=== PATIENT | male | born 1950 | race Caucasian/White ===

== ENCOUNTER 2024-05-19 10:58 | Outpatient (AMB) | payer OTHER, SELFPAY ==
--- NOTE | 2024-05-19 11:02 | MHC.PC.OV ---
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 Telecommunicator Supervisor Required: No Allergies No Known Allergies Allergy (Verified 05/26/24 10:45) Tobacco use date assessed: 05/19/24 Fall risk assessment: No Falls in past year Last assessed Fall Risk: 05/19/24 Dental Screening Dental Screen Date: 05/19/24 Did you have a dental visit in the last 12 months?: Yes Did you have a dental problem in the last 6 months where you did not have access to dental care?: No Was dental information given to patient?: Patient has dentist HPI HPI Comments History of Present Illness Details New patient Relocated from [place], [place] to [facility] in 01/2024 Prior PCP:?[facility]. Dr. Kris López Last office visit/CPE: About 16 months Acute issue(s): Palpitations -He is on flecainide 50 mg twice daily, and metoprolol succinate 50 mg daily A-fib - He is on Eliquis 5 mg twice daily He notes that he has been making healthy dietary choices and exercising routinely. He generally sleeps well He offers no complaints and denies acute symtpoms at this time PMHx: Palpitations, GERD, BCC of skin of face, psoriasis, cataract of both eyes SurgHx: Cervical spine fusion, lumbar spine fusion FHx: None SocHx: Nonsmoker. Drinks 1 glass of gin weekly. No recreation drugs Last eye Exam was in 10/2023: cataract of both eyes Last colonoscopy was over 10 years ago. He has been doing Cologuard tests which have been normal. He is due for a Cologuard test in 08/2024 He is up-to-date on the pneumonia vaccines He was evaluated in the ED after receiving his first shingrix vaccine in 06/2023. He was diagnosed with A-fib. He no longer wants the shingrix vaccine He is up-to-date on the flu vaccine His last tetanus vaccine is unknown. He will review his record to determine when he is due He was followed by cardiology, dermatology, pain management, and ophthalmology in [place] and requests new referrals to establish care [facility] Medical History Basal cell carcinoma of skin of face Psoriasis Acid reflux Heart palpitations Surgical History S/P cervical spinal fusion History of lumbar fusion Social History Housing: House Alcohol intake: current Alcohol intake frequency: a few times a month Alcohol type: hard liquor Patient Tobacco Use Status: Never used Tobacco e-Cigarette/Vaping Use: Never Used Second Hand Smoke Exposure: No service: No Current occupational status: retired Current occupational exposures/hazards: No Cognitive needs: No Hearing needs: No Vision needs: Yes Questionnaire PHQ-9 Over the last 2 weeks, how often have you been bothered by any of the following problems? 1. Little interest or pleasure in doing things: not at all 2. Feeling down, depressed, or hopeless: not at all 3. Trouble falling or staying asleep, or sleeping too much: not at all 4. Feeling tired or having little energy: not at all 5. Poor appetite or overeating: not at all 6. Feeling bad about yourself - or that you are a failure or have let yourself or your family down: not at all 7. Trouble concentrating on things, such as reading the newspaper or watching television: not at all 8. Moving or speaking so slowly that other people could have noticed. Or the opposite - being so fidgety or restless that you have been moving around a lot more than usual: not at all 9. Thoughts that you would be better off or of hurting yourself in some way: not at all Total score: 0 Depression Screening Interpretation: Negative Depression Screening Done: Yes 74412 - PHQ-9 Billing: Yes Source: Developed by Drs. Kris Rodrigues, Simona Stone, Jonn Restrepo and colleagues, with an educational martha from [employer]. Thrive Questionnaire Date Thrive assessed: 05/19/24 I am a: Patient What is your living situation today?: I have a steady place to live Within the past 12 months, did the food you bought not last and you didn't have the money to get more?: Never true Within the past 12 months, did you worry whether your food would run out before you got money to buy more?: Never true Do you have trouble paying for medicines?: No Do you have trouble getting transportation to medical appointments?: No Do you have trouble paying your heating and electricity bill?: No Do you have trouble taking care of your child, family member or friend?: No Do you have trouble with day-to-day activities such as bathing, preparing meals, shopping, managing finances, etc.?: No Are you currently unemployed and looking for a job?: No Are you interested in more education?: No Please select the resources that you would like help with: None Currently or been in a relationship where the following occur: No concerns reported THRIVE Score: 0 AUDIT C Alcohol Use Questionnaire (AUDIT-C) 1. How often do you have a drink containing alcohol?: 2-4 times a month 2. How many drinks containing alcohol do you have on a typical day when you are drinking?: 1 or 2 3. How often do you have six or more drinks on one occasion?: Never Total Score: 2 ABEL-7 AMB Questionnaire ABEL-7 Date ABEL - 7 assessed: 05/19/24 Feeling nervous, anxious, or on edge: 0 = Not at all Not being able to stop or control worryin = Not at all Worrying too much about different things: 0 = Not at all Trouble relaxin = Not at all Being so restless that it is hard to sit still: 0 = Not at all Becoming easily annoyed or irritable: 0 = Not at all Feeling afraid as if something awful might happen: 0 = Not at all Total ABEL-7 score (0-4 normal; 5-9 mild; 10-14 moderate; 15-21 severe): 0 Source: Developed by Drs. Kris Rodrigues, Simona Stone, Jonn Restrepo and colleagues, with an educational martha from [employer]. ABEL-7 Assessment Billing ABEL-7 Assessment Tool: ABEL-7 Assessment 98538 Review of Systems Const Details: Denies chills, Denies fatigue, Denies fever(s), Denies headache(s) and Denies weakness HEENT Denies change in vision, Denies dizziness, Denies headache(s), Denies hearing loss, Denies nasal congestion, Denies sinus pain, Denies sinus pressure and Denies sore throat Card Denies chest pain, Denies lightheadedness, Denies dyspnea and Denies other (palpitations) Resp Denies cough, Denies dyspnea and Denies wheezing GI Denies abdominal pain, Denies melena, Denies hematochezia, Denies change in bowel habits, Denies dyspepsia and Denies nausea Denies hematuria and Denies dysuria Musc Denies abnormal gait, Denies myalgias, Denies arthralgias, Denies numbness and Denies tingling Skin/Breast Denies rash, Denies unusual bruising and Denies wounds Neuro Denies abnormal gait, Denies dizziness, Denies headache(s), Denies memory loss, Denies numbness, Denies Sensory deficit (Neuro), Denies tingling and Denies weakness Psych Denies anxiety, Denies depression and Denies memory loss Endo Denies cold intolerance, Denies fatigue, Denies heat intolerance, Denies polydipsia and Denies polyuria Chi/Lymph Denies easy bleeding and Denies easy bruising Aller/Immun Denies wheezing Physical exam (Primary Care) Vital Signs: Last Vital Signs Temp 98.2 F 05/19/24 11:12 Pulse 67 05/19/24 11:12 Resp 16 05/19/24 11:12 BP 118/68 05/19/24 11:12 Pulse Ox 99 05/19/24 11:12 Oxygen Delivery Method Room Air 05/19/24 11:12 BMI result Body Mass Index 28.0 Tobacco/Smoking Status: Tobacco use Status Tobacco use date assessed 05/19/24 05/19/24 11:27 Patient Tobacco Use Status Never used Tobacco 05/19/24 11:27 e-Cigarette/Vaping Use Never Used 05/19/24 11:27 PHQ-9: PHQ-9 Score PHQ-9: Total score 0 05/19/24 11:55 Depression Screening Interpretation: Negative Thrive Assessment: Date of Thrive Assessment Date Thrive assessed 05/19/24 05/19/24 11:04 Currently or been in a relationship where the following occur: No concerns reported Const Other: General: no acute distress, well developed, alert and awake Nutritional Appearance: well nourished Orientation/consciousness: patient oriented x3 [facility] Head: Yes normocephalic and Yes atraumatic Ears: hearing grossly normal bilaterally and TM's normal bilaterally General nose exam: Normal external nose present and Normal nares present Mouth: Normal oral and palatal mucosa present and moist mucous membranes Teeth and gingiva: dentition normal Throat: Yes oropharynx normal Eyes Pupils: Equal, round and reactive pupils present and Pupil accommodation reflex normal EOM: EOMs intact bilaterally Neck Neck: Yes normal visual inspection, Yes no lymphadenopathy and Yes trachea midline Thyroid: Thyroid normal Carotids: no bruits Lymphatic: no lymphadenopathy noted Chest Chest palpation & inspection: normal inspection of the chest Resp Effort & Inspection: normal respiratory effort Auscultation: clear to auscultation bilaterally Cardio Rate: regular rate Rhythm: regular rhythm Heart sounds: S1 normal heart sound present, S2 normal heart sound present, no gallops, no murmurs and no rubs Bruits: no abdominal aortic bruits and no carotid bruits GI Palpation (GI): No Abdominal aortic bruit present, Soft to palpation, nontender, No hepatosplenomegaly present and No Rebound tenderness present Auscultation: normal bowel sounds General: Yes no CVA tenderness Back/Spine/Pelvis Back: no CVA tenderness Cervical Spine: cervical ROM normal and No Cervical spine tenderness Thoracic/Lumbar Spine: thoraco-lumbar ROM normal, No pain with thoraco-lumbar ROM, No thoracic spinal tenderness and No lumbar spinal tenderness Skin General: warm and dry. Normal skin color. Normal skin turgor Lesions: no lesions Rashes: no rashes Trauma: no lacerations or abrasions Wounds: no wounds Nails: normal Neuro General: patient oriented x3, gait normal and CN's II-XI intact bilaterally Cranial nerves: Yes Equal, round and reactive pupils present Cognition (Neuro): normal cognition Gait exam (Neuro): Normal gait present Motor exam (neuro): 5/5 motor strength present throughout Sensory Exam: No Sensory deficit (Neuro) Deep tendon reflexes (DTR's): Right patellar reflex intensity grade: 2+ and Left patellar reflex intensity grade: 2+ Extrem General: Yes normal to inspection, No edema and No calf tenderness Psych Appearance: grossly normal Affect: normal affect Attitude: cooperative Thought process: Normal thought process present Coding Level of Care Code New Pt Prev Care >65yr (95650) Diagnoses Annual wellness visit Z00.00 Heart palpitations R00.2 A-fib I48.91 Basal cell carcinoma of skin of face C44.310 Psoriasis L40.9 Cataracts, both eyes H26.9 History of lumbar fusion Z98.1 S/P cervical spinal fusion Z98.1 Laboratory tests ordered as part of a complete physical exam (CPE) Z00.00 Additional Codes ABEL-7 Assessment Billing - ABEL-7 Assessment Tool: ABEL-7 Assessment 78005 ([id number]) PHQ-9 - 51607 - PHQ-9 Billing: Yes ([id number]) Assessment & Plan Assessment & Plan (1) Annual wellness visit: Code(s): Z00.00 - Encounter for general adult medical examination without abnormal findings Category: Medical Plan: No significant functional limitation noted (2) Heart palpitations: Code(s): R00.2 - Palpitations Category: Medical Plan: On metoprolol 50 mg daily and flecainide 50 mg twice daily He was followed by cardiology before relocating to [facility] Referred [place] [facility] [place] (3) A-fib: Code(s): I48.91 - Unspecified atrial fibrillation Category: Medical Plan: On Eliquis 5 mg twice daily He was followed by Cardiology before relocating to [facility] Referred [place] [facility] [place] (4) Basal cell carcinoma of skin of face: Code(s): C44.310 - Basal cell carcinoma of skin of unspecified parts of face Category: Medical Plan: History of basal cell carcinoma of the face and psoriasis He was followed by Dermatology before relocating to [facility] Referred to Dermatology (5) Psoriasis: Code(s): L40.9 - Psoriasis, unspecified Category: Medical Plan: Plan as above (6) Cataracts, both eyes: Code(s): H26.9 - Unspecified cataract Category: Medical Plan: He was followed by ophthalmology before relocating to [facility] Referred to Ophthalmology (7) History of lumbar fusion: Code(s): Z98.1 - Arthrodesis status Category: Surgical Plan: He has history of cervical and lumbar spine fusion. He was followed by pain management before relocating to [facility] Referred to [facility] [place] management (8) S/P cervical spinal fusion: Comment: ,1993 Code(s): Z98.1 - Arthrodesis status Category: Surgical Plan: Plan as above (9) Laboratory tests ordered as part of a complete physical exam (CPE): Code(s): Z. - Encounter for general adult medical examination without abnormal findings Category: Medical Plan: Fasting labs ordered as part of a complete physical exam. Advised to fast for at least 10 hours before getting labs drawn. May drink water Verbalized understanding and agreed with treatment plan. Orders: Orders Lipid Panel 05/26/24 Z.00 - Encounter for general adult medical examination without abnormal findings Microalbumin, Random (w Creat) 05/26/24 Z00.00 - Encounter for general adult medical examination without abnormal findings PSA, Ultra Sensitive 05/26/2400.00 - Encounter for general adult medical examination without abnormal findings Complete Blood Count Auto Diff 05/26/2400.00 - Encounter for general adult medical examination without abnormal findings Comprehensive [place]. Panel Fast 05/26/24 Z00.00 - Encounter for general adult medical examination without abnormal findings TSH reflex Free T4 05/26/24 Z00.00 - Encounter for general adult medical examination without abnormal findings UA CC w/rflx Micro + Cult 05/26/24 Z00.00 - Encounter for general adult medical examination without abnormal findings Referrals Cardiology Referral R00.2 - Palpitations, I48.91 - Unspecified atrial fibrillation Pain Management Referral Z98.1 - Arthrodesis status Dermatology Referral C44.310 - Basal cell carcinoma of skin of unspecified parts of face, L40.9 - Psoriasis, unspecified Ophthalmology Referral H26.9 - Unspecified cataract
[2024-05-19 11:12] VITALS: BP 118/68; PULSE 67; RESP 16; TEMP 36.8; O2SAT 99; BMI 28.0
== END 2024-05-19 12:02 | disposition home or self-care (01) ==
PROVIDERS: PCP Nurse Practitioner Family; Visit Provider Nurse Practitioner Family
DX: Z00.00 Encounter for general adult medical examination without abnormal findings (principal); R00.2 Palpitations; I48.91 Unspecified atrial fibrillation; C44.310 Basal cell carcinoma of skin of unspecified parts of face; L40.9 Psoriasis, unspecified; H26.9 Unspecified cataract; Z98.1 Arthrodesis status

== ENCOUNTER → 2024-05-19 10:58 | Outpatient (BNVA) | payer OTHER, SELFPAY | PROVIDERS: Visit Provider Nurse Practitioner Family | DX: Z00.00 Encounter for general adult medical examination without abnormal findings (principal); R00.2 Palpitations; I48.91 Unspecified atrial fibrillation; C44.310 Basal cell carcinoma of skin of unspecified parts of face; L40.9 Psoriasis, unspecified; H26.9 Unspecified cataract; Z85.828 Personal history of other malignant neoplasm of skin; Z79.01 Long term (current) use of anticoagulants; Z79.899 Other long term (current) drug therapy; Z98.1 Arthrodesis status | CPT/HCPCS: 96127 ==

== ENCOUNTER 2024-05-26 08:00 | Outpatient (REF) | payer OTHER, SELFPAY ==
[2024-05-26 11:09] LABS: MANUAL DIFF FLAG NO
[2024-05-26 11:16] LABS: Basophils Percent Auto 0.6 % (0-2); Eosinophils Absolute Auto 0.4 X10*3/uL (0.0-0.4); Eosinophils Percent Auto 5.5 % (0-4); Hematocrit 43.2 % (42.0-52.0); Hemoglobin 14.8 g/dl (14.0-18.0); Imm Gran Abs Auto 0.02 X10*3/uL (0.00-0.03); Imm Gran Pct Auto 0.3 % (0.0-0.4); Lymphocytes Absolute Auto 1.9 X10*3/uL (1.2-4.9); Lymphocytes Percent Auto 26.7 % (20-40); Mean Corpuscular HGB Conc 34.3 g/dl (31.0-36.0); Mean Corpuscular Volume 87.6 fL (80.0-98.0); Mean Platelet Volume 10.7 fL (9.4-12.4); Monocytes Absolute Auto 0.6 X10*3/uL (0.1-1.2); Monocytes Percent Auto 8.8 % (2-11); Neutrophils Percent Auto 58.1 % (45-73); Platelet Count 297 X10*3/uL (160-400); Red Blood Count 4.93 X10*6/uL (4.60-5.80); Red Cell Distribution Width 13.3 % (11.0-16.0); White Blood Count 6.9 X10*3/uL (4.8-10.8)
[2024-05-26 11:24] LABS: Appearance Urine Clear; Color Urine Yellow; Glucose Urine UA Negative (Negative); Leukocyte Esterase Urine Negative (Negative); Nitrite Urine Negative (Negative); Urine Blood Negative (Negative); Urine Ketones Negative (Negative); Urine Protein Negative (Neg-Trace)
[2024-05-26 11:53] LABS: Creatinine Urine 240.57 mg/dL; Microalbum/Creatinine Ratio Ur 3.3 ug/mg cr (<30)
[2024-05-26 12:11] LABS: Alanine Aminotransferase 29 U/L (0-40); Albumin Level 4.3 g/dL (3.5-5.0); Alkaline Phosphatase 70 U/L (39-117); Anion Gap 9 (12-20); Aspartate Amino Transferase 27 U/L (5-37); Bilirubin Total 0.9 mg/dL (0.0-1.0); Blood Urea Nitrogen 12 mg/dL (9-16); Calcium 9.8 mg/dL (8.4-10.2); Carbon Dioxide 26 mmol/L (22-29); Chloride 108 mmol/L (96-108); Cholesterol 177 mg/dL (<200); Estimated Glomerular Filt Rate > 60; Glucose Fasting 100 mg/dL (60-99); HDL Cholesterol 48 mg/dL (>40); LDL Cholesterol Calculated 112 mg/dL (<100); Potassium 3.9 mmol/L (3.3-5.1); Sodium 139 mmol/L (135-145); TSH reflex Free T4 2.35 uIU/mL (0.32-4.0); Triglycerides 89 mg/dL (<150)
[2024-06-02 21:59] LABS: PSA, Ultra Sensitive 1.34 ng/mL
== END 2024-05-26 08:01 | disposition home or self-care (01) ==
LOC: HO.WFDLDS 08:00
PROVIDERS: Visit Provider Nurse Practitioner Family
DX: Z00.00 Encounter for general adult medical examination without abnormal findings (principal); Z12.5 Encounter for screening for malignant neoplasm of prostate
CPT/HCPCS: 36415; 80053; 80061; 81003; 82043; 82570; 84153; 84443; 85025

== ENCOUNTER 2024-05-26 09:25 | Outpatient (AMB) | payer OTHER, SELFPAY ==
--- NOTE | 2024-05-26 09:27 | A.OFFVIS_ITS ---
Vital Signs 3 05/26/24 09:32 Height 6 ft 1 in Weight 208 lb 6 oz BMI 27.5 BP 156/72 H Blood Pressure Location Lt brachial Position Sitting Pulse 54 Pulse Source Pulse Oximeter Oxygen Delivery Method Room Air Intake Visit Reasons: Arthrodesis Status Intake Note: Pain today 410 Allergies No Known Allergies Allergy (Verified 05/26/24 10:45) HPI HPI Arthrodesis Status: Details: Patient is a pleasant 74 year old male with a history of 3 cervical fusions, lumbar fusion, chronic neck and low back pain, arthritis, gastritis, palpitation, AFib, presents today to establish care and discuss treatments for right-sided neck pain. Patient recently moved from [place] where he was followed by Pain Clinic, Dr. Conrad Real. He denies any recent trauma, injury, or falls. Patient reports history of left cervical medial branch blocks and left C5-C6 cervical RFA in 2021 with good results. Patient also underwent extensive conservative treatments including multiple courses of physical and chiropractic therapy, massages, TENS unit and medical management with opioids, muscle relaxants with his previous provider in [place]. Complete medical record from previous pain clinic has been scanned into patient?s chart today. Patient reports right-sided neck pain with movements, especially with bending and lateral rotations. Neck pain radiates into his right upper extremity to the elbow, wrist and 3rd through 5th fingers with associated numbness and tingling. His pain is most severe in the late morning and early evening which he rates 8/10 and least severe 1st thing in the morning, rated 3/10. Pain affects his daily activities and functioning, mobility, sleep, and social interactions. He is interested to undergo right-sided cervical medial branch blocks for potential therapeutic injections or RFA procedure. Denies any fever or chills, dizziness, shortness of breath, chest pain, gait imbalances, bladder or bowel dysfunction or saddle anesthesia. Patient is currently on Eliquis 5 mg BID, pending Cardiology referral to establish care, was managed by Dr. Terry in [facility], . Location: Neck pain h/o cervical fusion at multiple levels 1993, 2007, 2018 Duration: Chronic pain for many years Characteristics of symptom or complaint: Aching, sore, hurting, dull, heavy, spasming, tiring, tight Aggravating or associated factors: Movements, flexion, looking down, weather changes, stress Relieving factors: Percocet, hydrocodone, cyclobenzaprine, heat, exercises, massages Treatment: Injections, PT, cervical medial branch RFA, TENS unit, chiropractic therapy [facility] Medical History Basal cell carcinoma of skin of face Psoriasis Acid reflux Heart palpitations Surgical History S/P cervical spinal fusion History of lumbar fusion Social History Housing: House Alcohol intake: current Alcohol intake frequency: a few times a month Alcohol type: hard liquor Patient Tobacco Use Status: Never used Tobacco e-Cigarette/Vaping Use: Never Used Second Hand Smoke Exposure: No service: No Current occupational status: retired Current occupational exposures/hazards: No Cognitive needs: No Hearing needs: No Vision needs: Yes Review of Systems Const All systems reviewed & are unremarkable except as noted in HPI and below Physical Exam Vital Signs: Last Vital Signs Pulse 54 05/26/24 09:32 BP 156/72 H 05/26/24 09:32 Oxygen Delivery Method Room Air 05/26/24 09:32 BMI result Body Mass Index 27.5 General: Appears afebrile. No acute distress. Alert and oriented. Mood and affect appropriate. Pleasant. Follows and participates in conversation appropriately. Respiratory effort is unlabored. Non-productive cough at times. Able to transition from sit to stand unassisted. Ambulates with bilaterally normal heel strike and toe off. Neck Neck: Yes no lymphadenopathy, Yes supple, No anterior neck swelling, Yes no JVD, No prominent supraclavicular fat pad and No prominent dorsocervical fat pad General: Yes no CVA tenderness Back/Spine/Pelvis Other: Patient with decreased cervical ROM in all planes/especially with right lateral rotation. Limited extension. Reports increased pain with cervical flexion. Spurling compression test is negative. Pain is unchanged by Spurling maneuver with retraction. Elvey's tension test negative bilaterally. Lhermitte's test was negative. DTR intact, +1 and symmetrical. No clonus. Patient demonstrated 5/5 motor strength of bilateral upper extremities. 2 + radial pulses. Significant tightness throughout right upper trapezius as well as TTP throughout bilateral upper trapezius muscles. No paravertebral tenderness over facet joints bilaterally. Back: no CVA tenderness Cervical Spine: No Lhermitte's sign positive, loss of normal cervical lordosis, cervical muscular tenderness, pain with cervical ROM, Cervical spine scars present, cervical spasm (right), No Cervical spine tenderness and No step off deformity Thoracic/Lumbar Spine: thoracic and lumbar spine normal to inspection, Thoracic/lumbar spine scar(s), Lasegue's sign negative, straight leg raise negative bilaterally, No thoracic spinal tenderness and No lumbar spinal tenderness Results Reviewed Results Reviewed: Assessment & Plan Assessment & Plan (1) S/P cervical spinal fusion: Comment: 2018,2007,1993 Code(s): Z98.1 - Arthrodesis status Category: Surgical (2) Post laminectomy syndrome: Code(s): M96.1 - Postlaminectomy syndrome, not elsewhere classified Category: Medical (3) History of lumbar fusion: Code(s): Z98.1 - Arthrodesis status Category: Surgical (4) Cervical spondylosis: Code(s): M47.812 - Spondylosis without myelopathy or radiculopathy, cervical region Category: Medical (5) Muscle spasms of neck: Code(s): M62.838 - Other muscle spasm Category: Medical Plan Discussed interventional treatments for chronic neck pain with history of 3 cervical spine fusion, including diagnostic medial branch blocks for potential therapeutic injection, neuromodulation or RFA procedures. Patient reports excellent results with previous left medial branch RFA in 2021 with ongoing pain relief and prefers repeat same procedure on the right side. Schedule right diagnostic C4-C5-C6 medial branch blocks with local and fluoroscopy. Expectations, risks and benefits were reviewed. Patient is aware he will be contacted to schedule this procedure. Patient is currently on Eliquis 5 mg BID, pending Cardiology referral to establish care, was managed by Dr. Terry in [facility], . We will obtain permission from prescribing physician to hold Eliquis for 3 days prior to injections. Script sent for cyclobenzaprine 5 mg at bedtime p.r.n. muscle spasm and stiffness. Patient reports good tolerance with previous use and we will continue to monitor for any side or adverse effects. All questions were answered and the patient is in agreement of plan. Follow-up after injections and sooner as needed. Medications: New 2 cyclobenzaprine 5 mg PO BEDTIME 30 days PRN 60 tabs 0RF muscle spasm M96.1 - Postlaminectomy syndrome, not elsewhere classified, Z98.1 - Arthrodesis status Coding Level of Care Code New Pt Level 4 (49454) Complex EM visit Add On G2211 Diagnoses S/P cervical spinal fusion Z98.1 Post laminectomy syndrome M96.1 History of lumbar fusion Z98.1 Cervical spondylosis M47.812 Muscle spasms of neck M62.838
[2024-05-26 09:32] VITALS: BP 156/72; PULSE 54; BMI 27.5
== END 2024-05-26 10:13 | disposition home or self-care (01) ==
PROVIDERS: PCP Nurse Practitioner Family; Referring Provider Nurse Practitioner Family; Visit Provider Nurse Practitioner Family
DX: Z98.1 Arthrodesis status (principal); M96.1 Postlaminectomy syndrome, not elsewhere classified; M47.812 Spondylosis without myelopathy or radiculopathy, cervical region; M62.838 Other muscle spasm
CPT/HCPCS: 99204; G2211

== ENCOUNTER 2024-05-26 10:20 | Emergency (ER) | payer MEDICARE, SELFPAY ==
--- NOTE | ~2024-05-26 | XR_ITS ---
EXAMINATION: XR CHEST CLINICAL INFORMATION: sob, cough COMPARISON: None available. TECHNIQUE: 2 views of the chest were obtained. FINDINGS: No consolidation, pleural effusion or pneumothorax. Cardiomediastinal silhouette is normal in size. Multilevel thoracic spondylosis with calcification throughout the anterior longitudinal ligament. Metallic plate in the upper and lower cervical spine. XR/XR chest 2V IMPRESSION: No acute airspace disease. Concerning ankylosing spondylitis in the correct clinical settings. Electronically signed by: Kai Chávez MD 05/26/2024 01:22 PM [facility]
[2024-05-26 10:43] VITALS: BP 137/62; PULSE 57; RESP 18; TEMP 36.6; O2SAT 97; BMI 27.4
[2024-05-26 11:34] LABS: Influenza A PCR NEGATIVE (Negative); Influenza B PCR NEGATIVE (Negative); Resp Syncy Virus RNA Qual PCR NEGATIVE (Negative); SARS COV2 PCR INHOUSE NEGATIVE (Negative)
[2024-05-26 12:00] VITALS: BP 133/67; PULSE 59; RESP 16; TEMP 36.7; O2SAT 98
--- NOTE | 2024-05-26 13:55 | ED.URI ---
HPI - URI/Sore Throat General Chief Complaint: Upper Respiratory Symptoms Stated Complaint: Upper resp Time Seen by Provider: 05/26/24 12:02 Source: patient, RN notes reviewed and old records reviewed Mode of arrival: ambulatory History of Present Illness ED Provider: Araceli Sanchez PA-C HPI Narrative: 74-year-old male with past medical history palpitations, AFib on Eliquis, presenting to the ED complaining of congestion, productive cough of white/lemus phlegm, and nasal drip x5 weeks. Reports mild SOB and chest discomfort with cough. Denies fever, chills, travel, sore throat, pedal edema, sick contacts Related Data Home Medications ?Medication ?Instructions ?Recorded ?Confirmed apixaban 5 mg tablet (Eliquis) 5 mg PO BID 05/19/24 flecainide 100 mg tablet 50 mg PO Q12H 05/19/24 metoprolol succinate 50 mg 50 mg PO DAILY 05/19/24 tablet,extended release 24 hr diclofenac sodium 1 % topical gel 4 g topical QID 05/26/24 (Voltaren Arthritis Pain) Previous Rx's ?Medication ?Instructions ?Recorded benzonatate 100 mg capsule 100 mg PO TID PRN cough #14 caps 05/26/24 cyclobenzaprine 5 mg tablet 5 mg PO BEDTIME PRN muscle spasm 05/26/24 30 days #60 tabs prednisone 20 mg tablet 40 mg (2 x 20 mg) PO DAILY 5 days 05/26/24 #10 tabs Allergies Allergy/AdvReac Type Severity Reaction Status Date / Time No Known Allergies Allergy Verified 05/26/24 10:45 Review of Systems Review of Systems: Yes all other systems are reviewed and are negative Constitutional: Constitutional: Reports as per HPI ON LICENSE OF [facility] Past Medical History Attestation statement: The following information was validated with the patient. Source: old records reviewed Medical History Basal cell carcinoma of skin of face Psoriasis Acid reflux Heart palpitations Surgical History S/P cervical spinal fusion History of lumbar fusion Social History Social History Housing: House Alcohol intake: current Alcohol intake frequency: a few times a month Alcohol type: hard liquor Patient Tobacco Use Status: Never used Tobacco e-Cigarette/Vaping Use: Never Used Second Hand Smoke Exposure: No service: No Current occupational status: retired Current occupational exposures/hazards: No Cognitive needs: No Hearing needs: No Vision needs: Yes Physical Exam Vital Signs: Vital Signs: Last Vital Signs Temp 98.1 F 05/26/24 14:47 Pulse 59 05/26/24 14:47 Resp 16 05/26/24 14:47 BP 133/67 05/26/24 14:47 Pulse Ox 98 05/26/24 14:47 O2 Del Method Room Air 05/26/24 14:47 BMI result Body Mass Index 27.4 Const: General: cooperative, healthy appearing and no acute distress Orientation/consciousness: patient oriented x3 Limitations: no limitations HEENT: Head: Yes normal to inspection and Yes atraumatic Ears: hearing grossly normal bilaterally General nose exam: Normal external nose present Face and sinus: Yes normal facial exam Throat: Yes posterior oropharynx normal, Yes tonsils normal, Yes uvula midline, No uvula laterally displaced and No uvular edema Eyes: General: appearance normal, both eyes and all related structures EOM: EOMs intact bilaterally Neck: Neck: Yes normal visual inspection and Yes no meningeal signs Resp: Effort & Inspection: normal respiratory effort and no respiratory distress Auscultation: clear to auscultation bilaterally, no crackles and no wheezes Cardio: Rate: regular rate Heart sounds: S1 normal heart sound present and S2 normal heart sound present Skin: Rashes: no rashes Wounds: no wounds Neuro: General: patient oriented x3, tone normal and no meningeal signs Cranial nerves: Yes CN's II-XII intact bilaterally Gait exam (Neuro): Normal gait present Extrem: General: Yes normal to inspection Course Course Course Narrative: -labs reassuring. Viral studies negative. XR chest 2V IMPRESSION: No acute airspace disease. Concerning ankylosing spondylitis in the correct clinical settings. Results discussed with patient including worrisome signs and symptoms and strict return precautions, and when to return to the emergency department. They verbalized understanding and feel safe for discharge at this time. Medical Decision Making Medical Decision Making MDM Narrative: 74-year-old male with past medical history palpitations, AFib on Eliquis, presenting to the ED complaining of congestion, productive cough of white/lemus phlegm, and nasal drip x5 weeks. R on exam vital signs stable, NAD, nontoxic appearing, no focal neuro deficits, lungs CTA. Concern for viral illness vs bronchitis vs pneumonia. Low suspicion for ACS/PE or DVT Plan: Viral testing, CXR Please refer to course for remaining clinical decision making, interpretation of labs/imaging results, and discussions with consultants and/or family members. Differential Diagnosis Differential Diagnoses: The differential diagnosis associated with the presentation includes As above Lab Data MDM Lab Attestation statement: I reviewed the patient's lab results. Labs: Lab Results 05/26/24 05/26/24 Range/Units 10:53 13:18 Influenza Type A (PCR) NEGATIVE (Negative) Influenza Type B (PCR) NEGATIVE (Negative) RSV RNA Qual (PCR) NEGATIVE (Negative) SARS-CoV-2 RNA (RT-PCR) NEGATIVE (Negative) S. pyogenes GrpA LOREN Negative (Negative) Independent Interpretation I performed an independent interpretation of an: Plain X-Ray Radiology Impression Discussion of test interpretation with radiology: I have reviewed the radiologist's reading. External Record Review External record reviewed: Inpatient record, Office record, Outpatient record, Prior outpatient labs, Prior outpatient radiology, Primary care record and Outside ED record Tests considered The following testing was considered but not selected: As above Prescription Management I considered prescription management with: Pain Medication and Antibiotic Chronic Conditions Patient?s care impacted by: Other Discharge Plan Discharge Clinical Impression: Bronchitis Patient Disposition: Home, Self-Care Instructions: Acute Bronchitis (ED) Additional Instructions: Labs reassuring. You tested negative for COVID, flu, RSV Your x-ray does not show pneumonia You have bronchitis Prednisone as a steroid please take as prescribed Judith Guzman for cough, take as needed If her symptoms persist or worsen return to the ED Follow-up with your doctor Prescriptions: New prednisone 20 mg tablet 40 mg PO DAILY 5 Days Qty: 10 0RF benzonatate 100 mg capsule 100 mg PO TID PRN (Reason: cough) Qty: 14 0RF No Action Eliquis 5 mg tablet 5 mg PO BID metoprolol succinate 50 mg tablet extended release 24 hr 50 mg PO DAILY flecainide 100 mg tablet 50 mg PO Q12H diclofenac sodium [Voltaren Arthritis Pain] 1 % gel 4 g topical QID Rx Instructions: apply to single knee, ankle, foot; for foot includes sole/toes/top of foot cyclobenzaprine 5 mg tablet 5 mg PO BEDTIME PRN (Reason: muscle spasm) 30 Days Qty: 60 0RF Referrals: Cassidy Tenorio CNP [Primary Care Provider] - 5 days Interventions: ED Discharge Assessment Last Done: 05/26/24 14:47 Discharge Date/Time: 05/26/24 14:47 Print Language: [place] African
[2024-05-26 14:04] LABS: IDNOW Serial# 08D9AD1C; Strep A Nucleic Acid Negative (Negative)
[2024-05-26 14:47] VITALS: BP 133/67; PULSE 59; RESP 16; TEMP 36.7; O2SAT 98
--- NOTE | 2024-05-26 14:48 | PC.NURSE ---
pt left sunglasses behind called cell phone provided in chart to leave him a message @ 1448 NA phone call did not transfer to voicemail.
== END 2024-05-26 14:47 | disposition home or self-care (01) ==
PROVIDERS: Physician Assistant; Emergency Provider Emergency Medicine; PCP Nurse Practitioner Family
DX: J40 Bronchitis, not specified as acute or chronic (principal); Z03.818 Encounter for observation for suspected exposure to other biological agents ruled out; R06.02 Shortness of breath; R05.9 Cough, unspecified; Z79.01 Long term (current) use of anticoagulants; Z79.899 Other long term (current) drug therapy
CPT/HCPCS: 0241U; 71046; 87651; 99283

== ENCOUNTER → 2024-05-26 11:37 | Outpatient (BNV) | payer MEDICARE, SELFPAY | PROVIDERS: Emergency Provider Emergency Medicine; PCP Nurse Practitioner Family; Visit Provider Radiology Diagnostic Radiology | DX: R06.02 Shortness of breath (principal) | CPT/HCPCS: 71046 ==

== ENCOUNTER 2024-06-15 14:54 | Outpatient (AMB) | payer MEDICARE, SELFPAY ==
--- NOTE | 2024-06-15 14:48 | A.OFFPC_ITS ---
Intake Visit Reasons: Telehealth 2-3 wks labs Intake Note: patient here for telehealth for lab review Disability Hearing Officer Required: No Allergies No Known Allergies Allergy (Verified 06/15/24 14:49) Tobacco use date assessed: 06/15/24 Fall risk assessment: No Falls in past year Last assessed Fall Risk: 06/15/24 Dental Screening Dental Screen Date: 05/19/24 HPI HPI Comments History of Present Illness Details 74-year-old male presents for telehealth visit for review of recent lab results. He offers no complaints and denies acute symptoms at this time. He requested a Cologuard test for 08/2024. [facility] Medical History Basal cell carcinoma of skin of face Psoriasis Acid reflux Heart palpitations Surgical History S/P cervical spinal fusion History of lumbar fusion Social History Housing: House Alcohol intake: current Alcohol intake frequency: a few times a month Alcohol type: hard liquor Patient Tobacco Use Status: Never used Tobacco e-Cigarette/Vaping Use: Never Used Second Hand Smoke Exposure: No service: No Current occupational status: retired Current occupational exposures/hazards: No Cognitive needs: No Hearing needs: No Vision needs: Yes Questionnaire Thrive Questionnaire Date Thrive assessed: 05/12/24 I am a: Patient What is your living situation today?: I have a steady place to live Within the past 12 months, did the food you bought not last and you didn't have the money to get more?: Never true Within the past 12 months, did you worry whether your food would run out before you got money to buy more?: Never true Do you have trouble paying for medicines?: No Do you have trouble getting transportation to medical appointments?: No Do you have trouble paying your heating and electricity bill?: No Do you have trouble taking care of your child, family member or friend?: No Do you have trouble with day-to-day activities such as bathing, preparing meals, shopping, managing finances, etc.?: No Are you currently unemployed and looking for a job?: No Are you interested in more education?: No Please select the resources that you would like help with: None Currently or been in a relationship where the following occur: No concerns reported THRIVE Score: 0 ABEL-7 AMB Questionnaire ABEL-7 Date ABEL - 7 assessed: 05/19/24 Source: Developed by Drs. Kris Rodrigues, Simona Stone, Jonn Restrepo and colleagues, with an educational martha from [employer]. Review of Systems Const Details: Const Denies chills, Denies fatigue, Denies fever(s), Denies headache(s) and Denies weakness ENT Denies dizziness and Denies headache(s) Card Denies chest pain, Denies lightheadedness, Denies dyspnea and Denies other (Palpitations) Resp Denies cough, Denies dyspnea, Denies wheezing and Denies other ( shortness of breath) GI Denies abdominal pain, Denies melena, Denies hematochezia, Denies change in bowel habits, Denies dyspepsia and Denies nausea Denies hematuria and Denies dysuria Musc Denies abnormal gait, Denies myalgias, Denies arthralgias, Denies numbness and Denies tingling Skin/Breast Denies rash, Denies unusual bruising and Denies wounds Neuro Denies abnormal gait, Denies dizziness, Denies headache(s), Denies memory loss, Denies numbness, Denies Sensory deficit (Neuro), Denies tingling and Denies weakness Psych Denies anxiety, Denies depression, Denies memory loss Endo Denies cold intolerance, Denies fatigue, Denies heat intolerance, Denies polydipsia and Denies polyuria Aller/Immun Denies wheezing Physical exam (Primary Care) Tobacco/Smoking Status: Tobacco use Status Tobacco use date assessed 06/15/24 06/15/24 14:51 Patient Tobacco Use Status Never used Tobacco 06/15/24 14:51 e-Cigarette/Vaping Use Never Used 06/15/24 14:51 Thrive Assessment: Date of Thrive Assessment Date Thrive assessed 05/12/24 06/15/24 14:51 Currently or been in a relationship where the following occur: No concerns reported Const Other: Telehealth visit. No physical exam. Telehealth Telehealth Telehealth Platform: Telephone Location of provider rendering services: practice address Location of patient: address on file Patient Identification confirmed using: Name, : Yes Telehealth method: voice only Patient verbally consented to treatment: Yes Patient verbally consented to billing insurance company: Yes Patient informed of any privacy concerns related to visit: Yes Coding Level of Care Code Tele Est Pt Level 3 (02843) Diagnoses Elevated fasting glucose R73.01 Elevated LDL cholesterol level E78.00 Colon cancer screening Z12.11 Time Spent (min) 10 Assessment & Plan Assessment & Plan (1) Elevated fasting glucose: Code(s): R73.01 - Impaired fasting glucose Category: Medical Plan: Recent fasting glucose is slightly elevated, 100. Will recheck fasting glucose and make changes as needed. Advised to fast for 10-12 hours, may drink water only, and get blood work done. Verbalized understanding and agreed with the plan. (2) Elevated LDL cholesterol level: Code(s): E78.00 - Pure hypercholesterolemia, unspecified Category: Medical Plan: Recent LDL level is slightly elevated, 112, goal is less than 100. Advised to limit foods high in saturated fat and avoid foods high in trans fat. Routine exercise encouraged. He notes that his cholesterol level is being monitored by his assistant food service manager. Encouraged to follow-up with assistant food service manager as planned. Advised to schedule an extended physical exam for next year or return sooner with symptoms or concerns. Verbalized understanding and agreed with treatment plan. (3) Colon cancer screening: Code(s): Z12.11 - Encounter for screening for malignant neoplasm of colon Category: Medical Plan: Cologuard test ordered for 08/2024. Orders: Orders Glucose Fasting Today E78.00 - Pure hypercholesterolemia, unspecified Referrals Cologuard Test Z12.11 - Encounter for screening for malignant neoplasm of colon, Z12.12 - Encounter for screening for malignant neoplasm of rectum
== END 2024-06-15 15:09 | disposition home or self-care (01) ==
LOC: HO.HMCFM 14:54
PROVIDERS: PCP Nurse Practitioner Family; Visit Provider Nurse Practitioner Family
DX: R73.01 Impaired fasting glucose (principal); E78.00 Pure hypercholesterolemia, unspecified; Z12.11 Encounter for screening for malignant neoplasm of colon

== ENCOUNTER 2024-07-09 09:35 | Outpatient (AMB) | payer MEDICARE, SELFPAY ==
--- NOTE | 2024-07-09 09:42 | A.OFFVIS_ITS ---
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 Patient is also concerned for worsening radicular symptoms with neck pain radiating into both shoulders and now into left lower arm and 4-5th digits with numbness and tingling. Denies any recent trauma, injury or falls. He denies any carpal tunnel symptoms at the elbow or wrist areas. Neck pain with also easily reproduced with any movement, axial rotations and extension. Pain is rated at 8/10. His last cervical spine MRI was completed at 2019. Denies any recent cough, cold, infection, fever, bladder or bowel dysfunction, saddle anesthesia, gait instability, or any significant changes in medical history since last office visit. PRIOR: Patient is a pleasant 74 year old male with a history of 3 cervical fusions, lumbar fusion, chronic neck and low back pain, arthritis, gastritis, palpitation, AFib, presents today to establish care and discuss treatments for right-sided neck pain. Patient recently moved from [place] where he was followed by Pain Clinic, Dr. Conrad Real. He denies any recent trauma, injury, or falls. Patient reports history of left cervical medial branch blocks and left C5-C6 cervical RFA in 2021 with good results. Patient also underwent extensive conservative treatments including multiple courses of physical and chiropractic therapy, massages, TENS unit and medical management with opioids, muscle relaxants with his previous provider in [place]. Complete medical record from previous pain clinic has been scanned into patient?s chart today. Patient reports right-sided neck pain with movements, especially with bending and lateral rotations. Neck pain radiates into his right upper extremity to the elbow, wrist and 3rd through 5th fingers with associated numbness and tingling. His pain is most severe in the late morning and early evening which he rates 8/10 and least severe 1st thing in the morning, rated 3/10. Pain affects his daily activities and functioning, mobility, sleep, and social interactions. He is interested to undergo right-sided cervical medial branch blocks for potential therapeutic injections or RFA procedure. Denies any fever or chills, dizziness, shortness of breath, chest pain, gait imbalances, bladder or bowel dysfunction or saddle anesthesia. Patient is currently on Eliquis 5 mg BID, pending Cardiology referral to establish care, was managed by Dr. Terry in [facility] [place] [place], . Location: Neck pain h/o cervical fusion at multiple levels 1993, 2007, 2018 Duration: Chronic pain for many years Characteristics of symptom or complaint: Aching, sore, hurting, dull, heavy, spasming, tiring, tight Aggravating or associated factors: Movements, flexion, looking down, weather changes, stress Relieving factors: Percocet, hydrocodone, cyclobenzaprine, heat, exercises, massages Treatment: Injections, PT, cervical medial branch RFA, TENS unit, chiropractic therapy ADDENDUM Patient's neck pain is predominately axial in nature with intermittent radicular symptoms into his right arm and hand. He responded very well to previous left sided cervical medial branch RFA in 2021 and is interested to undergo right sided diagnostic cervical medial branch blocks for potential RFA procedure. [facility] Medical History Basal cell carcinoma of skin of face Psoriasis Acid reflux Heart palpitations Surgical History S/P cervical spinal fusion History of lumbar fusion Social History Housing: House Alcohol intake: current Alcohol intake frequency: a few times a month Alcohol type: hard liquor Patient Tobacco Use Status: Never used Tobacco e-Cigarette/Vaping Use: Never Used Second Hand Smoke Exposure: No service: No Current occupational status: retired Current occupational exposures/hazards: No Cognitive needs: No Hearing needs: No Vision needs: Yes Review of Systems Const All systems reviewed & are unremarkable except as noted in HPI and below Physical Exam Vital Signs: Last Vital Signs Pulse 65 07/09/24 09:45 BP 154/66 H 07/09/24 09:45 Pulse Ox 97 07/09/24 09:45 Oxygen Delivery Method Room Air 07/09/24 09:45 BMI result Body Mass Index 27.0 General: Appears afebrile. Alert and oriented. Mood and affect appropriate. Follows and participates in conversation appropriately. Respiratory effort is unlabored. No cough. Able to transition from sit to stand unassisted. Ambulates with bilaterally normal heel strike and toe off. Neck Neck: Yes normal visual inspection, Yes no lymphadenopathy, Yes supple, No anterior neck swelling, Yes no JVD, No prominent supraclavicular fat pad and No prominent dorsocervical fat pad General: Yes no CVA tenderness Back/Spine/Pelvis Other: Patient with decreased cervical ROM in all planes/especially with right lateral rotation. Limited extension and axial rotations. Reports increased pain with cervical flexion. Spurling compression test is equivocal. Pain is unchanged by Spurling maneuver with retraction. Elvey's tension test positive bilaterally, left worse than right. Lhermitte's test was negative. DTR intact, +1 and symmetrical. No clonus. Patient demonstrated 5/5 right and 4/5 left motor strength of bilateral upper extremities. 2 + radial pulses. No paravertebral tenderness over facet joints bilaterally. Back: no CVA tenderness Cervical Spine: No Lhermitte's sign positive, loss of normal cervical lordosis, cervical muscular tenderness, pain with cervical ROM, Cervical spine scars present, cervical spasm (right>left), No Cervical spine tenderness and No step off deformity Thoracic/Lumbar Spine: thoracic and lumbar spine normal to inspection, Thoracic/lumbar spine scar(s), Lasegue's sign negative, straight leg raise negative bilaterally, No thoracic spinal tenderness and No lumbar spinal tenderness Extrem General: Yes capillary refill normal, Yes no clubbing, cyanosis or edema and Yes no calf tenderness Results Reviewed Results Reviewed: Assessment & Plan Assessment & Plan (1) S/P cervical spinal fusion: Comment: Code(s): Z98.1 - Arthrodesis status Category: Surgical (2) Post laminectomy syndrome: Code(s): M96.1 - Postlaminectomy syndrome, not elsewhere classified Category: Medical (3) History of lumbar fusion: Code(s): Z98.1 - Arthrodesis status Category: Surgical (4) Cervical spondylosis: Code(s): M47.812 - Spondylosis without myelopathy or radiculopathy, cervical region Category: Medical (5) Muscle spasms of neck: Code(s): M62.838 - Other muscle spasm Category: Medical (6) Degenerative cervical spinal stenosis: Code(s): M48.02 - Spinal stenosis, cervical region Category: Medical Plan Discussed interventional treatments for chronic neck pain with history of 3 cervical spine fusion, including diagnostic medial branch blocks for potential therapeutic injection, neuromodulation or RFA procedures. Patient reports excellent results with previous left medial branch RFA in 2021 with ongoing pain relief and prefers repeat same procedure on the right side. Unfortunately his recent request for right diagnostic C4-C5-C6 MBBs were denied. Given worsening of radicular cervical spine pain with spinal stenosis symptoms, we will proceed with cervical spine MRI to assess for neural integrity and compression and follow up on previous MRI findings. Patient requests open MRI due to claustrophobia. All questions were answered and the patient is in agreement of plan. Follow-up for MRI results and sooner as needed. Orders: Orders 2 MR cervical spine wo/w con Today M47.812 - Spondylosis without myelopathy or radiculopathy, cervical region, M48.02 - Spinal stenosis, cervical region, M96.1 - Postlaminectomy syndrome, not elsewhere classified, Z98.1 - Arthrodesis status Coding Level of Care Code Est Pt Level 4 (46867) Complex EM visit Add On G2211 Diagnoses S/P cervical spinal fusion Z98.1 Post laminectomy syndrome M96.1 History of lumbar fusion Z98.1 Cervical spondylosis M47.812 Muscle spasms of neck M62.838 Degenerative cervical spinal stenosis M48.02
[2024-07-09 09:45] VITALS: BP 154/66; PULSE 65; O2SAT 97; BMI 27.0
== END 2024-07-09 10:12 | disposition home or self-care (01) ==
PROVIDERS: PCP Nurse Practitioner Family; Visit Provider Nurse Practitioner Family
DX: Z98.1 Arthrodesis status (principal); M96.1 Postlaminectomy syndrome, not elsewhere classified; M47.812 Spondylosis without myelopathy or radiculopathy, cervical region; M62.838 Other muscle spasm; M48.02 Spinal stenosis, cervical region
CPT/HCPCS: 99214; G2211

== ENCOUNTER → 2024-07-09 09:35 | Outpatient (BNVA) | payer MEDICARE, SELFPAY | PROVIDERS: PCP Nurse Practitioner Family; Visit Provider Nurse Practitioner Family | DX: M96.1 Postlaminectomy syndrome, not elsewhere classified (principal); M47.812 Spondylosis without myelopathy or radiculopathy, cervical region; M62.838 Other muscle spasm; M48.02 Spinal stenosis, cervical region; Z98.1 Arthrodesis status | CPT/HCPCS: 99212 ==

== ENCOUNTER 2024-07-23 08:23 | Outpatient (REF) | payer MEDICARE, SELFPAY ==
[2024-07-23 12:11] LABS: Glucose Fasting 92 mg/dL (60-99)
== END 2024-07-23 08:24 | disposition home or self-care (01) ==
LOC: HO.WFDLDS 08:23
PROVIDERS: Visit Provider Nurse Practitioner Family
DX: E78.00 Pure hypercholesterolemia, unspecified (principal)
CPT/HCPCS: 36415; 82947

== ENCOUNTER → 2024-07-31 10:22 | Outpatient (BNVA) | payer MEDICARE, SELFPAY | PROVIDERS: PCP Nurse Practitioner Family; Visit Provider Nurse Practitioner Family | DX: M47.812 Spondylosis without myelopathy or radiculopathy, cervical region (principal); M25.512 Pain in left shoulder; M62.838 Other muscle spasm; R20.0 Anesthesia of skin; R20.2 Paresthesia of skin; Z98.1 Arthrodesis status | CPT/HCPCS: 99212 ==

== ENCOUNTER 2024-08-13 06:18 | Outpatient (REF) | payer MEDICARE, SELFPAY ==
--- NOTE | ~2024-08-13 | FL_ITS ---
EXAMINATION: FL GUIDANCE ONLY HISTORY: M48.02 - Spinal stenosis, cervical region COMPARISON: None available. TECHNIQUE: Fluoroscopy time: 0.1 minutes. Cumulative Dose: 0.427 mGy. DAP: 0.10386 mGym2 Images: 2. FINDINGS: AP and lateral fluoroscopic spot films of the cervical spine demonstrate anterior fusion of C3 and C4 with plate and screws and an intervertebral spacer. FL/FL guidance in treatment room IMPRESSION: Fluoroscopy during procedure. Please see procedure report for additional information. Electronically signed by: Kris Quiroz MD 08/13/2024 11:15 AM LIL[facility]
== END 2024-08-13 06:19 | disposition home or self-care (01) ==
LOC: CF 06:18
PROVIDERS: Visit Provider Internal Medicine
DX: M48.02 Spinal stenosis, cervical region (principal); M47.812 Spondylosis without myelopathy or radiculopathy, cervical region; Z98.1 Arthrodesis status
CPT/HCPCS: 64490; 64491; J2795; Q9967

== ENCOUNTER → 2024-08-13 08:39 | Outpatient (AMB) | payer MEDICARE, SELFPAY ==
--- OUTSIDE RECORDS SUMMARY | 2024-08-13 08:55 | XMS_ITS | Continuity of Care Document ---
Author Organization [facility] Address [address] [place] [address] Phone Care Team Providers Care Ornamenter Hand Name Role Phone Bobo COLÓN, Angel Unavailable Unavailable Allergies, Adverse Reactions, Alerts Substance Reaction Status Criticality No Known Allergies Active No Inform ation Medications Medication Instructions Dosage Effective Dates (start - stop) Status Comments tramadol 50 mg tablet take 1-2 tablet by oral route every 6 hours - Active Zyrtec 10 mg tablet take 1 tablet by ora l route every day 10 MG - Active flecainide 100 mg tablet take 1 tablet by oral route every 12 hours 100 MG - Active Voltaren Arthritis Pain 1 % topical gel apply 2 gram by topical route 4 times every day to the affected area(s) 2.00 gram - Active metoprolol tartrate 50 mg tablet take 1 tablet by oral route 2 times every day with meals 50 MG - Active omeprazole 20 mg tablet,delayed release - Active Problems Condition Type Effective Dates (start - stop) Clini donita Status Comments No Known Problems Procedures Procedure Date OFFICE/OUTPATIENT VISIT, EST Physical Therapy Exercises, Each 15 Marva brooke Manual therapy, 1+ regions, each 15 marva brooke Physical Therapy Exercises, Each 15 Marva brooke Manual therapy, 1+ regions, each 15 marva brooke Physical Therapy Exercises, Each 15 Marva brooke Manual therapy, 1+ regions, each 15 marva brooke Physical Therapy Exercises, Each 15 Marva brooke Manual therapy, 1+ regions, each 15 marva brooke Physical Therapy Exercises, Each 15 Marva brooke Manual therapy, 1+ regions, each 15 marva brooke Physical Therapy Exercises, Each 15 Marva brooke Manual therapy, 1+ regions, each 15 marva brooke Physical Therapy Exercises, Each 15 Marva brooke Manual therapy, 1+ regions, each 15 marva brooke Physical Therapy Exercises, Each 15 Marva brooke Manual therapy, 1+ regions, each 15 marva brooke Physical Therapy Exercises, Each 15 Marva brooke Manual therapy, 1+ regions, each 15 marva brooke Postop Follow-Up Visit Inc [employer] Physical Therapy Exercises, Each 15 Marva brooke Manual therapy, 1+ regions, each 15 marva brooke Physical Therapy Exercises, Each 15 Marva brooke Manual therapy, 1+ regions, each 15 marva brooke Physical Therapy Exercises, Each 15 Marva brooke Manual therapy, 1+ regions, each 15 marva brooke Elbow Orthotic EO WO Joints May Include Soft Inte Physical Therapy Exercises, Each 15 Marva brooke Manual therapy, 1+ regions, each 15 marva brooke Physical Therapy Exercises, Each 15 Marva brooke Manual therapy, 1+ regions, each 15 mavra brooke Physical Therapy Exercises, Each 15 Marva brooke Manual therapy, 1+ regions, each 15 marva brooke Physical Therapy Exercises, Each 15 Marva brooke Manual therapy, 1+ regions, each 15 marva brooke Physical Therapy Exercises, Each 15 Marva brooke Manual therapy, 1+ regions, each 15 marva brooke Physical Therapy Exercises, Each 15 Marva brooke Manual therapy, 1+ regions, each 15 marva brooke Physical Therapy Exercises, Each 15 Marva brooke Manual therapy, 1+ regions, each 15 marva brooke Physical Therapy Exercises, Each 15 Marva brooke Manual therapy, 1+ regions, each 15 marva brooke Postop Follow-Up Visit Inc Avanzitic Manual therapy, 1+ regions, each 15 marva brooke Manual therapy, 1+ regions, each 15 marva brooke Physical Therapy Exercises, Each 15 Marva brooke Manual therapy, 1+ regions, each 15 marva brooke OT EVAL MOD COMPLEX 45 MIN Arthroscopy, elbow, debridement limited Revision of major arm/leg nerve 023 VTE Prophylaxis Order Given Prophylactic Antibiotic Ordered 023 Prophylactic Antibiotic Given OFFICE/OUTPATIENT VISIT, EST OFFICE/OUTPATIENT VISIT, NEW Xray Elbow Complete Minimum 3 Views List Of Current Meds and Verified With P atient OFFICE/OUTPATIENT VISIT, EST Postop Follow-Up Visit Inc [employer] Dir laryngoscopy w/injection w/op micro OFFICE/OUTPATIENT VISIT, EST OFFICE/OUTPATIENT VISIT, EST Flexible fiberoptic diagnostic laryngosc opy OFFICE/OUTPATIENT VISIT, NEW CPTR OPHTH DX IMG POST [facility] Comprehensive eye examin, established akthi doll CPTR OPHTH DX IMG POST SEGKY Comprehensive eye examin, established kathi doll CPTR OPHTH DX IMG POST [facility] Intermediate eye exam, established carolyn burgess CPTR OPHTH DX IMG POST SEGMT Intermediate eye exam, established carolyn nt Determination of refractive state CPTR OPHTH DX IMG POST SEGMT Intermediate eye exam, established davidjanet nt Fundus photography Fluorescein angioscopy, damaris pollacknalini mills CPTR OPHTH DX IMG POST SEGMT Comprehensive eye examin, established kathi doll CPTR OPHTH DX IMG POST SEGMT Postop Follow-Up Visit Inc Avanzitic CPTR OPHTH DX IMG POST SEGMT Postop Follow-Up Visit Inc [email or web address] Postop Follow-Up Visit Inc [email or web address] ServDanal d/b/a [employer] VIT FOR MACULAR PUCKER Fundus photography OFFICE/OUTPATIENT VISIT, EST CPTR OPHTH DX IMG POST SEGMT Comprehensive eye exam, new patient Advance Directives Directive Yes / No Effective Date File Name No Information Encounters Encounter Description Practice Location Reason(s) For Visit Diagnoses Date Provider Providers Copied on Encounter OFFICE/OUTPA TIENT VISIT, EST [facility] [address], [place], [place], [id number] , [place] tel:[phone] [facility] post-op visit (chief complaint) Body mass index (BMI) 27.0-27.9, adultOther specified postprocedura l statesRight tennis elbow 4 Bobo Ortiz. [address] [place] [address], [id number], [place]. tel:[phone] Referring Provider: Angel Kern, [address] [place] [address], [address] . tel:[phone] [facility] [address], [place], [place], [address] , [place] tel:[phone] [facility] No Information 4 Fahad Burton. [address] [place] [address], [id number], . tel:[phone] Referring Provider: Angel Kern, [address] [place] [address], [address] . tel:[phone] [facility] [address], [place], [place], [id number] , tel:[phone] [facility] No Information 4 Fahad Burton. [address] [place] [address], [id number], . tel:[phone] Referring Provider: Angel Kern, [address] [place] [address], [address] . tel:[phone] [facility] [address], [place], [place], [address] , tel:[phone] [facility] No Information 4 Fahad Burton. [address] [place] [address], [id number], . tel:[phone] Referring Provider: Angel Kern, [address] [place] [address], [address] . tel:[phone] [facility] [address], [place], [place], [address] , tel:[phone] [facility] No Information 4 Fahad Burton. [address] [place] [address], [id number], [place]. tel:[phone] Referring Provider: Angel Kern, [address] [place] [address], [address] . tel:[phone] [facility] [address], [place], [place], [address] , tel:[phone] [facility] No Information 3 Fahad Burton. [address] [place] [address], [id number], . tel:[phone] Referring Provider: Angel Kern, [address] [place] [address], [address] . tel:[phone] [facility] [address], [place], [place], [address] , tel: [phone] [facility] No Information 3 Fahad Burton. [address] [place] [address], [address] [place] [address], . tel:[phone] Referring Provider: Angel Kern, [address] [place] [address], [address] . tel:[phone] [facility] [address], [place], [place], [address] , tel: [phone] [facility] No Information 3 Fahad Burton. [address] [place] [address], [id number], . tel:[phone] Referring Provider: Angel Kern, [address] [place] [address], [address] . tel:[phone] [facility] [address], [place], [place], [address] , tel: [phone] [facility] No Information 3 Fahad Burton. [address] [place] [address], [id number], . tel:[phone] Referring Provider: Angel Kern, [address] [place] [address], [address] . tel:[phone] [facility] [address], [place], [place], [address] , tel: [phone] [facility] No Information 3 Fahad Burton. [address] [place] [address], [id number], [place]. tel:[phone] Referring Provider: Angel Kern, [address] [place] [address], [address] [place] [address] . tel:[phone] [facility] [address], [place], [place], [address] , [place] tel: [phone] [facility] post-op visit (chief complaint) Body mass index (BMI) 27.0-27.9, adultOther specified postprocedura l statesElevate d blood-pressur e reading, w/o diagnosis of htnRight tennis elbow 3 Bobo Ortiz. [address] [place] [address], [address] [place] [address], . tel:[phone] Referring Provider: Angel Kern, [address] [place] [address], [address] [place] [address] . tel:[phone] [facility], [address], [place], [place], [address] , [place] tel: [phone] [facility] No Information 3 Fahad Burton. [address] [place] [address], [address] [place] [address], . tel:[phone] Referring Provider: Angel Kern, [address] [place] [address], [address] . tel:[phone] [facility], [address], [place], [place], [address] , [place] tel: [phone] [facility] No Information 3 Fahad Burton. [address] [place] [address], [id number], . tel:[phone] Referring Provider: Angel Kern, [address] [place] [address], [address] . tel:[phone] [facility] [address], [place], [place], [address] , tel: [phone] [facility] No Information 3 Fahad Burton. [address] [place] [address], [address] [place] [address], . tel:[phone] Referring Provider: Angel Kern, [address] [place] [address], [address] . tel:[phone] [facility], [address], [place], [place], [address] , tel: [phone] [facility] No Information 3 Fahad Burton. [address] [place] [address], [address] [place] [address], . tel:[phone] Referring Provider: Angel Kern, [address] [place] [address], [address] [place] [address] . tel:[phone] [facility], [address], [place], [place], [address] , tel: [phone] [facility] No Information 3 Fahad Burton. [address] [place] [address], [address] [place] [address], . tel:[phone] Referring Provider: Angel Kern, [address] [place] [address], [address] . tel:[phone] [facility], [address], [place], [place], [address] , tel: [phone] [facility] No Information 3 Fahad Burton. [address] [place] [address], [address] [place] [address], . tel:[phone] Referring Provider: Angel Kern, [address] [place] [address], [address] . tel:[phone] [facility] [address], [place], [place], [address] , tel: [phone] [facility] No Information 3 Fahad Burton. [address] [place] [address], [id number], . tel:[phone] Referring Provider: Angel Kern, [address] [place] [address], [address] . tel:[phone] [facility], [address], [place], [place], [address] , tel: [phone] [facility] No Information 3 Fahad Burton. [address] [place] [address], [address] [place] [address], . tel:[phone] Referring Provider: Angel Kern, [address] [place] [address], [address] . tel:[phone] [facility], [address], [place], [place], [address] , tel: [phone] [facility] No Information 3 Fahad Burton. [address] [place] [address], [id number], . tel:[phone] Referring Provider: Angel Kern, [address] [place] [address], [address] . tel:[phone] [facility], [address], [place], [place], [address] , tel: [phone] [facility] No Information 3 Fahad Burton. [address] [place] [address], [id number], . tel:[phone] Referring Provider: Angel Kern, [address] [place] [address], [address] . tel:[phone] [facility], [address], [place], [place], [address] , tel: [phone] [facility] No Information 3 Fahad Burton. [address] [place] [address], [id number], [place]. tel:[phone] Referring Provider: Angel Kern, [address] [place] [address], [address] . tel:[phone] [facility] [address], [place], [place], [address] , tel: [phone] [facility] No Information 3 Fahad Burton. [address] [place] [address], [id number], [place]. tel:[phone] Referring Provider: Angel Kern, [address] [place] [address], [address] . tel:[phone] [facility], [address], [place], [place], [address] , [place] tel: [phone] [facility] post-op visit (chief complaint) Body mass index (BMI) 27.0-27.9, adultOther specified postprocedura l states 3 Bobo Ortiz. [address] [place] [address], [id number], [place]. tel:[phone] Referring Provider: Angel Kern, [address] [place] [address], [address] . tel:[phone] [facility], [address], [place], [place], [address] , [place] tel: [phone] [facility] No Information 3 Fahad Burton. [address] [place] [address], [id number], . tel:[phone] Referring Provider: Angel Kern, [address] [place] [address], [address] . tel:[phone] [facility] [address], [place], [place], [address] , tel:[phone] [facility] No Information 3 Fahad Burton. [address] [place] [address], [address] [place] [address], [place]. tel:[phone] Referring Provider: Angel Kern, [address] [place] [address], [address] . tel:[phone] [facility] [address], [place], [place], [address] , tel:[phone] [facility] No Information 3 Fahad Burton. [address] [place] [address], [address] [place] [address], [place]. tel:[phone] Referring Provider: Angel Kern, [address] [place] [address], [address] . tel:[phone] [facility] [address], [place], [place], [address] , tel:[phone] [facility] No Information 3 Fahad Burton. [address] [place] [address], [id number], [place]. tel:[phone] Referring Provider: Angel Kern, [address] [place] [address], [address] . tel:[phone] [facility] [address], [place], [place], [address] , [place] tel:[phone] [facility] Lateral epicondylitis , right elbowLesion of radial nerve, right upper limb 3 Bobo Ortiz. [address] [place] [address], [id number], [place]. tel:[phone] Referring Provider: Angel Kern, [address] [place] [address], [address] . tel:[phone] [facility] [address], [place], [place], [address] , [place] [phone] [facility] No Information 3 Bobo Ortiz. [address] [place] [address], [id number], [place]. tel:[phone] OFFICE/OUTPA TIENT VISIT, [facility] [address], [place], [place], [address] , [place] [phone] [facility] elbow complaint (chief complaint) Right tennis elbowRadial tunnel syndrome of right upper extremity 3 Bobo Ortiz. [address] [place] [address], [id number], [place]. tel:[phone] Referring Provider: Angel Kern, [address] [place] [address], [address] . tel:[phone] OFFICE/OUTPA TIENT VISIT, [facility] [address], [place], [place], [address] , [place] tel:[phone] [facility] elbow complaint (chief complaint) Pain in unspecified elbowRight tennis elbow 3 Bobo Ortiz. [address] [place] [address], [id number], [place]. tel:[phone] Referring Provider: Angel Kern, [address] [place] [address], [address] . tel:[phone] OFFICE/OUTPA TIENT VISIT, [facility] [address], [place], [place], [address] , [place] tel:[phone] [facility] Throat problems (chief complaint) Paralysis of left vocal cord 2 Aicha Gomez. [address], [address], [place], [facility], [place]. tel:[phone] Referring Provider: [address], [place], [address] . tel:[phone] [facility] [address], [place], [place], [address] , [place] [phone] [facility] Post op #1 (chief complaint) Paralysis of left vocal cordHoarsenes sOropharyngea l dysphagia 1 Justyna Sahni. [address] [facility] [address] [facility], [address], [place], [facility], [place]. tel:[phone] Referring Provider: [address], [place], [address] . tel:[phone] [facility] [address], [place], [place], [address] , [place] [phone] OP [facility] 1 Aicha Gomez. [address] [facility], [address], [place], [facility], [place]. tel:[phone] Referring Provider: Jason Banuelos, [address], [place], [facility]. tel:[phone] OFFICE/OUTPA TIENT VISIT, EST [facility] [address], [place], [place], [address] , [place] [phone] [facility] Follow Up of hoarseness (chief complaint) Body mass index (BMI) 27.0-27.9, adultHoarsene ssParalysis of left vocal cordOropharyn geal dysphagia 1 Aicha Rodriguez [address], [address], [place], [facility], [place]. tel:[phone] Referring Provider: [address], [place], [address] . tel:[phone] [facility] [address], [place], [place], [address] , [place] tel:[phone] [facility] HoarsenessLar yngopharyngea l reflux (LPR)Paralysi s of left vocal cordSore throat Sep-2 1 Aicha Rodriguez [address], [address], [place], [address], [place]. tel:[phone] OFFICE/OUTPA TIENT VISIT, [facility] [address], [place], [place], [address] , [place] tel:[phone] [facility] Follow Up of hoarseness (chief complaint) Body mass index (BMI) 27.0-27.9, adultParalysi s of left vocal cordHoarsenes s Mar-0 1 Aicha Rodriguez [address], [address], [place], [address], [place]. tel:[phone] Referring Provider: [address], [place], [address] . tel:[phone] OFFICE/OUTPA TIENT VISIT, [facility] [address], [place], [place], [address] , [place] tel:[phone] [facility] Throat problems (chief complaint) Body mass index (BMI) 27.0-27.9, adultSore throatHoarsen essLaryngopha ryngeal reflux (LPR)Paralysi s of left vocal cord Jan- 1 Aicha Gomez. [address], [address], [place], [address], [place]. tel:[phone] Referring Provider: [address], [place], [address] . tel:[phone] [facility] [address], [place], [place], [address] , [place] tel: [phone] Freda a comprehensive exam (chief complaint) Age-related nuclear cataract, bilateralPuck ering of macula of left eyeCentral serous chorioretinop athy of right eye Mar-1 3-201 9 Freda Madison. [address] [place], [address], [place]. [phone] Referring Provider: [address], [place], [address] . tel:[phone] [facility] [address], [place], [place], [address] , [place] tel: [phone] Freda a comprehensive exam (chief complaint) Central serous chorioretinop athy of right eyePuckering of macula of left eyeAge-relate d nuclear cataract, bilateral Mar-0 9-201 8 Freda Madison. [facility] [place], [address], [place]. [phone] Referring Provider: Los Barba Jr, [facility] [place], [place], [facility]. tel:[phone] [facility] [address], [place], [place], [address] , [place] tel: [phone] Freda a comprehensive exam (chief complaint) Central serous chorioretinop athy of right eyePuckering of macula of left eyeAge-relate d nuclear cataract, bilateral Sep-0 7 Freda Madison. [facility] [place], [address], [place]. tel:[phone] Referring Provider: [address], [place], [address] . tel:[phone] [facility] [address], [place], [place], [address] , [place] tel: [phone] Freda a comprehensive exam (chief complaint) Central serous chorioretinop athy of right eyePuckering of macula of left eyeAge-relate d nuclear cataract, bilateralDiso rder of refraction Yoan-0 6-201 7 Freda Madison. [address] [place], [address], [place]. [phone] Referring Provider: [address], [place], [address] . tel:[phone] [facility] [address], [place], [place], [address] , [place] tel:[phone] Freda kern comprehensive exam (chief complaint) Central serous chorioretinop athy of right eyePuckering of macula of left eyeAge-relate d nuclear cataract, bilateral Ryan-0 2-201 7 Freda Madison. [address] [place], [address], [place]. tel:[phone] Referring Provider: [address], [place], [address] . 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 [address] [place], [address], [place]. tel:[phone] Referring Provider: Jone Guevara, [address] [facility] [address], [place], [address]. tel:[phone] [facility] [address], [place], [place], [address] , [place] tel:[phone] Freda kern comprehensive exam (chief complaint) Puckering of macula of left eyeAge-relate d nuclear cataract, bilateralCent ral serous chorioretinop athy of right eye Apr-1 4-201 7 Freda Madison. [address] [place], [address], [place]. tel:[phone] Referring Provider: [address], [place], [address] . tel:[phone] [facility] [address], [place], [place], [address] , [place] tel: [phone] Freda a comprehensive exam (chief complaint) Puckering of macula of left eyeAge-relate d nuclear cataract, bilateralCent ral serous chorioretinop athy of right eye Nemesio-0 6-201 7 Freda Madison. [address] [place], [address], [place]. tel:[phone] Referring Provider: Pablo [address] [facility], [place], [address] . tel:[phone] [facility], [address], [place], [place], [address] , [place] tel: [phone] Freda a comprehensive exam (chief complaint) Puckering of macula of left eyeAge-relate d nuclear cataract, bilateralCent ral serous chorioretinop athy of right eye Jun-2 6 Freda Madison. [address] [place], [address], [place]. tel:[phone] Referring Provider: Pablo [address] [facility], [place], [address] . tel:[phone] [facility] PJesúsCJaswant, [address], [place], [place], [address] , [place] tel:[phone] [id number] Freda . (chief complaint) Puckering of macula of left eye Jun- 6 Freda Madison. [address] [place], [address], [place]. tel:[phone] Referring Provider: Pablo [address], [place], [address] . tel:[phone] [facility], [address], [place], [place], [id number] , [place] tel:[phone] [facility] Puckering of macula, left eye Dec-1 - 6 Freda Ruiz [address] [place], [address], [place]. tel:[phone] Referring Provider: Pablo [address], [place], [address] . tel:[phone] OFFICE/OUTPA TIENT VISIT, EST [facility] [address], [place], [place], [id number] , [place] tel:[phone] Freda H&P (chief complaint) Puckering of macula of left eye Jun- 6 Freda Madison. [address] [place], [address], [place]. tel:[phone] Referring Provider: Pablo [address], [place], [address] . tel:[phone] [facility] [address], [place], [place], [id number] , [place] tel:[phone] Freda . (chief complaint) Puckering of macula of left eyeCentral serous chorioretinop athy of right eyeAge-relate d nuclear cataract, bilateral 6 Freda Madison. [address] [place], [address], [place]. tel:[phone] Referring Provider: Los Barba Jr, [facility] [place], [place], [facility]. tel:[phone] Family History Family Member Type Diagnosis Age At Onset No Information Payers Payer name Insurance type Covered libertarian ID Authornathana donna(s) Medicare MB [id number] [facility] [id number] Social History Type Description Quantity Date Captured Comments Alcohol Use Details Unknown 4 beers Daily Caffeine Use Details Coffee and soda 1 cup per day 2023 Tobacco Use Status No Information Smoking Status Never smoker Sex Male Vital Signs Date / Time: Height Weight BMI Pulse Rate Blood Pressure Temperature Respiratory Rate Body Surface Area Head Circumference Head Circ. Percentile Wt./Evan. Percentile BMI percentile Pulse Ox Inhaled Ox 9:54 AM 72.00 in 90.718 kg (200.00 lbs) 27.1 2 kg/m eter (2) 59 /min 112/70 mm[Hg] 2.15 meter(2) Chief Complaint And Reason For Visit From encounter dated 07/30/2023 09:50'. post-op visit (chief complaint). Description: Patient is S/P RT @ Elbow W/ Rad Kimo Release, DOS 04/23/23. Adherent to activity restrictions, post-operative care guidelines, and physical therapy. Theyhave no complaints of pain at this visit. Reason For Referral Reason For Referral No Information Plan Of Treatment Date Type Action Status Goal ColoGuard. Due on due Goal Colonoscopy. Due on due Goal CT-Colonography. Due on due Goal Depression screening. Due on due Goal Dilated Eye Exam. Due on Jul due Goal FIT. Due on due Goal FIT-DNA. Due on due Goal FOBT. Due on due Goal Hepatitis C screening. Due o n due Goal Influenza vaccine. Due on due Goal Lipid panel. Due on due Goal Pneumococcal vaccine. Due on due Goal Sigmoidoscopy. Due on due Goal Td vaccine. Due on 24 due Goal Tdap. Due on due Goal Unhealthy drug use screening . Due on due Goal Zoster vaccine (). Due on due Goal Lifestyle education regardin g diet completed Goal Colonoscopy. Due on 023 due Goal FIT-DNA. Due on due Goal FOBT. Due on due Goal Lipid panel. Due on due Goal Pneumococcal vaccine. Due on due Goal Sigmoidoscopy. Due on due Goal Depression screening. Due on due Goal Tdap. Due on due Goal Zoster vaccine (). Due on due Goal Unhealthy drug use screening . Due on due Goal Dilated Eye Exam. Due on Jun due Goal FIT. Due on due Goal Td vaccine. Due on due Goal Hepatitis C screening. Due o n due Goal Influenza vaccine. Due on due Goal CT-Colonography. Due on due Goal ColoGuard. Due on due Goal Lifestyle education regardin g diet completed Goal Pneumococcal vaccine. Due on due Goal Sigmoidoscopy. Due on due Goal Td vaccine. Due on due Goal Tdap. Due on due Goal Unhealthy drug use screening . Due on due Goal Zoster vaccine (). Due on due Goal ColoGuard. Due on due Goal Colonoscopy. Due on due Goal CT-Colonography. Due on due Goal Depression screening. Due on due Goal Dilated Eye Exam. Due on Apr due Goal FIT. Due on due Goal FIT-DNA. Due on due Goal Hepatitis C screening. Due o n due Goal Influenza vaccine. Due on Oc due Goal Lipid panel. Due on due Goal FOBT. Due on due Goal Lifestyle education regardin g diet completed Goal ColoGuard. Due on due Goal Colonoscopy. Due on due Goal CT-Colonography. Due on due Goal Depression screening. Due on due Goal Dilated Eye Exam. Due on Apr due Goal FIT. Due on due Goal FIT-DNA. Due on due Goal FOBT. Due on due Goal Hepatitis C screening. Due o n due Goal Influenza vaccine. Due on Oc due Goal Lipid panel. Due on due Goal Pneumococcal vaccine. Due on due Goal Sigmoidoscopy. Due on due Goal Td vaccine. Due on due Goal Tdap. Due on due Goal Unhealthy drug use screening . Due on due Goal Zoster vaccine (1st). Due on due Goal ColoGuard. Due on due Goal Colonoscopy. Due on [address]-Colonography. Due on due Goal Depression screening. Due on due Goal Dilated Eye Exam. Due on Mar due Goal FIT. Due on due Goal FIT-DNA. Due on due Goal FOBT. Due on due Goal Hepatitis C screening. Due o n due Goal Influenza vaccine. Due on due Goal Lipid panel. Due on due Goal Pneumococcal vaccine. Due on due Goal Sigmoidoscopy. Due on due Goal Td vaccine. Due on due Goal Tdap. Due on due Goal Unhealthy drug use screening . Due on due Goal Zoster vaccine (). Due on due Goal Pneumococcal vaccine. Due on due Goal FIT. Due on due Goal FIT-DNA. Due on due Goal FOBT. Due on due Goal Hepatitis C screening. Due o n due Goal Influenza vaccine. Due on due Goal Lipid panel. Due on 023 due Goal ColoGuard. Due on due Goal Colonoscopy. Due on [address]-Colon[address]. Due on due Goal Depression screening. Due on due Goal Dilated Eye Exam. Due on Jan due Goal Sigmoidoscopy. Due on due Goal Td vaccine. Due on due Goal Tdap. Due on due Goal Unhealthy drug use screening . Due on due Goal Zoster vaccine (). Due on due Goal Influenza vaccine. Due on due Goal Lipid panel. Due on due Goal Pneumococcal vaccine. Due on due Goal Sigmoidoscopy. Due on due Goal Td vaccine. Due on due Goal Tdap. Due on due Goal ColoGuard. Due on due Goal Colonoscopy. Due on [address]-Colon[address]. Due on due Goal Depression screening. Due on due Goal Dilated Eye Exam. Due on Jun due Goal FIT. Due on due Goal FIT-DNA. Due on due Goal FOBT. Due on due Goal Zoster vaccine (). Due on due Goal Hepatitis C screening. Due o n due Goal Unhealthy drug use screening . Due on due Goal Tdap. Due on due Goal ColoGuard. Due on due Goal Colonoscopy. Due on due Goal Depression screening. Due on due Goal Dilated Eye Exam. Due on May due Goal FOBT. Due on due Goal Influenza vaccine. Due on due Goal Lipid panel. Due on due Goal Pneumococcal vaccine. Due on due Goal Sigmoidoscopy. Due on due Goal Td vaccine. Due on due Goal Zoster vaccine (). Due on due Goal Colonoscopy. Due on due Goal Depression screening. Due on due Goal Dilated Eye Exam. Due on Apr due Goal FOBT. Due on due Goal Influenza vaccine. Due on due Goal Lipid panel. Due on due Goal Pneumococcal vaccine. Due on due Goal Sigmoidoscopy. Due on due Goal Td vaccine. Due on due Goal Tdap. Due on due Goal Zoster vaccine (). Due on due Goal ColoGuard. Due on due Goal Dietary management education , guidance, and counseling completed Goal ColoGuard. Due on due Goal Colonoscopy. Due on due Goal Depression screening. Due on due Goal Dilated Eye Exam. Due on Mar due Goal FOBT. Due on due Goal Influenza vaccine. Due on due Goal Lipid panel. Due on due Goal Pneumococcal vaccine. Due on due Goal Sigmoidoscopy. Due on due Goal Td vaccine. Due on due Goal Tdap. Due on due Goal Zoster vaccine (). Due on due Goal Colonoscopy. Due on due Goal Depression screening. Due on due Goal Influenza vaccine. Due on due Goal Lipid panel. Due on due Goal Pneumococcal vaccine. Due on due Goal Sigmoidoscopy. Due on due Goal Td vaccine. Due on due Goal Tdap. Due on due Goal Zoster vaccine (1st). Due on due Goal Dilated Eye Exam. Due on Mar due Goal FOBT. Due on due Goal ColoGuard. Due on due Goal Zoster vaccine (1st). Due on due Goal ColoGuard. Due on due Goal Colonoscopy. Due on due Goal Depression screening. Due on due Goal Dilated Eye Exam. Due on Jan due Goal FOBT. Due on due Goal Influenza vaccine. Due on due Goal Lipid panel. Due on due Goal Pneumococcal vaccine. Due on due Goal Sigmoidoscopy. Due on due Goal Td vaccine. Due on due Goal Tdap. Due on due Goal Dietary management education , guidance, and counseling completed Referral Ordered: Parmjit Michael -[facility] : Ophthalmology (related to Age-related nuclear cataract, bilateral) ordered Referral Referred To: Parmjit Michael [address], [place], [phone] Ordered: Referrals: [facility] Phys[facility] : Ophthalmology. Parmjit Michael. Evaluate and treat Appointment date/timeframe: 3 Weeks ordered History Of Present Illness Encounter Date Complaint History Of Prese nt Illness post-op visit Patient is S/P R T @ Elbow W/ Rad Kimo Release, DOS 04/23/23. Adherent to activity restrictions, post-operative care guidelines, and physical therapy. They have no complaints of pain at this visit. post-op visit Patient is s/p R T @ elbow w/ rad kimo release DOS 04-23-2023. He presents with improved ROM and strength, adherent to Physical therapy and at home OTC pain treatments. His pain complaint is minimal at this visit. post-op visit Patient is s/p R T @ elbow w/ rad kimo release DOS 04-23-2023. Some mild complaints of tenderness, adherent to post-operative care guidelines and restrictions. Pain is controlled with standard post-operative medication. elbow complaint Right elbow pain with unknown cause of injury. He was adherent to Physical Therapy since the last visit with no improvement in pain or ROM. No other known intervention. Pain causes too much difficulty with range of motion and daily activities. He would like to discuss further options due to no improvement. He has since started blood thinners. elbow complaint Right elbow pain with unknown cause of injury Throat problems The problem has improved. Context: exposure to strep, GI reflux, smoker and tonsils present. There are no relieving factors. Pertinent negatives include dyspnea, fever, headache, hoarseness, lymphadenopathy, nasal congestion, otalgia and post-nasal drainage. Post op #1 Patient is prese nt for first post op on DML/ left TVC injection laryngoplasty. Patient states having no complaints as of today. Follow Up of hoarseness The david ent describes the voice quality as strained. The problem is improving. Context: extensive voice use, reflux disease, seasonal allergies and stress. Symptoms are aggravated by tobacco use. Denies relieving factors. Pertinent negatives include cough, dysphagia, dyspnea, heartburn, post-nasal drainage and weakness. Follow Up of hoarseness The david ent describes the voice quality as strained. The problem is improving. Context: extensive voice use, seasonal allergies and stress. Denies relieving factors. Pertinent negatives include cough, dysphagia, dyspnea, heartburn, post-nasal drainage and weakness. Throat problems Onset: 6 months ago. Severity level: moderate. It occurs chronically. Context: exposure to strep and GI reflux. There are no relieving factors. Pertinent negatives include fever, headache, lymphadenopathy, nasal congestion, otalgia, post-nasal drainage, rash and vomiting. 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 a comprehensive exam 6 month ret urn x S/P TPPV for ERM OS on 06-20-16, HX Mild CATS OU.....Pt reports no changes to VA OU; No new floaters/flashes of lights OU. a comprehensive exam 6-8 week re turn x check for recurrent STAFFING CONSULTANT OD. S/P TPPV for ERM OS on 06-20-16, HX Mild CATS OU......Pt stts the new gls RX is working good for him. No new flashes/floaters OU. Stopped the meds and everything seems fine. a comprehensive exam 1 month ret urn x re-refract and check status STAFFING CONSULTANT OD (on Tx w/ eplenerone) ., S/P TPPV for ERM OS on 06-20-16, HX Mild CATS OU....Pt stts OD is excellent, but OS is still very blurry. No new flashes/floaters OU. a comprehensive exam 1 month wicho ck status STAFFING CONSULTANT OD HX STAFFING CONSULTANT OD recurrent multi areas of leakage on FA OD, Hx ERM OS, HX Mild CATS OU.... Patient states he saw Dr rojas and had labs done (not scanned in chart at time of exam). States was told everything was fine and normal. Taking Eplenerone 25 MG PO QD. No change in vision OU since alst visit. Denies any new flashes or floaters OU. Denies any new distortions OU. FA&FP Pt here for FA&F P OU x STAFFING CONSULTANT OD and poss.Focal a comprehensive exam 3 month ret urn x Final refraction and repeat OCT x Hx ERM OS; Hx STAFFING CONSULTANT OD; Hx Mild CATS OU......Pt reports decrease in VA OS since last visit, OD is ok; No floaters/flashes per pt; Pt finished PF around the end of Aug. a comprehensive exam 2 week retu rn check OCT OS x S/P TPPV OS for ERM on 06-20-16.... Patient states improvement in vision OS since last visit. States slight distortion OS, states small waviness to stuff. NO change in vision OD since last visit. Denies any new flashes or floaters OU. Using PF OS TID w/o complaints. a comprehensive exam 1 week retu rn S/P TPPV OS for ERM on 06-20-16...PT states VA OS about the same and remains blurry, distortion seems less OS, no floaters or flashing lights OS, using GTTS OS wo complaint, VA OD good . 1 day po S/P TPP V OS for ERM on 06-20-16. States No pain ,NO Headache, NO nausea. H&P PT here for H&P x TPPV OS x ERM and FP OU... at [facility] 06-20-16 6:30AM . New patient, LOGAN Guevara, blurry VA OS x 1 year . HX STAFFING CONSULTANT OD (spontaneously resolved without Tx) .States x 1 year VA OS has been blurry and distorted and has worsend over the last month. States was Dx with STAFFING CONSULTANT OD in 2001 , but spontaneously resolved. Saw Dr Guevara in October and was given HR name for referral. Patient called 3 weeks ago for appointment. Patient brought previous records that had Dx of macular degeneration, but patient states was not told he had macular degeneration. Functional Status Date Functional Assessmen t Pain Score 07/17 Instructions Date Instruction Additional Infor tiffany Giving encouragement to exercise Related to Body mass index [BMI] 27.0-27.9, adult Lifestyle education regarding di et Related to Body mass index [BMI] 27.0-27.9, adult Giving encouragement to exercise Related to Elevated blood-pressure reading w/o diagnosis of HTN Giving encouragement to exercise Related to Body mass index [BMI] 27.0-27.9, adult Lifestyle education regarding di et Related to Body mass index [BMI] 27.0-27.9, adult Giving encouragement to exercise Related to Body mass index [BMI] 27.0-27.9, adult Lifestyle education regarding di et Related to Body mass index [BMI] 27.0-27.9, adult Prevention tips: -If you smoke, you need to quit. -Avoid agents that dehydrate the body, such as alcohol, caffeine, and antihistamines. -Avoid secondhand smoke. -Stay hydrated by drinking plenty of water. Generally it is recommended to drink 2 liters per day for the average adult. -Humidify your home. -Watch your diet and avoid spicy foods. -Try not to use your voice too long or too loudly or inappropriately. -Use a microphone or other device if possible in situations where you need to project your voice. -Seek professional voice training with a speech/language pathologist -Avoid speaking or singing when your voice is injured or hoarse (vocal rest) Related to Hoarseness Dietary management e ducation, guidance, and counseling Related to Body mass index [BMI] 27.0-27.9, adult Prevention tips: -If you smoke, you need to quit. -Avoid agents that dehydrate the body, such as alcohol, caffeine, and antihistamines. -Avoid secondhand smoke. -Stay hydrated by drinking plenty of water. Generally it is recommended to drink 2 liters per day for the average adult. -Humidify your home. -Watch your diet and avoid spicy foods. -Try not to use your voice too long or too loudly or inappropriately. -Use a microphone or other device if possible in situations where you need to project your voice. -Seek professional voice training with a speech/language pathologist -Avoid speaking or singing when your voice is injured or hoarse (vocal rest) Related to Hoarseness Giving encouragement to exercise Related to Body mass index [BMI] 27.0-27.9, adult Gastroesophageal ref lux (LPR) is when contents of the stomach return into the throat. Patients may complain of a bitter taste, burning, hoarseness, difficulty swallowing, frequent throat clearing, difficulty breathing, or the sensation of drainage. Many patients DO NOT experience heartburn. LPR is diagnosed by exam and response to a trial of treatment. Other tests include endoscopy, biopsy, x-ray, 24 hour pH probe, manometry, and emptying studies of the stomach. Most people with LPR respond favorably to lifestyle changes and medication. Medications that could be prescribed include antacids, anti-histamines, proton pump inhibitors, pro-motility drugs, and barrier medications. Anatomical abnormalities may require surgical intervention. Lifestyle changes: Avoid eating and drinking within three hours of bedtime, do not drink alcohol, eat small meals and slowly; limit caffeine, carbonated drinks, chocolate, peppermint, tomato, citrus, and fatty or fried foods; lose weight, quit smoking. Related to Laryngopharyngeal reflux (LPR) Prevention tips: -If you smoke, you need to quit. -Avoid agents that dehydrate the body, such as alcohol, caffeine, and antihistamines. -Avoid secondhand smoke. -Stay hydrated by drinking plenty of water. Generally it is recommended to drink 2 liters per day for the average adult. -Humidify your home. -Watch your diet and avoid spicy foods. -Try not to use your voice too long or too loudly or inappropriately. -Use a microphone or other device if possible in situations where you need to project your voice. 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 Will continue to observe condition and or symptoms. Call if VA worsens. Educational materials provided:Counseling provided. 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 - defer phaco OS due to relatively good vision Related to Age-related nuclear cataract, bilateral - OCT OU:good fov co ntour stable , NO recurrent SRF ODOS with excellent resolution ERM w/ NO residual SRF noted on OCT OSD/C epleneronerecommend avoid steroid injectionsrecheck in 6-8 weeks to check for recurrent STAFFING CONSULTANT OD off eplenerone 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 No treatment is required at this time. New glasses Rx was given today. Call if VA worsens. Educational materials provided:Counseling provided. 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 Will continue to observe condition and or symptoms. Continue using current medication(s). Educational materials provided:Counseling provided. 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 - FA:early transit w / small area hyperflour just inside STA OD , small area hyperflour inside BELLA , patchy atro sup temp to ONH w/ other areas of patchy atro changes, area of sig late leakage assoc w/ hyperflour spot inside BELLA OD patchy atro inf to ONH andinf temp to fov OSdefer focal OD due to areas of multi focal leakage OD will treat with eplenerone 1 po QD patient to coordinate with Dr Rojas for follow up for baseline electrolyte check and follow up in 1 month recheck with HR in 1 month 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 Will continue to observe condition and or symptoms. New medication(s) Rx given today. Medication instillation reviewed and understood. Educational materials provided:Counseling provided. 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 Recommend FA for poss recurrent STAFFING CONSULTANT OD . Educational materials provided:Counseling provided. 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 Educational materials provided:Counseling provided. 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 Post op instructions given and understood. Educational materials provided:Counseling provided. Scribed by Sara Gregorio in direct presence Dr Ever Barba directly supervised or performed the services in this record Related to Puckering of macula of left eye - 1 week check OCT OS Related to Puckering of macula of left eye - PF OS QIDvigamox O S QIDRecommend check platelette count with Dr Rojas due to suspended RBCs and subconj heme OSrecheck in 1 week check OCT OS Related to Puckering of macula of left eye - Post op instructio ns given and understood. Educational materials provided:Counseling provided. Scribed by Sara Gregorio in direct presence Dr Ever Barba directly supervised or performed the services in this record Related to Puckering of macula of left eye - 1 day po on Related t o Puckering of macula of left eye - Pre op instruction s given and understood. Educational materials provided:Counseling provided. 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 Discussed expect distortion to be sig improved and 2+ line VA improvement, but VA OS may not come back to 20/20. Discussed progression of cataract caused by TPPV OS. Discussed 1 in 4000 chance of infection and chance of RD less than 1% associated with TPPV. patient elects TPPV OS.will get H+P and FPF 1 AND 2 OU prior to TPPV OS Related to Puckering of macula of left eye - H+P with FP F 1 and 2 OU Relat ed to Puckering of macula of left eye - Discussed diagnosi s in detail with patient. Surgical risks and benefits were discussed, explained and understood by patient. Patient elects to have surgery. Educational materials provided:Counseling provided. Scribed by Sara Gregorio in direct presence Dr Ever Barba directly supervised or performed the services in this record Related to Puckering of macula of left eye Assessments Type Assessment Date assessment Body mass index (BMI) 27.0-27.9, adult assessment Other specified postprocedural s tates assessment Right tennis elbow Mental Status Date Cognitive Assessment Orientation - [place] ed to time, place, person, situation. Patient Care Teams Name Effective Dates (start - stop) Status Members No Information
--- OUTSIDE RECORDS SUMMARY | 2024-08-13 08:56 | XMS_ITS | Data Portability ---
Author Organization [place] - [facility], [facility] Address [address] [place] [address] Care Team Providers Care Head Bucker Name Role Phone JO-ANN LOCKE Referring Provider Unavailable Assessment No assessment recorded. Plan of Treatment Reminders Order Date Submit Date Provider Last Modified By Organization Details Last Modified Time Details Appointments None recorded. Lab drug confirmatio n, urine 2021 022 [facility], [address], [place], [address], 3 03:31:38 drug confirmatio n, urine 2021 022 Labs, [address], [place], [address], 3 03:31:38 [email or web address] , quant, urine 2021 022 [facility], [address], [place], [address], 3 03:31:38 unlisted lab - amphetamine s and stimulants reflex (screen/con f) 2021 022 [facility], [address], [place], [address], 3 05:01:18 unlisted lab - barbiturate s reflex (screen/con f) 2021 022 [facility], [address], [place], [address], 3 05:01:17 unlisted lab - benzodiazep jorge reflex (screen/con f) 2021 [facility], [address], [place], [address], 3 05:01:17 unlisted lab - cocaine reflex (screen/con f) 2021 [facility], [address], [place], [address], 3 05:01:18 unlisted lab - ethanol reflex (screen/con f) 2021 [facility], [address], [place], [address], 3 05:01:19 unlisted lab - marijuana reflex (screen/con f) 2021 [facility], [address], [place], [address], 3 05:01:19 unlisted lab - opiates/opi oids reflex (screen/con f) 2021 [facility], [address], [place], [address], 3 05:01:18 methadone, quantitativ e, urine 2021 [facility], [address], [place], [address], 2 13:12:07 Referral None recorded. Procedures hardware injection (PROC) 2021 [email or web address] Not available 16:06:22 Surgeries None recorded. Imaging XR, cervical spine, 4 or 5 view - chronic neck pain, hx of cervical fusion, 3 neck surgeries 2023 024 [facility], [address], [address], [place], [address], 4 09:45:34 Medication Orders oxycodone-a cetaminophe n 7.5 mg-325 mg tablet 2021 022 [facility] #[id number], [address] [place], [address], 2 09:52:29 oxycodone-a cetaminophe n 7.5 mg-325 mg tablet 2021 022 [id number] [address] , [address] [facility], [address], [place], [address], 4 11:28:30 Patient TargetsNo targets recorded. Patient Instructions Encounter Date Encounter Id Patient Instructions Last Modified By Organization Details Last Modified Time 02/15/2022 [id number] dash diet: care instructions [email or web address] Not available 02/15/2022 09:47:43 starting a weigh t loss plan: care instructions [email or web address] Not available 02/15/2022 09:47:44 dash diet Not available 2021 09:47:44 weight managemen t education [email or web address] Not available 02/15/2022 09:47:44 02/15/22 LCV was on 01/10/2022 This patient comes to clinic for a four week follow up visit. Today, I reviewed the patient's most recent [employer] reports as well as urine drug screen results. the patient demonstrates no polypharmacy or med seeking behavior as I review the [employer] record for 6 months back. Pain contract was reviewed. Patient last prescription for oxycodone was in November 2021. On his last clinic visit, I refered the patient to Dr. Hernandez for a 2nd opinion, which he completed on February 13. Dr Edmond has recommended a hardware block. I have scheduled for this. Meanwhile, he reports his pain overall has improved. He has continued to stretching and strengthening exercises at home that was taught at physical therapy. His cervical pain has mostly resolved. His low back pain remains at a level of 6/10. He is able to tolerate this pain any describes as an aching and throbbing. He typically is using oxycodone 1-2 tablets a day. On his last clinic visit, he was given 120 tablets. On this visit he does not request a refill. He will contact our clinic if he requires a refill. We will schedule him following his surgical evaluation. He expresses interest in undergoing a block and/or a radiofrequency ablation. He will discuss these options with his surgeon. 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 Richmond. he is a pleasant 70-year-old male with a past medical history of atrial fibrillation, chronic neck pain with history of 3 cervical surgeries, as well as gastritis. patient presents to clinic for evaluation of left-sided neck pain. patient reports he underwent his third cervical fusion by Dr. Lam in September 2020 secondary to ongoing neck pain with left-sided radicular symptoms. patient voices he was doing well status post surgery in regard to his neck pain and symptoms however he developed recent exacerbation within the past month. he denies any precipitating event such as falls accidents or trauma. patient reports he underwent reevaluation by another culinary specialist and Dr. Richmond in which he underwent images. patient currently describes his pain as a constant ache minimally on the left side of his neck with radiation to his left shoulder. patient reports pain is exacerbated with exercise. he reports his pain is alleviated with heat TENS unit and medications. he does report he is undergoing chiropractic and massage therapy with some improvement. patient reports Dr. Richmond does not believe there is any surgery indicated at this time and he was referred to our facility for the possibility of cervical injections. 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 1) MRI of x-rays of cervical spine were completed in April 14, 2021 reveals prior anterior disc fusion performed at C3-C4 T1-T2 there is bony fusion at C5-C6 and C7 MRI of cervical spine completed on March 23, 2021 reveals fusion had been performed at multiple levels with current anterior fusion hardware seen at C3-C4 and C7-T1 previous fusion at C4-5 C5-6 and C6-7 at C2-C3 there is a 2 mm disc bulge asymmetric to the left uncovertebral osteophyte is worse, mild foraminal narrowing seen on the left at C3-C4 1 mm bony ridge is seen without recurrent spinal canal narrowing or foraminal narrowing at C4-C5 1 mm bony ridges asymmetric to the left without spinal canal narrowing and foraminal narrowing at C5-C6 1 mm bony ridges asymmetric to the left without evidence of spinal canal narrowing and foraminal narrowing at C6-C7 2 mm bony ridges asymmetric to the right without spinal canal narrowing or foraminal narrowing at C7-T1 there is a 2 mm bony ridge identified with mild to moderate pronator bilaterally no spinal canal narrowing is seen at this time options including medical management, injections, therapy, and surgical evaluation were discussed patient seems to be responding to conservative treatment and is currently in physical therapy , however he still has residual pain he is currently a nonsurgical candidate. patient may possibly benefit from injections however his surgical history and hardware will make it hard to perform any cervical epidural steroid injections. based on examination physical complaints and imaging, patient may possibly benefit from trigger point injections versus cervical medial branch blocks and possible rhizotomy on the left side. he is currently pending left-sided C4-C5-C6 cervical medial branch block. risk benefits of procedures were discussed patient would like to pursue this. he has undergone cardiac clearance and is now pending procedure dates 2_) [employer] was reviewed on February 15, 2022 he may continue with the Percocet 7.5/325 mg as needed for severe pain, medicine refills are needed today he may continue with topical agents that he has been using and may continue with activities as tolerated 3) he must continue to optimize medical management versus multiple medical problems or conditions 4) UDS completed on June 2021 was positive for Percocet and verifies medication compliance Urine drug screen 01/11/2028 screens negative for oxycodone. This is consistent his medication prescription and he last refill occurred in was for 60 tablets. He uses these very sparingly. 5) Oxycodone 7.5 mg 1-2 tablets a day. This medication was not refilled on this visit. 6) Return to clinic in 4 weeks This patient was seen by Maurisio KENNY under the direct supervision of Dr Jo-Ann Locke. Dr Locke evaluated the treatment plan and agrees. Pain contract reviewed. Patient satisfied with plan and understands the significance of compliance as agreed in pain contract. [email or web address] Not available 02/15/2022 13:21:15 10/24/2023 [id number] dash diet: care instructions Not available 10/24/2023 11:46:41 starting a weigh t loss plan: care instructions [email or web address] Not available 10/24/2023 11:46:41 dash diet [email or web address] Not available 2023 11:46:41 weight managemen t education [email or web address] Not available 10/24/2023 11:46:41 10/24/23 03/15/22 Fluoroscopic Guided Bilateral L4, L5 Lumbar Medial Branch / hardware block LCV was on 02/15/2022 This patient comes to clinic for follow up visit. Today, I reviewed the patient's most recent [employer] reports as well as urine drug screen results. the patient demonstrates no polypharmacy or med seeking behavior as I review the [employer] record for 6 months back. Pain contract was reviewed. On his last clinic visit, I refered the patient to Dr. Hernandez for a 2nd opinion, which he completed on February 13. Dr Edmond has recommended a hardware block. This was completed on 03/2022 He returns to clinic a for a fu visit due to returning neck pain, He describes his neck pain with left-sided radicular symptoms. patient voices he was doing well status post surgery in regard to his neck pain and symptoms however he developed recent exacerbation within the past month. he denies any precipitating event such as falls accidents or trauma. 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 Richmond. he is a pleasant 73-year-old male with a past medical history of atrial fibrillation, chronic neck pain with history of 3 cervical surgeries, as well as gastritis. patient presents to clinic for evaluation of left-sided neck pain. patient reports he underwent his third cervical fusion by Dr. Lam in September 2020 secondary to ongoing neck pain with left-sided radicular symptoms. patient voices he was doing well status post surgery in regard to his neck pain and symptoms however he developed recent exacerbation within the past month. he denies any precipitating event such as falls accidents or trauma. patient reports he underwent reevaluation by another culinary specialist and Dr. Richmond in which he underwent images. patient currently describes his pain as a constant ache minimally on the left side of his neck with radiation to his left shoulder. patient reports pain is exacerbated with exercise. he reports his pain is alleviated with heat TENS unit and medications. he does report he is undergoing chiropractic and massage therapy with some improvement. patient reports Dr. Richmond does not believe there is any surgery indicated at this time and he was referred to our facility for the possibility of cervical injections. 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 1) MRI of x-rays of cervical spine were completed in April 14, 2021 reveals prior anterior disc fusion performed at C3-C4 T1-T2 there is bony fusion at C5-C6 and C7 MRI of cervical spine completed on March 23, 2021 reveals fusion had been performed at multiple levels with current anterior fusion hardware seen at C3-C4 and C7-T1 previous fusion at C4-5 C5-6 and C6-7 at C2-C3 there is a 2 mm disc bulge asymmetric to the left uncovertebral osteophyte is worse, mild foraminal narrowing seen on the left at C3-C4 1 mm bony ridge is seen without recurrent spinal canal narrowing or foraminal narrowing at C4-C5 1 mm bony ridges asymmetric to the left without spinal canal narrowing and foraminal narrowing at C5-C6 1 mm bony ridges asymmetric to the left without evidence of spinal canal narrowing and foraminal narrowing at C6-C7 2 mm bony ridges asymmetric to the right without spinal canal narrowing or foraminal narrowing at C7-T1 there is a 2 mm bony ridge identified with mild to moderate pronator bilaterally no spinal canal narrowing is seen obtain cervical xrays, consider further workup at this time options including medical management, injections, therapy, and surgical evaluation were discussed hx of LEFT C5, C6 Cervical Radiofrequency Neurotomy on 08/08/21 patient seems to be responding to conservative treatment and is currently in physical therapy , however he still has residual pain he is currently a nonsurgical candidate. patient may possibly benefit from injections however his surgical history and hardware will make it hard to perform any cervical epidural steroid injections. based on examination physical complaints and imaging, patient may possibly benefit from trigger point injections versus cervical medial branch blocks and possible rhizotomy on the left side. has undergone 4-C5-C6 cervical medial branch block. risk benefits of procedures were discussed patient would like to pursue this. he has undergone cardiac clearance and is now pending procedure dates 2_) [employer] was reviewed on 10/24/23 he may continue with the Percocet 7.5/325 mg as needed for severe pain, medicine refills are needed today he may continue with topical agents that he has been using and may continue with activities as tolerated 3) he must continue to optimize medical management versus multiple medical problems or conditions 4) UDS completed on June 2021 was positive for Percocet and verifies medication compliance Urine drug screen 01/11/2028 screens negative for oxycodone. This is consistent his medication prescription and he last refill occurred in was for 60 tablets. He uses these very sparingly. uds on 02/26 was negative 5) Return to clinic in 2 weeks [email or web address] Not available 10/24/2023 11:46:20 11/07/2023 [id number] dash diet: care instructions [email or web address] Not available 11/07/2023 12:50:11 starting a weigh t loss plan: care instructions [email or web address] Not available 11/07/2023 12:50:11 dash diet [email or web address] Not available 2023 12:50:11 weight managemen t education Not available 11/07/2023 12:50:11 11/07/23 LCV was on 10/24/23 03/15/22 Fluoroscopic Guided Bilateral L4, L5 Lumbar Medial Branch / hardware block This patient comes to clinic for follow up visit. Today, I reviewed the patient's most recent [employer] reports as well as urine drug screen results. the patient demonstrates no polypharmacy or med seeking behavior as I review the [employer] record for 6 months back. Pain contract was reviewed. On his last clinic visit, I refered the patient to Dr. Hernandez for a 2nd opinion, which he completed on February 13. Dr Edmond has recommended a hardware block. This was completed on 03/2022 He returns to clinic a for a fu visit due to returning neck pain, He describes his neck pain with left-sided radicular symptoms. patient voices he was doing well status post surgery in regard to his neck pain and symptoms however he developed recent exacerbation within the past month. he denies any precipitating event such as falls accidents or trauma. He has undergone xrays of his neck and desires to go over results. He reports that his neck pain has improved drastically since the last appointment. He is doing well. 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 Richmond. he is a pleasant 73-year-old male with a past medical history of atrial fibrillation, chronic neck pain with history of 3 cervical surgeries, as well as gastritis. patient presents to clinic for evaluation of left-sided neck pain. patient reports he underwent his third cervical fusion by Dr. Lam in September 2020 secondary to ongoing neck pain with left-sided radicular symptoms. patient voices he was doing well status post surgery in regard to his neck pain and symptoms however he developed recent exacerbation within the past month. he denies any precipitating event such as falls accidents or trauma. patient reports he underwent reevaluation by another culinary specialist and Dr. Richmond in which he underwent images. patient currently describes his pain as a constant ache minimally on the left side of his neck with radiation to his left shoulder. patient reports pain is exacerbated with exercise. he reports his pain is alleviated with heat TENS unit and medications. he does report he is undergoing chiropractic and massage therapy with some improvement. patient reports Dr. Richmond does not believe there is any surgery indicated at this time and he was referred to our facility for the possibility of cervical injections. 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 1) MRI of x-rays of cervical spine were completed in April 14, 2021 reveals prior anterior disc fusion performed at C3-C4 T1-T2 there is bony fusion at C5-C6 and C7 MRI of cervical spine completed on March 23, 2021 reveals fusion had been performed at multiple levels with current anterior fusion hardware seen at C3-C4 and C7-T1 previous fusion at C4-5 C5-6 and C6-7 at C2-C3 there is a 2 mm disc bulge asymmetric to the left uncovertebral osteophyte is worse, mild foraminal narrowing seen on the left at C3-C4 1 mm bony ridge is seen without recurrent spinal canal narrowing or foraminal narrowing at C4-C5 1 mm bony ridges asymmetric to the left without spinal canal narrowing and foraminal narrowing at C5-C6 1 mm bony ridges asymmetric to the left without evidence of spinal canal narrowing and foraminal narrowing at C6-C7 2 mm bony ridges asymmetric to the right without spinal canal narrowing or foraminal narrowing at C7-T1 there is a 2 mm bony ridge identified with mild to moderate pronator bilaterally no spinal canal narrowing is seen I obtained cervical xrays completed on 10/28/23 that reveals ACDF C3-C4 with solid arthrodesis. Straightening of cervical spinal curvature. There is solid ankylosis throughout the cervical spine and the segments below the ACDF. Multilevel uncovertebral and facet arthropathy. No prevertebral soft tissue edema. Anterior fusion of C7-T1 partially at this time options including medical management, injections, therapy, and surgical evaluation were discussed hx of LEFT C5, C6 Cervical Radiofrequency Neurotomy on 08/08/21 patient seems to be responding to conservative treatment and is currently in physical therapy , however he still has residual pain he is currently a nonsurgical candidate. patient may possibly benefit from injections however his surgical history and hardware will make it hard to perform any cervical epidural steroid injections. based on examination physical complaints and imaging, patient may possibly benefit from trigger point injections versus cervical medial branch blocks and possible rhizotomy on the left side. has undergone 4-C5-C6 cervical medial branch block. risk benefits of procedures were discussed patient would like to pursue this. stable, consider further workup or treatments as needed 2_) [employer] was reviewed on 11/07/23 he may continue with the Percocet 7.5/325 mg as needed for severe pain, medicine refills are needed today he may continue with topical agents that he has been using and may continue with activities as tolerated 3) he must continue to optimize medical management versus multiple medical problems or conditions 4) UDS completed on June 2021 was positive for Percocet and verifies medication compliance Urine drug screen 01/11/2028 screens negative for oxycodone. This is consistent his medication prescription and he last refill occurred in was for 60 tablets. He uses these very sparingly. uds on 02/26 was negative 5) Return to clinic prn, ER warnings were given [email or web address] Not available 11/07/2023 12:49:52 Reason for Referral None Reported. Results Created Date Observation Date Name Description Value Unit Range Abnormal Flag Note LastModifiedBy Organization Detail LastModifiedTime 10/28/19 24 XR, cervi donita spine , 4 or 5 view No observ ation record ed. [email or web address] [facility] [address], [place], [address], 10/28/2023 09:45:45 Result Notes None recorded. Procedures Surgical History Date Name Laterality Status Provider Name and Address Organization Details Recorded Time 03/13/20 22 [facility] Lumbar Medial Branch Blocks completed Jo-Ann Locke MD [address] [place] [address], [phone], [place] [facility] 03/13/2022 15:06:12 02/16/20 22 [facility] Cervical RFA completed Jo-Ann Locke MD [address] [place] [address], [phone], [place] [facility] 02/15/2022 09:33:42 01/11/20 22 [facility] Cervical RFA completed Kristina Lorenzo [place] [facility] 01/10/2022 09:47:25 12/14/19 22 [facility] Cervical RFA completed Kristina Lorenzo [place] [facility] 12/13/2021 09:58:22 11/09/19 22 [facility] Cervical RFA completed Esperanza Costa [place] [facility] 11/08/2021 10:10:55 10/25/19 22 [facility] Cervical RFA completed Jo-Ann Locke MD [address] [place] [address], [phone], [place] [facility] 10/24/2021 14:22:37 09/20/19 22 [facility] Cervical MBB completed Jo-Ann Locke MD [address] [place] [address], [phone], [place] [facility] 09/19/2021 14:20:38 08/08/19 22 [facility] Cervical MBB completed Jo-Ann Locke MD [address] [place] [address], [phone], [place] [facility] 09/19/2021 14:21:19 06/28/20 21 DBC Cervical Tx Session completed YONATHAN ROBERTS, SIRIA [address] [place] [address], [phone], [place] [facility] 06/28/2021 11:36:40 06/28/20 21 PT/OT/OMT- [place] completed YONATHAN ROBERTS, PT [address] [place], [address], [place] [facility] 06/28/2021 11:10:20 06/28/20 PT/OT/OMT- Suzie cervical completed YONATHAN ROBERTS, PT [address] [place], [address], [place] [facility] 06/28/2021 11:10:20 06/28/20 PT/OT/OMT- Therapeutic Exercise completed YONATHAN ROBERTS, PT [address] [place], [address], [place] [facility] 06/28/2021 11:37:47 06/28/20 PT/OT/OMT- Manual Therapy completed YONATHAN ROBERTS, PT [address] [place], [address], [place] [facility] 06/28/2021 11:10:20 06/26/20 DBC Cervical Tx Session completed YONATHAN ROBERTS, PT [address] [place], [address], [place] [facility] 06/26/2021 11:42:10 06/26/20 PT/OT/OMT- [place] completed YONATHAN ROBERTS, PT [address] [place], [address], [place] [facility] 06/26/2021 11:31:33 06/26/20 PT/OT/OMT- Suzie cervical completed YONATHAN ROBERTS, PT [address] [place], [address], [place] [facility] 06/26/2021 11:31:33 06/26/20 PT/OT/OMT- Therapeutic Exercise completed YONATHAN ROBERTS, PT [address] [place], [address], [place] [facility] 06/26/2021 11:42:22 06/26/20 PT/OT/OMT- Manual Therapy completed YONATHAN ROBERTS, PT [address] [place], [address], [place] [facility] 06/26/2021 11:31:33 06/21/20 DBC Cervical Tx Session completed YONATHAN ROBERTS, PT [address] [place], [address], [place] [facility] 06/21/2021 11:36:32 06/21/20 21 PT/OT/OMT- [place] completed YONATHAN ROBERTS, PT [address] [place], [address], [place] [facility] 06/21/2021 11:36:50 06/21/20 21 PT/OT/OMT- Suzie cervical completed YONATHAN ROBERTS, PT [address] [place], [address], [place] [facility] 06/21/2021 11:37:25 06/21/20 21 PT/OT/OMT- Therapeutic Exercise completed YONATHAN ROBERTS, PT [address] [place], [address], [place] [facility] 06/21/2021 11:39:56 06/21/20 21 PT/OT/OMT- Manual Therapy completed YONATHAN ROBERTS, PT [address] [place], [address], [place] [facility] 06/21/2021 11:37:03 06/19/20 21 DBC Cervical Tx Session completed YONATHAN ROBERTS, PT [address] [place], [address], [place] [facility] 06/19/2021 12:22:15 06/19/20 21 PT/OT/OMT- Denneroll completed YONATHAN ROBERTS, PT [address] [place], [address], [place] [facility] 06/19/2021 12:22:15 06/19/20 21 PT/OT/OMT- Suzie cervical completed YONATHAN ROBERTS, PT [address] [place], [address], [place] [facility] 06/19/2021 12:22:15 06/19/20 21 PT/OT/OMT- Manual Therapy completed YONATHAN ROBERTS, PT [address] [place], [address], [place] [facility] 06/19/2021 12:22:15 06/13/20 21 DBC Cervical Tx Session completed YONATHAN ROBERTS, PT [address] [place], [address], [facility] 06/13/2021 16:01:43 06/13/20 21 PT/OT/OMT- [place]oll completed YONATHAN ROBERTS, PT [address] [place], [address], [facility] 06/13/2021 16:03:06 06/13/20 21 PT/OT/OMT- Suzie cervical completed YONATHAN ROBERTS, PT [address] [place], [address], [facility] 06/13/2021 15:49:45 06/13/20 21 PT/OT/OMT- Manual Therapy completed YONATHAN ROBERTS, PT [address] [place], [address], [facility] 06/13/2021 16:02:57 06/12/20 21 PT/OT/OMT- Suzie cervical completed YONATHAN ROBERTS, PT [address] [place], [address], [facility] 06/12/2021 12:26:10 inguinal hernia repair completed Not Available Health Note 03/11/2022 17:00:06 cholecystectomy completed Not Available Health Note 03/11/2022 17:00:06 Imaging Results Imaging Date Name Status LastModified by Organiz ation Details LastModified Time 10/28/2023 XR, cervical spine, 4 or [address] [facility] [address], [place], [address], 10/28/2023 09:45:45 Procedure Notes None recorded. Medical Equipment None Reported. Allergies No known drug allergies Medications Name Sig Start Date Stop Date Status Note LastModified by Organization Details LastModified Time celecoxib 200 mg capsule 01/10 completed HN: Patient reports taking HN: Patient reports no longer taking HN: Patient reports no longer taking Not Available Not Available Not Available cyclobenz aprine 10 mg tablet 06/04 completed Not Available Not Available Not Available ascorbic acid (vitamin C) 1,000 mg tablet TAKE 1 TABLET BY ORAL ROUTE EVERY DAY FOR 22 DAYS active Not Available Not Available No t Available cefuroxim e axetil 250 mg tablet 06/04 completed Not Available Not Available Not Available cetirizin e 10 mg tablet TAKE 1 TABLET BY MOUTH EVERY DAY active Not Available Not Available No t Available tramadol 37.5 mg-acetam inophen 325 mg tablet 06/04 completed Not Available Not Available Not Available metoprolo l succinate ER 50 mg tablet,ex tended release 24 hr TAKE 1 TABLET BY MOUTH EVERY DAY active Not Available Not Available No t Available meloxicam 15 mg tablet TAKE 1 TABLET BY MOUTH EVERY DAY active Not Available Not Available No t Available prednison e 20 mg tablet TAKE 1 TABLET BY MOUTH THREE TIMES A DAY FOR 5 DAYS 01/10 completed HN: Patient reports no longer taking Not Available Not Available Not Available fluoroura cil 5 % topical cream 06/04 completed Not Available Not Available Not Available omeprazol e 40 mg capsule,d elayed release 01/10 completed HN: Patient reports no longer taking HN: Patient reports no longer taking HN: Patient reports no longer taking Not Available Not Available Not Available tramadol 50 mg tablet TAKE 1 TO 2 TABLETS BY MOUTH EVERY 6 HOURS active Not Available Not Available No t Available oxycodone -acetamin ophen 5 mg-325 mg tablet 06/04 completed Not Available Not Available Not Available metoclopr amide 5 mg tablet 06/04 completed Not Available Not Available Not Available prednison e 1 mg tablet TAKE 1 TABLET BY MOUTH EVERY DAY active Not Available Not Available No t Available meclizine 25 mg tablet 06/04 completed Not Available Not Available Not Available benzonata te 100 mg capsule 01/10 completed HN: Patient reports no longer taking HN: Patient reports no longer taking HN: Patient reports no longer taking HN: Patient reports no longer taking Not Available Not Available Not Available doxycycli ne monohydra te 100 mg capsule TAKE 1 CAPSULE BY MOUTH EVERY DAY active Not Available Not Available No t Available cephalexi n 500 mg capsule 06/04 completed Not Available Not Available Not Available pantopraz ole 40 mg tablet,de layed release 06/04 completed Not Available Not Available Not Available triamcino lone acetonide 0.1 % topical ointment PLEASE SEE ATTACHED FOR DETAILED DIRECTIO NS 01/10 completed HN: Patient reports no longer taking HN: Patient reports no longer taking Not Available Not Available Not Available calcipotr iene 0.005 % topical cream 06/04 completed Not Available Not Available Not Available flecainid e 50 mg tablet TAKE 1 TABLET BY MOUTH EVERY 12 HOURS active Not Available Not Available No t Available flecainid e 100 mg tablet 100mg 2/day active Not Available Not Available No t Available metoprolo l succinate ER 25 mg tablet,ex tended release 24 hr 01/10 completed HN: Patient reports no longer taking HN: Patient reports no longer taking HN: Patient reports no longer taking HN: Patient reports no longer taking Not Available Not Available Not Available oxycodone -acetamin ophen 7.5 mg-325 mg tablet TAKE 1 TABLET BY MOUTH Three times A DAY active HN: Patient reports no longer taking Not Available Not Available Not Available methylpre dnisolone 4 mg tablets in a dose pack TAKE 6 TABLETS ON DAY 1 DIRECTED ON PACKAGE AND DECREASE BY 1 TAB EACH DAY FOR A TOTAL OF 6 DAYS active Not Available Not Available No t Available albuterol sulfate HFA 90 mcg/actua tion aerosol inhaler 01/10 completed HN: Patient reports no longer taking HN: Patient reports no longer taking HN: Patient reports no longer taking HN: Patient reports no longer taking Not Available Not Available Not Available fluticaso ne propionat e 50 mcg/actua tion nasal spray,ryan pension SPRAY 2 SPRAYS INTO EACH NOSTRIL EVERY DAY active Not Available Not Available No t Available chlorhexi dine gluconate 0.12 % mouthwash RINSE WITH 15 ML TWICE DAILY, FOR 30 SECONDS THEN SPIT OUT. DO NOT SWALLOW active Not Available Not Available No t Available diclofena c 1 % topical gel APPLY 2 GRAMS TO THE AFFECTED AREA(S) BY TOPICAL ROUTE 4 TIMES PER DAY active Not Available Not Available No t Available Kylehamb er Tawnya VHC spacer 01/10 completed HN: Patient reports no longer taking HN: Patient reports no longer taking HN: Patient reports no longer taking HN: Patient reports no longer taking Not Available Not Available Not Available Eliquis 5 mg tablet TAKE 1 TABLET (5 MG TOTAL) BY MOUTH TWICE A DAY FOR STROKE PREVENTI ON active Not Available Not Available No t Available Eliquis 2.5 mg tablet 5mg 2/day active Not Available Not Available No t Available Tylenol 325 mg capsule TAKE 1 TABLET BY ORAL ROUTE ONCE EVERY 6 HOURS FOR THE FIRST 7 DAYS AFTER SURGERY active Not Available Not Available No t Available Vitals Date Recorded Body height Body mass index (BMI) Body weight Provider Name and Address Organization Details Last Updated DateTime 10/24/2023 185.42 cm 27.4 kg/m2 36064.3251 465519 g Not Available Health Note 10/24/2023 10:32:03 Date Recorded Heart rate Systolic blood pressure Diastolic blood pressure Provider Name and Address Organization Details Last Updated DateTime 10/24/2023 61 /min 114 mm[Hg] 64 mm[Hg] Omaira Carrasquillo [facility] 10/24/2023 11:04:01 Date Recorded Body mass index (BMI) Body weight Body height Provider Name and Address Organization Details Last Updated DateTime 11/07/2023 27.4 kg/m2 30281.57243 02958 g 185.42 cm Not Available Health Note 11/07/2023 10:30:25 Date Recorded Systolic blood pressure Diastolic blood pressure Provider Name and Address Organization Details Last Updated DateTime 11/07/2023 112 mm[Hg] 71 mm[Hg] Kristina Lorenzo [facility] 11/07/2023 10:38:14 Date Recorded Body height Body mass index (BMI) Body weight Systolic blood pressure Diastolic blood pressure Provider Name and Address Organization Details Last Updated DateTime 02/15/2022 185.42 cm 26.9 kg/m2 73119.84 g 141 mm[Hg] 80 mm[Hg] Melanie Yo [facility] 08/11/202 2 09:26:45 Date Recorded Body height Body mass index (BMI) Body weight Systolic blood pressure Diastolic blood pressure Provider Name and Address Organization Details Last Updated DateTime 03/15/2022 185.42 cm 26.5 kg/m2 66217.07 g 118 mm[Hg] 72 mm[Hg] Melanie Yo [place] - [facility] 2 09:31:32 Social History Question Answer Notes LastModified by Organizat ion Details LastModified Time Tobacco Smoking Status Former Smoker Not Available Health Note 10/22/2023 11:28:28 Do You Have An Advance Directive? Yes [email or web address] Information not available 10/22/2023 What Is Your Level Of Alcohol Consumption? Occasional Information not available 06/08/2021 Are You Blind Or Do You Have Difficulty Seeing? No [email or web address] Information not available 10/22/2023 In The 14 Days Before Symptom Onset, Have You Had Close Contact With A Laboratory-confir med COVID-19 While That Case Was Ill? No [email or web address] Information not available 03/11/2022 In The 14 Days Before Symptom Onset, Have You Had Close Contact With A Person Who Is Under Investigation For COVID-19 While That Person Was Ill? No [email or web address] Information not available 03/11/2022 Have You Been To An Area Known To Be High Risk For COVID-19? No [email or web address] Information not available 03/11/2022 Are You Currently Employed? No [email or web address] Information not available 03/11/2022 Are You Deaf Or Do You Have Serious Difficulty Hearing? No [email or web address] Information not available 10/22/2023 Recreational Drugs Yes Marijuana Information not available 04/26/2021 Are You Currently Seeing A Doctor That Is Prescribing Controlled Substances For Your Pain No Information not available 04/26/2021 Have You Seen Any Doctor In The Last 4 Months That Has Prescribed To You Any Controlled Substances Including Hydrocodone, Codeine, Morphine, Oxycodone, Fentanyl, Other? No Information not available 04/26/2021 Have You Ever Been Arrested For A Narcotic Violation? No Information not available 04/26/2021 Have You Ever Been Treated For Substance Abuse Or Addiction? No Information not available 04/26/2021 Are Any Teenagers Living In Your Household? No Information not available 04/26/2021 Have You Been Experiencing Any Constipation As A Result Of The Pain Medications You're Prescribed? No [email or web address] Information not available 02/11/2022 Have You Been Counseled On Unhealthy Alcohol Use? Yes [email or web address] Information not available 06/08/2021 Is This A Work Related Injury? No Information not available 04/26/2021 Are You Presently Receiving Disability Benefits? No Information not available 04/26/2021 Have You Ever Filed A Claim Under Workers Compensation? No Information not available 04/26/2021 Are You Currently Involved In Any Litigation Due To Your Pain Or Injury? No Information not available 04/26/2021 Have You Ever Been A Victim Of Any Of Emotional Abuse? No Information not available 04/26/2021 Have You Ever Been A Victim Of Physical Abuse? No Information not available 04/26/2021 Have You Ever Been A Victim Of Sexual Abuse? No Information not available 04/26/2021 Do You Have A Medical Power Of [employer]? Yes [email or web address] Information not available 10/22/2023 What Was The Date Of Your Most Recent Tobacco Screening? 11/07/2023 [email or web address] Information not available 11/07/2023 How Many Children Do You Have? 2 Information not available 04/26/2021 What Is Your Relationship Status? Information not available 04/26/2021 Do You Use Your Seat Belt Or Car Seat Routinely? Yes [email or web address] Information not available 03/11/2022 Do You Feel Stressed (tense, Restless, Nervous, Or Anxious, Or Unable To Sleep At Night)? [id number] [email or web address] Information not available 03/11/2022 Do You Use Any Illicit Or Recreational Drugs? No Information not available 04/26/2021 How Many Years Have You Smoked Tobacco? 7 Information not available 04/26/2021 Do You Or Have You Ever Used Any Other Forms Of Tobacco Or Nicotine? No Information not available 04/26/2021 Sex: Male Functional Status Question Answer Note LastModified by Organization D etails LastModified Time Do you have difficulty walking or climbing stairs? No [email or web address] Information not available 10/22/2023 Do you have difficulty doing errands alone? No [email or web address] Information not available 10/22/2023 Do you have difficulty dressing or bathing? No [email or web address] Information not available 10/22/2023 Mental Status Question Answer Note LastModified by Organization D etails LastModified Time Do you have difficulty concentrating, remembering or making decisions? No [email or web address] Information no t available 10/22/2023 Family History Nothing Reported Notes:Sister has fungus in t he lung Medical History Condition Response HIV or AIDS N Other N Gout N Atrial Fibrillation Y Kidney Stones N Tendonitis or Tendon Tear of the Shoulde r/Elbow/Hand N Varicella - Chicken Pox N Carpal Tunnel Syndrome N Headaches NOT diagnosed as Migraine N Depression N Blood Clots N Pneumonia N Drop Foot N Low Thyroid (hypothyroidism) N Reflex Sympathetic Dystrophy or Complex Regional Pain Syndrome N Anxiety Disorder N Other anemia N Cirrhosis of Liver N Herpes Zoster or Shingles N Headaches diagnosed as Migraine N Cancer N Stroke N Hemodialysis N Low Platelets (thrombocytopenia) N Arthritis of the Hip/Knee/Ankle N Leg or Foot Ulcers N Diabetes-Insulin Dependent N Other Autoimmune Disease N Fibromyalgia N Have You Ever Been Treated for Substance Abuse? N Irritable Bowel Syndrome N High blood pressure N Joint Infection N Other Bleeding Disorder N Have You Ever Been Admitted to a Psychia tric Facility? N Do you take blood thinning medication? N Blood Clot (deep venous thrombosis) N Coronary Artery Disease or Angina N Ulcers N Have You Ever Had Problems with Surgical Anesthesia? N Bladder Problems N Have You Ever Attempted Suicide? N Anemia that is NOT Sickle Cell N Vascular Claudication N Tuberculosis N Disk Problems in the Low Back (Lumbar) o r Pinched Nerve N Reflux or GERD N Pacemaker WITHOUT Defibrillator N Asthma N Iliac Vein Compression Syndrome (May Tur ner Syndrome) N Renal (Kidney) Cancer N Thyroid Cancer N Myocarditis (heart inflammation) N Neuropathy N High Thyroid (hyperthyroidism) N Pulmonary Embolism N Have You Ever Been Treated for Alcohol A ddiction? N Seizure Disorder N Leukemia N Colon Cancer N Breast Cancer N Hernia N Spinal Cord Injury N Lung Cancer N COPD or emphysema N Other Heart Problems N Diabetes-Non Insulin Dependent N Sickle Cell Anemia N Rheumatoid Arthritis DIAGNOSED by a Doct or N Ulnar Neuropathy N Hemophilia N Peripheral Artery Disease N Osteoporosis or Osteopenia N Hepatitis - Type Unknown N Malaria N Chron's Disease N Traumatic Brain Injury N SEVERE Allergic Reaction to Latex N High cholesterol N Adrenal Insufficiency N Chronic Kidney Disease N Frequent Urinary Tract Infection N Liver Disease N Other lung disease N Other Personality Disorder N Muscle Injury or Tear in the Arm N Schizophrenia N Concussion N Factor 5 Leiden N Lyme Disease N Prostate Cancer N SEVERE Reaction to Any Type of Contrast Dye? N Disk Problems in the Neck (Cervical) or Pinched Nerve N Syphilis N Hepatitis C N Stents in your Heart N Pacemaker WITH Defibrillator N Chronic Bronchitis N Muscle Injury or Tear in the Leg N Diverticulitis N Hepatitis B N Epilepsy N Heart Attack (myocardial infarction) N Lupus N Bipolar Disorder N Sleep Apnea N Ulcerative Colitis N Arthritis of the Shoulder/Elbow/Hand N Tendonitis or Tendon Tear of the Hip/Kne e/Foot N Heart Disease N Do you Require Oxygen on a Daily Basis N Past Encounters Encounter ID Performer Location Encounter Start Date Encounter Closed Date Diagnosis/Indication Diagnosis SNOMED-CT Code Diagnosis ICD10 Code Diagnosis Note [id number] Jo-Ann Locke MD [address] [address] 04/26/2021 13:37:50 04/27/2021 09:42:23 Educated about weight management 496597207 Z71.3 Cervical post-laminectomy syndrome 302959024 M96.1 Degenerati on of cervical intervertebral disc 66772719 M50.30 Cervical radiculitis 110 27008 M54.12 Cervical spondylosis 387 752652 M47.812 Muscle pain 72932983 M79 .18 [id number] Leena Akins [address] [address] 06/08/2021 08:53:49 06/08/2021 18:32:28 Cervical post-laminectomy syndrome 793450315 M96.1 Degenerati on of cervical intervertebral disc 11266230 M50.30 Educated a bout weight management 688358290 Z71.3 Cervical radiculitis 110 39467 M54.12 Cervical spondylosis 387 244709 M47.812 Muscle pain 60925477 M79 .18 [id number] YONATHAN ROBERTS [facility] - [address] [address] 06/12/2021 10:46:05 06/12/2021 15:34:00 Degeneration of cervical intervertebral disc 79516696 M50.30 Cervical spondylosis 387 149557 M47.812 [id number] YONATHAN ROBERTS PT [address] [address] 06/13/2021 13:52:42 06/13/2021 16:30:43 Degeneration of cervical intervertebral disc 66565110 M50.30 Cervical spondylosis 387 747808 M47.812 [id number] YONATHAN ROBERTS PT [address] [address] 06/19/2021 12:21:07 06/19/2021 15:02:56 Degeneration of cervical intervertebral disc 48720110 M50.30 Cervical spondylosis 387 636597 M47.812 [id number] YONATHAN ROBERTS PT [address] [address] 06/21/2021 10:49:38 06/21/2021 11:42:34 Degeneration of cervical intervertebral disc 70891130 M50.30 Cervical spondylosis 387 005876 M47.812 [id number] Jo-Ann Locke MD - [address] [address] 06/23/2021 08:58:20 06/23/2021 09:29:00 Cervical post-laminectomy syndrome 584031891 M96.1 Degenerati on of cervical intervertebral disc 44635922 M50.30 Educated a bout weight management 208622467 Z71.3 Cervical radiculitis 110 49793 M54.12 Cervical spondylosis 387 218870 M47.812 Muscle pain 62398479 M79 .18 Long-term drug therapy 921877468 Z79.899 [id number] YONATHAN ROBERTS PT [address] [address] 06/26/2021 10:48:31 06/26/2021 11:44:37 Degeneration of cervical intervertebral disc 28969530 M50.30 Cervical spondylosis 387 737779 M47.812 [id number] YONATHAN ROBERTS PT [address] [address] 06/28/2021 10:46:39 06/28/2021 11:38:44 Degeneration of cervical intervertebral disc 11933441 M50.30 Cervical spondylosis 387 434055 M47.812 [id number] Jo-Ann Locke MD [address] [address] 07/20/2021 10:58:57 07/20/2021 12:39:41 Cervical post-laminectomy syndrome 352467362 M96.1 Degenerati on of cervical intervertebral disc 27812619 M50.30 Educated a bout weight management 660379523 Z71.3 Cervical radiculitis 110 92955 M54.12 Cervical spondylosis 387 815317 M47.812 Muscle pain 81399813 M79 .18 [id number] Jo-Ann Locke MD [facility] [address] [place] [address] 08/08/2021 10:36:50 08/08/2021 21:26:44 Cervical spondylosis 906049989 M47.812 [id number] Jo-Ann Locke MD [address] [address] 09/06/2021 10:58:12 09/06/2021 12:08:26 Cervical post-laminectomy syndrome 246998356 M96.1 Degenerati on of cervical intervertebral disc 37034820 M50.30 Educated a bout weight management 396744845 Z71.3 Cervical radiculitis 110 23723 M54.12 Cervical spondylosis 387 518658 M47.812 Muscle pain 16268771 M79 .18 [id number] Jo-Ann Locke MD [facility] [address] [place] [address] 09/19/2021 11:21:10 09/19/2021 14:22:56 Cervical spondylosis 469068710 M47.812 [id number] Mohamud Rangel MD [facility] [address] [place] [address] 09/29/2021 09:45:26 10/01/2021 23:37:04 At low risk for fall 037828615 Z91.81 Body mass index 25-29 - overweight 218391417 Z68.29 Influenza vaccination given 5503671110 9109 Z29 april 2021 via [employer] Sleep apnea 30054034 G47 .30 R09.02 this patient has been diagnosed with obstructiv e sleep apnea (G47.33). I am referring this patient [facility] and jovanny kern mandibular reposition ing device (E0486). the device is for the treatment of the patients sleep apnea and the length of need is Lifetime; it is NOT for any Dental disorder; it is considered durable medical equipment; and it is medically necessary. this device will be provided and billed by a licensed dentist. Thank you for your prompt attention to this matter. Hypoxia 775692589 R09.02 [id number] Jane Federico [facility] [address] [place] [address] 10/05/2021 13:49:10 10/05/2021 17:05:36 Cervical post-laminectomy syndrome 916395407 M96.1 Degenerati on of cervical intervertebral disc 57657103 M50.30 Educated a bout weight management 310345885 Z71.3 Cervical radiculitis 110 00142 M54.12 Cervical spondylosis 387 518985 M47.812 Muscle pain 58541933 M79 .18 Long-term drug therapy 247544161 Z79.899 [id number] [facility]Ann Locke [facility] [address] [place] [address] 10/24/2021 10:09:03 10/24/2021 14:28:56 Cervical spondylosis 705643611 M47.812 [id number] Jane Caballero [facility] [address] [place] [address] 11/08/2021 09:33:20 11/08/2021 17:59:30 Cervical spondylosis 996391109 M47.812 Cervical post-laminectomy syndrome 807636851 M96.1 Degenerati on of cervical intervertebral disc 16778969 M50.30 Educated a bout weight management 470199803 Z71.3 Cervical radiculitis 110 89243 M54.12 Muscle pain 34992710 M79 .18 Long-term drug therapy 076749204 Z79.899 [id number] Kristina Lorenzo [facility] [address] [place] [address] 12/13/2021 09:29:47 12/13/2021 17:30:38 Cervical spondylosis 466026846 M47.812 Cervical post-laminectomy syndrome 748923046 M96.1 Degenerati on of cervical intervertebral disc 83656421 M50.30 Educated a bout weight management 836966088 Z71.3 Cervical radiculitis 110 80302 M54.12 Muscle pain 49297335 M79 .18 Long-term drug therapy 171829668 Z79.899 Lumbar spondylosis 72504 0009 M47.896 [id number] Kristina Bj [facility] [address] [place] [address] 01/10/2022 09:32:56 01/10/2022 17:40:06 Cervical spondylosis 216642667 M47.812 Cervical post-laminectomy syndrome 020028633 M96.1 Degenerati on of cervical intervertebral disc 74794262 M50.30 Educated a bout weight management 392047081 Z71.3 Cervical radiculitis 110 38763 M54.12 Muscle pain 53139800 M79 .18 Long-term drug therapy 364573538 Z79.899 Lumbar spondylosis 46505 0009 M47.896 Hypertensive disorder 38 886133 I10 [id number] Kristina Bj [facility] [address] 02/15/2022 09:19:01 02/15/2022 17:38:38 Cervical spondylosis 265916347 M47.812 Cervical post-laminectomy syndrome 858553068 M96.1 Degenerati on of cervical intervertebral disc 33129683 M50.30 Educated a bout weight management 627861160 Z71.3 Cervical radiculitis 110 57591 M54.12 Muscle pain 33140654 M79 .18 Lumbar spondylosis 68623 0009 M47.896 Hypertensive disorder 38 938428 I10 Long-term drug therapy 164317937 Z79.899 Body mass index 25-29 - overweight 237594723 Z68.26 Lumbar post-laminectomy syndrome 306190170 M96.1 [id number] Jo-Ann Locke MD [facility] [address] [place] [address] 03/13/2022 12:46:55 03/13/2022 15:07:46 Lumbar spondylosis 568783970 M47.896 [id number] Jo-Ann Locke MD [address] [address] 10/24/2023 10:30:44 10/24/2023 11:47:23 Body mass index 25-29 - overweight 669648163 Z68.27 Cervical spondylosis 387 441403 M47.812 Cervical post-laminectomy syndrome 419993552 M96.1 Degenerati on of cervical intervertebral disc 76475471 M50.30 Educated a bout weight management 765280595 Z71.3 Cervical radiculitis 110 44305 M54.12 Muscle pain 68336855 M79 .18 Lumbar spondylosis 78478 0009 M47.896 Hypertensive disorder 38 986657 I10 Lumbar post-laminectomy syndrome 584913022 M96.1 [id number] Jo-Ann Locke MD [address] [address] 11/07/2023 10:29:28 11/07/2023 12:50:39 Cervical spondylosis 513651002 M47.812 Cervical post-laminectomy syndrome 803235975 M96.1 Body mass index 25-29 - overweight 660394716 Z68.27 Degenerati on of cervical intervertebral disc 22362125 M50.30 Educated a bout weight management 817678014 Z71.3 Cervical radiculitis 110 16600 M54.12 Muscle pain 39027623 M79 .18 Lumbar spondylosis 40239 0009 M47.896 Hypertensive disorder 38 387147 I10 Lumbar post-laminectomy syndrome 646821251 M96.1 Health Concerns Section Related Observation LastModified by Organization Detai ls LastModified Time None Recorded Concern Status LastModified by Organization Details LastModified Time None Recorded Advance Directives Directive Y: Payers Encounter Date Sequence Insurance Name Policy Number Policy Juan Covered Member ID Juan Member ID Guarantor Name 02/15/2022 1 [place] [employer] Kris Jeter [id number] Kris Jeter 02/15/2022 2 [place] Kris Jeter [id number] Kris Jeter 03/13/2022 1 [place] [employer] Kris Jeter [id number] Kris Gorecharleen 03/13/2022 2 [place] Kris Jeter [id number] Kris Cedeñonalini 10/24/2023 1 [employer] (MEDICARE REPLACEMENT PPO) [id number] Kris Jeter [id number] Kris Cedeñonalini 11/07/2023 1 [employer] (MEDICARE REPLACEMENT PPO) [id number] Kris Jeter [id number] Kris Goremannchirag Notes Date Note Type Note Provider Name and Address Organization Details Recorded Time 02/15/2022 text/html [facility] Pain Visit 4Reported bypatient.Duration:How long the patient has had pain (weeks,months,years): (3 weeks) Frequency:How many days a week the patient has pain: (7) Onset:Sudden Modifying Factors:None Timing:Constant Quality:Aching Severity:Pain level at its best: (5); Pain level at its worst (10); Level of pain the patient requires medication: (8) Location:Neck (cervical);Low back (lumbar);Left shoulder;Right shoulder Context:Factors that make the pain better: (heat/cold pack, TENS, med); Factors that make the pain worse: (exercising) Kris Collazo a 71 year oldMalepresenting for care. Reason for Follow up visit:No, I'm here for a follow up the condition I discuss last visit Pain control:The same Activity level:Medium (same level of activity) Taking medications for pain:Yes Medication storage:Yes, I am the only person taking my medications Current dose:Yes, pain is controlled on the current medication dose Patient requests:OTHER Able to do daily activities:Sit for longer periods of time Hospitalizations/ED visits:no Patient reports New Medications: - metoprolol succinate er 50 mg tablet,extended release 24 hr - omeprazole 40 mg capsule,delayed release - oxycodone-acetaminophe n 7.5 mg-325 mg tablet - prednisone 20 mg tablet Updates to Medication Allergies:None Patient reports NO New Medication Allergies. Updates to Non-Medication Allergies:None Patient reports NO relevant Non-Medication Allergies. Screening / Questionnaire: ALEXIS: Score: 0 No Risk [facility] [place] [facility] Reason for Follow up visit:No, I'm here for a follow up the condition I discuss last visit Pain control:Improved Activity level:High (more active) Taking medications for pain:Yes Medication storage:Yes, I am the only person taking my medications Current dose:Yes, pain is controlled on the current medication dose Patient requests:OTHER Able to do daily activities:Walking without pain Hospitalizations/ED visits:no Patient reports New Medications: - chlorhexidine gluconate 0.12 % mouthwash - diclofenac 1 % topical gel - fluticasone propionate 50 mcg/actuation nasal spray,suspension - metoprolol succinate er 50 mg tablet,extended release 24 hr - oxycodone-acetaminophe n 7.5 mg-325 mg tablet - triamcinolone acetonide 0.1 % topical ointment Updates to Medication Allergies:None Patient reports NO New Medication Allergies. Updates to Non-Medication Allergies:None Patient reports NO relevant Non-Medication Allergies. Screening / Questionnaire: ALEXIS: Score: 0 No [facility] Reason for Follow up visit:No, I'm here for a follow up the condition I discuss last visit Pain control:Worse Activity level:Low (less active) Taking medications for pain:Yes Medication storage:Yes, I am the only person taking my medications Current dose:Yes, pain is controlled on the current medication dose Patient requests:To try a different medication - New medication to try:Non-opioid - Increase dose:Non-opioid Able to do daily activities:Sleeping a little better Hospitalizations/ED visits:no Previous Tests:MRI Patient reports New Medications: - celecoxib 200 mg capsule - diclofenac 1 % topical gel - metoprolol succinate er 50 mg tablet,extended release 24 hr - oxycodone-acetaminophe n 7.5 mg-325 mg tablet Updates to Medication Allergies:None Patient reports NO New Medication Allergies. Updates to Non-Medication Allergies:None Patient reports NO relevant Non-Medication Allergies. Screening / Questionnaire: ALEXIS: Score: 0 No Risk [facility] Reason for Follow up visit:No, I'm here for a follow up the condition I discuss last visit Pain control:The same Activity level:High (more active) Taking medications for pain:Yes Medication storage:Yes, I am the only person taking my medications Current dose:Yes, pain is controlled on the current medication dose Patient requests:To try a different medication - New medication to try:Suggest to me? - Increase dose:Suggest to me? Able to do daily activities:Sleep longer without interruption Hospitalizations/ED visits:no Patient reports New Medications: - celecoxib 200 mg capsule - diclofenac 1 % topical gel - fluticasone propionate 50 mcg/actuation nasal spray,suspension - metoprolol succinate er 50 mg tablet,extended release 24 hr - oxycodone-acetaminophe n 7.5 mg-325 mg tablet Updates to Medication Allergies:None Patient reports NO New Medication Allergies. Updates to Non-Medication Allergies:None Patient reports NO relevant Non-Medication Allergies. Screening / Questionnaire: ALEXIS: Score: 0 No Risk Jo-Ann Locke MD [address] [place], [address] 02/15/2022 13:21:35 03/13/2022 text/html [facility] Pain Visit 4Reported bypatient.Duration:How long the patient has had pain (weeks,months,years): (3 weeks) Frequency:How many days a week the patient has pain: (7) Onset:Sudden Modifying Factors:None Timing:Constant Quality:Aching Severity:Pain level at its best: (5); Pain level at its worst (10); Level of pain the patient requires medication: (8) Location:Neck (cervical);Low back (lumbar);Left shoulder;Right shoulder Context:Factors that make the pain better: (heat/cold pack, TENS, med); Factors that make the pain worse: (exercising) Kris Goremiya a 71 year oldMalepresenting for care. Reason for Follow up visit:No, I'm here for a follow up the condition I discuss last visit Pain control:The same Activity level:Medium (same level of activity) Taking medications for pain:Yes Medication storage:Yes, I am the only person taking my medications Current dose:Yes, pain is controlled on the current medication dose Patient requests:OTHER Able to do daily activities:Sit for longer periods of time Hospitalizations/ED visits:no Patient reports New Medications: - metoprolol succinate er 50 mg tablet,extended release 24 hr - omeprazole 40 mg capsule,delayed release - oxycodone-acetaminophe n 7.5 mg-325 mg tablet - prednisone 20 mg tablet Updates to Medication Allergies:None Patient reports NO New Medication Allergies. Updates to Non-Medication Allergies:None Patient reports NO relevant Non-Medication Allergies. Screening / Questionnaire: ALEXIS: Score: 0 No Risk Kris kern 71 year oldMalepresenting for care. Reason for Follow up visit:No, I'm here for a follow up the condition I discuss last visit Pain control:Improved Activity level:High (more active) Taking medications for pain:Yes Medication storage:Yes, I am the only person taking my medications Current dose:Yes, pain is controlled on the current medication dose Patient requests:OTHER Able to do daily activities:Walking without pain Hospitalizations/ED visits:no Patient reports New Medications: - chlorhexidine gluconate 0.12 % mouthwash - diclofenac 1 % topical gel - fluticasone propionate 50 mcg/actuation nasal spray,suspension - metoprolol succinate er 50 mg tablet,extended release 24 hr - oxycodone-acetaminophe n 7.5 mg-325 mg tablet - triamcinolone acetonide 0.1 % topical ointment Updates to Medication Allergies:None Patient reports NO New Medication Allergies. Updates to Non-Medication Allergies:None Patient reports NO relevant Non-Medication Allergies. Screening / Questionnaire: ALEXIS: Score: 0 No Risk Kris kern 71 year oldMalepresenting for care. Reason for Follow up visit:No, I'm here for a follow up the condition I discuss last visit Pain control:Worse Activity level:Low (less active) Taking medications for pain:Yes Medication storage:Yes, I am the only person taking my medications Current dose:Yes, pain is controlled on the current medication dose Patient requests:To try a different medication - New medication to try:Non-opioid - Increase dose:Non-opioid Able to do daily activities:Sleeping a little better Hospitalizations/ED visits:no Previous Tests:MRI Patient reports New Medications: - celecoxib 200 mg capsule - diclofenac 1 % topical gel - metoprolol succinate er 50 mg tablet,extended release 24 hr - oxycodone-acetaminophe n 7.5 mg-325 mg tablet Updates to Medication Allergies:None Patient reports NO New Medication Allergies. Updates to Non-Medication Allergies:None Patient reports NO relevant Non-Medication Allergies. Screening / Questionnaire: ALEXIS: Score: 0 No Risk Kris Collazo a 71 year oldMalepresenting for care. Reason for Follow up visit:No, I'm here for a follow up the condition I discuss last visit Pain control:The same Activity level:High (more active) Taking medications for pain:Yes Medication storage:Yes, I am the only person taking my medications Current dose:Yes, pain is controlled on the current medication dose Patient requests:To try a different medication - New medication to try:Suggest to me? - Increase dose:Suggest to me? Able to do daily activities:Sleep longer without interruption Hospitalizations/ED visits:no Patient reports New Medications: - celecoxib 200 mg capsule - diclofenac 1 % topical gel - fluticasone propionate 50 mcg/actuation nasal spray,suspension - metoprolol succinate er 50 mg tablet,extended release 24 hr - oxycodone-acetaminophe n 7.5 mg-325 mg tablet Updates to Medication Allergies:None Patient reports NO New Medication Allergies. Updates to Non-Medication Allergies:None Patient reports NO relevant Non-Medication Allergies. Screening / Questionnaire: ALEXIS: Score: 0 No Risk Jo-Ann Locke MD [address] [place], [address], [facility] 03/13/2022 15:07:13 10/24/2023 text/html Kris Collazo a 73 year oldMalepresenting for care. Preferred pronoun:he/him Reason for Follow up visit:Pt would like to follow up on condition last discussed Pain control:Worse Activity level:Medium (same level of activity) Taking medications for pain:Pt is not taking meds for pain Hospitalizations/ED visits:yes Details:Atrial Fibrillation Screening / Questionnaire: ALEXIS: Score: 0 No Risk Jo-Ann Locke MD [address] [place], [address], [facility] 10/24/2023 11:46:45 11/07/2023 text/html Kris Collazo a 73 year oldMalepresenting for care. Preferred pronoun:he/him Reason for Follow up visit:Pt would like to follow up on condition last discussedPain control:WorseActivity level:Medium (same level of activity)Taking medications for pain:Pt is not taking meds for painHospitalizations/E D visits:yesDetails:Atri al Fibrillation Screening / Questionnaire:ALEXIS: Score: 0 No Risk Jo-Ann Locke MD [address] [place], [address], [facility] 11/07/2023 12:50:14
--- NOTE | 2024-08-13 08:59 | A.OFFVIS_ITS ---
Vital Signs 08/13/24 08:59 Height 6 ft 1 in Weight 205 lb BMI 27.0 BP 138/70 Blood Pressure Location Rt brachial Position Sitting Pulse 56 Pulse Source Pulse Oximeter Pulse Oximetry (%) 99 Oxygen Delivery Method Room Air Intake Visit Reasons: Right Dx C4-C5-C6 MBB Regulatory Affairs Consultant Required: No Allergies No Known Allergies Allergy (Verified 08/13/24 09:00) Medication List - Last Reconciled 08/13/24 by Anitha Ozuna, ENVIRONMENTAL ENGINEERING PROFESSOR apixaban (Eliquis) 5 mg PO BID cyclobenzaprine 5 mg PO BEDTIME PRN 30 days diclofenac sodium 1% (Voltaren Arthritis Pain) 4 grams topical QID flecainide 50 mg PO Q12H gabapentin 300 mg PO BID 30 days lorazepam 0.5 mg PO ONCE PRN 1 day metoprolol succinate ER 50 mg PO DAILY HPI HPI Right Dx C4-C5-C6 MBB: Details: Patient presents for scheduled procedure. Denies any recent cough, cold, infection, fever or other significant changes in medical history since last office visit. [facility] Medical History (Updated 07/31/24 @ 10:38 by ZOYA Mitchell) Basal cell carcinoma of skin of face Psoriasis Acid reflux Heart palpitations Surgical History (Updated 07/31/24 @ 10:41 by ZOYA Mitchell) History of elbow surgery History of shoulder surgery S/P cervical spinal fusion History of lumbar fusion Social History Housing: House Alcohol intake: current Alcohol intake frequency: a few times a month Alcohol type: hard liquor Patient Tobacco Use Status: Never used Tobacco e-Cigarette/Vaping Use: Never Used Second Hand Smoke Exposure: No service: No Current occupational status: retired Current occupational exposures/hazards: No Cognitive needs: No Hearing needs: No Vision needs: Yes Physical Exam Vital Signs: Last Vital Signs Pulse 56 08/13/24 08:59 BP 138/70 08/13/24 08:59 Pulse Ox 99 08/13/24 08:59 Oxygen Delivery Method Room Air 08/13/24 08:59 BMI result Body Mass Index 27.0 Office Procedures Details: Diagnostic Cervical Medial Branch Block, Right C3, C4, C5 medial branches After obtaining written consent, pre-procedure blood pressure and pulse were recorded and are in the nursing record for review. The patient was placed in a lateral position. The respective cervical area was prepped with chloraprep and draped in sterile fashion. The skin over the target medial branch nerves was anesthetized with 0.5% lidocaine. A 25 gauge 1.5 inch needle was inserted into the target medial branch nerve under fluoroscopic guidance. No paresthesias were elicited with needle placement and aspiration was negative for blood and CSF. Next, 0.2cc of omnipaque 180 was injected to verify positioning. Next 0.5 ml 0.5% ropivicaine was injected (0.5 cc total per level). The identical procedure was performed at the remaining levels. The skin was cleansed and a sterile bandage was applied. Following the procedure the patient's vital signs were stable. The patient tolerated the procedure well and no complications were encountered. Following the procedure the patient's vital signs were stable. The patient was discharged home in good condition with post-procedural instructions. Time Out: Immediately prior to the procedure, the following was verbally confirmed that there is a signed consent form and that the correct patient, planned procedure, site and side are consistent with documentation and that necessary equipment and/or blood products are available prior to the start of the case. Complications: none EBL: <5 cc 24584 - with Fluoroscopy (C7-T1) 46693 - second level with Fluoroscopy (C2-C3-C4) Procedure code (CPT) selection complete Assessment & Plan Assessment & Plan (1) Cervical spondylosis: Code(s): M47.812 - Spondylosis without myelopathy or radiculopathy, cervical region Category: Medical Plan Patient is status post right diagnostic C4, C5, C6 MBBs. Patient tolerated procedure well and was discharged home in stable condition with discharge instructions. All questions were answered. We will follow-up via telephone or in clinic to assess response to therapy. A follow-up appointment was made during today's visit. Orders: Orders FL guidance in treatment room Today Shaista Magaña APRN, [employer]UL [employer]ESSER M48.02 - Spinal stenosis, cervical region AMB Medial Branch Block - Cervical/Thoracic Today Randell Argueta MD M47.812 - Spondylosis without myelopathy or radiculopathy, cervical region Coding Level of Care Code Procedure Only Diagnoses Cervical spondylosis M47.812 CPT Codes Branch Block Cervical/Thoracic - Branch Block Cerv/Thor 1: 56486 - with Fluoroscopy (C7-T1) ([id number]) Branch Block Cervical/Thoracic - Branch Block Cerv/Thor 2: 44593 - second level with Fluoroscopy (C2-C3-C4) ([id number])
== END | disposition home or self-care (01) ==
PROVIDERS: PCP Nurse Practitioner Family; Visit Provider Internal Medicine
DX: M47.812 Spondylosis without myelopathy or radiculopathy, cervical region (principal)
CPT/HCPCS: 64490; 64491

== ENCOUNTER 2024-08-21 08:11 | Outpatient (AMB) | payer MEDICARE, SELFPAY ==
--- OUTSIDE RECORDS SUMMARY | 2024-08-21 08:15 | XMS_ITS | Data Portability ---
Author Organization [place] - [facility], [facility] Address [address] [place] [address] Care Team Providers Care Horse Trekking Guide Name Role Phone JO-ANN LOCKE Referring Provider Unavailable Assessment No assessment recorded. Plan of Treatment Reminders Order Date Submit Date Provider Last Modified By Organization Details Last Modified Time Details Appointments None recorded. Lab drug confirmatio n, urine 2021 022 Labs, [address], [place], [address], 3 03:31:38 drug confirmatio n, urine 2021 022 Labs, [address], [place], [address], 3 03:31:38 [email or web address] , quant, urine 2021 022 Labs, [address], [place], [address], 3 03:31:38 unlisted lab - amphetamine s and stimulants reflex (screen/con f) 2021 022 [facility], [address], [place], [address], 3 05:01:18 unlisted lab - barbiturate s reflex (screen/con f) 2021 022 [facility], [address], [place], [address], 3 05:01:17 unlisted lab - benzodiazep jorge reflex (screen/con f) 2021 [facility], [address], [place], [address], 3 05:01:17 unlisted lab - cocaine reflex (screen/con f) 2021 [facility], [address], [place], [address], 3 05:01:18 unlisted lab - ethanol reflex (screen/con f) 2021 [facility], [address], [place], [address], 3 05:01:19 unlisted lab - marijuana reflex (screen/con f) 2021 [facility], [address], [place], [address], 3 05:01:19 unlisted lab - opiates/opi oids reflex (screen/con f) 2021 [facility], [address], [place], [address], 3 05:01:18 methadone, quantitativ e, urine 2021 [facility], [address], [place], [address], 2 13:12:07 Referral None recorded. Procedures hardware injection (PROC) 2021 [email or web address] Not available 16:06:22 Surgeries None recorded. Imaging XR, cervical spine, 4 or 5 view - chronic neck pain, hx of cervical fusion, 3 neck surgeries 2023 024 [facility], [address], [address], [place], [address], 4 09:45:34 Medication Orders oxycodone-a cetaminophe n 7.5 mg-325 mg tablet 2021 022 [facility][id number], [address] [place], [address], 2 09:52:29 oxycodone-a cetaminophe n 7.5 mg-325 mg tablet 2021 022 [id number] Recept [address] , [address] [facility], [address], [place], [address], 4 11:28:30 Patient TargetsNo targets recorded. Patient Instructions Encounter Date Encounter Id Patient Instructions Last Modified By Organization Details Last Modified Time 02/15/2022 [id number] dash diet: care instructions [email or web address] Not available 02/15/2022 09:47:43 starting a weigh t loss plan: care instructions [email or web address] Not available 02/15/2022 09:47:44 dash diet [email or web address] Not available 2021 09:47:44 weight managemen t education [email or web address] Not available 02/15/2022 09:47:44 02/15/22 LCV was on 01/10/2022 This patient comes to clinic for a four week follow up visit. Today, I reviewed the patient's most recent PREP MANAGER reports as well as urine drug screen results. the patient demonstrates no polypharmacy or med seeking behavior as I review the PREP MANAGER record for 6 months back. Pain contract [...] these options with his surgeon. PLAN: DELORES DISPATCHER CHIEF COAL SLURRY visit 04/26/2021 the patient is here to [...] patient reports he underwent reevaluation by another wardrobe specialist and Dr. Richmond in which he [...] and is now pending procedure dates 2_) PREP MANAGER was reviewed on February 15, 2022 he [...] KENNY under the direct supervision of Dr oJ-Ann Locke. Dr Locke evaluated the treatment plan and agrees. Pain contract reviewed. Patient satisfied with plan and understands the significance of compliance as agreed in pain contract. Not available 02/15/2022 13:21:15 10/24/2023 [id number] dash diet: care instructions [email or web address] Not available 10/24/2023 11:46:41 starting a weigh t loss plan: care instructions [email or web address] Not available 10/24/2023 11:46:41 dash diet [email or web address] Not available 2023 11:46:41 weight managemen t education [email or web address] Not available 10/24/2023 11:46:41 10/24/23 03/15/22 Fluoroscopic Guided Bilateral L4, L5 Lumbar Medial Branch / hardware block LCV was on 02/15/2022 This patient comes to clinic for follow up visit. Today, I reviewed the patient's most recent PREP MANAGER reports as well as urine drug screen results. the patient demonstrates no polypharmacy or med seeking behavior as I review the PREP MANAGER record for 6 months back. Pain contract [...] as falls accidents or trauma. PLAN: LCV DISPATCHER CHIEF COAL SLURRY visit 04/26/2021 the patient is here to [...] patient reports he underwent reevaluation by another wardrobe specialist and Dr. Richmond in which he [...] and is now pending procedure dates 2_) PREP MANAGER was reviewed on 10/24/23 he may continue [...] 5) Return to clinic in 2 weeks [email or web address] Not available 10/24/2023 11:46:20 11/07/2023 [id number] dash diet: care instructions [email or web address] Not available 11/07/2023 12:50:11 starting a weigh t loss plan: care instructions [email or web address] Not available 11/07/2023 12:50:11 dash diet [email or web address] Not available 2023 12:50:11 weight managemen t education [email or web address] Not available 11/07/2023 12:50:11 11/07/23 LCV was on 10/24/23 03/15/22 Fluoroscopic Guided Bilateral L4, L5 Lumbar Medial Branch / hardware block This patient comes to clinic for follow up visit. Today, I reviewed the patient's most recent PREP MANAGER reports as well as urine drug screen results. the patient demonstrates no polypharmacy or med seeking behavior as I review the PREP MANAGER record for 6 months back. Pain contract [...] appointment. He is doing well. PLAN: LCV DISPATCHER CHIEF COAL SLURRY visit 04/26/2021 the patient is here to [...] patient reports he underwent reevaluation by another wardrobe specialist and Dr. Richmond in which he [...] further workup or treatments as needed 2_) PREP MANAGER was reviewed on 11/07/23 he may continue [...] to clinic prn, ER warnings were given [email or web address] Not available 11/07/2023 12:49:52 Reason for Referral None Reported. Results Created Date Observation Date Name Description Value Unit Range Abnormal Flag Note LastModifiedBy Organization Detail LastModifiedTime 10/28/19 24 XR, cervi donita spine , 4 or 5 view No observ ation record ed. [email or web address] [facility] [address], [place], [address], 10/28/2023 09:45:45 Result Notes None recorded. Procedures Surgical History Date Name Laterality Status Provider Name and Address Organization Details Recorded Time 03/13/20 22 [facility] Lumbar Medial Branch Blocks completed Jo-Ann Locke MD [address] [place] [address], [address], [place] [facility] 03/13/2022 15:06:12 02/16/20 22 [facility] Cervical RFA completed Jo-Ann Locke MD [address] [place] [address], [address], [place] [facility] 02/15/2022 09:33:42 01/11/20 22 [facility] Cervical RFA completed Kristina Lorenzo [place] [facility] 01/10/2022 09:47:25 12/14/19 22 [facility] Cervical RFA [place] Kristina Lorenzo [place] [facility] 12/13/2021 09:58:22 11/09/19 22 SWSS Cervical RFA [place] Esperanza Costa [place] [facility] 11/08/2021 10:10:55 10/25/19 22 SWSS Cervical RFA completed Jo-Ann Locke MD [address] [place] [address], [address], [place] [facility] 10/24/2021 14:22:37 09/20/19 22 [facility] Cervical MBB completed Jo-Ann Locke MD [address] [place] [address], [address], [place] [facility] 09/19/2021 14:20:38 08/08/19 22 [facility] Cervical MBB completed Jo-Ann Locke MD [address] [place] [address], [address], [place] [facility] 09/19/2021 14:21:19 06/28/20 21 DBC Cervical Tx Session completed YONATHAN ROBERTS, SIRIA [address] [place] [address], [address], [place] [facility] 06/28/2021 11:36:40 06/28/20 21 PT/OT/OMT- [place] completed YONATHAN ROBERTS, PT [address] [place], [address], [place] [facility] 06/28/2021 11:10:20 06/28/20 PT/OT/OMT- Suzie cervical completed YONATHAN ROBERTS, PT [address] [place], [address], [place] [facility] 06/28/2021 11:10:20 06/28/20 PT/OT/OMT- Therapeutic Exercise completed YONATHAN ROBERTS, PT [address] [place], [address], [place] [facility] 06/28/2021 11:37:47 06/28/20 PT/OT/OMT- Manual Therapy completed YONATHAN ROBERTS, PT [address] [place], [address], [place] [facility] 06/28/2021 11:10:20 06/26/20 DBC Cervical Tx Session completed YONATHAN ROBERTS, PT [address] [place], [address], [place] [facility] 06/26/2021 11:42:10 06/26/20 PT/OT/OMT- [place] completed YONATHAN ROBERTS, PT [address] [place], [address], [place] [facility] 06/26/2021 11:31:33 06/26/20 PT/OT/OMT- Suzie cervical completed YONATHAN ROBERTS, PT [address] [place], [address], [place] [facility] 06/26/2021 11:31:33 06/26/20 PT/OT/OMT- Therapeutic Exercise completed YONATHAN ROBERTS, PT [address] [place], [address], [place] [facility] 06/26/2021 11:42:22 06/26/20 PT/OT/OMT- Manual Therapy completed YONATHAN ROBERTS, PT [address] [place], [address], [place] [facility] 06/26/2021 11:31:33 06/21/20 DBC Cervical Tx Session completed YONATHAN ROBERTS, PT [address] [place], [address], [place] [facility] 06/21/2021 11:36:32 06/21/20 21 PT/OT/OMT- [place] completed YONATHAN ROBERTS, PT [address] [place], [address], [place] [facility] 06/21/2021 11:36:50 06/21/20 21 PT/OT/OMT- Suzie cervical completed YONATHAN ROBERTS, PT [address] [place], [address], [place] [facility] 06/21/2021 11:37:25 06/21/20 21 PT/OT/OMT- Therapeutic Exercise completed YONATHAN ROBERTS, PT [address] [place], [address], [place] [facility] 06/21/2021 11:39:56 06/21/20 21 PT/OT/OMT- Manual Therapy completed YONATHAN ROBERTS, PT [address] [place], [address], [place] [facility] 06/21/2021 11:37:03 06/19/20 21 DBC Cervical Tx Session completed YONATHAN ROBERTS, PT [address] [place], [address], [place] [facility] 06/19/2021 12:22:15 06/19/20 21 PT/OT/OMT- [place] completed YONATHAN ROBERTS, PT [address] [place], [address], [place] [facility] 06/19/2021 12:22:15 06/19/20 21 PT/OT/OMT- Suzie cervical completed YONATHAN ROBERTS, PT [address] [place], [address], [place] [facility] 06/19/2021 12:22:15 06/19/20 21 PT/OT/OMT- Manual Therapy completed YONATHAN ROBERTS, PT [address] [place], [address], [place] [facility] 06/19/2021 12:22:15 06/13/20 21 DBC Cervical Tx Session completed YONATHAN ROBERTS, PT [address] [place], [address], [facility] 06/13/2021 16:01:43 06/13/20 21 PT/OT/OMT- [place] completed YONATHAN ROBERTS, PT [address] [place], [address], [facility] 06/13/2021 16:03:06 06/13/20 21 PT/OT/OMT- Suzie cervical completed YONATHAN ROBERTS, PT [address] [place], [address], [facility] 06/13/2021 15:49:45 06/13/20 21 PT/OT/OMT- Manual Therapy completed YONATHAN ROBERTS, PT [address] [place], [address], [facility] 06/13/2021 16:02:57 06/12/20 21 PT/OT/OMT- Suzie cervical completed YONATHAN ROBERTS, PT [address] [place], [address], [facility] 06/12/2021 12:26:10 inguinal hernia repair completed Not Available Health Note 03/11/2022 17:00:06 cholecystectomy completed Not Available Health Note 03/11/2022 17:00:06 Imaging Results Imaging Date Name Status LastModified by Organiz ation Details LastModified Time 10/28/2023 XR, cervical spine, 4 or [address] [facility] [address], [place], [address], 10/28/2023 09:45:45 Procedure Notes None recorded. Medical [...] Updated DateTime 10/24/2023 185.42 cm 27.4 kg/m2 54135.3251 475016 g Not Available Health Note 10/24/2023 10:32:03 Date Recorded Heart rate Systolic blood pressure Diastolic blood pressure Provider Name and Address Organization Details Last Updated DateTime 10/24/2023 61 /min 114 mm[Hg] 64 mm[Hg] Omaira Carrasquillo [facility] 10/24/2023 11:04:01 Date Recorded Body mass index (BMI) Body weight Body height Provider Name and Address Organization Details Last Updated DateTime 11/07/2023 27.4 kg/m2 01738.09635 56387 g 185.42 cm Not Available Health Note 11/07/2023 10:30:25 Date Recorded Systolic blood pressure Diastolic blood pressure Provider Name and Address Organization Details Last Updated DateTime 11/07/2023 112 mm[Hg] 71 mm[Hg] Kristina Lorenzo [facility] 11/07/2023 10:38:14 Date Recorded Body height Body mass index (BMI) Body weight Systolic blood pressure Diastolic blood pressure Provider Name and Address Organization Details Last Updated DateTime 02/15/2022 185.42 cm 26.9 kg/m2 95977.84 g 141 mm[Hg] 80 mm[Hg] Melanie Yo [facility] 08/11/202 2 09:26:45 Date Recorded Body height Body mass index (BMI) Body weight Systolic blood pressure Diastolic blood pressure Provider Name and Address Organization Details Last Updated DateTime 03/15/2022 185.42 cm 26.5 kg/m2 06137.07 g 118 mm[Hg] 72 mm[Hg] Melanie Yo [...] Been Counseled On Unhealthy Alcohol Use? Yes [email or web address] Information not available 06/08/2021 Is This A [...] Do You Have A Medical Power Of Media Planner? Yes [email or web address] Information not available 10/22/2023 What [...] Anxious, Or Unable To Sleep At Night)? [id number] [email or web address] Information not available 03/11/2022 Do You [...] N Headaches NOT diagnosed as Migraine N Blood Clots N Depression N Pneumonia N Drop Foot N Low Thyroid (hypothyroidism) N Reflex Sympathetic Dystrophy or Complex Regional Pain Syndrome N Anxiety Disorder N Other anemia N Herpes Zoster or Shingles N Cirrhosis of Liver N Cancer N Headaches diagnosed as Migraine N Stroke N Low Platelets (thrombocytopenia) N Hemodialysis N Arthritis of the Hip/Knee/Ankle N Leg or Foot Ulcers N Diabetes-Insulin Dependent N Other Autoimmune Disease N Fibromyalgia N Irritable Bowel Syndrome N Have You Ever Been Treated for Substance Abuse? N High blood pressure N Joint Infection [...] Alcohol A ddiction? N Seizure Disorder N Colon Cancer N Leukemia N Breast Cancer N Hernia N Spinal [...] Disease N Frequent Urinary Tract Infection N Other lung disease N Liver Disease N Muscle Injury or Tear in the Arm N Other Personality Disorder N Schizophrenia N Concussion N Factor 5 Leiden N Lyme Disease N Prostate Cancer N SEVERE Reaction to Any Type of Contrast Dye? N Syphilis N Disk Problems in the Neck (Cervical) or Pinched Nerve N Hepatitis C N Stents in your Heart N Chronic Bronchitis N Pacemaker WITH Defibrillator N Muscle Injury or Tear in the Leg N Diverticulitis N Hepatitis B N Epilepsy N Lupus N Heart Attack (myocardial infarction) N Bipolar Disorder N Ulcerative Colitis N Sleep Apnea N Tendonitis or Tendon Tear of the Hip/Kne e/Foot N Arthritis of the Shoulder/Elbow/Hand N Heart Disease N Do you Require Oxygen on a Daily Basis N Past Encounters Encounter ID Performer Location Encounter Start Date Encounter Closed Date Diagnosis/Indication Diagnosis SNOMED-CT Code Diagnosis ICD10 Code Diagnosis Note [id number] Jo-Ann Locke MD [address] [address] 04/26/2021 13:37:50 04/27/2021 09:42:23 Educated about weight management 795763272 Z71.3 Cervical post-laminectomy syndrome 431068619 M96.1 Degenerati on of cervical intervertebral disc 49377414 M50.30 Cervical radiculitis 110 85020 M54.12 Cervical spondylosis 387 895071 M47.812 Muscle pain 70014748 M79 .18 [id number] Leena Akins [address] [address] 06/08/2021 08:53:49 06/08/2021 18:32:28 Cervical post-laminectomy syndrome 190278452 M96.1 Degenerati on of cervical intervertebral disc 80831765 M50.30 Educated a bout weight management 692987511 Z71.3 Cervical radiculitis 110 15467 M54.12 Cervical spondylosis 387 643910 M47.812 Muscle pain 20920527 M79 .18 [id number] YONATHAN ROBERTS [facility] - [address] [address] 06/12/2021 10:46:05 06/12/2021 15:34:00 Degeneration of cervical intervertebral disc 52918596 M50.30 Cervical spondylosis 387 883101 M47.812 [id number] YONATHAN ROBERTS PT [address] [address] 06/13/2021 13:52:42 06/13/2021 16:30:43 Degeneration of cervical intervertebral disc 91260053 M50.30 Cervical spondylosis 387 323273 M47.812 [id number] YONATHAN ROBERTS PT [address] [address] 06/19/2021 12:21:07 06/19/2021 15:02:56 Degeneration of cervical intervertebral disc 94385733 M50.30 Cervical spondylosis 387 678278 M47.812 [id number] YONATHAN ROBERTS PT [address] [address] 06/21/2021 10:49:38 06/21/2021 11:42:34 Degeneration of cervical intervertebral disc 52499943 M50.30 Cervical spondylosis 387 766570 M47.812 [id number] Jo-Ann Locke MD - [address] [address] 06/23/2021 08:58:20 06/23/2021 09:29:00 Cervical post-laminectomy syndrome 599064068 M96.1 Degenerati on of cervical intervertebral disc 80541618 M50.30 Educated a bout weight management 388951929 Z71.3 Cervical radiculitis 110 66698 M54.12 Cervical spondylosis 387 186598 M47.812 Muscle pain 93391446 M79 .18 Long-term drug therapy 340358787 Z79.899 [id number] YONATHAN ROBERTS PT [address] [address] 06/26/2021 10:48:31 06/26/2021 11:44:37 Degeneration of cervical intervertebral disc 55752520 M50.30 Cervical spondylosis 387 599880 M47.812 [id number] YONATHAN ROBERTS PT [address] [address] 06/28/2021 10:46:39 06/28/2021 11:38:44 Degeneration of cervical intervertebral disc 66313142 M50.30 Cervical spondylosis 387 706442 M47.812 [id number] Jo-Ann Locke MD [address] [address] 07/20/2021 10:58:57 07/20/2021 12:39:41 Cervical post-laminectomy syndrome 454420810 M96.1 Degenerati on of cervical intervertebral disc 57376921 M50.30 Educated a bout weight management 452098421 Z71.3 Cervical radiculitis 110 81849 M54.12 Cervical spondylosis 387 224658 M47.812 Muscle pain 07848351 M79 .18 [id number] Jo-Ann Locke MD [facility] [address] [place] [address] 08/08/2021 10:36:50 08/08/2021 21:26:44 Cervical spondylosis 857923587 M47.812 [id number] oJ-Ann Locke MD [address] [address] 09/06/2021 10:58:12 09/06/2021 12:08:26 Cervical post-laminectomy syndrome 844173952 M96.1 Degenerati on of cervical intervertebral disc 90791127 M50.30 Educated a bout weight management 598776469 Z71.3 Cervical radiculitis 110 78589 M54.12 Cervical spondylosis 387 710949 M47.812 Muscle pain 59602874 M79 .18 [id number] Jo-Ann Locke MD [facility] [address] [place] [address] 09/19/2021 11:21:10 09/19/2021 14:22:56 Cervical spondylosis 982122372 M47.812 [id number] Mohamud Rangel MD [facility] [address] [place] [address] 09/29/2021 09:45:26 10/01/2021 23:37:04 At low risk for fall 946341523 Z91.81 Body mass index 25-29 - overweight 810089829 Z68.29 Influenza vaccination given 4004741206 9109 Z29 april 2021 via [employer] Sleep apnea 55148266 G47 .30 R09.02 this patient has been [...] your prompt attention to this matter. Hypoxia 809012413 R09.02 [id number] Jane Federico [facility] [address] [place] [address] 10/05/2021 13:49:10 10/05/2021 17:05:36 Cervical post-laminectomy syndrome 325614497 M96.1 Degenerati on of cervical intervertebral disc 83932281 M50.30 Educated a bout weight management 209270045 Z71.3 Cervical radiculitis 110 06769 M54.12 Cervical spondylosis 387 139810 M47.812 Muscle pain 91970696 M79 .18 Long-term drug therapy 850942489 Z79.899 [id number] Jo-Ann Locke MD [facility] [address] [place] [address] 10/24/2021 10:09:03 10/24/2021 14:28:56 Cervical spondylosis 594800085 M47.812 [id number] Jane Caballero [facility] [address] [place] [address] 11/08/2021 09:33:20 11/08/2021 17:59:30 Cervical spondylosis 625816153 M47.812 Cervical post-laminectomy syndrome 728770778 M96.1 Degenerati on of cervical intervertebral disc 59451296 M50.30 Educated a bout weight management 520253298 Z71.3 Cervical radiculitis 110 24628 M54.12 Muscle pain 44930182 M79 .18 Long-term drug therapy 757845174 Z79.899 [id number] Kristina Lorenzo [facility] [address] [place] [address] 12/13/2021 09:29:47 12/13/2021 17:30:38 Cervical spondylosis 171140935 M47.812 Cervical post-laminectomy syndrome 086423522 M96.1 Degenerati on of cervical intervertebral disc 05761456 M50.30 Educated a bout weight management 660099073 Z71.3 Cervical radiculitis 110 41647 M54.12 Muscle pain 62933890 M79 .18 Long-term drug therapy 664514319 Z79.899 Lumbar spondylosis 50822 0009 M47.896 [id number] Kristina [place] [facility] [address] [place] [address] 01/10/2022 09:32:56 01/10/2022 17:40:06 Cervical spondylosis 606130731 M47.812 Cervical post-laminectomy syndrome 994370030 M96.1 Degenerati on of cervical intervertebral disc 16830066 M50.30 Educated a bout weight management 681464001 Z71.3 Cervical radiculitis 110 21406 M54.12 Muscle pain 20704395 M79 .18 Long-term drug therapy 530111757 Z79.899 Lumbar spondylosis 61957 0009 M47.896 Hypertensive disorder 38 072977 I10 [id number] Kristina Bj [facility] [address] 02/15/2022 09:19:01 02/15/2022 17:38:38 Cervical spondylosis 116704564 M47.812 Cervical post-laminectomy syndrome 442120032 M96.1 Degenerati on of cervical intervertebral disc 18636529 M50.30 Educated a bout weight management 557179140 Z71.3 Cervical radiculitis 110 37100 M54.12 Muscle pain 04875739 M79 .18 Lumbar spondylosis 67804 0009 M47.896 Hypertensive disorder 38 164162 I10 Long-term drug therapy 649063750 Z79.899 Body mass index 25-29 - overweight 309688432 Z68.26 Lumbar post-laminectomy syndrome 494280671 M96.1 [id number] Jo-Ann Locke MD [facility] [address] [place] [address] 03/13/2022 12:46:55 03/13/2022 15:07:46 Lumbar spondylosis 904431821 M47.896 [id number] Jo-Ann Locke MD [address] [address] 10/24/2023 10:30:44 10/24/2023 11:47:23 Body mass index 25-29 - overweight 686018817 Z68.27 Cervical spondylosis 387 481696 M47.812 Cervical post-laminectomy syndrome 408180880 M96.1 Degenerati on of cervical intervertebral disc 73485465 M50.30 Educated a bout weight management 492248529 Z71.3 Cervical radiculitis 110 57753 M54.12 Muscle pain 47291504 M79 .18 Lumbar spondylosis 58515 0009 M47.896 Hypertensive disorder 38 341711 I10 Lumbar post-laminectomy syndrome 249769414 M96.1 [id number] Jo-Ann Locke MD [address] [address] 11/07/2023 10:29:28 11/07/2023 12:50:39 Cervical spondylosis 891933624 M47.812 Cervical post-laminectomy syndrome 253596444 M96.1 Body mass index 25-29 - overweight 723602728 Z68.27 Degenerati on of cervical intervertebral disc 29177109 M50.30 Educated a bout weight management 419249897 Z71.3 Cervical radiculitis 110 31966 M54.12 Muscle pain 32784629 M79 .18 Lumbar spondylosis 71210 0009 M47.896 Hypertensive disorder 38 398589 I10 Lumbar post-laminectomy syndrome 573190341 M96.1 Health Concerns Section Related Observation LastModified by Organization Detai ls LastModified Time None Recorded Concern Status LastModified by Organization Details LastModified Time None Recorded Advance Directives Directive Y: Payers Encounter Date Sequence Insurance Name Policy Number Policy Juan Covered Member ID Juan Member ID Guarantor Name 02/15/2022 1 [place] [employer] Kris Jeter [id number] Kris Jeter 02/15/2022 2 [place] Kris Jeter [id number] Kris Jeter 03/13/2022 1 [place] [employer] Kris Jeter [id number] Kris Gorecharleen 03/13/2022 2 [place] Kris Jeter [id number] Kris Cedeñonalini 10/24/2023 1 [employer] (MEDICARE REPLACEMENT PPO) [id number] Kris Jeter [id number] Kris Cedeñonalini 11/07/2023 1 [employer] (MEDICARE REPLACEMENT PPO) [id number] Kris Jeter [id number] Kris Goremannchirag Notes Date Note Type Note [...] No Risk Kris kern 71 [facility]. Reason for Follow up visit:No, [...] 0 [facility] for care. Reason for Follow up visit:No, [...] 0 No Risk [facility] Reason for Follow up visit:No, [...] Score: 0 No Risk Jo-Ann Locke MD [address] [place], [id number] 02/15/2022 13:21:35 03/13/2022 text/html [facility] Pain Visit 4Reported bypatient.Duration:How long the [...] 0 No Risk Jo-Ann Locke MD [address] [place], [address], [facility] 03/13/2022 15:07:13 10/24/2023 text/html Kris [...] 0 No Risk Jo-Ann Locke MD [address] [place], [address], [facility] 10/24/2023 11:46:45 11/07/2023 text/html Kris Collazo a 73 year oldMalepresenting for care. Preferred pronoun:he/him Reason for Follow up visit:Pt would like to follow up on condition last discussedPain control:WorseActivity level:Medium (same level of activity)Taking medications for pain:Pt is not taking meds for painHospitalizations/E D visits:yesDetails:Atri al Fibrillation Screening / Questionnaire:ALEXIS: Score: 0 No Risk Jo-Ann Locke MD [address] [place], [address], [facility] 11/07/2023 12:50:14
--- OUTSIDE RECORDS SUMMARY | 2024-08-21 08:15 | XMS_ITS | Continuity of Care Document ---
Author Organization [facility] Address [address] [place] [address] Phone Care Team Providers Care Engraver Rubber Name Role Phone Bobo COLÓN, Angel Unavailable [...] 15 marva brooke Postop Follow-Up Visit Inc [facility] Manual therapy, 1+ regions, each 15 marva [...] OFFICE/OUTPATIENT VISIT, EST Postop Follow-Up Visit Inc Pantech Dir laryngoscopy w/injection w/op micro OFFICE/OUTPATIENT VISIT, EST OFFICE/OUTPATIENT VISIT, EST Flexible fiberoptic diagnostic laryngosc opy OFFICE/OUTPATIENT VISIT, NEW CPTR OPHTH DX IMG [facility] Comprehensive eye examin, established kathi doll CPTR OPHTH DX IMG POST SEGCA Comprehensive eye examin, established kathi doll CPTR OPHTH DX IMG POST [facility] Intermediate eye exam, established carolyn burgess CPTR OPHTH DX IMG POST SEGMT Intermediate eye exam, established carolyn nt Determination of refractive state CPTR OPHTH DX IMG POST SEGMT Intermediate eye exam, established davidjanet nt Fundus photography Fluorescein angioscopy, damaris pollacknalini mills CPTR OPHTH DX IMG POST SEGMT Comprehensive eye examin, established kathi doll CPTR OPHTH DX IMG POST SEGMT Postop Follow-Up Visit Inc [facility] CPTR OPHTH DX IMG POST SEGMT Postop Follow-Up Visit Inc [facility] Postop Follow-Up Visit Inc [facility] Serv[facility]ube VIT FOR MACULAR PUCKER Fundus photography OFFICE/OUTPATIENT VISIT, EST CPTR OPHTH DX IMG POST SEGMT Comprehensive eye exam, new patient Advance Directives Directive Yes / No Effective Date File Name No Information Encounters Encounter Description Practice Location Reason(s) For Visit Diagnoses Date Provider Providers Copied on Encounter OFFICE/OUTPA TIENT VISIT, EST [facility] [address], [place], [place], [id number] , [place] tel:[phone] [facility] post-op visit (chief complaint) Body mass index (BMI) 27.0-27.9, adultOther specified postprocedura l statesRight tennis elbow 4 Bobo Ortiz. [address] [place] [address], [id number], [place]. tel:[phone] Referring Provider: Angel Kern, [address] [place] [address], [address] . tel:[phone] [facility] [address], [place], [place], [address] , [place] tel:[phone] [facility] No Information 4 Fahad Burton. [address] [place] [address], [id number], . tel:[phone] Referring Provider: Angel Kern, [address] [place] [address], [address] . tel:[phone] [facility] [address], [place], [place], [address] , tel:[phone] [facility] No Information 4 Fahad Burton. [address] [place] [address], [id number], . tel:[phone] Referring Provider: Angel Kern, [address] [place] [address], [address] . tel:[phone] [facility] [address], [place], [place], [address] , tel:[phone] [facility] No Information 4 Fahad Burton. [address] [place] [address], [id number], . tel:[phone] Referring Provider: Angel Kern, [address] [place] [address], [address] . tel:[phone] [facility] [address], [place], [place], [address] , tel: [phone] [facility] No Information 4 Fahad Burton. [address] [place] [address], [id number], [place]. tel:[phone] Referring Provider: Angel Kern, [address] [place] [address], [address] . tel:[phone] [facility] [address], [place], [place], [address] , tel:[phone] [facility] No Information 3 Fahad Burton. [address] [place] [address], [id number], . tel:[phone] Referring Provider: Angel Kern, [address] [place] [address], [address] . tel:[phone] [facility] [address], [place], [place], [address] , tel: [phone] [facility] No Information 3 Fahad Burton. [address] [place] [address], [address] [place] [address], . tel:[phone] Referring Provider: Angel Kern, [address] [place] [address], [address] . tel:[phone] [facility] [address], [place], [place], [address] , tel: [phone] [facility] No Information 3 Fahad Burton. [address] [place] [address], [id number], . tel:[phone] Referring Provider: Angel Kern, [address] [place] [address], [address] . tel:[phone] [facility] [address], [place], [place], [address] , tel: [phone] [facility] No Information 3 Fahad Burton. [address] [place] [address], [id number], . tel:[phone] Referring Provider: Angel Kern, [address] [place] [address], [address] . tel:[phone] [facility] [address], [place], [place], [address] , tel: [phone] [facility] No Information 3 Fahad Burton. [address] [place] [address], [id number], [place]. tel:[phone] Referring Provider: Angel Kern, [address] [place] [address], [address] [place] [address] . tel:[phone] [facility] [address], [place], [place], [address] , [place] tel: [phone] [facility] post-op visit (chief complaint) Body mass index (BMI) 27.0-27.9, adultOther specified postprocedura l statesElevate d blood-pressur e reading, w/o diagnosis of htnRight tennis elbow 3 Bobo Ortiz. [address] [place] [address], [address] [place] [address], . tel:[phone] Referring Provider: Angel Kern, [address] [place] [address], [address] [place] [address] . tel:[phone] [facility], [address], [place], [place], [address] , [place] tel: [phone] [facility] No Information 3 Fahad Burton. [address] [place] [address], [address] [place] [address], . tel:[phone] Referring Provider: Angel Kern, [address] [place] [address], [address] . tel:[phone] [facility], [address], [place], [place], [address] , [place] tel: [phone] [facility] No Information 3 Fahad Burton. [address] [place] [address], [id number], . tel:[phone] Referring Provider: Angel Kern, [address] [place] [address], [address] . tel:[phone] [facility] [address], [place], [place], [address] , tel: [phone] [facility] No Information 3 Fahad Burton. [address] [place] [address], [address] [place] [address], . tel:[phone] Referring Provider: Angel Kern, [address] [place] [address], [address] . tel:[phone] [facility], [address], [place], [place], [address] , tel: [phone] [facility] No Information 3 Fahad Burton. [address] [place] [address], [address] [place] [address], . tel:[phone] Referring Provider: Angel Kern, [address] [place] [address], [address] [place] [address] . tel:[phone] [facility], [address], [place], [place], [address] , tel: [phone] [facility] No Information 3 Fahad Burton. [address] [place] [address], [address] [place] [address], . tel:[phone] Referring Provider: Angel Kern, [address] [place] [address], [address] . tel:[phone] [facility], [address], [place], [place], [address] , tel: [phone] [facility] No Information 3 Fahad Burton. [address] [place] [address], [address] [place] [address], . tel:[phone] Referring Provider: Angel Kern, [address] [place] [address], [address] . tel:[phone] [facility] [address], [place], [place], [address] , tel: [phone] [facility] No Information 3 Fahad Burton. [address] [place] [address], [id number], . tel:[phone] Referring Provider: Angel Kern, [address] [place] [address], [address] . tel:[phone] [facility], [address], [place], [place], [address] , tel: [phone] [facility] No Information 3 Fahad Burton. [address] [place] [address], [address] [place] [address], . tel:[phone] Referring Provider: Angel Kern, [address] [place] [address], [address] . tel:[phone] [facility], [address], [place], [place], [address] , tel: [phone] [facility] No Information 3 Fahad Burton. [address] [place] [address], [id number], . tel: [phone] Referring Provider: Angel Kern, [address] [place] [address], [address] . tel:[phone] [facility], [address], [place], [address] , tel: [phone] [facility] No Information 3 Fahad Burton. [address] [place] [address], [id number], . tel:[phone] Referring Provider: Angel Kern, [address] [place] [address], [address] . tel:[phone] [facility], [address], [place], [place], [address] , tel: [phone] [facility] No Information 3 Fahad Burton. [address] [place] [address], [id number], [place]. tel:[phone] Referring Provider: Angel Kern, [address] [place] [address], [address] . tel:[phone] [facility] [address], [place], [place], [address] , tel: [phone] [facility] No Information 3 Fahad Burton. [address] [place] [address], [id number], [place]. tel:[phone] Referring Provider: Angel Kern, [address] [place] [address], [address] . tel:[phone] [facility], [address], [place], [place], [address] , [place] tel: [phone] [facility] post-op visit (chief complaint) Body mass index (BMI) 27.0-27.9, adultOther specified postprocedura l states 3 Bobo Ortiz. [address] [place] [address], [id number], [place]. tel:[phone] Referring Provider: Angel Kern, [address] [place] [address], [address] . tel:[phone] [facility], [address], [place], [address] , [place] tel: [phone] [facility] No Information 3 Fahad Burton. [address] [place] [address], [id number], . tel:[phone] Referring Provider: Angel Kern, [address] [place] [address], [address] . tel:[phone] [facility] [address], [place], [place], [address] , tel:[phone] [facility] No Information 3 Fahad Burton. [address] [place] [address], [address] [place] [address], [place]. tel:[phone] Referring Provider: Angel Kern, [address] [place] [address], [address] . tel:[phone] [facility] [address], [place], [place], [address] , tel:[phone] [facility] No Information 3 Fahad Burton. [address] [place] [address], [address] [place] [address], [place]. tel:[phone] Referring Provider: Angel Kern, [address] [place] [address], [address] . tel:[phone] [facility] [address], [place], [place], [address] , tel:[phone] [facility] No Information 3 Fahad Burton. [address] [place] [address], [id number], [place]. tel:[phone] Referring Provider: Angel Kern, [address] [place] [address], [address] . tel:[phone] [facility] [address], [place], [place], [address] , [place] tel:[phone] [facility] Lateral epicondylitis , right elbowLesion of radial nerve, right upper limb 3 Bobo Ortiz. [address] [place] [address], [id number], [place]. tel:[phone] Referring Provider: Angel Kern, [address] [place] [address], [address] . tel:[phone] [facility] [address], [place], [place], [address] , [place] [phone] [facility] No Information 3 Bobo Ortiz. [address] [place] [address], [id number], [place]. tel:[phone] OFFICE/OUTPA TIENT VISIT, [facility] [address], [place], [place], [address] , [place] [phone] [facility] elbow complaint (chief complaint) Right tennis elbowRadial tunnel syndrome of right upper extremity 3 Bobo Ortiz. [address] [place] [address], [id number], [place]. tel:[phone] Referring Provider: Angel Kern, [address] [place] [address], [address] . tel:[phone] OFFICE/OUTPA TIENT VISIT, [facility] [address], [place], [place], [address] , [place] tel:[phone] [facility] elbow complaint (chief complaint) Pain in unspecified elbowRight tennis elbow 3 Bobo Ortiz. [address] [place] [address], [id number], [place]. tel:[phone] Referring Provider: Angel Kern, [address] [place] [address], [address] . tel:[phone] OFFICE/OUTPA TIENT VISIT, [facility] [address], [place], [place], [address] , [place] tel:[phone] [place] [facility] Throat problems (chief complaint) Paralysis of left vocal cord 2 Aicha Gomez. [address] [facility], [address], [place], [facility], [place]. tel:[phone] Referring Provider: [address], [place], [address] . tel:[phone] [facility] [address], [place], [place], [address] , [place] [phone] [place] [facility] Post op #1 (chief complaint) Paralysis of left vocal cordHoarsenes sOropharyngea l dysphagia 1 Justyna Sahni. [address] [facility], [address], [place], [facility], [place]. tel:[phone] Referring Provider: [address], [place], [address] . tel:[phone] [facility] [address], [place], [address] , [place] [phone] OP [facility] 1 Aicha Gomez. [address] [facility], [address], [place], [facility], [place]. tel:[phone] Referring Provider: Jason Banuelos, [address] [facility] [address], [place], [facility]. tel:[phone] OFFICE/OUTPA TIENT VISIT, EST [facility] [address], [place], [address] , [place] [phone] [place] [facility] Follow Up of hoarseness (chief complaint) Body mass index (BMI) 27.0-27.9, adultHoarsene ssParalysis of left vocal cordOropharyn geal dysphagia 1 Aicha Rodriguez [address] [facility], [address], [place], [facility], [place]. tel:[phone] Referring Provider: [address], [place], [address] . tel:[phone] [facility] [address], [place], [place], [address] , [place] tel:[phone] [place] [facility] HoarsenessLar yngopharyngea l reflux (LPR)Paralysi s of left vocal cordSore throat Sep-2 1 Aicha Rodriguez [address], [address], [place], [address], [place]. tel:[phone] OFFICE/OUTPA TIENT VISIT, [facility] [address], [place], [place], [address] , [place] tel:[phone] [place] [facility] Follow Up of hoarseness (chief complaint) Body mass index (BMI) 27.0-27.9, adultParalysi s of left vocal cordHoarsenes s Mar-0 1 Aicha Rodriguez [address], [address], [place], [address], [place]. tel:[phone] Referring Provider: [address], [place], [address] . tel:[phone] OFFICE/OUTPA TIENT VISIT, [facility] [address], [place], [place], [address] , [place] tel:[phone] [place] [facility] Throat problems (chief complaint) Body mass index (BMI) 27.0-27.9, adultSore throatHoarsen essLaryngopha ryngeal reflux (LPR)Paralysi s of left vocal cord Jan- 1 Aicha Gomez. [address], [address], [place], [address], [place]. tel:[phone] Referring Provider: [address], [place], [address] . tel:[phone] [facility] [address], [place], [address] , [place] tel: [phone] Freda a comprehensive exam (chief complaint) Age-related nuclear cataract, bilateralPuck ering of macula of left eyeCentral serous chorioretinop athy of right eye Mar-1 3-201 9 Freda [place]. [address] [place], [address], [place]. [phone] Referring Provider: [address], [place], [address] . tel:[phone] [facility] [address], [place], [place], [address] , [place] tel: [phone] Freda a comprehensive exam (chief complaint) Central serous chorioretinop athy of right eyePuckering of macula of left eyeAge-relate d nuclear cataract, bilateral Mar-0 9-201 8 Freda [place]. [facility] [place], [address], [place]. [phone] Referring Provider: Los Barba Jr, [facility] [place], [place], [facility]. tel:[phone] [facility] [address], [place], [place], [address] , [place] tel: [phone] Freda a comprehensive exam (chief complaint) Central serous chorioretinop athy of right eyePuckering of macula of left eyeAge-relate d nuclear cataract, bilateral Sep-0 7 Freda [place]. [facility] [place], [address], [place]. tel:[phone] Referring Provider: [address], [place], [address] . tel:[phone] [facility] [address], [place], [place], [address] , [place] tel: [phone] Freda a comprehensive exam (chief complaint) Central serous chorioretinop athy of right eyePuckering of macula of left eyeAge-relate d nuclear cataract, bilateralDiso rder of refraction Yoan-0 6-201 7 Freda Madison. [address] [place], [address], [place]. [phone] Referring Provider: [address], [place], [address] . tel:[phone] [facility] [address], [place], [place], [address] , [place] tel:[phone] Freda kern comprehensive exam (chief complaint) Central serous chorioretinop athy of right eyePuckering of macula of left eyeAge-relate d nuclear cataract, bilateral Ryan-0 2-201 7 Freda [place]. [address] [place], [address], [place]. tel:[phone] Referring Provider: [address], [place], [address] . 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 [address] [place], [address], [place]. tel:[phone] Referring Provider: Jone Guevara, [address] [facility] [address], [place], [address]. tel:[phone] [facility] [address], [place], [address] , [place] tel:[phone] Freda kern comprehensive exam (chief complaint) Puckering of macula of left eyeAge-relate d nuclear cataract, bilateralCent ral serous chorioretinop athy of right eye Apr-1 4-201 7 Freda Madison. [address] [place], [address], [place]. tel:[phone] Referring Provider: [address], [place], [address] . tel:[phone] [facility] [address], [place], [place], [address] , [place] tel: [phone] Freda a comprehensive exam (chief complaint) Puckering of macula of left eyeAge-relate d nuclear cataract, bilateralCent ral serous chorioretinop athy of right eye Nemesio-0 6-201 7 Freda Madison. [address] [place], [address], [place]. tel:[phone] Referring Provider: Pablo Jack Dr [address] [facility], [place], [address] . tel:[phone] [facility], [address], [place], [place], [address] , [place] tel: [phone] Freda a comprehensive exam (chief complaint) Puckering of macula of left eyeAge-relate d nuclear cataract, bilateralCent ral serous chorioretinop athy of right eye Jun-2 6 Freda [place]. [address] [place], [address], [place]. tel:[phone] Referring Provider: Pablo Jack [address] [facility], [place], [address] . tel:[phone] [facility] PJesúsCJaswant, [address], [place], [place], [address] , [place] tel:[phone] Freda . (chief complaint) Puckering of macula of left eye Jun- 6 Freda Madison. [address] [place], [address], [place]. tel:[phone] Referring Provider: [address], [place], [address] . tel:[phone] [facility] P[facility]wantL[facility]wantC[facility], [address], [place], [place], [address] , [place] tel:[phone] [facility] Puckering of macula, left eye Dec-1 - 6 Freda Ruiz [address] [place], [address], [place]. tel:[phone] Referring Provider: [address], [place], [address] . tel:[phone] OFFICE/OUTPA TIENT VISIT, EST [facility] [address], [place], [place], [address] , [place] tel:[phone] Freda H&P (chief complaint) Puckering of macula of left eye Jun- 6 Freda Madison. [address] [place], [address], [place]. tel:[phone] Referring Provider: [address], [place], [address] . tel:[phone] [facility] [address], [place], [place], [address] , [place] tel:[phone] Freda . (chief complaint) Puckering of macula of left eyeCentral serous chorioretinop athy of right eyeAge-relate d nuclear cataract, bilateral 6 Freda Madsion. [address] [place], [address], [place]. tel:[phone] Referring Provider: Los Barba Jr, [facility] [place], [place], [facility]. tel:[phone] Family History Family Member Type Diagnosis Age At Onset No Information Payers Payer name Insurance type Covered alliance party ID Authornathana donna(s) Medicare MB [id number] [facility] [address] [id number] Social History Type Description Quantity Date Captured [...] Of Treatment Date Type Action Status Goal Zoster vaccine (). Due on due Goal Unhealthy drug use screening . Due on due Goal Tdap. Due on due Goal Td vaccine. Due on due Goal Sigmoidoscopy. Due on due Goal Pneumococcal vaccine. Due on due Goal Lipid panel. Due on due Goal Influenza vaccine. Due on due Goal Hepatitis C screening. Due o n due Goal FOBT. Due on due Goal FIT-DNA. Due on due Goal FIT. Due on due Goal Dilated Eye Exam. Due on Jul due Goal Depression screening. Due on due Goal CT-Colonography. Due on due Goal Colonoscopy. Due on due Goal ColoGuard. Due on 4 due Goal Lifestyle education regardin g diet completed Goal ColoGuard. Due on [address]-Colonography. Due on due Goal Influenza vaccine. Due on De due Goal Hepatitis C screening. Due o n due Goal Td vaccine. Due on due Goal FIT. Due on due Goal Dilated Eye Exam. Due on Jun due Goal Unhealthy drug use screening . Due on due Goal Zoster vaccine (). Due on due Goal Tdap. Due on due Goal Depression screening. Due on due Goal Sigmoidoscopy. Due on due Goal Pneumococcal vaccine. Due on due Goal Lipid panel. Due on due Goal FOBT. Due on due Goal FIT-DNA. Due on due Goal Colonoscopy. Due on due Goal Lifestyle education regardin g diet completed Goal FOBT. Due on due Goal Lipid panel. Due on due Goal Influenza vaccine. Due on Oc t due Goal Hepatitis C screening. Due o n due Goal FIT-DNA. Due on due Goal FIT. Due on due Goal Dilated Eye Exam. Due on Apr due Goal Depression screening. Due on due Goal CT-Colonography. Due on due Goal Colonoscopy. Due on due Goal [employer]Guard. Due on due Goal Zoster vaccine (). Due on due Goal Unhealthy drug use screening . Due on due Goal Tdap. Due on due Goal Td vaccine. Due on due Goal Sigmoidoscopy. Due on due Goal Pneumococcal vaccine. Due on due Goal Lifestyle education regardin g diet completed Goal Zoster vaccine (). Due on due Goal Unhealthy drug use screening . Due on due Goal Tdap. Due on due Goal Td vaccine. Due on due Goal Sigmoidoscopy. Due on due Goal Pneumococcal vaccine. Due on due Goal Lipid panel. Due on due Goal Influenza vaccine. Due on Oc due Goal Hepatitis C screening. Due o n due Goal FOBT. Due on due Goal FIT-DNA. Due on due Goal FIT. Due on due Goal Dilated Eye Exam. Due on Apr due Goal Depression screening. Due on due Goal CT-Colonography. Due on due Goal Colonoscopy. Due on due Goal ColoGuard. Due on due Goal Zoster vaccine (1st). Due on due Goal Unhealthy drug use screening . Due on due Goal Tdap. Due on due Goal Td vaccine. Due on due Goal Sigmoidoscopy. Due on due Goal Pneumococcal vaccine. Due on due Goal Lipid panel. Due on due Goal Influenza vaccine. Due on due Goal Hepatitis C screening. Due o n due Goal FOBT. Due on due Goal FIT-DNA. Due on due Goal FIT. Due on due Goal Dilated Eye Exam. Due on Mar due Goal Depression screening. Due on due Goal CT-Colonography. Due on due Goal Colonoscopy. Due on due Goal ColoGuard. Due on due Goal Zoster vaccine (1st). Due on due Goal Unhealthy drug use screening . Due on due Goal Tdap. Due on due Goal Td vaccine. Due on due Goal Sigmoidoscopy. Due on due Goal Dilated Eye Exam. Due on Jan due Goal Depression screening. Due on due Goal CT-Colonography. Due on due Goal Colonoscopy. Due on 023 due Goal ColoGuard. Due on due Goal Lipid panel. Due on 023 due Goal Influenza vaccine. Due on due Goal Hepatitis C screening. Due o n due Goal FOBT. Due on due Goal FIT-DNA. Due on due Goal FIT. Due on due Goal Pneumococcal vaccine. Due on due Goal Unhealthy drug use screening . Due on due Goal Hepatitis C screening. Due o n due Goal Zoster vaccine (). Due on due Goal FOBT. Due on due Goal FIT-DNA. Due on due Goal FIT. Due on due Goal Dilated Eye Exam. Due on Jun due Goal Depression screening. Due on due Goal CT-Colonography. Due on due Goal Colonoscopy. Due on due Goal ColoGuard. Due on due Goal Tdap. Due on due Goal Td vaccine. Due on due Goal Sigmoidoscopy. Due on due Goal Pneumococcal vaccine. Due on due Goal Lipid panel. Due on due Goal Influenza vaccine. Due on due Goal Zoster vaccine (1st). Due on due Goal Td vaccine. Due on due Goal Sigmoidoscopy. Due on due Goal Pneumococcal vaccine. Due on due Goal Lipid panel. Due on due Goal Influenza vaccine. Due on due Goal FOBT. Due on due Goal Dilated Eye Exam. Due on May due Goal Depression screening. Due on due Goal Colonoscopy. Due on due Goal ColoGuard. Due on due Goal Tdap. Due on due Goal ColoGuard. Due on due Goal Zoster vaccine (). Due on due Goal Tdap. Due on due Goal Td vaccine. Due on due Goal Sigmoidoscopy. Due on due Goal Pneumococcal vaccine. Due on due Goal Lipid panel. Due on due Goal Influenza vaccine. Due on due Goal FOBT. Due on due Goal Dilated Eye Exam. Due on Apr due Goal Depression screening. Due on due Goal Colonoscopy. Due on due Goal Dietary management education , guidance, and counseling completed Goal Zoster vaccine (1st). Due on due Goal Tdap. Due on due Goal Td vaccine. Due on due Goal Sigmoidoscopy. Due on due Goal Pneumococcal vaccine. Due on due Goal Lipid panel. Due on due Goal Influenza vaccine. Due on due Goal FOBT. Due on due Goal Dilated Eye Exam. Due on Mar due Goal Depression screening. Due on due Goal Colonoscopy. Due on due Goal ColoGuard. Due on due Goal ColoGuard. Due on due Goal FOBT. Due on due Goal Dilated Eye Exam. Due on Mar due Goal Zoster vaccine (). Due on due Goal Tdap. Due on due Goal Td vaccine. Due on due Goal Sigmoidoscopy. Due on due Goal Pneumococcal vaccine. Due on due Goal Lipid panel. Due on due Goal Influenza vaccine. Due on due Goal Depression screening. Due on due Goal Colonoscopy. Due on due Goal Tdap. Due on due Goal Td vaccine. Due on due Goal Sigmoidoscopy. Due on due Goal Pneumococcal vaccine. Due on due Goal Lipid panel. Due on due Goal Influenza vaccine. Due on due Goal FOBT. Due on due Goal Dilated Eye Exam. Due on Jan due Goal Depression screening. Due on due Goal Colonoscopy. Due on due Goal ColoGuard. Due on due Goal Zoster vaccine (). Due on due Goal Dietary management education , guidance, and counseling completed Referral Ordered: [facility] : Ophthalmology (related to Age-related nuclear cataract, bilateral) ordered Referral Referred To: Parmjit Michael [address], [place], [phone] Ordered: Referrals: [facility] : [...] week re turn x check for recurrent PRODUCT PLANNER OD. S/P TPPV for ERM OS on 06-20-16, HX Mild CATS OU......Pt stts the new gls RX is working good for him. No new flashes/floaters OU. Stopped the meds and everything seems fine. a comprehensive exam 1 month ret urn x re-refract and check status PRODUCT PLANNER OD (on Tx w/ eplenerone) ., S/P TPPV for ERM OS on 06-20-16, HX Mild CATS OU....Pt stts OD is excellent, but OS is still very blurry. No new flashes/floaters OU. a comprehensive exam 1 month wicho ck status PRODUCT PLANNER OD HX PRODUCT PLANNER OD recurrent multi areas of leakage on [...] Pt here for FA&F P OU x PRODUCT PLANNER OD and poss.Focal a comprehensive exam 3 month ret urn x Final refraction and repeat OCT x Hx ERM OS; Hx PRODUCT PLANNER OD; Hx Mild CATS OU......Pt reports decrease [...] OS x ERM and FP OU... at [facility] 06-20-16 6:30AM . New patient, LOGAN Guevara, blurry VA OS x 1 year . HX PRODUCT PLANNER OD (spontaneously resolved without Tx) .States x 1 year VA OS has been blurry and distorted and has worsend over the last month. States was Dx with PRODUCT PLANNER OD in 2001 , but spontaneously resolved. Saw Dr Guevara in October and was given HR name for referral. Patient called 3 weeks ago for appointment. Patient brought previous records that had Dx of macular degeneration, but patient states was not told he had macular degeneration. 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 Will continue to observe condition and or symptoms. Call if VA worsens. Educational materials provided:Counseling provided. 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 - defer phaco OS due to relatively good vision Related to Age-related nuclear cataract, bilateral - observe Related to Pucke ring of macula of left eye - OCT OU:good fov co ntour , NO recurrent SRF ODOS with mild fov elevation w / loss of fov contour, NO recurrent SRF OS Related to Central serous chorioretinopathy of right eye - 6-8 weeks check fo r recurrent PRODUCT PLANNER OD after D/C eplenerone Related to Central [...] Central serous chorioretinopathy of right eye - defer phaco OS and will dispense new glasses Rx Related to Age-related nuclear cataract, bilateral - observe Related to 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 Recommend FA for poss recurrent PRODUCT PLANNER OD . Educational materials provided:Counseling provided. 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 - optos FA OD EML F 2 OSML FP OU with possible focal OD x PRODUCT PLANNER Related to Central serous chorioretinopathy of right eye - for optos FA OD EM L OS ML FP OU and possible focal OD x recurrent PRODUCT PLANNER OD Related to Central serous chorioretinopathy of right eye - Discussed R+B phac o OSwill consider phaco OS once OD stable Related to Age-related nuclear cataract, bilateral - OCT:recurrent SRF sup pm bundle cons w/ recurrent PRODUCT PLANNER ODOS with mild pers fov elevation, incomp resol irreg fov reflex OS Related to Puckering of macula of left eye - observe Related to Age-r elated nuclear cataract, bilateral - Post op instructio ns given and understood. Educational materials provided:Counseling provided. Scribed by Sara Gregorio in direct presence Dr Ever Barba directly supervised or performed the services in this record Related to Puckering of macula of left eye - 3 months final ref raction and repeat OCT Related to Puckering of macula of left eye - OCT:Normal OCT OD OS with dramatic [...] to Age-r elated nuclear cataract, bilateral - cont PF OS TIDD/C vigamox OS [...] eye - H+P todayTPPV OS a t Vel on 16R+B of TPPV OS rediscussed including cataract formation post TPPV.DO NOT take pain meds evening before surgeryNPO after 10 PM evening before surgery Related to Puckering of macula of left eye - Pre op instruction s given and understood. Educational materials provided:Counseling provided. 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 Patient Care Teams Name Effective Dates (start - stop) Status Members No Information
--- OUTSIDE RECORDS SUMMARY | 2024-08-21 08:15 | XMS_ITS | Patient Health Record ---
Author Organization [facility] Billing Info Address [address] [place] [address] [address]om[address] [place] [id number] Care Team Providers Care Animal Husbandman Name Role Phone Kris López DO Primary Care Provider JANAY Nowak [phone] Allergies No Known Allergies Reason For Referral No Information Social History Tobacco Use: Social History Observation Description Date Details (start date - stop date) Former Smoker NA - NA Tobacco Status: Question Answer Notes Patient is a former smoker (ANSWERED BY ROSA ELENA STARK) Plan Of Treatment No Information Insurance Providers Payer Name Payer Address Payer Phone Subscriber Number Group Number Insured Name Patient Relationship to Insured Coverage Start Date Coverage End Date MEDICARE [place] PART B [address] [facility] AILYN DÍAZ [id number] Kris Jeter Self - patient is the insured 8 2 [id number] EMPL[employer]EE PLAN [address] [place], [place] [phone] [id number] Kris Jeter Self - patient is the insured 2 2 Medical (General) History Medical History History ICD Code Past Medical History: Atrial Fib/Flutter (ANSWERED BY PATIENT) Surgical History Surgery Date(Month/Year)
--- NOTE | 2024-08-21 08:26 | A.OFFVIS_ITS ---
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 Argueta. Patient reports 80% pain relief for 7 hours following the procedure with significant improvement in his daily functioning, movements, range of motions, and social interactions. Patient reports history of previous successful left- sided cervical RFA and would like to proceed with RFA for the right side for a longer term pain relief. We also reviewed therapeutic cervical medial branch injections and Sprint PNS trial as other treatment options. Denies any recent cough, cold, infection, fever or any significant changes in medical history since last office visit. Past Procedures: 08/13/24: Right Diagnostic C4-C5-C6 MBB-80% pain relief for 7 hours PRIOR: Patient presents today for follow up to discuss recent cervical spine MRI results. Patient continues to report persistent neck pain and bilateral numbness and tingling in his upper extremities. He reports limited ROM with pain and stiffness of his left shoulder. Reports remote history of left shoulder and elbow surgeries for nerve transposition in [place] in [phone]. MRI of cervical spine does not show significant disc herniations or stenosis. We will proceed with Neurodiagnostic studies as next steps. Patient is hoping to undergo right sided diagnostic cervical MBBs for potential RFA in the near future. We will resubmit this request to his insurance. Denies any recent cough, cold, infection, fever or any significant changes in medical history since last office visit. Denies any changes to medications, medical history or recent hospitalizations. PRIOR: Patient presents today for follow up to discuss recent insurance denial for right sided diagnostic cervical medial branch blocks for potential RFA procedure and alternative treatment options. Patient is also concerned for worsening radicular symptoms with neck pain radiating into both shoulders and now into left lower arm and 4-5th digits with numbness and tingling. Denies any recent trauma, injury or falls. He denies any carpal tunnel symptoms at the elbow or wrist areas. Neck pain with also easily reproduced with any movement, axial rotations and extension. Pain is rated at 8/10. His last cervical spine MRI was completed at 2019. Denies any recent cough, cold, infection, fever, bladder or bowel dysfunction, saddle anesthesia, gait instability, or any significant changes in medical history since last office visit. PRIOR: Patient is a pleasant 74 year old male with a history of 3 cervical fusions, lumbar fusion, chronic neck and low back pain, arthritis, gastritis, palpitation, AFib, presents today to establish care and discuss treatments for right-sided neck pain. Patient recently moved from [place] where he was followed by Pain Clinic, Dr. Conrad Real. He denies any recent trauma, injury, or falls. Patient reports history of left cervical medial branch blocks and left C5-C6 cervical RFA in 2021 with good results. Patient also underwent extensive conservative treatments including multiple courses of physical and chiropractic therapy, massages, TENS unit and medical management with opioids, muscle relaxants with his previous provider in [place]. Complete medical record from previous pain clinic has been scanned into patient?s chart today. Patient reports right-sided neck pain with movements, especially with bending and lateral rotations. Neck pain radiates into his right upper extremity to the elbow, wrist and 3rd through 5th fingers with associated numbness and tingling. His pain is most severe in the late morning and early evening which he rates 8/10 and least severe 1st thing in the morning, rated 3/10. Pain affects his daily activities and functioning, mobility, sleep, and social interactions. He is interested to undergo right-sided cervical medial branch blocks for potential therapeutic injections or RFA procedure. Denies any fever or chills, dizziness, shortness of breath, chest pain, gait imbalances, bladder or bowel dysfunction or saddle anesthesia. Patient is currently on Eliquis 5 mg BID, pending Cardiology referral to establish care, was managed by Dr. Terry in [facility], . Location: Neck pain h/o cervical fusion at multiple levels 1993, 2007, 2018 Duration: Chronic pain for many years Characteristics of symptom or complaint: Aching, sore, hurting, dull, heavy, spasming, tiring, tight Aggravating or associated factors: Movements, flexion, looking down, weather changes, stress Relieving factors: Percocet, hydrocodone, cyclobenzaprine, heat, exercises, massages Treatment: Injections, PT, cervical medial branch RFA, TENS unit, chiropractic therapy ADDENDUM Patient's neck pain is predominately axial in nature with intermittent radicular symptoms into his right arm and hand. He responded very well to previous left sided cervical medial branch RFA in 2021 and is interested to undergo right sided diagnostic cervical medial branch blocks for potential RFA procedure. [facility] Medical History Basal cell carcinoma of skin of face Psoriasis Acid reflux Heart palpitations Surgical History History of elbow surgery History of shoulder surgery S/P cervical spinal fusion History of lumbar fusion Social History Housing: House Alcohol intake: current Alcohol intake frequency: a few times a month Alcohol type: hard liquor Patient Tobacco Use Status: Never used Tobacco e-Cigarette/Vaping Use: Never Used Second Hand Smoke Exposure: No service: No Current occupational status: retired Current occupational exposures/hazards: No Cognitive needs: No Hearing needs: No Vision needs: Yes Review of Systems Const All systems reviewed & are unremarkable except as noted in HPI and below Physical Exam Vital Signs: Last Vital Signs Pulse 64 08/21/24 08:28 BP 117/71 08/21/24 08:28 Pulse Ox 97 08/21/24 08:28 Oxygen Delivery Method Room Air 08/21/24 08:28 BMI result Body Mass Index 29.0 General: Appears afebrile. Alert and oriented. Mood and affect appropriate. Follows and participates in conversation appropriately. Respiratory effort is unlabored. No cough. Able to transition from sit to stand unassisted. Ambulates with bilaterally normal heel strike and toe off. Neck Neck: Yes normal visual inspection, Yes no lymphadenopathy, Yes supple, No anterior neck swelling, Yes no JVD and No prominent dorsocervical fat pad General: Yes no CVA tenderness Back/Spine/Pelvis Other: Limited neck range of motion.?Patient demonstrated 5/5 right and 4/5 left motor strength of bilateral upper extremities. 2 + radial pulses. No paravertebral tenderness over facet joints bilaterally. Back: no CVA tenderness Cervical Spine: No Lhermitte's sign positive, loss of normal cervical lordosis, cervical muscular tenderness, pain with cervical ROM, Cervical spine scars present, cervical spasm (right>left), No Cervical spine tenderness and No step off deformity Extrem General: Yes capillary refill normal, Yes no clubbing, cyanosis or edema and Yes no calf tenderness Results Reviewed Results Reviewed: MR SPINE CERVICAL without CONTRAST 07/18/24 at [facility] [[email or web address] INDICATION: Postlaminectomy syndrome. Spinal stenosis. Spondylosis. TECHNIQUE: Unenhanced multiplanar, multisequence MR imaging of the cervical spine. COMPARISON: XR cervical spine 10/25/2023 (report only; imaging unavailable); MR cervical spine 03/23/2021 (report only; imaging unavailable). FINDINGS: Susceptibility artifact is seen from a prior fusion at C3-4 and in the upper thoracic spine. There has been prior fusion, and there does appear to be bony fusion in the mid and lower cervical spine. I see no focal disc herniations or evidence of stenosis. Neural foramen appear patent. Normal cervical alignment is demonstrated. Vertebral heights are well maintained. Craniocervical junction is unremarkable. Bone marrow signal is within normal limits, and no suspicious osseous lesion is identified. Prevertebral and paraspinal soft tissues are within normal limits. Visualized portions of the posterior fossa are unremarkable. Cervical cord demonstrates normal course, caliber, and signal characteristics. No epidural fluid collection or hematoma is identified. At C2-3 there is no significant disc herniation or protrusion. No central canal or neural foraminal stenosis is demonstrated. At C3-4 there is no significant disc herniation or protrusion. No central canal or neural foraminal stenosis is demonstrated. At C4-5 there is no significant disc herniation or protrusion. No central canal or neural foraminal stenosis is demonstrated. At C5-6 there is no significant disc herniation or protrusion. No central canal or neural foraminal stenosis is demonstrated. At C6-7 there is no significant disc herniation or protrusion. No central canal or neural foraminal stenosis is demonstrated. At C7-T1 there is no significant disc herniation or protrusion. No central canal or neural foraminal stenosis is demonstrated. IMPRESSION: Anterior fusion from C3 through the upper thoracic spine. Some susceptibility artifact obscuring portions of the canal at C3-4. No large central disc herniations or stenosis. CSF fluid appears to surround the cord at all levels that are visualized. Assessment & Plan Assessment & Plan (1) Post laminectomy syndrome: Code(s): M96.1 - Postlaminectomy syndrome, not elsewhere classified Category: Medical (2) Cervical spondylosis: Code(s): M47.812 - Spondylosis without myelopathy or radiculopathy, cervical region Category: Medical (3) S/P cervical spinal fusion: Comment: ,1993 Code(s): Z98.1 - Arthrodesis status Category: Surgical (4) Muscle spasms of neck: Code(s): M62.838 - Other muscle spasm Category: Medical Plan Schedule Right C4-C5-C6 Medial Branch RFA with oral sedation and fluoroscopy given good results with recent right diagnostic cervical medial branch blocks. He has history of successful left sided cervical medial branch RFA and chronic neck pain with history of 3 cervical spine fusion. We also reviewed therapeutic injections and neuromodulation with Sprint PNS trial vs SCS trial and implant. All questions were answered and the patient is in agreement of plan. Follow-up after cervical RFA and sooner as needed. Coding Level of Care Code Est Pt Level 3 (89379) Complex EM visit Add On G2211 Diagnoses Post laminectomy syndrome M96.1 Cervical spondylosis M47.812 S/P cervical spinal fusion Z98.1 Muscle spasms of neck M62.838
[2024-08-21 08:28] VITALS: BP 117/71; PULSE 64; O2SAT 97; BMI 29.0
== END 2024-08-21 08:53 | disposition home or self-care (01) ==
PROVIDERS: PCP Nurse Practitioner Family; Visit Provider Nurse Practitioner Family
DX: M96.1 Postlaminectomy syndrome, not elsewhere classified (principal); M47.812 Spondylosis without myelopathy or radiculopathy, cervical region; M62.838 Other muscle spasm; Z98.1 Arthrodesis status
CPT/HCPCS: 99213; G2211

== ENCOUNTER → 2024-08-21 08:11 | Outpatient (BNVA) | payer MEDICARE, SELFPAY | PROVIDERS: PCP Nurse Practitioner Family; Visit Provider Nurse Practitioner Family | DX: M96.1 Postlaminectomy syndrome, not elsewhere classified (principal); M47.812 Spondylosis without myelopathy or radiculopathy, cervical region; M62.838 Other muscle spasm; Z98.1 Arthrodesis status | CPT/HCPCS: 99212 ==

== ENCOUNTER 2024-09-02 13:17 | Outpatient (REF) | payer MEDICARE, SELFPAY ==
--- NOTE | 2024-09-02 13:19 | EMG_ITS ---
Chief complaint: Bilateral hand numbness, more severe on left, especially left 4th and 5th digits History of cervical fusion and left ulnar nerve transposition Reason for referral: Evaluate for radiculopathy Referred by: Rosy Myers NP Procedure done: Bilateral upper extremities NCS/EMG Precautions and/or limitations: He discontinued Eliquis since Saturday, advised to start again today Previous cervical fusion The limb temperature was monitored continuously and remained between 32-36 degrees C during the performance of the NCS. Ulnar motor NCS was performed with moderate elbow flexion between 70-90 degrees, with across-elbow distance of 10 cm. Nerve Conduction Studies Anti Sensory Summary Table ?Stim Site NR Onset (ms) Norm Onset (ms) Peak (ms) Norm Peak (ms) O-P Amp (?V) Norm O-P Amp Site1 Site2 Delta-0 (ms) Dist (cm) Steven (m/s) Norm Steven (m/s) Left Median Anti Sensory (2nd Digit) Wrist ? 3.0 3.7 <3.6 14.4 >10 Wrist 2nd Digit 3.0 14.0 47 Right Median Anti Sensory (2nd Digit) Wrist ? 3.1 3.8 <3.6 14.6 >10 Wrist 2nd Digit 3.1 14.0 45 Left Radial Anti Sensory (Thumb) Forearm ? 2.1 2.6 <3.1 15.4 Forearm Thumb 2.1 0.0 Left Ulnar Anti Sensory (5th Digit) Wrist NR <3.7 >15.0 Wrist 5th Digit 14.0 Right Ulnar Anti Sensory (5th Digit) Wrist ? 2.9 3.7 <3.7 15.6 >15.0 Wrist 5th Digit 2.9 14.0 48 Motor Summary Table ?Stim Site NR Onset (ms) Norm Onset (ms) O-P Amp (mV) Norm O-P Amp iAmp (mV) Amp (1st) (%) Site1 Site2 Delta-0 (ms) Dist (cm) Steven (m/s) Norm Steven (m/s) Left Median Motor (Abd Poll Brev) Wrist ? 4.1 <3.9 6.8 >4.5 7.8 100.0 Elbow Wrist 5.6 24.0 43 >45 Elbow ? 9.7 5.4 6.3 79.4 Right Median Motor (Abd Poll Brev) Wrist ? 3.9 <3.9 6.0 >4.5 6.8 100.0 Elbow Wrist 4.9 24.5 50 >45 Elbow ? 8.8 5.3 6.0 88.3 Left Ulnar Motor (Abd Dig Minimi) Wrist ? 3.0 <3.0 4.4 >5 6.2 100.0 B Elbow Wrist 4.6 23.5 51 >45 B Elbow ? 7.6 4.3 6.2 97.7 A Elbow B Elbow 1.6 10.0 63 >45 A Elbow ? 9.2 4.1 5.9 93.2 Right Ulnar Motor (Abd Dig Minimi) Wrist ? 3.0 <3.0 6.7 >5 7.9 100.0 B Elbow Wrist 4.5 23.0 51 >45 B Elbow ? 7.5 6.1 7.1 91.0 A Elbow B Elbow 1.6 10.0 63 >45 A Elbow ? 9.1 5.9 6.9 88.1 Comparison Summary Table ?Stim Site NR Peak (ms) Norm Peak (ms) P-T Amp (?V) Site1 Site2 Delta-P (ms) Norm Delta (ms) Right Median/Radial Dig I Comparison (Digit 1 - 10cm) Median ? 3.2 <2.9 29.3 Median Radial 0.1 Radial ? 3.3 <2.8 5.9 EMG ?Side Muscle Nerve Root Ins Act Fibs Psw Amp Dur Poly Recrt Int Pat Comment Right 1stDorInt Ulnar C8-T1 Nml Nml Nml Nml Nml 0 Nml Complete Right FlexCarRad Median C6-7 Nml Nml Nml Nml Nml 0 Nml Complete Right Biceps Musculocut C5-6 Nml Nml Nml Nml Nml 0 Nml Complete Right Triceps Radial C6-7-8 Nml Nml Nml Nml Nml 0 Nml Complete Right Deltoid Axillary C5-6 Nml Nml Nml Nml Nml 0 Nml Complete Left 1stDorInt Ulnar C8-T1 Nml Nml Nml Nml Nml 0 Nml Complete Left Biceps Musculocut C5-6 Nml Nml Nml Nml Nml 0 Nml Complete Left Triceps Radial C6-7-8 Nml Nml Nml Nml Nml 0 Nml Complete Left Deltoid Axillary C5-6 Nml Nml Nml Nml Nml 0 Nml Complete Left FlexCarpiUln Ulnar C8,T1 Nml Nml Nml Nml Nml 0 Nml Complete FINDINGS: Left ulnar motor nerve showed normal distal latency, small amplitudes and normal conduction velocity. Left ulnar sensory nerve showed absent response. Left median motor nerve showed prolonged distal latency, normal amplitude and slow conduction velocity. Bilateral median sensory nerves showed prolonged peak latency. Concentric needle EMG was performed in selected muscles of the bilateral upper extremities. Study did not reveal signs of electric abnormalities as shown in the table above. IMPRESSION: 1. This is an abnormal study. 2. There is electrodiagnostic evidence for chronic ulnar neuropathy. 3. There is electrodiagnostic evidence for left moderate-severe and right mild median neuropathy at the wrist, consistent with Carpal Tunnel Syndrome. 4. There is no electrodiagnostic evidence for brachial plexopathy or cervical radiculopathy. Thank you for your kind referral. Eva Mcintosh MD, JAYDA Board Certified, [place] [employer] and [employer] (ABPMR) Board Certified, [place] Board [employer] Electrodiagnostic [employer] (ABEM) CODIN [phone] x 2 MTDD
--- OUTSIDE RECORDS SUMMARY | 2024-09-02 16:17 | XMS_ITS | Patient Health Record ---
Author Organization [facility] Billing Info Address [address] [place] [address] Chan thompson [place] [id number] Care Team Providers Care Per Diem Registered Nurse Name Role Phone Kris López DO Primary Care Provider JANAY Nowak [phone] Allergies No Known Allergies Reason For Referral [...] MEDICARE [place] PART B [address] [facility] AILYN DÍAZ [id number] Kris Jeter Self - patient is the insured 8 2 [employer] EMPLOYEE PLAN [address] [place], [place] [id number] [phone] [id number] Kris Jeter Self - patient is the insured 2 2 Medical (General) History Medical History History ICD Code Past Medical History: Atrial Fib/Flutter (ANSWERED BY PATIENT) Surgical History Surgery Date(Month/Year)
--- OUTSIDE RECORDS SUMMARY | 2024-09-02 16:17 | XMS_ITS | Continuity of Care Document ---
Author Organization [facility] Address [address] [place] [address] Phone Care Team Providers Care Steel Spar Operator Name Role Phone Bobo COLÓN, Angel Unavailable Unavailable Allergies, Adverse Reactions, Alerts Substance Reaction Status Criticality No Known Allergies Active No Inform ation Medications Medication Instructions Dosage Effective Dates (start - stop) Status Comments Zyrtec 10 mg tablet take 1 tablet by ora l route every day 10 MG - Active tramadol 50 mg tablet take 1-2 tablet by oral route every 6 hours - Active flecainide 100 mg tablet take 1 tablet by oral route every 12 hours 100 MG - Active Voltaren Arthritis Pain 1 % topical gel apply 2 gram by topical route 4 times every day to the affected area(s) 2.00 gram - Active omeprazole 20 mg tablet,delayed release - Active metoprolol tartrate 50 mg tablet take 1 tablet by oral route 2 times every day with meals 50 MG - Active Problems Condition Type Effective Dates [...] 15 marva brooke Postop Follow-Up Visit Inc [facility] Manual therapy, 1+ regions, each 15 marva [...] OFFICE/OUTPATIENT VISIT, EST Postop Follow-Up Visit Inc [employer] Dir laryngoscopy w/injection w/op micro OFFICE/OUTPATIENT VISIT, EST OFFICE/OUTPATIENT VISIT, EST Flexible fiberoptic diagnostic laryngosc opy OFFICE/OUTPATIENT VISIT, NEW CPTR OPHTH DX IMG POST [email or web address] Comprehensive eye examin, established kathi doll CPTR OPHTH DX IMG POST SEGNJ Comprehensive eye examin, established kathi doll CPTR OPHTH DX IMG POST [facility] [[email or web address]] Intermediate eye exam, established carolyn burgess CPTR OPHTH DX IMG POST SEGMT Intermediate eye exam, established carolyn nt Determination of refractive state CPTR OPHTH DX IMG POST SEGMT Intermediate eye exam, established davidjanet nt Fundus photography Fluorescein angioscopy, damaris pollacknalini mills CPTR OPHTH DX IMG POST SEGMT Comprehensive eye examin, established kathi doll CPTR OPHTH DX IMG POST SEGMT Postop Follow-Up Visit Inc [employer] CPTR OPHTH DX IMG POST SEGMT Postop Follow-Up Visit Inc [employer] Postop Follow-Up Visit Inc [employer] VIT FOR MACULAR PUCKER Fundus photography OFFICE/OUTPATIENT VISIT, EST CPTR OPHTH DX IMG POST SEGMT Comprehensive eye exam, new patient Advance Directives Directive Yes / No Effective Date File Name No Information Encounters Encounter Description Practice Location Reason(s) For Visit Diagnoses Date Provider Providers Copied on Encounter OFFICE/OUTPA TIENT VISIT, EST [facility] [address], [place], [place], [address] , [place] tel:[phone] [facility] post-op visit (chief complaint) Body mass index (BMI) 27.0-27.9, adultOther specified postprocedura l statesRight tennis elbow 4 Bobo Ortiz. [address] [place] [address], [id number], [place]. tel:[phone] Referring Provider: Angel Kern, [address] [place] [address], [address] . tel:[phone] [facility] [address], [place], [place], [address] , [place] tel:[phone] [facility] No Information 4 Fahad Burton. [address] [place] [address], [id number], . tel:[phone] Referring Provider: Angel Kern, [address] [place] [address], [address] . tel:[phone] [facility] [address], [place], [place], [address] , tel:[phone] [facility] No Information 4 Fahad Burton. [address] [place] [address], [id number], . tel:[phone] Referring Provider: Angel Kern, [address] [place] [address], [address] . tel:[phone] [facility] [address], [place], [place], [address] , tel:[phone] [facility] No Information 4 Fahad Burton. [address] [place] [address], [id number], . tel:[phone] Referring Provider: Angel Kern, [address] [place] [address], [address] . tel:[phone] [facility] [address], [place], [place], [address] , tel:[phone] [facility] No Information 4 Fahad Burton. [address] [place] [address], [id number], [place]. tel:[phone] Referring Provider: Angel Kern, [address] [place] [address], [address] . tel:[phone] [facility] [address], [place], [place], [address] , tel:[phone] [facility] No Information 3 Fahad Burton. [address] [place] [address], [id number], . tel:[phone] Referring Provider: Angel Kern, [address] [place] [address], [address] . tel:[phone] [facility] [address], [place], [place], [address] , tel: [phone] [facility] No Information 3 Fahad Burton. [address] [place] [address], [address] [place] [address], . tel:[phone] Referring Provider: Angel Kern, [address] [place] [address], [address] . tel:[phone] [facility] [address], [place], [place], [address] , tel: [phone] [facility] No Information 3 Fahad Burton. [address] [place] [address], [id number], . tel:[phone] Referring Provider: Angle Kern, [address] [place] [address], [address] . tel:[phone] [facility] [address], [place], [place], [address] , tel: [phone] [facility] No Information 3 Fahad Burton. [address] [place] [address], [id number], . tel:[phone] Referring Provider: Angel Kern, [address] [place] [address], [address] . tel:[phone] [facility] [address], [place], [place], [address] , tel: [phone] [facility] No Information 3 Fahad Burton. [address] [place] [address], [id number], [place]. tel:[phone] Referring Provider: Angel Kern, [address] [place] [address], [address] [place] [address] . tel:[phone] [facility] [address], [place], [place], [address] , [place] tel: [phone] [facility] post-op visit (chief complaint) Body mass index (BMI) 27.0-27.9, adultOther specified postprocedura l statesElevate d blood-pressur e reading, w/o diagnosis of htnRight tennis elbow 3 Bobo Ortiz. [address] [place] [address], [address] [place] [address], . tel:[phone] Referring Provider: Angel Kern, [address] [place] [address], [address] [place] [address] . tel:[phone] [facility], [address], [place], [place], [address] , [place] tel: [phone] [facility] No Information 3 Fahad Burton. [address] [place] [address], [address] [place] [address], . tel:[phone] Referring Provider: Angel Kern, [address] [place] [address], [address] . tel:[phone] [facility], [address], [place], [place], [address] , [place] tel: [phone] [facility] No Information 3 Fahad Burton. [address] [place] [address], [id number], . tel:[phone] Referring Provider: Angel Kern, [address] [place] [address], [address] . tel:[phone] [facility] [address], [place], [place], [address] , tel: [phone] [facility] No Information 3 Fahad Burton. [address] [place] [address], [address] [place] [address], . tel:[phone] Referring Provider: Angel Kern, [address] [place] [address], [address] . tel:[phone] [facility], [address], [place], [place], [address] , tel: [phone] [facility] No Information 3 Fahad Burton. [address] [place] [address], [address] [place] [address], . tel:[phone] Referring Provider: Angel Kern, [address] [place] [address], [address] [place] [address] . tel:[phone] [facility], [address], [place], [place], [address] , tel: [phone] [facility] No Information 3 Fahad Burton. [address] [place] [address], [address] [place] [address], . tel:[phone] Referring Provider: Angel Kern, [address] [place] [address], [address] . tel:[phone] [facility], [address], [place], [place], [address] , tel: [phone] [facility] No Information 3 Fahad Burton. [address] [place] [address], [address] [place] [address], . tel:[phone] Referring Provider: Angel Kern, [address] [place] [address], [address] . tel:[phone] [facility] [address], [place], [place], [address] , tel: [phone] [facility] No Information 3 Fahad Burton. [address] [place] [address], [id number], . tel:[phone] Referring Provider: Angel Kern, [address] [place] [address], [address] . tel:[phone] [facility], [address], [place], [place], [address] , tel: [phone] [facility] No Information 3 Fahad Burton. [address] [place] [address], [address] [place] [address], . tel:[phone] Referring Provider: Angel Kern, [address] [place] [address], [address] . tel:[phone] [facility], [address], [place], [place], [address] , tel: [phone] [facility] No Information 3 Fahad Burton. [address] [place] [address], [id number], . tel:[phone] Referring Provider: Angel Kern, [address] [place] [address], [address] . tel:[phone] [facility], [address], [place], [place], [address] , tel: [phone] [facility] No Information 3 Fahad Burton. [address] [place] [address], [id number], . tel:[phone] Referring Provider: Angel Kern, [address] [place] [address], [address] . tel:[phone] [facility], [address], [place], [place], [address] , tel: [phone] [facility] No Information 3 Fahad Burton. [address] [place] [address], [id number], [place]. tel:[phone] Referring Provider: Angel Kern, [address] [place] [address], [address] . tel:[phone] [facility] [address], [place], [place], [address] , tel: [phone] [facility] No Information 3 Fahad Burton. [address] [place] [address], [id number], [place]. tel:[phone] Referring Provider: Angel Kern, [address] [place] [address], [address] . tel:[phone] [facility], [address], [place], [place], [address] , [place] tel: [phone] [facility] post-op visit (chief complaint) Body mass index (BMI) 27.0-27.9, adultOther specified postprocedura l states 3 Bobo Ortiz. [address] [place] [id number], [place]. tel:[phone] Referring Provider: Angel Kern, [address] [place] [address], [address] . tel:[phone] [facility], [address], [place], [place], [address] , [place] tel: [phone] [facility] No Information 3 Fahad Burton. [address] [place] [address], [id number], . tel:[phone] Referring Provider: Angel Kern, [address] [place] [address], [address] . tel:[phone] [facility] [address], [place], [place], [address] , tel:[phone] [facility] No Information 3 Fahad Burton. [address] [place] [address], [address] [place] [address], [place]. tel:[phone] Referring Provider: Angel Kern, [address] [place] [address], [address] . tel:[phone] [facility] [address], [place], [place], [address] , tel:[phone] [facility] No Information 3 Fahad Burton. [address] [place] [address], [address] [place] [address], [place]. tel:[phone] Referring Provider: Angel Kern, [address] [place] [address], [address] . tel:[phone] [facility] [address], [place], [place], [address] , tel:[phone] [facility] No Information 3 Fahad Burton. [address] [place] [address], [id number], [place]. tel:[phone] Referring Provider: Angel Kern, [address] [place] [address], [address] . tel:[phone] [facility] [address], [place], [place], [address] , [place] tel:[phone] [facility] Lateral epicondylitis , right elbowLesion of radial nerve, right upper limb 3 Bobo Ortiz. [address] [place] [address], [id number], [place]. tel:[phone] Referring Provider: Angel Kern, [address] [place] [address], [address] . tel:[phone] [facility] [address], [place], [place], [address] , [place] [phone] [facility] No Information 3 Bobo Ortiz. [address] [place] [address], [id number], [place]. tel:[phone] OFFICE/OUTPA TIENT VISIT, [facility] [address], [place], [place], [address] , [place] [phone] [facility] elbow complaint (chief complaint) Right tennis elbowRadial tunnel syndrome of right upper extremity 3 Bobo Ortiz. [address] [place] [address], [id number], [place]. tel:[phone] Referring Provider: Angel Kern, [address] [place] [address], [address] . tel:[phone] OFFICE/OUTPA TIENT VISIT, [facility] [address], [place], [place], [address] , [place] tel:[phone] [facility] elbow complaint (chief complaint) Pain in unspecified elbowRight tennis elbow 3 Bobo Ortiz. [address] [place] [address], [id number], [place]. tel:[phone] Referring Provider: Angel Kern, [address] [place] [address], [address] . tel:[phone] OFFICE/OUTPA TIENT VISIT, [facility] [address], [place], [place], [address] , [place] tel:[phone] [facility] Throat problems (chief complaint) Paralysis of left vocal cord 2 Aicha Gomez. [address], [address], [place], [facility], [place]. tel:[phone] Referring Provider: [address], [place], [address] . tel:[phone] [facility] [address], [place], [place], [address] , [place] [phone] [facility] Post op #1 (chief complaint) Paralysis of left vocal cordHoarsenes sOropharyngea l dysphagia 1 Justyna Sahni. [address] [facility], [address], [place], [facility], [place]. tel:[phone] Referring Provider: [address], [place], [address] . tel:[phone] [facility] [address], [place], [place], [address] , [place] [phone] OP [facility] 1 Aicha Gomez. [address], [address], [place], [facility], [place]. tel:[phone] Referring Provider: Jason Banuelos, [address], [place], [facility]. tel:[phone] OFFICE/OUTPA TIENT VISIT, EST [facility] [address], [place], [place], [address] , [place] [phone] [facility] Follow Up of hoarseness (chief complaint) Body mass index (BMI) 27.0-27.9, adultHoarsene ssParalysis of left vocal cordOropharyn geal dysphagia 1 Aicha Rodriguez [address], [address], [place], [facility], [place]. tel:[phone] Referring Provider: [address], [place], [address] . tel:[phone] [facility] [address], [place], [place], [address] , [place] tel:[phone] [facility] HoarsenessLar yngopharyngea l reflux (LPR)Paralysi s of left vocal cordSore throat Sep-2 1 Aicha Rodriguez [address], [place], [address], [place]. tel:[phone] OFFICE/OUTPA TIENT VISIT, [facility] [address], [place], [place], [address] , [place] tel:[phone] [facility] Follow Up of hoarseness (chief complaint) Body mass index (BMI) 27.0-27.9, adultParalysi s of left vocal cordHoarsenes s Mar-0 1 Aicha Rodriguez [address], [address], [place], [address], [place]. tel:[phone] Referring Provider: [address], [place], [address] . tel:[phone] OFFICE/OUTPA TIENT VISIT, [facility] [address], [place], [place], [address] , [place] tel:[phone] [facility] Throat problems (chief complaint) Body mass index (BMI) 27.0-27.9, adultSore throatHoarsen essLaryngopha ryngeal reflux (LPR)Paralysi s of left vocal cord Jan- 1 Aicha Gomez. [address], [address], [place], [address], [place]. tel:[phone] Referring Provider: [address], [place], [address] . tel:[phone] [facility] [address], [place], [place], [address] , [place] tel: [phone] Freda a comprehensive exam (chief complaint) Age-related nuclear cataract, bilateralPuck ering of macula of left eyeCentral serous chorioretinop athy of right eye Mar-1 3-201 9 Freda Madison. [address] [place], [address], [place]. [phone] Referring Provider: [address], [place], [address] . tel:[phone] [facility] [address], [place], [place], [address] , [place] tel: [phone] Freda a comprehensive exam (chief complaint) Central serous chorioretinop athy of right eyePuckering of macula of left eyeAge-relate d nuclear cataract, bilateral Mar-0 9-201 8 Freda Madison. [facility] [place], [address], [place]. [phone] Referring Provider: Los Barba Jr, [facility] [place], [place], [facility]. tel:[phone] [facility] [address], [place], [place], [address] , [place] tel: [phone] Freda a comprehensive exam (chief complaint) Central serous chorioretinop athy of right eyePuckering of macula of left eyeAge-relate d nuclear cataract, bilateral Sep-0 7 Freda Madison. [facility] [place], [address], [place]. tel:[phone] Referring Provider: [address], [place], [address] . tel:[phone] [facility] [address], [place], [place], [address] , [place] tel: [phone] Freda a comprehensive exam (chief complaint) Central serous chorioretinop athy of right eyePuckering of macula of left eyeAge-relate d nuclear cataract, bilateralDiso rder of refraction Yoan-0 6-201 7 Freda Madison. [address] [place], [address], [place]. [phone] Referring Provider: [address], [place], [address] . tel:[phone] [facility] [address], [place], [place], [address] , [place] tel:[phone] Freda kern comprehensive exam (chief complaint) Central serous chorioretinop athy of right eyePuckering of macula of left eyeAge-relate d nuclear cataract, bilateral Ryan-0 2-201 7 Freda Madison. [address] [place], [address], [place]. tel:[phone] Referring Provider: [address], [place], [address] . 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 [address] [place], [address], [place]. tel:[phone] Referring Provider: Jone Guevara, [address] [facility] [address], [place], [address]. tel:[phone] [facility] [address], [place], [place], [address] , [place] tel:[phone] Freda kern comprehensive exam (chief complaint) Puckering of macula of left eyeAge-relate d nuclear cataract, bilateralCent ral serous chorioretinop athy of right eye Apr-1 4-201 7 Freda Madison. [address] [place], [address], [place]. tel:[phone] Referring Provider: [address], [place], [address] . tel:[phone] [facility] [address], [place], [place], [address] , [place] tel: [phone] Freda a comprehensive exam (chief complaint) Puckering of macula of left eyeAge-relate d nuclear cataract, bilateralCent ral serous chorioretinop athy of right eye Nemesio-0 6-201 7 Freda Madison. [address] [place], [address], [place]. tel:[phone] Referring Provider: Pablo Jack Dr [address] [facility] [place], [place], [address] . tel:[phone] [facility] KalaL[facility]wantC[facility]want, [address], [place], [place], [address] , [place] tel: [phone] Freda a comprehensive exam (chief complaint) Puckering of macula of left eyeAge-relate d nuclear cataract, bilateralCent ral serous chorioretinop athy of right eye Jun-2 6 Freda Madison. [address] [place], [address], [place]. tel:[phone] Referring Provider: Pablo Jack Dr [address] [facility] [place], [place], [address] . tel:[phone] [facility] PJesúsCJaswant, [address], [place], [place], [address] , [place] tel:[phone] Freda . (chief complaint) Puckering of macula of left eye Jun- 6 Freda Madison. [address] [place], [address], [place]. tel:[phone] Referring Provider: [address], [place], [address] . tel:[phone] [facility] P.LJaswantLJaswantCJaswant, [address], [place], [place], [address] , [place] tel:[phone] [facility] Puckering of macula, left eye Dec-1 - 6 Freda Ruiz [address] [place], [address], [place]. tel:[phone] Referring Provider: [address], [place], [address] . tel:[phone] OFFICE/OUTPA TIENT VISIT, EST [facility] [address], [place], [place], [address] , [place] tel:[phone] Freda H&P (chief complaint) Puckering of macula of left eye Jun- 6 Freda Madison. [address] [place], [address], [place]. tel:[phone] Referring Provider: [address], [place], [address] . tel:[phone] [facility] [address], [place], [place], [address] , [place] tel:[phone] Freda . (chief complaint) Puckering of macula of left eyeCentral serous chorioretinop athy of right eyeAge-relate d nuclear cataract, bilateral 6 Freda Madison. [address] [place], [address], [place]. tel:[phone] Referring Provider: Los Barba Jr, [facility] [place], [place], [facility]. 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 S/P TPPV for ERM OS on 06-20-16, HX Mild CATS OU......Pt stts the new gls RX is working good for him. No new flashes/floaters OU. Stopped the meds and everything seems fine. a comprehensive exam 1 month ret urn x re-refract and check status BORING MACHINE SET UP OPERATOR OD (on Tx w/ eplenerone) ., S/P TPPV for ERM OS on 06-20-16, HX Mild CATS OU....Pt stts OD is excellent, but OS is still very blurry. No new flashes/floaters OU. a comprehensive exam 1 month wicho ck status BORING MACHINE SET UP OPERATOR OD HX BORING MACHINE SET UP OPERATOR OD recurrent multi areas of leakage on [...] Pt here for FA&F P OU x BORING MACHINE SET UP OPERATOR OD and poss.Focal a comprehensive exam 3 month ret urn x Final refraction and repeat OCT x Hx ERM OS; Hx BORING MACHINE SET UP OPERATOR OD; Hx Mild CATS OU......Pt reports decrease [...] OS x ERM and FP OU... at [facility], [place] 06-20-16 6:30AM . New patient, LOGAN Guevara, blurry VA OS x 1 year . HX BORING MACHINE SET UP OPERATOR OD (spontaneously resolved without Tx) .States x 1 year VA OS has been blurry and distorted and has worsend over the last month. States was Dx with BORING MACHINE SET UP OPERATOR OD in 2001 , but spontaneously resolved. 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 off eplenerone Related to Central serous [...] Central serous chorioretinopathy of right eye - 1month recheck refraction Rela diana to Central serous chorioretinopathy of right eye - will cons phaco OS with progression of cataractwill refract on follow up to see if improvement OS Related to Age-related nuclear cataract, bilateral - recheck refraction on follow u p Related to Puckering of macula of left eye - FA:early transit w / small [...] right eye - 1 month check status BORING MACHINE SET UP OPERATOR OD Re lated to Central serous chorioretinopathy of right eye - Discussed diagnosi s in detail with patient. 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 Educational materials provided:Counseling provided. 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 Patient Care Teams Name Effective Dates (start - stop) Status Members No Information
== END 2024-09-02 13:18 | disposition home or self-care (01) ==
LOC: HO.NEURO 13:17
PROVIDERS: PCP Nurse Practitioner Family; Visit Provider Nurse Practitioner Family
DX: M96.1 Postlaminectomy syndrome, not elsewhere classified (principal); M47.812 Spondylosis without myelopathy or radiculopathy, cervical region; R20.0 Anesthesia of skin; R20.2 Paresthesia of skin; Z98.1 Arthrodesis status
CPT/HCPCS: 95886; 95911

== ENCOUNTER → 2024-09-02 13:19 | Outpatient (BNV) | payer MEDICARE, SELFPAY | PROVIDERS: PCP Nurse Practitioner Family; Visit Provider Physical Medicine & Rehabilitation | DX: G56.23 Lesion of ulnar nerve, bilateral upper limbs (principal); G56.03 Carpal tunnel syndrome, bilateral upper limbs | CPT/HCPCS: 95886; 95911 ==

== ENCOUNTER 2024-09-10 13:28 | Outpatient (AMB) | payer MEDICARE, SELFPAY ==
--- NOTE | 2024-09-10 13:57 | MHC.OFFVIS ---
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 Parking Required: No Allergies No Known Allergies Allergy (Verified 08/21/24 08:29) Medication List - Last Reconciled 09/10/24 by Soren Matta MD apixaban (Eliquis) 5 mg PO BID cyclobenzaprine 5 mg PO BEDTIME PRN 30 days diclofenac sodium 1% (Voltaren Arthritis Pain) 4 grams topical QID flecainide 100 mg PO Q12H gabapentin 300 mg PO BID 30 days lorazepam 0.5 mg PO ONCE PRN 1 day metoprolol succinate ER 50 mg PO DAILY HPI Comments Details: Thank you for referring Kris in cardiology consultation today he is a pleasant 74-year-old male with prior medical history of atrial fibrillation for the last 4 years. She says prior history of hyperlipidemia, cervical spine fusion and lumbar spine issues with borderline elevated glucose levels. Patient says he has been suffering from atrial fibrillation for the last 4 years. This is diagnose in [place]. Since then he has been on flecainide and currently on 100 mg b.i.d. along with metoprolol. He is also on oral anticoagulation therapy with Eliquis. He was not had any complication to anticoagulant therapy. No bleeding issues or neurologic events. However he was concerned as he is getting recurrent palpitations. This happened twice once in time when he started noticing fluttering in his chest. These are lasting for a 2nd or 2 most consistent with PACs. He had another episode in August which lasted for 3 days again again on and off palpitation with skipped heartbeats. He took extra flecainide which improved his symptoms. His smart watch says that he has frequent PACs about 14% burden. He has not had any recurrent atrial fibrillation episodes although. He denies any other cardiac symptoms. Walks regularly without any exertional chest pain or shortness of breath. No heart failure symptoms. [facility] Medical History Paroxysmal atrial fibrillation Basal cell carcinoma of skin of face Psoriasis Acid reflux Heart palpitations Surgical History History of elbow surgery History of shoulder surgery S/P cervical spinal fusion History of lumbar fusion Social History Housing: House Alcohol intake: current Alcohol intake frequency: a few times a month Alcohol type: hard liquor Patient Tobacco Use Status: Never used Tobacco e-Cigarette/Vaping Use: Never Used Second Hand Smoke Exposure: No service: No Current occupational status: retired Current occupational exposures/hazards: No Cognitive needs: No Hearing needs: No Vision needs: Yes Review of Systems Const Denies chills, Denies daytime sleepiness, Denies fatigue, Denies fever(s), Denies frequent falls, Denies poor appetite, Denies snoring, Denies stops breathing during sleep, Denies weakness, Denies weight gain and Denies weight loss Eyes Denies loss of vision ENT Denies dizziness and Denies hearing loss Card Denies chest pain, Denies claudication, Denies leg edema, Denies lightheadedness, Denies palpitations, Denies dyspnea, Denies dyspnea on exertion and Denies orthopnea Resp Denies cough, Denies excessive phlegm production, Denies dyspnea, Denies dyspnea on exertion, Denies snoring and Denies wheezing GI Denies abdominal pain, Denies hematochezia, Denies change in bowel habits, Denies nausea and Denies vomiting Denies dysuria and Denies urinary frequency Musc Denies arthralgias, Denies muscle weakness, Denies numbness and Denies other (frequent falls) Skin/Breast Denies nail changes and Denies rash Neuro Denies Abnormal speech present, Denies dizziness, Denies frequent falls, Denies loss of vision, Denies memory loss, Denies numbness and Denies weakness Psych Denies depression and Denies memory loss Endo Denies fatigue and Denies palpitations Chi/Lymph Reports easy bruising and Reports other (anemia) Aller/Immun Denies wheezing Physical Exam Vital Signs: Last Vital Signs Pulse 56 09/10/24 13:58 BP 120/72 09/10/24 13:58 BMI result Body Mass Index 28.2 Const General: cooperative, comfortable, no acute distress, alert, awake and Physically active Nutritional Appearance: average body habitus Orientation/consciousness: patient oriented x3 Limitations: no limitations HEENT Head: Yes normocephalic and Yes atraumatic Neck Neck: Yes trachea midline, Yes supple and Yes no JVD Resp Effort & Inspection: normal respiratory effort Auscultation: clear to auscultation bilaterally Cardio Jugular venous distension: no JVD Palpation: normal PMI Rate: regular rate Rhythm: regular rhythm Heart sounds: S1 normal heart sound present, S2 normal heart sound present, no click, no gallops, no murmurs and no rubs GI Auscultation: normal bowel sounds Skin General skin exam: no rashes or lesions noted Neuro General: patient oriented x3 and no focal motor deficits Speech: No Abnormal speech present Extrem General: Yes no clubbing, cyanosis or edema Psych Appearance: grossly normal Office Procedures EKG Details: EKG shows sinus bradycardia with first-degree AV block otherwise normal EKG 77677-[id number], Complete Assessment & Plan Assessment & Plan (1) Paroxysmal atrial fibrillation: Code(s): I48.0 - Paroxysmal atrial fibrillation Category: Medical Plan: Highly symptomatic paroxysmal atrial fibrillation but also having frequent episodes of palpitation which are more likely suggestive of PACs. These are confirmed by his smart watch. Has a frequent burden of PACs. However he has episodes when he is highly symptomatic with it and comes in clusters. Symptoms are controlled with flecainide therapy when he takes additional. I have advised him to increase his flecainide to 150 mg b.i.d.. Will check flecainide levels in couple weeks time. Will update an echocardiogram to assess for LV systolic and diastolic function more importantly to assess for biatrial chamber size. We discussed about rhythm control approach and at current point time I think ablation would be possible if he was recurrent episodes of atrial fibrillation. This was discussed with him. He understands agrees. Avoidance of stimulants was discussed. Stress mitigation strategies was discussed. Concomitant use of flecainide and metoprolol is required. Continue full oral anticoagulation, currently on Eliquis 5 mg b.i.d.. Semi annual renal function test should be pursued. Will follow up in the clinic in 6 months time, sooner p.r.n.. Orders: Orders CA echo transthoracic complete Today I48.0 - Paroxysmal atrial fibrillation Flecainide 2 Weeks I48.0 - Paroxysmal atrial fibrillation Medications: Changed From flecainide 100 mg PO Q12H To flecainide 150 mg PO Q12H Coding Level of Care Code New Pt Level 4 (38796) Complex EM visit Add On G2211 Diagnoses Paroxysmal atrial fibrillation I48.0 CPT Codes EKG - CPT: 38995-[id number], Complete ([id number])
[2024-09-10 13:58] VITALS: BP 120/72; PULSE 56; BMI 28.2
--- OUTSIDE RECORDS SUMMARY | 2024-09-10 16:24 | XMS_ITS | Patient Health Record ---
Author Organization [facility] Billing Info Address [address] [place] [address] Chan thompson [place] [id number] Care Team Providers Care Front End Ui Developer Name Role Phone Kris López DO Primary Care Provider JANAY Nowak [phone] Allergies No Known Allergies Reason For Referral [...] MEDICARE [place] PART B [address] [facility] AILYN DÍAZ [id number] Kris Jeter Self - patient is the insured 8 2 [employer]ERAL P[employer] EMPLOYEE PLAN [address] [place], [place] [id number] [phone] [id number] Kris Jeter Self - patient is the insured 2 2 Medical (General) History Medical History History ICD Code Past Medical History: Atrial Fib/Flutter (ANSWERED BY PATIENT) Surgical History Surgery Date(Month/Year)
== END 2024-09-10 14:36 | disposition home or self-care (01) ==
PROVIDERS: PCP Nurse Practitioner Family; Visit Provider Internal Medicine Cardiovascular Disease
DX: I48.0 Paroxysmal atrial fibrillation (principal)
CPT/HCPCS: 93010; 99204; G2211

== ENCOUNTER → 2024-09-10 13:28 | Outpatient (BNVA) | payer MEDICARE, SELFPAY | PROVIDERS: PCP Nurse Practitioner Family; Visit Provider Internal Medicine Cardiovascular Disease | DX: I48.0 Paroxysmal atrial fibrillation (principal); R00.1 Bradycardia, unspecified; I44.0 Atrioventricular block, first degree | CPT/HCPCS: 93005; 99202 ==

== ENCOUNTER 2024-09-17 06:24 | Outpatient (REF) | payer MEDICARE, SELFPAY ==
--- NOTE | ~2024-09-17 | FL_ITS ---
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 TECHNIQUE: Fluoroscopy time: 0.3 minutes. Cumulative Dose: 1.51 mGy. DAP: 0.0173 mGym2 Images: 3. FINDINGS: Fluoroscopic spot films of the cervical spine demonstrate multiple needles in the right neck. FL/FL guidance in treatment room IMPRESSION: Fluoroscopy during procedure. Please see procedure report for additional information. Electronically signed by: Kris Quiroz MD 09/17/2024 02:44 PM EDT
== END 2024-09-17 06:25 | disposition home or self-care (01) ==
LOC: CF 06:24
PROVIDERS: Visit Provider Internal Medicine
DX: M47.812 Spondylosis without myelopathy or radiculopathy, cervical region (principal)
CPT/HCPCS: 64633; 64634; J2003; J2795; Q9967

== ENCOUNTER 2024-09-17 12:00 | Outpatient (AMB) | payer MEDICARE, SELFPAY ==
[2024-09-17 12:12] VITALS: BP 113/65; PULSE 55; RESP 16; O2SAT 99
--- NOTE | 2024-09-17 12:12 | A.OFFVIS_ITS ---
Vital Signs 09/17/24 12:12 09/17/24 13:41 BP 113/65 146/78 H Blood Pressure Location Lt brachial Lt brachial Position Sitting Sitting Respiration 16 16 Pulse 55 60 Pulse Source Pulse Oximeter Pulse Oximeter Pulse Oximetry (%) 99 100 Oxygen Delivery Method Room Air Room Air Intake Visit Reasons: Right C4-C5-C6 RFA/ Valium & oxy Conflicts Analyst Required: No Allergies No Known Allergies Allergy (Verified 09/17/24 12:12) Medication List - Last Reconciled 09/17/24 by Deanne Fontanez LPN apixaban (Eliquis) 5 mg PO BID cyclobenzaprine 5 mg PO BEDTIME PRN 30 days diazepam (Valium) 5 mg PO ONCE diclofenac sodium 1% (Voltaren Arthritis Pain) 4 grams topical QID flecainide 150 mg PO Q12H gabapentin 300 mg PO BID 30 days lorazepam 0.5 mg PO ONCE PRN 1 day metoprolol succinate ER 50 mg PO DAILY oxycodone 10 mg PO ONCE HPI HPI Right C4-C5-C6 RFA/ Valium & oxy: Details: Patient presents for scheduled procedure. Denies any recent cough, cold, infection, fever or other significant changes in medical history since last office visit. [facility] Medical History Paroxysmal atrial fibrillation Basal cell carcinoma of skin of face Psoriasis Acid reflux Heart palpitations Surgical History History of elbow surgery History of shoulder surgery S/P cervical spinal fusion History of lumbar fusion Social History Housing: House Alcohol intake: current Alcohol intake frequency: a few times a month Alcohol type: hard liquor Patient Tobacco Use Status: Never used Tobacco e-Cigarette/Vaping Use: Never Used Second Hand Smoke Exposure: No service: No Current occupational status: retired Current occupational exposures/hazards: No Cognitive needs: No Hearing needs: No Vision needs: Yes Physical Exam Vital Signs: Last Vital Signs Pulse 60 09/17/24 13:41 Resp 16 09/17/24 13:41 BP 146/78 H 09/17/24 13:41 Pulse Ox 100 09/17/24 13:41 Oxygen Delivery Method Room Air 09/17/24 13:41 Office Procedures Details: Radiofrequency lesioning cervical medial branch nerves, Right C4, C5 and C6 After obtaining written consent, pre-procedure blood pressure and heart rate were stable and recorded in the nursing record. The patient was placed in the prone position. The?cervical?area was prepped with chloraprep and draped in sterile fashion. The skin over the target for each medial branch nerve was anesthetized with 0.75% lidocaine. An 18 gauge radiofrequency cannula was advanced to each target site under fluoroscopic guidance. No paresthesias were elicited with needle placement and aspiration was negative for heme and CSF. Impedences were verified under 600 ohms. Sensory testing (50 Hz) and then motor testing (2 Hz) confirmed needle placement at each site within the appropriate voltage thresholds. Each site was injected with 1 ml 2% preservative-free lidocaine. Radiofrequency lesioning was performed for 90 seconds at 80 deg Celcius. The needles were removed, skin cleansed and a sterile bandage was applied. The patient tolerated the procedure well and no complications were encountered. Following the procedure the patient's vital signs were stable. The patient was discharged home in good condition with post-procedural instructions. Time Out: Immediately prior to the procedure, the following was verbally confirmed that there is a signed consent form and that the correct patient, planned procedure, site and side are consistent with documentation and that necessary equipment and/or blood products are available prior to the start of the case. Complications: none EBL: <5 cc 29659 - RFA Cervical Medial Branches 50528 - Cervical Medial Branches ADDNL Procedure code (CPT) selection complete Assessment & Plan Assessment & Plan (1) Cervical spondylosis: Code(s): M47.812 - Spondylosis without myelopathy or radiculopathy, cervical region Category: Medical Plan Patient is status post right cervical medial branches RFL. Patient tolerated procedure well and was discharged home in stable condition with discharge instructions. All questions were answered. We will follow-up via telephone or in clinic to assess response to therapy. A follow-up appointment was made during today's visit. Orders: Orders FL guidance in treatment room 09/17/24 ZOYA Mitchell M47.812 - Spondylosis without myelopathy or radiculopathy, cervical region Medications: New diazepam (Valium) take 30 minutes prior to arrival for procedure 09/17/24 5 mg PO ONCE 1 tab 0RF sleep Shaista Magaña APRN, RAILROAD PURCHASING AGENT oxycodone 10 mg PO ONCE 1 tab 0RF pain Shaista Magaña APRN, RAILROAD PURCHASING AGENT Coding Level of Care Code Procedure Only Diagnoses Cervical spondylosis M47.812 CPT Codes Radiofrequency Ablation - Rad-Ablation 1: 98507 - RFA Cervical Medial Branches ([id number]) Radiofrequency Ablation - Rad-Ablation 2: 97056 - Cervical Medial Branches ADDNL ([id number])
[2024-09-17 13:41] VITALS: BP 146/78; PULSE 60; RESP 16; O2SAT 100
--- OUTSIDE RECORDS SUMMARY | 2024-09-17 15:25 | XMS_ITS | Patient Health Record ---
Author Organization [facility] Billing Info Address [address] [place] [address] Chan thompson [place] [id number] Care Team Providers Care Respiratory Therapy Aide Name Role Phone Kris López DO Primary Care Provider JANAY Nowak [phone] Allergies No Known Allergies Reason For Referral [...] MEDICARE [place] PART B [address] [facility] ALIYN DÍAZ [id number] Kris Jeter Self - patient is the insured 8 2 [employer]ER[employer] P[employer] EMPLOYEE PLAN [address] [place], [place] [phone] [id number] Kris Jeter Self - patient is the insured 2 2 Medical (General) History Medical History History ICD Code Past Medical History: Atrial Fib/Flutter (ANSWERED BY PATIENT) Surgical History Surgery Date(Month/Year)
--- OUTSIDE RECORDS SUMMARY | 2024-09-17 15:25 | XMS_ITS | Data Portability ---
Author Organization [place] - [facility], [facility] Address [address] [place] [address] Care Team Providers Care Punch Machine Operator Name Role Phone JO-ANN LCOKE Referring Provider Unavailable Assessment No assessment recorded. Plan of Treatment Reminders Order Date Submit Date Provider Last Modified By Organization Details Last Modified Time Details Appointments None recorded. Lab drug confirmatio n, urine 2021 022 [facility], [address], [place], [address], 3 03:31:38 drug confirmatio n, urine 2021 022 Labs, [address], [place], [address], 3 03:31:38 mitragynine , quant, urine 2021 022 Labs, [address], [place], [address], 3 03:31:38 unlisted lab - amphetamine s and stimulants reflex (screen/con f) 2021 022 [facility], [address], [place], [address], 3 05:01:18 unlisted lab - barbiturate s reflex (screen/con f) 2021 022 [facility], [address], [place], [address], 3 05:01:17 unlisted lab - benzodiazep jorge reflex (screen/con f) 2021 [facility], [address], [place], [address], 3 05:01:17 unlisted lab - cocaine reflex (screen/con f) 2021 [facility], [address], [place], [address], 3 05:01:18 unlisted lab - ethanol reflex (screen/con f) 2021 [facility], [address], [place], [address], 3 05:01:19 unlisted lab - marijuana reflex (screen/con f) 2021 [facility], [address], [place], [address], 3 05:01:19 unlisted lab - opiates/opi oids reflex (screen/con f) 2021 [facility], [address], [place], [address], 3 05:01:18 methadone, quantitativ e, urine 2021 [facility], [address], [place], [address], 2 13:12:07 Referral None recorded. Procedures hardware injection (PROC) 2021 [email or web address] Not available 16:06:22 Surgeries None recorded. Imaging XR, cervical spine, 4 or 5 view - chronic neck pain, hx of cervical fusion, 3 neck surgeries 2023 024 [facility], [address], [address], [place], [address], 4 09:45:34 Medication Orders oxycodone-a cetaminophe n 7.5 mg-325 mg tablet 2021 022 [facility] #[id number], [address] [place], [address], 2 09:52:29 oxycodone-a cetaminophe n 7.5 mg-325 mg tablet 2021 022 [email or web address] [address] , [address] [facility], [address], [place], [address], 4 11:28:30 Patient TargetsNo targets recorded. Patient Instructions Encounter Date Encounter Id Patient Instructions Last Modified By Organization Details Last Modified Time 02/15/2022 [id number] dash diet: care instructions [email or web address] Not available 02/15/2022 09:47:43 starting a weigh t loss plan: care instructions [email or web address] Not available 02/15/2022 09:47:44 dash diet [email or web address] Not available 2021 09:47:44 weight managemen t education [email or web address] Not available 02/15/2022 09:47:44 02/15/22 LCV was on 01/10/2022 This patient comes to clinic for a four week follow up visit. Today, I reviewed the patient's most recent [employer] reports as well as urine drug screen results. the patient demonstrates no polypharmacy or med seeking behavior as I review the [employer] record for 6 months back. Pain contract [...] these options with his surgeon. PLAN: DELORES LAW OFFICE ASSISTANT visit 04/26/2021 the patient is here to [...] patient reports he underwent reevaluation by another manpower development specialist and Dr. Richmond in which he [...] and is now pending procedure dates 2_) [employer] was reviewed on February 15, 2022 he [...] KENNY under the direct supervision of Dr J-oAnn Locke. Dr Locke evaluated the treatment plan and agrees. Pain contract reviewed. Patient satisfied with plan and understands the significance of compliance as agreed in pain contract. [email or web address] Not available 02/15/2022 13:21:15 10/24/2023 [id number] dash diet: care instructions [email or web address] Not available 10/24/2023 11:46:41 starting a weigh t loss plan: care instructions [email or web address] Not available 10/24/2023 11:46:41 dash diet [email or web address] Not available 2023 11:46:41 weight managemen t education [email or web address] Not available 10/24/2023 11:46:41 10/24/23 03/15/22 Fluoroscopic Guided Bilateral L4, L5 Lumbar Medial Branch / hardware block LCV was on 02/15/2022 This patient comes to clinic for follow up visit. Today, I reviewed the patient's most recent [employer] reports as well as urine drug screen results. the patient demonstrates no polypharmacy or med seeking behavior as I review the [employer] record for 6 months back. Pain contract [...] as falls accidents or trauma. PLAN: LCV LAW OFFICE ASSISTANT visit 04/26/2021 the patient is here to [...] patient reports he underwent reevaluation by another manpower development specialist and Dr. Richmond in which he [...] and is now pending procedure dates 2_) [employer] was reviewed on 10/24/23 he may continue [...] 5) Return to clinic in 2 weeks Not available 10/24/2023 11:46:20 11/07/2023 [id number] dash diet: care instructions [email or web address] Not available 11/07/2023 12:50:11 starting a weigh t loss plan: care instructions Not available 11/07/2023 12:50:11 dash diet [email or web address] Not available 2023 12:50:11 weight managemen t education [email or web address] Not available 11/07/2023 12:50:11 11/07/23 LCV was on 10/24/23 03/15/22 Fluoroscopic Guided Bilateral L4, L5 Lumbar Medial Branch / hardware block This patient comes to clinic for follow up visit. Today, I reviewed the patient's most recent [employer] reports as well as urine drug screen results. the patient demonstrates no polypharmacy or med seeking behavior as I review the [employer] record for 6 months back. Pain contract [...] appointment. He is doing well. PLAN: LCV LAW OFFICE ASSISTANT visit 04/26/2021 the patient is here to [...] patient reports he underwent reevaluation by another manpower development specialist and Dr. Richmond in which he [...] further workup or treatments as needed 2_) [employer] was reviewed on 11/07/23 he may continue [...] to clinic prn, ER warnings were given [email or web address] Not available 11/07/2023 12:49:52 Reason for Referral None Reported. Results Created Date Observation Date Name Description Value Unit Range Abnormal Flag Note LastModifiedBy Organization Detail LastModifiedTime 10/28/19 24 XR, cervi donita spine , 4 or 5 view No observ ation record ed. [email or web address] [facility] [address], [place], [address], 10/28/2023 09:45:45 Result Notes None recorded. Procedures Surgical History Date Name Laterality Status Provider Name and Address Organization Details Recorded Time 03/13/20 22 [facility] Lumbar Medial Branch Blocks completed Jo-Ann Locke MD [address] [place] [address], [address], [place] [facility] 03/13/2022 15:06:12 02/16/20 22 [facility] Cervical RFA completed Jo-Ann Locke MD [address] [place] [address], [address], [place] [facility] 02/15/2022 09:33:42 01/11/20 22 [facility] Cervical RFA completed Kristina Lorenzo [place] [facility] 01/10/2022 09:47:25 12/14/19 22 [facility] Cervical RFA [place] Kristina Lorenzo [place] [facility] 12/13/2021 09:58:22 11/09/19 22 [facility] Cervical RFA completed Esperanza Costa [place] [facility] 11/08/2021 10:10:55 10/25/19 22 [facility] Cervical RFA completed Jo-Ann Locke MD [address] [place] [address], [address], [place] [facility] 10/24/2021 14:22:37 09/20/19 22 [facility] Cervical MBB completed Jo-Ann Locke MD [address] [place] [address], [address], [place] [facility] 09/19/2021 14:20:38 08/08/19 22 [facility] Cervical MBB completed Jo-Ann Locke MD [address] [place] [address], [address], [place] [facility] 09/19/2021 14:21:19 06/28/20 21 DBC Cervical Tx Session completed YONATHAN ROBERTS, SIRIA [address] [place] [address], [address], [place] [facility] 06/28/2021 11:36:40 06/28/20 21 PT/OT/OMT- [place] completed YONATHAN ROBERTS, PT [address] [place], [address], [place] [facility] 06/28/2021 11:10:20 06/28/20 PT/OT/OMT- Suzie cervical completed YONATHAN ROBERTS, PT [address] [place], [address], [place] [facility] 06/28/2021 11:10:20 06/28/20 PT/OT/OMT- Therapeutic Exercise completed YONATHAN ROBERTS, PT [address] [place], [address], [place] [facility] 06/28/2021 11:37:47 06/28/20 PT/OT/OMT- Manual Therapy completed YONATHAN ROBERTS, PT [address] [place], [address], [place] [facility] 06/28/2021 11:10:20 06/26/20 DBC Cervical Tx Session completed YONATHAN ROBERTS, PT [address] [place], [address], [place] [facility] 06/26/2021 11:42:10 06/26/20 PT/OT/OMT- [place] completed YONATHAN ROBERTS, PT [address] [place], [address], [place] [facility] 06/26/2021 11:31:33 06/26/20 PT/OT/OMT- Suzie cervical completed YONATHAN ROBERTS, PT [address] [place], [address], [place] [facility] 06/26/2021 11:31:33 06/26/20 PT/OT/OMT- Therapeutic Exercise completed YONATHAN ROBERTS, PT [address] [place], [address], [place] [facility] 06/26/2021 11:42:22 06/26/20 PT/OT/OMT- Manual Therapy completed YONATHAN ROBERTS, PT [address] [place], [address], [place] [facility] 06/26/2021 11:31:33 06/21/20 DBC Cervical Tx Session completed YONATHAN ROBERTS, PT [address] [place], [address], [place] [facility] 06/21/2021 11:36:32 06/21/20 21 PT/OT/OMT- [place] completed YONATHAN ROBERTS, PT [address] [place], [address], [place] [facility] 06/21/2021 11:36:50 06/21/20 21 PT/OT/OMT- Suzie cervical completed YONATHAN ROBERTS, PT [address] [place], [address], [place] [facility] 06/21/2021 11:37:25 06/21/20 21 PT/OT/OMT- Therapeutic Exercise completed YONATHAN ROBERTS, PT [address] [place], [address], [place] [facility] 06/21/2021 11:39:56 06/21/20 21 PT/OT/OMT- Manual Therapy completed YONATHAN ROBERTS, PT [address] [place], [address], [place] [facility] 06/21/2021 11:37:03 06/19/20 21 DBC Cervical Tx Session completed YONATHAN ROBERTS, PT [address] [place], [address], [place] [facility] 06/19/2021 12:22:15 06/19/20 21 PT/OT/OMT- Denneroll completed YONATHAN ROBERTS, PT [address] [place], [address], [place] [facility] 06/19/2021 12:22:15 06/19/20 21 PT/OT/OMT- Suzei cervical completed YONATHAN ROBERTS, PT [address] [place], [address], [place] [facility] 06/19/2021 12:22:15 06/19/20 21 PT/OT/OMT- Manual Therapy completed YONATHAN ROBERTS, PT [address] [place], [address], [place] [facility] 06/19/2021 12:22:15 06/13/20 21 DBC Cervical Tx Session completed YONATHAN ROBERTS, PT [address] [place], [address], [facility] 06/13/2021 16:01:43 06/13/20 21 PT/OT/OMT- Denneroll completed YONATHAN ROBERTS, PT [address] [place], [address], [facility] 06/13/2021 16:03:06 06/13/20 21 PT/OT/OMT- Suzie cervical completed YONATHAN ROBERTS, PT [address] [place], [address], [facility] 06/13/2021 15:49:45 06/13/20 21 PT/OT/OMT- Manual Therapy completed YONATHAN ROBERTS, PT [address] [place], [address], [facility] 06/13/2021 16:02:57 06/12/20 21 PT/OT/OMT- Suzie cervical completed YONATHAN ROBERTS, PT [address] [place], [address], [facility] 06/12/2021 12:26:10 inguinal hernia repair completed Not Available Health Note 03/11/2022 17:00:06 cholecystectomy completed Not Available Health Note 03/11/2022 17:00:06 Imaging Results Imaging Date Name Status LastModified by Organiz ation Details LastModified Time 10/28/2023 XR, cervical spine, 4 or [address] view completed [address] [facility] [address], [place], [address], 10/28/2023 09:45:45 Procedure Notes None recorded. Medical [...] Updated DateTime 10/24/2023 185.42 cm 27.4 kg/m2 68218.3251 991446 g Not Available Health Note 10/24/2023 10:32:03 Date Recorded Heart rate Systolic blood pressure Diastolic blood pressure Provider Name and Address Organization Details Last Updated DateTime 10/24/2023 61 /min 114 mm[Hg] 64 mm[Hg] Omaira Carrasquillo [facility] 10/24/2023 11:04:01 Date Recorded Body mass index (BMI) Body weight Body height Provider Name and Address Organization Details Last Updated DateTime 11/07/2023 27.4 kg/m2 88845.04031 09378 g 185.42 cm Not Available Health Note 11/07/2023 10:30:25 Date Recorded Systolic blood pressure Diastolic blood pressure Provider Name and Address Organization Details Last Updated DateTime 11/07/2023 112 mm[Hg] 71 mm[Hg] Kristina Lorenzo [facility] 11/07/2023 10:38:14 Date Recorded Body height Body mass index (BMI) Body weight Systolic blood pressure Diastolic blood pressure Provider Name and Address Organization Details Last Updated DateTime 02/15/2022 185.42 cm 26.9 kg/m2 04910.84 g 141 mm[Hg] 80 mm[Hg] Melanie Yo [facility] 08/11/202 2 09:26:45 Date Recorded Body height Body mass index (BMI) Body weight Systolic blood pressure Diastolic blood pressure Provider Name and Address Organization Details Last Updated DateTime 03/15/2022 185.42 cm 26.5 kg/m2 86005.07 g 118 mm[Hg] 72 mm[Hg] Melanie Yo [place] [facility] 2 09:31:32 Social History Question Answer Notes LastModified by Organizat ion Details LastModified Time Tobacco Smoking Status Former Smoker Not Available Health Note 10/22/2023 11:28:28 Do You Have An Advance Directive? Yes [email or web address] Information not available 10/22/2023 What Is Your Level Of Alcohol Consumption? Occasional [email or web address] Information not available 06/08/2021 Are You Blind [...] Been Counseled On Unhealthy Alcohol Use? Yes [email or web address] Information not available 06/08/2021 Is This A [...] Do You Have A Medical Power Of Hospitality Aide? Yes [email or web address] Information not available 10/22/2023 What [...] Anxious, Or Unable To Sleep At Night)? [id number] [email or web address] Information not available 03/11/2022 Do You [...] Liver N Herpes Zoster or Shingles N Cancer N Headaches diagnosed as Migraine N Stroke N Hemodialysis N Low Platelets (thrombocytopenia) N Leg or Foot Ulcers N Arthritis of the Hip/Knee/Ankle N Diabetes-Insulin Dependent N Other Autoimmune Disease N Fibromyalgia N Have You Ever Been Treated for Substance Abuse? N Irritable Bowel Syndrome N High blood pressure N Joint Infection N Other Bleeding Disorder N Have You Ever Been Admitted to a Psychia tric Facility? N Blood Clot (deep venous thrombosis) N Do you take blood thinning medication? N Coronary Artery Disease or Angina N [...] ner Syndrome) N Renal (Kidney) Cancer N Myocarditis (heart inflammation) N Thyroid Cancer N High Thyroid (hyperthyroidism) N Neuropathy N Pulmonary Embolism N Have You Ever [...] Reaction to Latex N High cholesterol N Chronic Kidney Disease N Adrenal Insufficiency N Frequent Urinary Tract Infection N Liver Disease N Other lung disease N Muscle Injury or Tear in the [...] Leg N Diverticulitis N Hepatitis B N Lupus N Epilepsy N Heart Attack (myocardial infarction) N Bipolar Disorder N Ulcerative Colitis N Sleep Apnea N Arthritis of the Shoulder/Elbow/Hand N Tendonitis or Tendon Tear of the Hip/Kne e/Foot N Heart Disease N Do you Require Oxygen on a Daily Basis N Past Encounters Encounter ID Performer Location Encounter Start Date Encounter Closed Date Diagnosis/Indication Diagnosis SNOMED-CT Code Diagnosis ICD10 Code Diagnosis Note [id number] Jo-Ann Locke MD [address] [address] 04/26/2021 13:37:50 04/27/2021 09:42:23 Educated about weight management 650374621 Z71.3 Cervical post-laminectomy syndrome 944520742 M96.1 Degenerati on of cervical intervertebral disc 98176050 M50.30 Cervical radiculitis 110 80272 M54.12 Cervical spondylosis 387 595267 M47.812 Muscle pain 22880385 M79 .18 [id number] Leena Akins [address] [address] 06/08/2021 08:53:49 06/08/2021 18:32:28 Cervical post-laminectomy syndrome 026763943 M96.1 Degenerati on of cervical intervertebral disc 24485356 M50.30 Educated a bout weight management 666007706 Z71.3 Cervical radiculitis 110 68217 M54.12 Cervical spondylosis 387 120424 M47.812 Muscle pain 74075010 M79 .18 [id number] YONATHAN ROBERTS [facility] - [address] [address] 06/12/2021 10:46:05 06/12/2021 15:34:00 Degeneration of cervical intervertebral disc 60404611 M50.30 Cervical spondylosis 387 338943 M47.812 [id number] YONATHAN ROBERTS PT [address] [address] 06/13/2021 13:52:42 06/13/2021 16:30:43 Degeneration of cervical intervertebral disc 95067084 M50.30 Cervical spondylosis 387 802649 M47.812 [id number] YONATHAN ROBERTS PT [address] [address] 06/19/2021 12:21:07 06/19/2021 15:02:56 Degeneration of cervical intervertebral disc 64757617 M50.30 Cervical spondylosis 387 243280 M47.812 [id number] YONATHAN ROBERTS PT [address] [address] 06/21/2021 10:49:38 06/21/2021 11:42:34 Degeneration of cervical intervertebral disc 63220898 M50.30 Cervical spondylosis 387 778729 M47.812 [id number] Jo-Ann Locke MD - [address] [address] 06/23/2021 08:58:20 06/23/2021 09:29:00 Cervical post-laminectomy syndrome 604151791 M96.1 Degenerati on of cervical intervertebral disc 00373704 M50.30 Educated a bout weight management 069168282 Z71.3 Cervical radiculitis 110 78459 M54.12 Cervical spondylosis 387 474059 M47.812 Muscle pain 36916377 M79 .18 Long-term drug therapy 582310049 Z79.899 [id number] YONATHAN ROBERTS PT [address] [address] 06/26/2021 10:48:31 06/26/2021 11:44:37 Degeneration of cervical intervertebral disc 95106985 M50.30 Cervical spondylosis 387 456552 M47.812 [id number] YONATHAN ROBERTS PT [address] [address] 06/28/2021 10:46:39 06/28/2021 11:38:44 Degeneration of cervical intervertebral disc 92974003 M50.30 Cervical spondylosis 387 796261 M47.812 [id number] Jo-Ann Locke MD [address] [address] 07/20/2021 10:58:57 07/20/2021 12:39:41 Cervical post-laminectomy syndrome 293923696 M96.1 Degenerati on of cervical intervertebral disc 03627516 M50.30 Educated a bout weight management 362842495 Z71.3 Cervical radiculitis 110 90151 M54.12 Cervical spondylosis 387 029976 M47.812 Muscle pain 93829020 M79 .18 [id number] Jo-Ann Locke MD [facility] [address] [place] [address] 08/08/2021 10:36:50 08/08/2021 21:26:44 Cervical spondylosis 473229179 M47.812 [id number] Jo-Ann Locke MD [address] [address] 09/06/2021 10:58:12 09/06/2021 12:08:26 Cervical post-laminectomy syndrome 668695427 M96.1 Degenerati on of cervical intervertebral disc 12257119 M50.30 Educated a bout weight management 682107935 Z71.3 Cervical radiculitis 110 32144 M54.12 Cervical spondylosis 387 679972 M47.812 Muscle pain 82970531 M79 .18 [id number] Jo-Ann Locke MD [facility] [address] [place] [address] 09/19/2021 11:21:10 09/19/2021 14:22:56 Cervical spondylosis 601201367 M47.812 [id number] Mohamud Rangel MD [facility] [address] [place] [address] 09/29/2021 09:45:26 10/01/2021 23:37:04 At low risk for fall 937812061 Z91.81 Body mass index 25-29 - overweight 744979568 Z68.29 Influenza vaccination given 7712978844 9109 Z29 april 2021 via [employer] Sleep apnea 11767392 G47 .30 R09.02 this patient has been [...] your prompt attention to this matter. Hypoxia 972829157 R09.02 [id number] Jane Federico [facility] [place] [address] [place] [address] 10/05/2021 13:49:10 10/05/2021 17:05:36 Cervical post-laminectomy syndrome 224713312 M96.1 Degenerati on of cervical intervertebral disc 51498628 M50.30 Educated a bout weight management 560298381 Z71.3 Cervical radiculitis 110 98237 M54.12 Cervical spondylosis 387 792076 M47.812 Muscle pain 78004204 M79 .18 Long-term drug therapy 513781394 Z79.899 [id number] Jo-Ann Locke MD [facility] [address] [place] [address] 10/24/2021 10:09:03 10/24/2021 14:28:56 Cervical spondylosis 043802042 M47.812 [id number] Jane Caballero [facility] [place] [address] [place] [address] 11/08/2021 09:33:20 11/08/2021 17:59:30 Cervical spondylosis 971172286 M47.812 Cervical post-laminectomy syndrome 914302856 M96.1 Degenerati on of cervical intervertebral disc 55462996 M50.30 Educated a bout weight management 312494407 Z71.3 Cervical radiculitis 110 15450 M54.12 Muscle pain 37829153 M79 .18 Long-term drug therapy 833889426 Z79.899 [id number] Kristina Lorenzo [facility] [place] [address] [place] [address] 12/13/2021 09:29:47 12/13/2021 17:30:38 Cervical spondylosis 516636549 M47.812 Cervical post-laminectomy syndrome 041752770 M96.1 Degenerati on of cervical intervertebral disc 41858362 M50.30 Educated a bout weight management 828872668 Z71.3 Cervical radiculitis 110 30374 M54.12 Muscle pain 08442820 M79 .18 Long-term drug therapy 818733687 Z79.899 Lumbar spondylosis 32217 0009 M47.896 [id number] Kristina Bj [facility] [place] [address] [place] [address] 01/10/2022 09:32:56 01/10/2022 17:40:06 Cervical spondylosis 870221970 M47.812 Cervical post-laminectomy syndrome 051151533 M96.1 Degenerati on of cervical intervertebral disc 14981139 M50.30 Educated a bout weight management 391041417 Z71.3 Cervical radiculitis 110 65644 M54.12 Muscle pain 99220124 M79 .18 Long-term drug therapy 490083667 Z79.899 Lumbar spondylosis 91074 0009 M47.896 Hypertensive disorder 38 215041 I10 [id number] Kristina Bj [facility] [place] [address] 02/15/2022 09:19:01 02/15/2022 17:38:38 Cervical spondylosis 673386733 M47.812 Cervical post-laminectomy syndrome 983758694 M96.1 Degenerati on of cervical intervertebral disc 75810620 M50.30 Educated a bout weight management 018006963 Z71.3 Cervical radiculitis 110 38970 M54.12 Muscle pain 94519634 M79 .18 Lumbar spondylosis 20656 0009 M47.896 Hypertensive disorder 38 350759 I10 Long-term drug therapy 900339677 Z79.899 Body mass index 25-29 - overweight 473813502 Z68.26 Lumbar post-laminectomy syndrome 809768409 M96.1 [id number] Jo-Ann Locke MD [facility] [address] [place] [address] 03/13/2022 12:46:55 03/13/2022 15:07:46 Lumbar spondylosis 340632717 M47.896 [id number] Jo-Ann Locke MD [address] [address] 10/24/2023 10:30:44 10/24/2023 11:47:23 Body mass index 25-29 - overweight 601705700 Z68.27 Cervical spondylosis 387 687668 M47.812 Cervical post-laminectomy syndrome 326504913 M96.1 Degenerati on of cervical intervertebral disc 84146587 M50.30 Educated a bout weight management 846449836 Z71.3 Cervical radiculitis 110 87962 M54.12 Muscle pain 90370911 M79 .18 Lumbar spondylosis 08082 0009 M47.896 Hypertensive disorder 38 255480 I10 Lumbar post-laminectomy syndrome 068066417 M96.1 [id number] Jo-Ann Locke MD [address] [address] 11/07/2023 10:29:28 11/07/2023 12:50:39 Cervical spondylosis 272548015 M47.812 Cervical post-laminectomy syndrome 865254431 M96.1 Body mass index 25-29 - overweight 721120637 Z68.27 Degenerati on of cervical intervertebral disc 69281180 M50.30 Educated a bout weight management 985724964 Z71.3 Cervical radiculitis 110 28462 M54.12 Muscle pain 88189024 M79 .18 Lumbar spondylosis 45123 0009 M47.896 Hypertensive disorder 38 953563 I10 Lumbar post-laminectomy syndrome 253055521 M96.1 Health Concerns Section Related Observation LastModified by Organization Detai ls LastModified Time None Recorded Concern Status LastModified by Organization Details LastModified Time None Recorded Advance Directives Directive Y: Payers Encounter Date Sequence Insurance Name Policy Number Policy Juan Covered Member ID Juan Member ID Guarantor Name 02/15/2022 1 [place] [employer] Kris Jeter [id number] Kris Jeter 02/15/2022 2 [place] Kris Jeter [id number] Kris Jeter 03/13/2022 1 [place] [employer] Kris Jeter [id number] Kris oGrecharleen 03/13/2022 2 [place] Kris Jeter [id number] Kris Cedeñonalini 10/24/2023 1 [employer] (MEDICARE REPLACEMENT PPO) [id number] Kris Jeter [id number] Kris Cedeñonalini 11/07/2023 1 [employer] (MEDICARE REPLACEMENT PPO) [id number] 1 Kris Jeter [id number] Kris Goremannchirag Notes Date Note Type Note [...] 0 No [facility] Reason for Follow up visit:No, [...] 0 No [facility] Reason for Follow up visit:No, [...] 0 No [facility] Reason for Follow up visit:No, [...] Score: 0 No Risk Jo-Ann Locke MD [address] [place], [address] 02/15/2022 13:21:35 03/13/2022 text/html [facility] Pain Visit 4Reported bypatient.Duration:How long the patient [...] 0 No Risk Jo-Ann Locke MD [address] [place], [address], [facility] 03/13/2022 15:07:13 10/24/2023 text/html Kris [...] 0 No Risk Jo-Ann Locke MD [address] [place], [address], [facility] 10/24/2023 11:46:45 11/07/2023 text/html Kris Collazo a 73 year oldMalepresenting for care. Preferred pronoun:he/him Reason for Follow up visit:Pt would like to follow up on condition last discussedPain control:WorseActivity level:Medium (same level of activity)Taking medications for pain:Pt is not taking meds for painHospitalizations/E D visits:yesDetails:Atri al Fibrillation Screening / Questionnaire:ALEXIS: Score: 0 No Risk Jo-Ann Locke MD [address] [place], [address], [facility] 11/07/2023 12:50:14
== END 2024-09-17 13:43 | disposition home or self-care (01) ==
LOC: HO.PMCPRC 12:00
PROVIDERS: PCP Nurse Practitioner Family; Visit Provider Internal Medicine
DX: M47.812 Spondylosis without myelopathy or radiculopathy, cervical region (principal)
CPT/HCPCS: 64633; 64634

== ENCOUNTER → 2024-09-23 12:45 | Outpatient (REF) | payer MEDICARE, SELFPAY ==
--- NOTE | 2024-09-23 12:48 | CA_ITS ---
Transthoracic Echocardiogram Patient (Last, First, Middle): Kris Jeter, Gender: Male Date of : 1950 Age: 74 Procedure Date: 09/23/2024 Procedure Type: Transthoracic Echocardiogram Location: OP Height: 180.34 cm Weight: 94.35 kg BSA: 2.14 m2 Heart Rate: bpm BP: 124 / 70 mmHg Melter Supervisor: Referring MD: Soren Matta MD Hazardous Waste Remover: Soren Matta MD Symptoms: I48.0 - Paroxysmal atrial fibrillation Study Quality: Adequate ECG Rhythm: Sinus Conclusions: - 1. Normal LV ejection fraction 60 65% 2. Normal cardiac valvular Dopplers 3. Normal RV systolic pressure 4. Upper limits of normal ascending aortic size 5. No pericardial effusion Findings Left Ventricle Normal left ventricular size, thickness, and systolic function. The visually estimated ejection fraction is between 60-65%. Spectral Doppler is indicative of a normal filling pattern. Right Ventricle Normal right ventricular cavity size and systolic function. Atria Both atria are normal in size. There is no evidence of interatrial shunt. Aortic Valve Normal aortic valve structure and function. There is no aortic valve stenosis. There is no aortic valve regurgitation. Mitral Valve Normal mitral valve structure and function. There is trace mitral valve regurgitation. There is no mitral valve stenosis. Pulmonic Valve The pulmonic valve is likely normal. Tricuspid Valve Normal tricuspid valve structure. There is trace tricuspid valve regurgitation. The right ventricular systolic pressure is normal. The right ventricular systolic pressure is 23 mmHg. Normal right atrial pressure. There is no evidence of pulmonary hypertension. Great Vessels All visible segments of the aorta are normal in size. The pulmonary artery was not well visualized. Venous The inferior vena cava is normal in size and collapses greater than 50% with inspiration. Pericardium/Pleural There is no evidence of pericardial effusion. Prior Study Comparison No prior study available for comparison. Measurements 2D Linear Measurements IVSd: 1.17 0.6-0.9/0.6-1.0 cm LVIDd: 4.11 3.9-5.3/4.2-5.9 cm LVIDd Index: 1.92 2.4-3.2/2.2-3.1 cm/m2 LVIDs: 2.62 2.0-3.6 cm LVPWd: 1.12 0.7-1.1 cm Ao Root: 3.80 2.1-3.5 cm LA Diam: 3.90 2.7-3.8/3.0-4.0 cm LAIDs Index: 1.82 1.5-2.3 cm/m2 LV Mass: 200.43 67-162/88-224 g LV Mass Index: 93.66 43-95/49-115 g/m2 LVOT Diam: 2.60 3.0+(-)1.3 cm 2D Systolic Function EF 4C: 59.20 >55% EF 2C: 58.20 >55% EF BiP: 60.00 >55% Mitral Valve MV Pk E: 0.75 MV PK A: 0.62 MV Decel Time: 253.00 E/A: 1.20 E'Lateral: 12.20 E'Medial: 8.38 E/E' Med: 8.90 E/E' Lat: 6.10 PHT: 74.00 MVA PHT: 2.97 Decel Hidalgo: 2.95 Aortic Valve AoV Pk Steven: 1.19 AoV Mn Steven: 0.79 AoV VTI: 0.30 AoV Pk Grad: 6.00 Aov Mn Grad: 3.00 JOB Cont.VTI: 3.28 LVOT LVOT Pk Steven: 0.78 LVOT Mn Steven: 0.53 LVOT VTI: 0.19 LVOT Pk Grad: 2.00 LVOT Mn Grad: 1.00 LVOT Diam: 2.60 LVOT Area: 5.31 Diastolic Function MV Pk E: 0.75 MV Pk A: 0.62 E/A: 1.20 E'Medial: 8.38 E/E' Med: 8.90 E' Laterial: 12.20 E/E' Lat: 6.10 Tricuspid Valve TR Pk Steven: 2.24 TR Pk Grad: 20.00 RA Press: 3.00 RVSP: 23.00 Great Vessels Aorta Ao Root-2D: 3.80 2.0-3.7 cm Ao Asc: 3.60 2.1-3.4 cm Pulmonary Valve PV Pk Steven: 0.96 Peak PV Grad: 4.00 Updated in Other Vendor System with Status of Final Soren Matta MD electronically signed on 09/23/2024 3:51:45 PM with status of Final
--- OUTSIDE RECORDS SUMMARY | 2024-09-23 15:05 | XMS_ITS | Patient Health Record ---
Author Organization [facility] Billing Info Address [address] [place] [address] Chan thompson [place] [id number] Care Team Providers Care Client Advocate Name Role Phone Kris López DO Primary Care Provider JANAY Nowak [phone] Allergies No Known Allergies Reason For Referral [...] MEDICARE [place] PART B [address] [facility] AILYN DÍAZ [id number] Kris Jeter Self - patient is the insured 8 2 [employer] EM[employer]EE PLAN [address] [place], [place] [phone] [id number] Kris Jeter Self - patient is the insured 2 2 Medical (General) History Medical History History ICD Code Past Medical History: Atrial Fib/Flutter (ANSWERED BY PATIENT) Surgical History Surgery Date(Month/Year)
== END ==
LOC: HO.CARD 12:45
PROVIDERS: PCP Nurse Practitioner Family; Visit Provider Internal Medicine Cardiovascular Disease
DX: I48.0 Paroxysmal atrial fibrillation (principal)
CPT/HCPCS: 93306

== ENCOUNTER → 2024-09-23 12:48 | Outpatient (BNV) | payer MEDICARE, SELFPAY | PROVIDERS: PCP Nurse Practitioner Family; Visit Provider Internal Medicine Cardiovascular Disease | DX: I48.0 Paroxysmal atrial fibrillation (principal) | CPT/HCPCS: 93306 ==

== ENCOUNTER 2024-10-15 09:37 | Outpatient (AMB) | payer MEDICARE, SELFPAY ==
--- NOTE | 2024-10-15 09:40 | MHC.OFFVIS ---
Vital Signs 10/15/24 09:46 Height 6 ft 1 in Weight 208 lb BMI 27.4 BP 129/66 Blood Pressure Location Rt brachial Position Sitting Pulse 60 Pulse Source Pulse Oximeter Pulse Oximetry (%) 98 Oxygen Delivery Method Room Air Intake Visit Reasons: s/p Right C4-C5-C6 RFA Intake Note: Pain today 11/14 Director Call Center Sales Required: No Accompanied by: Self / Same As Patient Allergies No Known Allergies Allergy (Verified 09/17/24 12:12) HPI Comments Details: Patient presents today for follow-up to assess response to right C4-C5-C6 RFA on 09/17/[address] Argueta. Right-sided RFA has alleviated earlier symptoms of tingling following the procedure but patient reports persistent pain, muscle spasms and tightness in the right shoulder area. A recent EMG study in August indicated bilateral carpal tunnel syndrome. He reports bilateral hand numbness and pain, worse one left. The patient's chronic neck and shoulder discomfort has been exacerbated by activity, especially using his right arm, which also results in radiating pain to the head. Daily life activities are impacted due to the pain severity. He has employed a TENS unit with some relief and is scheduling a detailed Orthopedic review by the end of the month. His medical history includes cervical spinal fusions over three decades ago, anticoagulation management with Eliquis due to atrial fibrillation, and an intolerance to cyclobenzaprine due to previous adverse effects such as palpitations. Pain disrupts his nightly sleep patterns. - Onset and Timing: Chronic condition with increased severity recently - Quality and Character: Muscle tightness, spasms, radiating pain to the head - Primary Location: Right shoulder and neck - Radiation: Towards the head - Aggravating Factors: Usage of the right arm, physical activity - Relieving Factors: Use of TENS unit, not taking cyclobenzaprine - Interference: Impedes sleep, daily functionality affected - Affect: The pain interferes with sleep and daily functioning; associated headaches when severe. - Analgesia: Utilizes a TENS unit for relief, previously on cyclobenzaprine which caused palpitations; not on other analgesics. - Adverse Effects: Cyclobenzaprine led to palpitations, otherwise no adverse effects reported from current regimen. - Activities of Daily Living: Requires changes in sleeping position due to right shoulder pain; general daily activity is impacted. - Aberrant Drug Related Behaviors: None reported. Past Procedures: 09/17/24: Right C4-C5-C6 RFA-85-90% ongoing pain relief 08/13/24: Right Diagnostic C4-C5-C6 MBB-80% pain relief for 7 hours PRIOR: Patient presents today for follow up to discuss recent cervical spine MRI results. Patient continues to report persistent neck pain and bilateral numbness and tingling in his upper extremities. He reports limited ROM with pain and stiffness of his left shoulder. Reports remote history of left shoulder and elbow surgeries for nerve transposition in [place] in 5427-1229. MRI of cervical spine does not show significant disc herniations or stenosis. We will proceed with Neurodiagnostic studies as next steps. Patient is hoping to undergo right sided diagnostic cervical MBBs for potential RFA in the near future. We will resubmit this request to his insurance. Denies any recent cough, cold, infection, fever or any significant changes in medical history since last office visit. Denies any changes to medications, medical history or recent hospitalizations. PRIOR: Patient presents today for follow up to discuss recent insurance denial for right sided diagnostic cervical medial branch blocks for potential RFA procedure and alternative treatment options. Patient is also concerned for worsening radicular symptoms with neck pain radiating into both shoulders and now into left lower arm and 4-5th digits with numbness and tingling. Denies any recent trauma, injury or falls. He denies any carpal tunnel symptoms at the elbow or wrist areas. Neck pain with also easily reproduced with any movement, axial rotations and extension. Pain is rated at 8/10. His last cervical spine MRI was completed at 2019. Denies any recent cough, cold, infection, fever, bladder or bowel dysfunction, saddle anesthesia, gait instability, or any significant changes in medical history since last office visit. PRIOR: Patient is a pleasant 74 year old male with a history of 3 cervical fusions, lumbar fusion, chronic neck and low back pain, arthritis, gastritis, palpitation, AFib, presents today to establish care and discuss treatments for right-sided neck pain. Patient recently moved from [place] where he was followed by Pain Clinic, Dr. Conrad Real. He denies any recent trauma, injury, or falls. Patient reports history of left cervical medial branch blocks and left C5-C6 cervical RFA in 2021 with good results. Patient also underwent extensive conservative treatments including multiple courses of physical and chiropractic therapy, massages, TENS unit and medical management with opioids, muscle relaxants with his previous provider in [place]. Complete medical record from previous pain clinic has been scanned into patient?s chart today. Patient reports right-sided neck pain with movements, especially with bending and lateral rotations. Neck pain radiates into his right upper extremity to the elbow, wrist and 3rd through 5th fingers with associated numbness and tingling. His pain is most severe in the late morning and early evening which he rates 8/10 and least severe 1st thing in the morning, rated 3/10. Pain affects his daily activities and functioning, mobility, sleep, and social interactions. He is interested to undergo right-sided cervical medial branch blocks for potential therapeutic injections or RFA procedure. Denies any fever or chills, dizziness, shortness of breath, chest pain, gait imbalances, bladder or bowel dysfunction or saddle anesthesia. Patient is currently on Eliquis 5 mg BID, pending Cardiology referral to establish care, was managed by Dr. Terry in [facility], . Location: Neck pain h/o cervical fusion at multiple levels 1993, 2007, 2018 Duration: Chronic pain for many years Characteristics of symptom or complaint: Aching, sore, hurting, dull, heavy, spasming, tiring, tight Aggravating or associated factors: Movements, flexion, looking down, weather changes, stress Relieving factors: Percocet, hydrocodone, cyclobenzaprine, heat, exercises, massages Treatment: Injections, PT, cervical medial branch RFA, TENS unit, chiropractic therapy ADDENDUM Patient's neck pain is predominately axial in nature with intermittent radicular symptoms into his right arm and hand. He responded very well to previous left sided cervical medial branch RFA in 2021 and is interested to undergo right sided diagnostic cervical medial branch blocks for potential RFA procedure. [facility] Medical History Paroxysmal atrial fibrillation Basal cell carcinoma of skin of face Psoriasis Acid reflux Heart palpitations Surgical History History of elbow surgery History of shoulder surgery S/P cervical spinal fusion History of lumbar fusion Social History Housing: House Alcohol intake: current Alcohol intake frequency: a few times a month Alcohol type: hard liquor Patient Tobacco Use Status: Never used Tobacco e-Cigarette/Vaping Use: Never Used Second Hand Smoke Exposure: No service: No Current occupational status: retired Current occupational exposures/hazards: No Cognitive needs: No Hearing needs: No Vision needs: Yes Review of Systems Const All systems reviewed & are unremarkable except as noted in HPI and below Physical Exam Vital Signs: Last Vital Signs Pulse 60 10/15/24 09:46 BP 129/66 10/15/24 09:46 Pulse Ox 98 10/15/24 09:46 Oxygen Delivery Method Room Air 10/15/24 09:46 BMI result Body Mass Index 27.4 General: Appears afebrile. Alert and oriented. Mood and affect appropriate. Follows and participates in conversation appropriately. Respiratory effort is unlabored. No cough. Able to transition from sit to stand unassisted. Ambulates with bilaterally normal heel strike and toe off. Neck Neck: Yes normal visual inspection, Yes no lymphadenopathy, Yes supple, No anterior neck swelling, Yes no JVD and No prominent dorsocervical fat pad General: Yes no CVA tenderness Back/Spine/Pelvis Other: Limited neck range of motion.?Patient demonstrated 5/5 motor strength of bilateral upper extremities. 2 + radial pulses. No paravertebral tenderness over facet joints bilaterally. Back: no CVA tenderness Cervical Spine: No Lhermitte's sign positive, loss of normal cervical lordosis, cervical muscular tenderness, pain with cervical ROM, Cervical spine scars present, cervical spasm (right>left) and No Cervical spine tenderness Extrem General: Yes capillary refill normal, Yes no clubbing, cyanosis or edema and Yes no calf tenderness Right upper extremity: shoulder/upper arm (Limited ROM due to pain) Details: normal to inspection, tenderness Location: of the A-C joint and over the biceps tendon and crepitus; no swelling Results Reviewed Results Reviewed: MR SPINE CERVICAL without CONTRAST 07/18/24 at [facility] INDICATION: Postlaminectomy syndrome. Spinal stenosis. Spondylosis. TECHNIQUE: Unenhanced multiplanar, multisequence MR imaging of the cervical spine. COMPARISON: XR cervical spine 10/25/2023 (report only; imaging unavailable); MR cervical spine 03/23/2021 (report only; imaging unavailable). FINDINGS: Susceptibility artifact is seen from a prior fusion at C3-4 and in the upper thoracic spine. There has been prior fusion, and there does appear to be bony fusion in the mid and lower cervical spine. I see no focal disc herniations or evidence of stenosis. Neural foramen appear patent. Normal cervical alignment is demonstrated. Vertebral heights are well maintained. Craniocervical junction is unremarkable. Bone marrow signal is within normal limits, and no suspicious osseous lesion is identified. Prevertebral and paraspinal soft tissues are within normal limits. Visualized portions of the posterior fossa are unremarkable. Cervical cord demonstrates normal course, caliber, and signal characteristics. No epidural fluid collection or hematoma is identified. At C2-3 there is no significant disc herniation or protrusion. No central canal or neural foraminal stenosis is demonstrated. At C3-4 there is no significant disc herniation or protrusion. No central canal or neural foraminal stenosis is demonstrated. At C4-5 there is no significant disc herniation or protrusion. No central canal or neural foraminal stenosis is demonstrated. At C5-6 there is no significant disc herniation or protrusion. No central canal or neural foraminal stenosis is demonstrated. At C6-7 there is no significant disc herniation or protrusion. No central canal or neural foraminal stenosis is demonstrated. At C7-T1 there is no significant disc herniation or protrusion. No central canal or neural foraminal stenosis is demonstrated. IMPRESSION: Anterior fusion from C3 through the upper thoracic spine. Some susceptibility artifact obscuring portions of the canal at C3-4. No large central disc herniations or stenosis. CSF fluid appears to surround the cord at all levels that are visualized. NE electromyogram (EMG); NE nerve conduction velocity 09/02/24 Chief complaint: Bilateral hand numbness, more severe on left, especially left 4th and 5th digits FINDINGS: Left ulnar motor nerve showed normal distal latency, small amplitudes and normal conduction velocity. Left ulnar sensory nerve showed absent response. Left median motor nerve showed prolonged distal latency, normal amplitude and slow conduction velocity. Bilateral median sensory nerves showed prolonged peak latency. Concentric needle EMG was performed in selected muscles of the bilateral upper extremities. Study did not reveal signs of electric abnormalities as shown in the table above. IMPRESSION: 1. This is an abnormal study. 2. There is electrodiagnostic evidence for chronic ulnar neuropathy. 3. There is electrodiagnostic evidence for left moderate-severe and right mild median neuropathy at the wrist, consistent with Carpal Tunnel Syndrome. 4. There is no electrodiagnostic evidence for brachial plexopathy or cervical radiculopathy. Assessment & Plan Assessment & Plan (1) Right shoulder pain: Code(s): M25.511 - Pain in right shoulder Category: Medical (2) Post laminectomy syndrome: Code(s): M96.1 - Postlaminectomy syndrome, not elsewhere classified Category: Medical (3) Cervical spondylosis: Code(s): M47.812 - Spondylosis without myelopathy or radiculopathy, cervical region Category: Medical (4) S/P cervical spinal fusion: Comment: Code(s): Z98.1 - Arthrodesis status Category: Surgical (5) Muscle spasms of neck: Code(s): M62.838 - Other muscle spasm Category: Medical Plan Patient is one month status post right sided cervical medial branches RFA with ongoing 85-90% pain relief for neck pain. He has history of successful left sided cervical medial branch RFA and chronic neck pain with history of 3 cervical spine fusion. We also reviewed therapeutic injections and neuromodulation with Sprint PNS trial vs SCS trial and implant. Patient also suffers from right shoulder pain and carpal tunnel syndrome with associated muscle spasms. We will proceed with an x-ray of the right shoulder to evaluate potential osteoarthritis or other causes. Orthopedics will assess and decide further interventions, possibly including injections, coordinated with current anticoagulation management. The patient will continue using the TENS unit and heat therapy to optimize results. Alternative muscle relaxants will be considered, avoiding cyclobenzaprine due to past palpitations. Ongoing monitoring and evaluation will be essential for comprehensive management. All questions were answered and the patient is in agreement of plan. Follow-up as needed. Patient was informed and verbally consented to the use of an ambient scribe for clinic note documentation during this visit. Medications: Discontinued cyclobenzaprine Discontinued Reason: Patient no longer taking 5 mg PO BEDTIME 30 days PRN 60 tabs 0RF muscle spasm M96.1 - Postlaminectomy syndrome, not elsewhere classified, Z98.1 - Arthrodesis status diazepam (Valium) take 30 minutes prior to arrival for procedure 09/17/24 Discontinued Reason: Patient Completed Course 5 mg PO ONCE 1 tab 0RF sleep oxycodone Discontinued Reason: Patient Completed Course 10 mg PO ONCE 1 tab 0RF pain Coding Level of Care Code Est Pt Level 4 (92002) Complex EM visit Add On G2211 Diagnoses Right shoulder pain M25.511 Post laminectomy syndrome M96.1 Cervical spondylosis M47.812 S/P cervical spinal fusion Z98.1 Muscle spasms of neck M62.838
[2024-10-15 09:46] VITALS: BP 129/66; PULSE 60; O2SAT 98; BMI 27.4
--- OUTSIDE RECORDS SUMMARY | 2024-10-15 10:45 | XMS_ITS | Data Portability ---
Author Organization [place] - [facility], [facility] Address [address] [place] [address] Care Team Providers Care Finding Fastener Name Role Phone JO-ANN LOCKE Referring Provider Unavailable Assessment No assessment recorded. Plan of Treatment Reminders Order Date Submit Date Provider Last Modified By Organization Details Last Modified Time Details Appointments None recorded. Lab drug confirmatio n, urine 2021 022 Labs, [address], [place], [address], 3 03:31:38 drug confirmatio n, urine 2021 022 Labs, [address], [place], [address], 3 03:31:38 mitragynine , quant, urine 2021 022 Labs, [address], [place], [address], 3 03:31:38 unlisted lab - amphetamine s and stimulants reflex (screen/con f) 2021 022 [facility], [address], [place], [address], 3 05:01:18 unlisted lab - barbiturate s reflex (screen/con f) 2021 022 [facility], [address], [place], [address], 3 05:01:17 unlisted lab - benzodiazep jorge reflex (screen/con f) 2021 [facility], [address], [place], [address], 3 05:01:17 unlisted lab - cocaine reflex (screen/con f) 2021 [facility], [address], [place], [address], 3 05:01:18 unlisted lab - ethanol reflex (screen/con f) 2021 [facility], [address], [place], [address], 3 05:01:19 unlisted lab - marijuana reflex (screen/con f) 2021 [facility], [address], [place], [address], 3 05:01:19 unlisted lab - opiates/opi oids reflex (screen/con f) 2021 [facility], [address], [place], [address], 3 05:01:18 methadone, quantitativ e, urine 2021 [facility], [address], [place], [address], 2 13:12:07 Referral None recorded. Procedures hardware injection (PROC) 2021 [email or web address] Not available 16:06:22 Surgeries None recorded. Imaging XR, cervical spine, 4 or 5 view - chronic neck pain, hx of cervical fusion, 3 neck surgeries 2023 024 [facility], [address], [address], [place], [address], 4 09:45:34 Medication Orders oxycodone-a cetaminophe n 7.5 mg-[address] [id number], [address] [place], [address], 2 09:52:29 oxycodone-a cetaminophe n 7.5 mg-325 mg tablet 2021 022 [email or web address]-[id number] [facility] [address] , [address], [address], [place], [address], 4 11:28:30 Patient TargetsNo targets recorded. Patient Instructions Encounter Date Encounter Id Patient Instructions Last Modified By Organization Details Last Modified Time 02/15/2022 [id number] dash diet: care instructions Not available 02/15/2022 09:47:43 starting a weigh t loss plan: care instructions [email or web address] Not available 02/15/2022 09:47:44 dash diet Not available 2021 09:47:44 weight managemen t education [email or web address] Not available 02/15/2022 09:47:44 02/15/22 LCV was on 01/10/2022 This patient comes to clinic for a four week follow up visit. Today, I reviewed the patient's most recent CHAMFERING MACHINE OPERATOR reports as well as urine drug screen results. the patient demonstrates no polypharmacy or med seeking behavior as I review the CHAMFERING MACHINE OPERATOR record for 6 months back. Pain contract [...] these options with his surgeon. PLAN: DELORES DATA INTEGRITY SPECIALIST visit 04/26/2021 the patient is here to [...] patient reports he underwent reevaluation by another follow up specialist and Dr. Richmond in which he [...] and is now pending procedure dates 2_) CHAMFERING MACHINE OPERATOR was reviewed on February 15, 2022 he [...] of compliance as agreed in pain contract. [email or web address] Not available 02/15/2022 13:21:15 10/24/2023 [id number] dash diet: care instructions [email or web address] Not available 10/24/2023 11:46:41 starting a weigh t loss plan: care instructions [email or web address] Not available 10/24/2023 11:46:41 dash diet [email or web address] Not available 2023 11:46:41 weight managemen t education Not available 10/24/2023 11:46:41 10/24/23 03/15/22 Fluoroscopic Guided Bilateral L4, L5 Lumbar Medial Branch / hardware block LCV was on 02/15/2022 This patient comes to clinic for follow up visit. Today, I reviewed the patient's most recent CHAMFERING MACHINE OPERATOR reports as well as urine drug screen results. the patient demonstrates no polypharmacy or med seeking behavior as I review the CHAMFERING MACHINE OPERATOR record for 6 months back. Pain contract [...] as falls accidents or trauma. PLAN: LCV DATA INTEGRITY SPECIALIST visit 04/26/2021 the patient is here to [...] patient reports he underwent reevaluation by another follow up specialist and Dr. Richmond in which he [...] and is now pending procedure dates 2_) CHAMFERING MACHINE OPERATOR was reviewed on 10/24/23 he may continue [...] 5) Return to clinic in 2 weeks [email or web address] Not available 10/24/2023 11:46:20 11/07/2023 [id number] dash diet: care instructions [email or web address] Not available 11/07/2023 12:50:11 starting a weigh t loss plan: care instructions [email or web address] Not available 11/07/2023 12:50:11 dash diet [email or web address] Not available 2023 12:50:11 weight managemen t education [email or web address] Not available 11/07/2023 12:50:11 11/07/23 LCV was on 10/24/23 03/15/22 Fluoroscopic Guided Bilateral L4, L5 Lumbar Medial Branch / hardware block This patient comes to clinic for follow up visit. Today, I reviewed the patient's most recent CHAMFERING MACHINE OPERATOR reports as well as urine drug screen results. the patient demonstrates no polypharmacy or med seeking behavior as I review the CHAMFERING MACHINE OPERATOR record for 6 months back. Pain contract [...] appointment. He is doing well. PLAN: LCV DATA INTEGRITY SPECIALIST visit 04/26/2021 the patient is here to [...] patient reports he underwent reevaluation by another follow up specialist and Dr. Richmond in which he [...] further workup or treatments as needed 2_) CHAMFERING MACHINE OPERATOR was reviewed on 11/07/23 he may continue [...] to clinic prn, ER warnings were given [email or web address] Not available 11/07/2023 12:49:52 Reason for Referral None Reported. Results Created Date Observation Date Name Description Value Unit Range Abnormal Flag Note LastModifiedBy Organization Detail LastModifiedTime 10/28/19 24 XR, cervi donita spine , 4 or 5 view No observ ation record ed. [email or web address] [facility] [address], [place], [address], 10/28/2023 09:45:45 Result Notes None recorded. Procedures Surgical History Date Name Laterality Status Provider Name and Address Organization Details Recorded Time 03/13/20 22 [facility] Lumbar Medial Branch Blocks completed Jo-Ann Locke MD [address] [place] [address], [address], [place] [facility] 03/13/2022 15:06:12 02/16/20 22 [facility] Cervical RFA completed Jo-Ann Locke MD [address] [place] [address], [address], [place] [facility] 02/15/2022 09:33:42 01/11/20 22 [facility] Cervical RFA completed Kristina Lorenzo [place] [facility] 01/10/2022 09:47:25 12/14/19 22 [facility] Cervical RFA [place] Kristina Lorenzo [place] [facility] 12/13/2021 09:58:22 11/09/19 22 [facility] Cervical RFA completed Esperanza Costa [place] [facility] 11/08/2021 10:10:55 10/25/19 22 [facility] Cervical RFA completed Jo-Ann Locke MD [address] [place] [address], [address], [place] [facility] 10/24/2021 14:22:37 09/20/19 22 [facility] Cervical MBB completed Jo-Ann Locke MD [address] [place] [address], [address], [place] [facility] 09/19/2021 14:20:38 08/08/19 22 [facility] Cervical MBB completed Jo-Ann Locke MD [address] [place] [address], [address], [place] [facility] 09/19/2021 14:21:19 06/28/20 21 DBC Cervical Tx Session completed YONATHAN ROBERTS, SIRIA [address] [place] [address], [address], [place] [facility] 06/28/2021 11:36:40 06/28/20 21 PT/OT/OMT- Denneroll completed YONATHAN ROBERTS, PT [address] [place], [address], [place] [facility] 06/28/2021 11:10:20 06/28/20 PT/OT/OMT- Suzie cervical completed YONATHAN ROBERTS, PT [address] [place], [address], [place] [facility] 06/28/2021 11:10:20 06/28/20 PT/OT/OMT- Therapeutic Exercise completed YONATHAN ROBERTS, PT [address] [place], [address], [place] [facility] 06/28/2021 11:37:47 06/28/20 PT/OT/OMT- Manual Therapy completed YONATHAN ROBERTS, PT [address] [place], [address], [place] [facility] 06/28/2021 11:10:20 06/26/20 DBC Cervical Tx Session completed YONATHAN ROBERTS, PT [address] [place], [address], [place] [facility] 06/26/2021 11:42:10 06/26/20 PT/OT/OMT- Denneroll completed YONATHAN ROBERTS, PT [address] [place], [address], [place] [facility] 06/26/2021 11:31:33 06/26/20 PT/OT/OMT- Suzie cervical completed YONATHAN ROBERTS, PT [address] [place], [address], [place] [facility] 06/26/2021 11:31:33 06/26/20 PT/OT/OMT- Therapeutic Exercise completed YONATHAN ROBERTS, PT [address] [place], [address], [place] [facility] 06/26/2021 11:42:22 06/26/20 PT/OT/OMT- Manual Therapy completed YONATHAN ROBERTS, PT [address] [place], [address], [place] [facility] 06/26/2021 11:31:33 06/21/20 DBC Cervical Tx Session completed YONATHAN ROBERTS, PT [address] [place], [address], [place] [facility] 06/21/2021 11:36:32 06/21/20 21 PT/OT/OMT- Denneroll completed YONATHAN ROBERTS, PT [address] [place], [address], [place] [facility] 06/21/2021 11:36:50 06/21/20 21 PT/OT/OMT- Suzie cervical completed YONATHAN ROBERTS, PT [address] [place], [address], [place] [facility] 06/21/2021 11:37:25 06/21/20 21 PT/OT/OMT- Therapeutic Exercise completed YONATHAN ROBERTS, PT [address] [place], [address], [place] [facility] 06/21/2021 11:39:56 06/21/20 21 PT/OT/OMT- Manual Therapy completed YONATHAN ROBERTS, PT [address] [place], [address], [place] [facility] 06/21/2021 11:37:03 06/19/20 21 DBC Cervical Tx Session completed YONATHAN ROBERTS, PT [address] [place], [address], [place] [facility] 06/19/2021 12:22:15 06/19/20 21 PT/OT/OMT- Denneroll completed YONATHAN ROBERTS, PT [address] [place], [address], [place] [facility] 06/19/2021 12:22:15 06/19/20 21 PT/OT/OMT- Suzie cervical completed YONATHAN ROBERTS, PT [address] [place], [address], [place] [facility] 06/19/2021 12:22:15 06/19/20 21 PT/OT/OMT- Manual Therapy completed YONATHAN ROBERTS, PT [address] [place], [address], [place] [facility] 06/19/2021 12:22:15 06/13/20 21 DBC Cervical Tx Session completed YONATHAN ROBERTS, PT [address] [place], [address], [facility] 06/13/2021 16:01:43 06/13/20 21 PT/OT/OMT- Denneroll completed YONATHAN ROBERTS, PT [address] [place], [address], [facility] 06/13/2021 16:03:06 06/13/20 21 PT/OT/OMT- Suzie cervical completed YONATHAN ROBERTS, PT [address] [place], [address], [facility] 06/13/2021 15:49:45 06/13/20 21 PT/OT/OMT- Manual Therapy completed YONATHAN ROBERTS, PT [address] [place], [address], [facility] 06/13/2021 16:02:57 06/12/20 21 PT/OT/OMT- Suzie cervical completed YONATHAN ROBERTS, PT [address] [place], [address], [facility] 06/12/2021 12:26:10 inguinal hernia repair completed Not Available Health Note 03/11/2022 17:00:06 cholecystectomy completed Not Available Health Note 03/11/2022 17:00:06 Imaging Results Imaging Date Name Status LastModified by Organiz ation Details LastModified Time 10/28/2023 XR, cervical spine, 4 or 5 view completed [address] [facility] [address], [place], [address], 10/28/2023 09:45:45 Procedure Notes None recorded. Medical [...] Updated DateTime 10/24/2023 185.42 cm 27.4 kg/m2 33637.3251 681615 g Not Available Health Note 10/24/2023 10:32:03 Date Recorded Heart rate Systolic blood pressure Diastolic blood pressure Provider Name and Address Organization Details Last Updated DateTime 10/24/2023 61 /min 114 mm[Hg] 64 mm[Hg] Omaira Carrasquillo [facility] 10/24/2023 11:04:01 Date Recorded Body mass index (BMI) Body weight Body height Provider Name and Address Organization Details Last Updated DateTime 11/07/2023 27.4 kg/m2 20299.03631 68232 g 185.42 cm Not Available Health Note 11/07/2023 10:30:25 Date Recorded Systolic blood pressure Diastolic blood pressure Provider Name and Address Organization Details Last Updated DateTime 11/07/2023 112 mm[Hg] 71 mm[Hg] Kristina Lorenzo [facility] 11/07/2023 10:38:14 Date Recorded Body height Body mass index (BMI) Body weight Systolic blood pressure Diastolic blood pressure Provider Name and Address Organization Details Last Updated DateTime 02/15/2022 185.42 cm 26.9 kg/m2 81560.84 g 141 mm[Hg] 80 mm[Hg] Melanie Yo [facility] 08/11/202 2 09:26:45 Date Recorded Body height Body mass index (BMI) Body weight Systolic blood pressure Diastolic blood pressure Provider Name and Address Organization Details Last Updated DateTime 03/15/2022 185.42 cm 26.5 kg/m2 88302.07 g 118 mm[Hg] 72 mm[Hg] Melanie Yo [place] [facility] 2 09:31:32 Social History Question Answer Notes LastModified by Organizat ion Details LastModified Time Tobacco Smoking Status Former Smoker Not Available Health Note 10/22/2023 11:28:28 Do You Have An Advance Directive? Yes [email or web address] Information not available 10/22/2023 What Is Your Level Of Alcohol Consumption? Occasional [email or web address] Information not available 06/08/2021 Are You Blind [...] Been Counseled On Unhealthy Alcohol Use? Yes Information not available 06/08/2021 Is This A [...] Do You Have A Medical Power Of Movable Bulkhead Installer? Yes [email or web address] Information not available 10/22/2023 What [...] Anxious, Or Unable To Sleep At Night)? [id number] [email or web address] Information not available 03/11/2022 Do You [...] SNOMED-CT Code Diagnosis ICD10 Code Diagnosis Note [id number] Jo-Ann Locke MD [address] [address] 04/26/2021 13:37:50 04/27/2021 09:42:23 Educated about weight management 287626484 Z71.3 Cervical post-laminectomy syndrome 041005968 M96.1 Degenerati on of cervical intervertebral disc 08937684 M50.30 Cervical radiculitis 110 06198 M54.12 Cervical spondylosis 387 392444 M47.812 Muscle pain 42220660 M79 .18 [id number] Leena Akins [address] [address] 06/08/2021 08:53:49 06/08/2021 18:32:28 Cervical post-laminectomy syndrome 549084830 M96.1 Degenerati on of cervical intervertebral disc 40532965 M50.30 Educated a bout weight management 325918888 Z71.3 Cervical radiculitis 110 15315 M54.12 Cervical spondylosis 387 927726 M47.812 Muscle pain 75883362 M79 .18 [id number] YONATHAN ROBERTS [facility] - [address] [address] 06/12/2021 10:46:05 06/12/2021 15:34:00 Degeneration of cervical intervertebral disc 77017965 M50.30 Cervical spondylosis 387 054969 M47.812 [id number] YONATHAN ROBERTS PT [address] [address] 06/13/2021 13:52:42 06/13/2021 16:30:43 Degeneration of cervical intervertebral disc 76215101 M50.30 Cervical spondylosis 387 488240 M47.812 [id number] YONATHAN ROBERTS PT [address] [address] 06/19/2021 12:21:07 06/19/2021 15:02:56 Degeneration of cervical intervertebral disc 63922811 M50.30 Cervical spondylosis 387 027408 M47.812 [id number] YONATHAN ROBERTS PT [address] [address] 06/21/2021 10:49:38 06/21/2021 11:42:34 Degeneration of cervical intervertebral disc 28626174 M50.30 Cervical spondylosis 387 476592 M47.812 [id number] Jo-Ann Locke MD - [address] [address] 06/23/2021 08:58:20 06/23/2021 09:29:00 Cervical post-laminectomy syndrome 511683059 M96.1 Degenerati on of cervical intervertebral disc 52083682 M50.30 Educated a bout weight management 836463883 Z71.3 Cervical radiculitis 110 30315 M54.12 Cervical spondylosis 387 560494 M47.812 Muscle pain 52601789 M79 .18 Long-term drug therapy 115178034 Z79.899 [id number] YONATHAN ROBERTS PT [address] [address] 06/26/2021 10:48:31 06/26/2021 11:44:37 Degeneration of cervical intervertebral disc 85216835 M50.30 Cervical spondylosis 387 443617 M47.812 [id number] YONATHAN ROBERTS PT [address] [address] 06/28/2021 10:46:39 06/28/2021 11:38:44 Degeneration of cervical intervertebral disc 34580462 M50.30 Cervical spondylosis 387 492400 M47.812 [id number] Jo-Ann Locke MD [address] [address] 07/20/2021 10:58:57 07/20/2021 12:39:41 Cervical post-laminectomy syndrome 874539427 M96.1 Degenerati on of cervical intervertebral disc 65376280 M50.30 Educated a bout weight management 914433089 Z71.3 Cervical radiculitis 110 33431 M54.12 Cervical spondylosis 387 924266 M47.812 Muscle pain 08234040 M79 .18 [id number] Jo-Ann Locke MD [facility] [address] [place] [address] 08/08/2021 10:36:50 08/08/2021 21:26:44 Cervical spondylosis 049425260 M47.812 [id number] Jo-Ann Locke MD [address] [address] 09/06/2021 10:58:12 09/06/2021 12:08:26 Cervical post-laminectomy syndrome 433798563 M96.1 Degenerati on of cervical intervertebral disc 98616361 M50.30 Educated a bout weight management 469748037 Z71.3 Cervical radiculitis 110 63679 M54.12 Cervical spondylosis 387 107285 M47.812 Muscle pain 59700866 M79 .18 [id number] Jo-Ann Locke MD [facility] [address] [place] [address] 09/19/2021 11:21:10 09/19/2021 14:22:56 Cervical spondylosis 970015173 M47.812 [id number] Mohamud Rangel MD [facility] [address] [place] [address] 09/29/2021 09:45:26 10/01/2021 23:37:04 At low risk for fall 613048345 Z91.81 Body mass index 25-29 - overweight 660591409 Z68.29 Influenza vaccination given 6342951411 9109 Z29 april 2021 via [employer] Sleep apnea 73957116 G47 .30 R09.02 this patient has been [...] your prompt attention to this matter. Hypoxia 788689132 R09.02 [id number] Jane Federico [facility] [place] [address] [place] [address] 10/05/2021 13:49:10 10/05/2021 17:05:36 Cervical post-laminectomy syndrome 621019153 M96.1 Degenerati on of cervical intervertebral disc 74497109 M50.30 Educated a bout weight management 902925255 Z71.3 Cervical radiculitis 110 46434 M54.12 Cervical spondylosis 387 665732 M47.812 Muscle pain 59248194 M79 .18 Long-term drug therapy 995336436 Z79.899 [id number] Jo-Ann Locke MD [facility] [address] [place] [address] 10/24/2021 10:09:03 10/24/2021 14:28:56 Cervical spondylosis 184019355 M47.812 [id number] Jane Caballero [facility] [place] [address] [place] [address] 11/08/2021 09:33:20 11/08/2021 17:59:30 Cervical spondylosis 207451936 M47.812 Cervical post-laminectomy syndrome 929180787 M96.1 Degenerati on of cervical intervertebral disc 87477952 M50.30 Educated a bout weight management 030019322 Z71.3 Cervical radiculitis 110 40154 M54.12 Muscle pain 84689423 M79 .18 Long-term drug therapy 137627083 Z79.899 [id number] Kristina Lorenzo [facility] [place] [address] [place] [address] 12/13/2021 09:29:47 12/13/2021 17:30:38 Cervical spondylosis 325766201 M47.812 Cervical post-laminectomy syndrome 444876403 M96.1 Degenerati on of cervical intervertebral disc 62167677 M50.30 Educated a bout weight management 839882649 Z71.3 Cervical radiculitis 110 91925 M54.12 Muscle pain 80104162 M79 .18 Long-term drug therapy 885375509 Z79.899 Lumbar spondylosis 53518 0009 M47.896 [id number] Kristina Bj [facility] [place] [address] [place] [address] 01/10/2022 09:32:56 01/10/2022 17:40:06 Cervical spondylosis 679601447 M47.812 Cervical post-laminectomy syndrome 436740477 M96.1 Degenerati on of cervical intervertebral disc 28586282 M50.30 Educated a bout weight management 909419629 Z71.3 Cervical radiculitis 110 48751 M54.12 Muscle pain 54665916 M79 .18 Long-term drug therapy 571817813 Z79.899 Lumbar spondylosis 63163 0009 M47.896 Hypertensive disorder 38 963069 I10 [id number] Kristina Bj [facility] [place] [address] 02/15/2022 09:19:01 02/15/2022 17:38:38 Cervical spondylosis 407753508 M47.812 Cervical post-laminectomy syndrome 628852096 M96.1 Degenerati on of cervical intervertebral disc 66765068 M50.30 Educated a bout weight management 134354043 Z71.3 Cervical radiculitis 110 89317 M54.12 Muscle pain 92710761 M79 .18 Lumbar spondylosis 82894 0009 M47.896 Hypertensive disorder 38 933660 I10 Long-term drug therapy 746572756 Z79.899 Body mass index 25-29 - overweight 807148134 Z68.26 Lumbar post-laminectomy syndrome 975024819 M96.1 [id number] Jo-Ann Locke MD [facility] [address] [place] [address] 03/13/2022 12:46:55 03/13/2022 15:07:46 Lumbar spondylosis 017135541 M47.896 [id number] Jo-Ann Locke MD [address] [address] 10/24/2023 10:30:44 10/24/2023 11:47:23 Body mass index 25-29 - overweight 073277070 Z68.27 Cervical spondylosis 387 083147 M47.812 Cervical post-laminectomy syndrome 553257830 M96.1 Degenerati on of cervical intervertebral disc 88870068 M50.30 Educated a bout weight management 041831558 Z71.3 Cervical radiculitis 110 94393 M54.12 Muscle pain 77040971 M79 .18 Lumbar spondylosis 39530 0009 M47.896 Hypertensive disorder 38 512842 I10 Lumbar post-laminectomy syndrome 128145534 M96.1 [id number] Jo-Ann Locke MD [address] [address] 11/07/2023 10:29:28 11/07/2023 12:50:39 Cervical spondylosis 088404385 M47.812 Cervical post-laminectomy syndrome 727455093 M96.1 Body mass index 25-29 - overweight 495830843 Z68.27 Degenerati on of cervical intervertebral disc 96472632 M50.30 Educated a bout weight management 821899278 Z71.3 Cervical radiculitis 110 09940 M54.12 Muscle pain 41115947 M79 .18 Lumbar spondylosis 58573 0009 M47.896 Hypertensive disorder 38 372730 I10 Lumbar post-laminectomy syndrome 131296450 M96.1 Health Concerns Section Related Observation LastModified by Organization Detai ls LastModified Time None Recorded Concern Status LastModified by Organization Details LastModified Time None Recorded Advance Directives Directive Y: Payers Encounter Date Sequence Insurance Name Policy Number Policy Juan Covered Member ID Juan Member ID Guarantor Name 02/15/2022 1 [place] DataRose Kris Jeter [id number] Kris Jeter 02/15/2022 2 [place] Kris Jeter [id number] Kris Jeter 03/13/2022 1 [place] Data[place] Kris Jeter [id number] Kris Gorecharleen 03/13/2022 2 [place] Kris Jeter [id number] Kris Cedeñonalini 10/24/2023 1 [employer] (MEDICARE REPLACEMENT PPO) [id number] Kris Jeter [id number] Kris Cedeñonalini 11/07/2023 1 [employer] (MEDICARE REPLACEMENT PPO) [id number] 1 Kris Jeter [id number] Kris Goremannchirag Notes Date Note Type Note [...] 0 No [facility]. Reason for Follow up visit:No, [...] 0 [facility] for Follow [facility] [...] 0 [facility] Reason for Follow up [...] Score: 0 No Risk Jo-Ann Locke MD [address] [place], [address] 02/15/2022 13:21:35 03/13/2022 text/html [facility] Pain Visit 4Reported bypatient.Duration:How long the [...] 0 No Risk Jo-Ann Locke MD [address] [place], [address], [facility] 03/13/2022 15:07:13 10/24/2023 text/html Kris [...] 0 No Risk Jo-Ann Locke MD [address] [place], [address], [facility] 10/24/2023 11:46:45 11/07/2023 text/html Kris Collazo a 73 year oldMalepresenting for care. Preferred pronoun:he/him Reason for Follow up visit:Pt would like to follow up on condition last discussedPain control:WorseActivity level:Medium (same level of activity)Taking medications for pain:Pt is not taking meds for painHospitalizations/E D visits:yesDetails:Atri al Fibrillation Screening / Questionnaire:ALEXIS: Score: 0 No Risk Jo-Ann Locke MD [address] [place], [address], [facility] 11/07/2023 12:50:14
--- OUTSIDE RECORDS SUMMARY | 2024-10-15 10:45 | XMS_ITS | Continuity of Care Document ---
Author Organization [facility] Address [address] [place] [address] Phone Care Team Providers Care Optical Fabrication Technician Name Role Phone Bobo COLÓN, Angel Unavailable [...] 15 marva brooke Postop Follow-Up Visit [facility] Manual therapy, 1+ regions, each 15 marva [...] OFFICE/OUTPATIENT VISIT, EST Postop Follow-Up Visit [facility] Dir laryngoscopy w/injection w/op micro OFFICE/OUTPATIENT VISIT, EST OFFICE/OUTPATIENT VISIT, EST Flexible fiberoptic diagnostic laryngosc opy OFFICE/OUTPATIENT VISIT, NEW CPTR OPHTH DX IMG POST [facility] Comprehensive eye examin, established kathi doll CPTR OPHTH DX IMG POST [facility] Comprehensive eye examin, established kathi doll CPTR OPHTH DX IMG POST [facility] Intermediate eye exam, established carolyn burgess CPTR OPHTH DX IMG POST [facility] Intermediate eye exam, established carolyn nt Determination of refractive state CPTR OPHTH DX IMG POST [facility] Intermediate eye exam, established davidjanet nt Fundus photography Fluorescein angioscopy, damaris pollacknalini mills CPTR OPHTH DX IMG POST [facility] Comprehensive eye examin, established kathi doll CPTR OPHTH DX IMG POST [facility] Postop Follow-Up Visit [facility] CPTR OPHTH DX IMG POST [facility] Postop Follow-Up Visit Inc [facility] Postop Follow-Up Visit [facility] VIT FOR MACULAR PUCKER Fundus photography OFFICE/OUTPATIENT VISIT, EST CPTR OPHTH DX IMG POST [facility] Comprehensive eye exam, new patient Advance Directives Directive Yes / No Effective Date File Name No Information Encounters Encounter Description Practice Location Reason(s) For Visit Diagnoses Date Provider Providers Copied on Encounter OFFICE/OUTPA TIENT VISIT, EST [facility] [address], [place], [place], [id number] , [place] tel:[phone] [facility] post-op visit (chief complaint) Body mass index (BMI) 27.0-27.9, adultOther specified postprocedura l statesRight tennis elbow 4 Bobo Ortiz. [address] [place] [address], [id number], [place]. tel:[phone] Referring Provider: Angel Kern, [address] [place] [address], [address] . tel:[phone] [facility] [address], [place], [place], [id number] , [place] tel:[phone] [facility] No Information 4 Fahad Burton. [address] [place] [address], [id number], . tel:[phone] Referring Provider: Angel Kern, [address] [place] [address], [address] . tel:[phone] [facility] [address], [place], [place], [address] , tel:[phone] [facility] No Information 4 Fahad Burton. [address] [place] [address], [id number], . tel:[phone] Referring Provider: Angel Kern, [address] [place] [address], [address] . tel:[phone] [facility] [address], [place], [place], [address] , tel:[phone] [facility] No Information 4 Fahad Burton. [address] [place] [address], [id number], . tel:[phone] Referring Provider: Angel Kern, [address] [place] [address], [address] . tel:[phone] [facility] [address], [place], [place], [address] , tel:[phone] [facility] No Information 4 Fahad Burton. [address] [place] [address], [id number], [place]. tel:[phone] Referring Provider: Angel Kern, [address] [place] [address], [address] . tel:[phone] [facility] [address], [place], [place], [address] , tel:[phone] [facility] No Information 3 Fahad Burton. [address] [place] [address], [id number], . tel:[phone] Referring Provider: Angel Kern, [address] [place] [address], [address] . tel:[phone] [facility] [address], [place], [place], [address] , tel: [phone] [facility] No Information 3 Fahad Burton. [address] [place] [address], [address] [place] [address], . tel:[phone] Referring Provider: Angel Kern, [address] [place] [address], [address] . tel:[phone] [facility] [address], [place], [place], [address] , tel: [phone] [facility] No Information 3 Fahad Burton. [address] [place] [address], [id number], . tel:[phone] Referring Provider: Angel Kern, [address] [place] [address], [address] . tel:[phone] [facility] [address], [place], [place], [address] , tel: [phone] [facility] No Information 3 Fahad Burton. [address] [place] [address], [id number], . tel:[phone] Referring Provider: Angel Kern, [address] [place] [address], [address] . tel:[phone] [facility] [address], [place], [place], [address] , tel: [phone] [facility] No Information 3 Fahad Burton. [address] [place] [address], [id number], [place]. tel:[phone] Referring Provider: Angel Kern, [address] [place] [address], [address] [place] [address] . tel:[phone] [facility] [address], [place], [place], [address] , [place] tel: [phone] [facility] post-op visit (chief complaint) Body mass index (BMI) 27.0-27.9, adultOther specified postprocedura l statesElevate d blood-pressur e reading, w/o diagnosis of htnRight tennis elbow 3 Bobo Ortiz. [address] [place] [address], [address] [place] [address], . tel:[phone] Referring Provider: Angel Kern, [address] [place] [address], [address] [place] [address] . tel:[phone] [facility], [address], [place], [place], [address] , [place] tel: [phone] [facility] No Information 3 Fahad Burton. [address] [place] [address], [address] [place] [address], . tel:[phone] Referring Provider: Angel Kern, [address] [place] [address], [address] . tel:[phone] [facility], [address], [place], [place], [address] , [place] tel: [phone] [facility] No Information 3 Fahad Burton. [address] [place] [address], [id number], . tel:[phone] Referring Provider: Angel Kern, [address] [place] [address], [address] . tel:[phone] [facility] [address], [place], [place], [address] , tel: [phone] [facility] No Information 3 Fahad Burton. [address] [place] [address], [address] [place] [address], . tel: [phone] Referring Provider: Angel Kern, [address] [place] [address], [address] . tel:[phone] [facility], [address], [place], [place], [address] , tel: [phone] [facility] No Information 3 Fahad Burton. [address] [place] [address], [address] [place] [address], . tel:[phone] Referring Provider: Angel Kern, [address] [place] [address], [address] [place] [address] . tel:[phone] [facility], [address], [place], [place], [address] , tel: [phone] [facility] No Information 3 Fahad Burton. [address] [place] [address], [address] [place] [address], . tel:[phone] Referring Provider: Angel Kern, [address] [place] [address], [address] . tel:[phone] [facility], [address], [place], [place], [address] , tel: [phone] [facility] No Information 3 Fahad Burton. [address] [place] [address], [address] [place] [address], . tel:[phone] Referring Provider: Angel Kern, [address] [place] [address], [address] . tel:[phone] [facility] [address], [place], [place], [address] , tel: [phone] [facility] No Information 3 Fahad Burton. [address] [place] [address], [id number], . tel:[phone] Referring Provider: Angel Kern, [address] [place] [address], [address] . tel:[phone] [facility], [address], [place], [place], [address] , tel: [phone] [facility] No Information 3 Fahad Burton. [address] [place] [address], [address] [place] [address], . tel:[phone] Referring Provider: Angel Kern, [address] [place] [address], [address] . tel:[phone] [facility], [address], [place], [place], [address] , tel: [phone] [facility] No Information 3 Fahad Burton. [address] [place] [address], [id number], . tel:[phone] Referring Provider: Angel Kern, [address] [place] [address], [address] . tel:[phone] [facility], [address], [place], [place], [address] , tel: [phone] [facility] No Information 3 Fahad Burton. [address] [place] [address], [id number], . tel:[phone] Referring Provider: Angel Kern, [address] [place] [address], [address] . tel:[phone] [facility], [address], [place], [place], [address] , tel: [phone] [facility] No Information 3 Fahad Burton. [address] [place] [address], [id number], [place]. tel:[phone] Referring Provider: Angel Kern, [address] [place] [address], [address] . tel:[phone] [facility] [address], [place], [place], [address] , tel: [phone] [facility] No Information 3 Fahad Burton. [address] [place] [address], [id number], [place]. tel:[phone] Referring Provider: Angel Kern, [address] [place] [address], [address] . tel:[phone] [facility], [address], [place], [place], [address] , [place] tel: [phone] [facility] post-op visit (chief complaint) Body mass index (BMI) 27.0-27.9, adultOther specified postprocedura l states 3 Bobo Ortiz. [address] [place] [address], [id number], [place]. tel:[phone] Referring Provider: Angel Kern, [address] [place] [address], [address] . tel:[phone] [facility], [address], [place], [place], [address] , [place] tel: [phone] [facility] No Information 3 Fahad Burton. [address] [place] [address], [id number], . tel:[phone] Referring Provider: Angel Kern, [address] [place] [address], [address] . tel:[phone] [facility] [address], [place], [place], [address] , tel:[phone] [facility] No Information 3 Fahad Burton. [address] [place] [address], [address] [place] [address], [place]. tel:[phone] Referring Provider: Angel Kern, [address] [place] [address], [address] . tel:[phone] [facility] [address], [place], [place], [address] , tel:[phone] [facility] No Information 3 Fahad Burton. [address] [place] [address], [address] [place] [address], [place]. tel:[phone] Referring Provider: Angel Kern, [address] [place] [address], [address] . tel:[phone] [facility] [address], [place], [place], [address] , tel:[phone] [facility] No Information 3 Fahad Burton. [address] [place] [address], [id number], [place]. tel:[phone] Referring Provider: Angel Kern, [address] [place] [address], [address] . tel:[phone] [facility] [address], [place], [place], [address] , [place] tel:[phone] [facility] Lateral epicondylitis , right elbowLesion of radial nerve, right upper limb 3 Bobo Ortiz. [address] [place] [address], [id number], [place]. tel:[phone] Referring Provider: Angel Kern, [address] [place] [address], [address] . tel:[phone] [facility] [address], [place], [place], [address] , [place] [phone] [facility] No Information 3 Bobo Ortiz. [address] [place] [address], [id number], [place]. tel:[phone] OFFICE/OUTPA TIENT VISIT, [facility] [address], [place], [place], [address] , [place] [phone] [facility] elbow complaint (chief complaint) Right tennis elbowRadial tunnel syndrome of right upper extremity 3 Bobo Ortiz. [address] [place] [address], [id number], [place]. tel:[phone] Referring Provider: Angel Kern, [address] [place] [address], [address] . tel:[phone] OFFICE/OUTPA TIENT VISIT, [facility] [address], [place], [place], [address] , [place] tel:[phone] [facility] elbow complaint (chief complaint) Pain in unspecified elbowRight tennis elbow 3 Bobo Ortiz. [address] [place] [address], [id number], [place]. tel:[phone] Referring Provider: Angel Kern, [address] [place] [address], [address] . tel:[phone] OFFICE/OUTPA TIENT VISIT, [facility] [address], [place], [address] , [place] tel:[phone] [facility] Throat problems (chief complaint) Paralysis of left vocal cord 2 Aicha Gomez. [address], [address], [place], [facility], [place]. tel:[phone] Referring Provider: [address], [place], [address] . tel:[phone] [facility] [address], [place], [address] , [place] [phone] [facility] Post op #1 (chief complaint) Paralysis of left vocal cordHoarsenes sOropharyngea l dysphagia 1 Justyna Sahni. [address], [address], [place], [facility], [place]. tel:[phone] Referring Provider: [address], [place], [address] . tel:[phone] [facility] [address], [place], [address] , [place] [phone] OP [facility] 1 Aicha Gomez. [address], [address], [place], [facility], [place]. tel:[phone] Referring Provider: Jason Banuelos, [address], [place], [facility]. tel:[phone] OFFICE/OUTPA TIENT VISIT, EST [facility] [address], [place], [address] , [place] [phone] [facility] Follow Up of hoarseness (chief complaint) Body mass index (BMI) 27.0-27.9, adultHoarsene ssParalysis of left vocal cordOropharyn geal dysphagia 1 Aicha Rodriguez [address], [address], [place], [facility], [place]. tel:[phone] Referring Provider: [address], [place], [address] . tel:[phone] [facility] [address], [place], [place], [address] , [place] tel:[phone] [facility] HoarsenessLar yngopharyngea l reflux (LPR)Paralysi s of left vocal cordSore throat Sep-2 1 Aicha Rodriguez [address], [address], [place], [address], [place]. tel:[phone] OFFICE/OUTPA TIENT VISIT, [facility] [address], [place], [address] , [place] tel:[phone] [facility] Follow Up of hoarseness (chief complaint) Body mass index (BMI) 27.0-27.9, adultParalysi s of left vocal cordHoarsenes s Mar-0 1 Aicha Rodriguez [address], [address], [place], [address], [place]. tel:[phone] Referring Provider: [address], [place], [address] . tel:[phone] OFFICE/OUTPA TIENT VISIT, [facility] [address], [place], [place], [address] , [place] tel:[phone] [facility] Throat problems (chief complaint) Body mass index (BMI) 27.0-27.9, adultSore throatHoarsen essLaryngopha ryngeal reflux (LPR)Paralysi s of left vocal cord Jan- 1 Aicha Gomez. [address], [address], [place], [address], [place]. tel:[phone] Referring Provider: [address], [place], [address] . tel:[phone] [facility] [address], [place], [place], [address] , [place] tel: [phone] Freda a comprehensive exam (chief complaint) Age-related nuclear cataract, bilateralPuck ering of macula of left eyeCentral serous chorioretinop athy of right eye Mar-1 3-201 9 Freda [place]. [address] [place], [address], [place]. [phone] Referring Provider: [address], [place], [address] . tel:[phone] [facility] [address], [place], [address] , [place] tel: [phone] Freda a comprehensive exam (chief complaint) Central serous chorioretinop athy of right eyePuckering of macula of left eyeAge-relate d nuclear cataract, bilateral Mar-0 9-201 8 Freda [place]. [facility] [place], [address], [place]. [phone] Referring Provider: Los Barba Jr, [facility] [place], [place], [facility]. tel:[phone] [facility] [address], [place], [address] , [place] tel: [phone] Freda a comprehensive exam (chief complaint) Central serous chorioretinop athy of right eyePuckering of macula of left eyeAge-relate d nuclear cataract, bilateral Sep-0 7 Freda Madison. [facility] [place], [address], [place]. tel:[phone] Referring Provider: [address], [place], [address] . tel:[phone] [facility] [address], [place], [place], [address] , [place] tel: [phone] Freda a comprehensive exam (chief complaint) Central serous chorioretinop athy of right eyePuckering of macula of left eyeAge-relate d nuclear cataract, bilateralDiso rder of refraction Yoan-0 6-201 7 Freda Madison. [address] [place], [address], [place]. [phone] Referring Provider: [address], [place], [address] . tel:[phone] [facility] [address], [place], [address] , [place] tel:[phone] Freda kern comprehensive exam (chief complaint) Central serous chorioretinop athy of right eyePuckering of macula of left eyeAge-relate d nuclear cataract, bilateral Ryan-0 2-201 7 Freda Madison. [address] [place], [address], [place]. tel:[phone] Referring Provider: [address], [place], [address] . 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 [address] [place], [address], [place]. tel:[phone] Referring Provider: Jone Guevara, [address] [facility], [place], [address]. tel:[phone] [facility] [address], [place], [address] , [place] tel:[phone] Freda kern comprehensive exam (chief complaint) Puckering of macula of left eyeAge-relate d nuclear cataract, bilateralCent ral serous chorioretinop athy of right eye Apr-1 4-201 7 Freda Madison. [address] [place], [address], [place]. tel:[phone] Referring Provider: [address], [place], [address] . tel:[phone] [facility] [address], [place], [place], [address] , [place] tel: [phone] Freda a comprehensive exam (chief complaint) Puckering of macula of left eyeAge-relate d nuclear cataract, bilateralCent ral serous chorioretinop athy of right eye Nemesio-0 6-201 7 Freda Madison. [address] [place], [address], [place]. tel:[phone] Referring Provider: Pablo [address] [facility] [place], [place], [address] . tel:[phone] [facility], [address], [place], [place], [address] , [place] tel: [phone] Freda a comprehensive exam (chief complaint) Puckering of macula of left eyeAge-relate d nuclear cataract, bilateralCent ral serous chorioretinop athy of right eye Jun-2 6 Freda Madison. [address] [place], [address], [place]. tel:[phone] Referring Provider: Pablo Jack [address] [facility] [facility], [place], [address] . tel:[phone] [facility] PJeússCJaswant, [address], [place], [place], [address] , [place] tel:[phone] Freda . (chief complaint) Puckering of macula of left eye Jun- 6 Freda Madison. [address] [place], [address], [place]. tel:[phone] Referring Provider: [address], [place], [address] . tel:[phone] [facility] P[facility]LJ[facility]wantLJaswantC[facility]aswant, [address], [place], [address] , [place] tel:[phone] [facility] Puckering of macula, left eye Dec-1 - 6 Freda Ruiz [address] [place], [address], [place]. tel:[phone] Referring Provider: [address], [place], [address] . tel:[phone] OFFICE/OUTPA TIENT VISIT, EST [facility] [address], [place], [place], [address] , [place] tel:[phone] Freda H&P (chief complaint) Puckering of macula of left eye Jun- 6 Freda Madison. [address] [place], [address], [place]. tel:[phone] Referring Provider: [address], [place], [address] . tel:[phone] [facility] [address], [place], [place], [address] , [place] tel:[phone] Freda . (chief complaint) Puckering of macula of left eyeCentral serous chorioretinop athy of right eyeAge-relate d nuclear cataract, bilateral 6 Freda Madison. [address] [place], [address], [place]. tel:[phone] Referring Provider: Los Barba Jr, [facility] [place], [place], [facility]. tel:[phone] Family History Family Member Type Diagnosis Age At Onset No Information Payers Payer name Insurance type Covered republican ID Authornathana donna(s) Medicare MB [id number] [facility] [address] [id number] Social History Type Description Quantity Date Captured [...] Of Treatment Date Type Action Status Goal CT-Colonography. Due on due Goal Influenza vaccine. Due on due Goal FIT. Due on due Goal FIT-DNA. Due on due Goal Unhealthy drug use screening . Due on due Goal Depression screening. Due on due Goal Sigmoidoscopy. Due on due Goal FOBT. Due on due Goal Colonoscopy. Due on due Goal Tdap. Due on due Goal Pneumococcal vaccine. Due on due Goal Td vaccine. Due on due Goal Dilated Eye Exam. Due on Jul due Goal Hepatitis C screening. Due o n due Goal Lipid panel. Due on due Goal ColoGuard. Due on due Goal Zoster vaccine (). Due on due Goal Lifestyle education regardin g diet completed Goal FOBT. Due on due Goal Tdap. Due on due Goal Zoster vaccine (1st). Due on due Goal Depression screening. Due on due Goal Lipid panel. Due on due Goal FIT-DNA. Due on due Goal Sigmoidoscopy. Due on due Goal Pneumococcal vaccine. Due on due Goal Colonoscopy. Due on due Goal Hepatitis C screening. Due o n due Goal Td vaccine. Due on due Goal FIT. Due on due Goal ColoGuard. Due on due Goal Unhealthy drug use screening . Due on due Goal Dilated Eye Exam. Due on Jun due Goal Influenza vaccine. Due on due Goal CT-Colonography. Due on due Goal Lifestyle education regardin g diet completed Goal FOBT. Due on due Goal Influenza vaccine. Due on Oc due Goal Lipid panel. Due on due Goal ColoGuard. Due on due Goal Depression screening. Due on due Goal FIT-DNA. Due on due Goal Zoster vaccine (1st). Due on due Goal Td vaccine. Due on due Goal Sigmoidoscopy. Due on due Goal FIT. Due on due Goal Pneumococcal vaccine. Due on due Goal CT-Colonography. Due on due Goal Hepatitis C screening. Due o n due Goal Unhealthy drug use screening . Due on due Goal Tdap. Due on due Goal Dilated Eye Exam. Due on Apr due Goal Colonoscopy. Due on due Goal Lifestyle education regardin g diet completed Goal Td vaccine. Due on due Goal Colonoscopy. Due on due Goal CT-Colonography. Due on due Goal Dilated Eye Exam. Due on Apr due Goal Hepatitis C screening. Due o n due Goal ColoGuard. Due on due Goal Influenza vaccine. Due on Oc due Goal FIT. Due on due Goal Depression screening. Due on due Goal Zoster vaccine (1st). Due on due Goal FOBT. Due on due Goal Tdap. Due on due Goal Pneumococcal vaccine. Due on due Goal Unhealthy drug use screening . Due on due Goal Lipid panel. Due on due Goal FIT-DNA. Due on due Goal Sigmoidoscopy. Due on due Goal Zoster vaccine (1st). Due on due Goal Td vaccine. Due on due Goal Sigmoidoscopy. Due on due Goal Pneumococcal vaccine. Due on due Goal Lipid panel. Due on due Goal Hepatitis C screening. Due o n due Goal FOBT. Due on due Goal FIT-DNA. Due on due Goal Colonoscopy. Due on due Goal ColoGuard. Due on due Goal FIT. Due on due Goal Depression screening. Due on due Goal Influenza vaccine. Due on due Goal Dilated Eye Exam. Due on Mar due Goal CT-Colonography. Due on due Goal Unhealthy drug use screening . Due on due Goal Tdap. Due on due Goal Tdap. Due on due Goal Lipid panel. Due on due Goal Colonoscopy. Due on due Goal CT-Colonography. Due on due Goal Hepatitis C screening. Due o n due Goal Zoster vaccine (1st). Due on due Goal FIT-DNA. Due on due Goal Td vaccine. Due on due Goal Influenza vaccine. Due on due Goal Sigmoidoscopy. Due on due Goal Dilated Eye Exam. Due on Jan due Goal Depression screening. Due on due Goal Unhealthy drug use screening . Due on due Goal ColoGuard. Due on due Goal FOBT. Due on due Goal Pneumococcal vaccine. Due on due Goal FIT. Due on due Goal Unhealthy drug use screening . Due on due Goal Hepatitis C screening. Due o n due Goal FIT-DNA. Due on due Goal FIT. Due on due Goal CT-Colonography. Due on due Goal Tdap. Due on due Goal Td vaccine. Due on due Goal Zoster vaccine (). Due on due Goal Lipid panel. Due on due Goal Colonoscopy. Due on due Goal Pneumococcal vaccine. Due on due Goal FOBT. Due on due Goal Sigmoidoscopy. Due on due Goal Dilated Eye Exam. Due on Jun due Goal Influenza vaccine. Due on due Goal ColoGuard. Due on due Goal Depression screening. Due on due Goal Zoster vaccine (1st). Due on due Goal Td vaccine. Due on due Goal Pneumococcal vaccine. Due on due Goal Lipid panel. Due on due Goal Influenza vaccine. Due on due Goal Dilated Eye Exam. Due on May due Goal Depression screening. Due on due Goal Tdap. Due on due Goal Sigmoidoscopy. Due on due Goal FOBT. Due on due Goal Colonoscopy. Due on due Goal ColoGuard. Due on due Goal Zoster vaccine (). Due on due Goal Sigmoidoscopy. Due on due Goal Pneumococcal vaccine. Due on due Goal Lipid panel. Due on due Goal Influenza vaccine. Due on due Goal Depression screening. Due on due Goal ColoGuard. Due on due Goal Td vaccine. Due on due Goal FOBT. Due on due Goal Tdap. Due on due Goal Dilated Eye Exam. Due on Apr due Goal Colonoscopy. Due on due Goal Dietary management education , guidance, and counseling completed Goal Zoster vaccine (1st). Due on due Goal Td vaccine. Due on due Goal Influenza vaccine. Due on due Goal Dilated Eye Exam. Due on Mar due Goal Depression screening. Due on due Goal Colonoscopy. Due on due Goal ColoGuard. Due on due Goal Sigmoidoscopy. Due on due Goal Pneumococcal vaccine. Due on due Goal Tdap. Due on due Goal Lipid panel. Due on due Goal FOBT. Due on due Goal Tdap. Due on due Goal Td vaccine. Due on due Goal Pneumococcal vaccine. Due on due Goal Lipid panel. Due on due Goal FOBT. Due on due Goal Dilated Eye Exam. Due on Mar due Goal ColoGuard. Due on due Goal Sigmoidoscopy. Due on due Goal Zoster vaccine (1st). Due on due Goal Colonoscopy. Due on due Goal Depression screening. Due on due Goal Influenza vaccine. Due on due Goal Tdap. Due on due Goal Dilated Eye Exam. Due on Jan due Goal Td vaccine. Due on 21 due Goal Pneumococcal vaccine. Due on due Goal Lipid panel. Due on due Goal FOBT. Due on due Goal ColoGuard. Due on due Goal Zoster vaccine (1st). Due on due Goal Sigmoidoscopy. Due on due Goal Colonoscopy. Due on due Goal Depression screening. Due on due Goal Influenza vaccine. Due on due Goal Dietary management education , guidance, and counseling completed Referral Ordered: [facility] : Ophthalmology (related to Age-related nuclear cataract, bilateral) ordered Referral Referred To: Parmjit Michael [address], [place], [phone] Ordered: Referrals: Allopathic & Osteopathic Physicians : [...] week re turn x check for recurrent FORESTRY FIRE AIDE OD. S/P TPPV for ERM OS on 06-20-16, HX Mild CATS OU......Pt stts the new gls RX is working good for him. No new flashes/floaters OU. Stopped the meds and everything seems fine. a comprehensive exam 1 month ret urn x re-refract and check status FORESTRY FIRE AIDE OD (on Tx w/ eplenerone) ., S/P TPPV for ERM OS on 06-20-16, HX Mild CATS OU....Pt stts OD is excellent, but OS is still very blurry. No new flashes/floaters OU. a comprehensive exam 1 month wicho ck status FORESTRY FIRE AIDE OD HX FORESTRY FIRE AIDE OD recurrent multi areas of leakage on [...] Pt here for FA&F P OU x FORESTRY FIRE AIDE OD and poss.Focal a comprehensive exam 3 month ret urn x Final refraction and repeat OCT x Hx ERM OS; Hx FORESTRY FIRE AIDE OD; Hx Mild CATS OU......Pt reports decrease [...] OS x ERM and FP OU... at [facility] 06-20-16 6:30AM . New patient, LOGAN Guevara, blurry VA OS x 1 year . HX FORESTRY FIRE AIDE OD (spontaneously resolved without Tx) .States x 1 year VA OS has been blurry and distorted and has worsend over the last month. States was Dx with FORESTRY FIRE AIDE OD in 2001 , but spontaneously resolved. 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 Recommend FA for poss recurrent FORESTRY FIRE AIDE OD . Educational materials provided:Counseling provided. 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 Patient Care Teams Name Effective Dates (start - stop) Status Members No Information
== END 2024-10-15 10:07 | disposition home or self-care (01) ==
LOC: HO.PMC 09:38
PROVIDERS: PCP Nurse Practitioner Family; Visit Provider Nurse Practitioner Family
DX: M25.511 Pain in right shoulder (principal); M96.1 Postlaminectomy syndrome, not elsewhere classified; M47.812 Spondylosis without myelopathy or radiculopathy, cervical region; Z98.1 Arthrodesis status; M62.838 Other muscle spasm
CPT/HCPCS: 99214; G2211

== ENCOUNTER 2024-10-15 09:37 | Outpatient (REF) | payer MEDICARE, SELFPAY ==
--- NOTE | ~2024-10-15 | XR_ITS ---
EXAMINATION: XR SHOULDER, RIGHT CLINICAL INFORMATION: M25.511 - Pain in right shoulder COMPARISON: None available. TECHNIQUE: Three views of the right shoulder. FINDINGS: Normal bone mineralization. No fracture, dislocation, or suspicious bone lesion. Normal alignment. The glenohumeral joint demonstrates mild degenerative arthritis. The AC joint demonstrates mild degenerative spurring. There is a type I acromion. No undersurface spurring. The subacromial space is preserved. Soft tissues demonstrate very mild calcification of the distal supraspinatus tendon abutting the insertion on the greater tuberosity. Remainder of the soft tissue and bony structures appear normal. XR/XR shoulder RT min 2V IMPRESSION: 1. No acute bony abnormalities. 2. Very mild calcific tendinopathy of the supraspinatus tendon. 3. 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 Electronically signed by: Juma Gallo MD 10/15/2024 10:46 AM EDT
--- NOTE | ~2024-10-15 | XR_ITS ---
EXAMINATION: XR SHOULDER, LEFT CLINICAL INFORMATION: M25.512 - Pain in left shoulder COMPARISON: None available. TECHNIQUE: Three views of the left shoulder. FINDINGS: Normal bone mineralization. No fracture, dislocation, or suspicious bone lesion. Normal alignment. The glenohumeral joint demonstrates mild degenerative arthritis. The AC joint demonstrates mild degenerative spurring. There is a type I acromion. No undersurface spurring. The subacromial space is preserved. Soft tissues demonstrate very mild calcification of the distal supraspinatus tendon abutting the insertion on the greater tuberosity. Remainder of the soft tissue and bony structures appear normal. XR/XR shoulder LT min 2V IMPRESSION: 1. No acute bony abnormalities. 2. Very mild calcific tendinopathy of the supraspinatus tendon. 3. 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 Electronically signed by: Juma Gallo MD 10/15/2024 10:45 AM EDT
--- OUTSIDE RECORDS SUMMARY | 2024-10-15 11:57 | XMS_ITS | Continuity of Care Document ---
Author Organization [facility] Address [address] [place] [address] Phone Care Team Providers Care Production Finisher Name Role Phone Bobo COLÓN, Angel Unavailable [...] 15 marva brooke Postop Follow-Up Visit Inc [facility]ers[facility] Manual therapy, 1+ regions, each 15 marva [...] OFFICE/OUTPATIENT VISIT, EST Postop Follow-Up Visit Inc Tyros Dir laryngoscopy w/injection w/op micro OFFICE/OUTPATIENT VISIT, EST OFFICE/OUTPATIENT VISIT, EST Flexible fiberoptic diagnostic laryngosc opy OFFICE/OUTPATIENT VISIT, NEW CPTR OPHTH DX IMG POST [facility] Comprehensive eye examin, established kathi doll CPTR OPHTH DX IMG POST SEGHI Comprehensive eye examin, established kathi doll CPTR OPHTH DX IMG POST [facility] Intermediate eye exam, established carolyn burgess [...] IMG POST SEGMT Postop Follow-Up Visit Inc [facility] CPTR OPHTH DX IMG POST SEGMT Postop Follow-Up Visit Inc natue Servic Postop Follow-Up Visit Inc natue ServCrowdyHouse VIT FOR MACULAR PUCKER Fundus photography OFFICE/OUTPATIENT VISIT, EST CPTR OPHTH DX IMG POST SEGMT Comprehensive eye exam, new patient Advance Directives Directive Yes / No Effective Date File Name No Information Encounters Encounter Description Practice Location Reason(s) For Visit Diagnoses Date Provider Providers Copied on Encounter OFFICE/OUTPA TIENT VISIT, EST [facility] [address], [place], [place], [id number] , [place] tel:[phone] [facility] post-op visit (chief complaint) Body mass index (BMI) 27.0-27.9, adultOther specified postprocedura l statesRight tennis elbow 4 Bobo Ortiz. [address] [place] [address], [id number], [place]. tel:[phone] Referring Provider: Angel Kern, [address] [place] [address], [address] . tel:[phone] [facility] [address], [place], [place], [address] , [place] tel:[phone] [facility] No Information 4 Fahad Burton. [address] [place] [address], [id number], . tel:[phone] Referring Provider: Angel Kern, [address] [place] [address], [address] . tel:[phone] [facility] [address], [place], [place], [address] , tel:[phone] [facility] No Information 4 Fahad Burton. [address] [place] [address], [id number], . tel:[phone] Referring Provider: Angel Kern, [address] [place] [address], [address] . tel:[phone] [facility] [address], [place], [place], [address] , tel:[phone] [facility] No Information 4 Fahad Burton. [address] [place] [address], [id number], . tel:[phone] Referring Provider: Angel Kern, [address] [place] [address], [address] . tel:[phone] [facility] [address], [place], [place], [address] , tel:[phone] [facility] No Information 4 Fahad Burton. [address] [place] [address], [id number], [place]. tel:[phone] Referring Provider: Angel Kern, [address] [place] [address], [address] . tel:[phone] [facility] [address], [place], [place], [address] , tel:[phone] [facility] No Information 3 Fahad Burton. [address] [place] [address], [id number], . tel:[phone] Referring Provider: Angel Kern, [address] [place] [address], [address] . tel:[phone] [facility] [address], [place], [place], [address] , tel: [phone] [facility] No Information 3 Fahad Burton. [address] [place] [address], [address] [place] [address], . tel:[phone] Referring Provider: Angel Kern, [address] [place] [address], [address] . tel:[phone] [facility] [address], [place], [place], [address] , tel: [phone] [facility] No Information 3 Fahad Burton. [address] [place] [address], [id number], . tel:[phone] Referring Provider: Angel Kern, [address] [place] [address], [address] . tel:[phone] [facility] [address], [place], [place], [address] , tel: [phone] [facility] No Information 3 Fahad Burton. [address] [place] [address], [id number], . tel:[phone] Referring Provider: Angel Kern, [address] [place] [address], [address] . tel:[phone] [facility] [address], [place], [place], [address] , tel: [phone] [facility] No Information 3 Fahad Burton. [address] [place] [address], [id number], [place]. tel:[phone] Referring Provider: Angel Kern, [address] [place] [address], [address] [place] [address] . tel:[phone] [facility] [address], [place], [place], [id number] , [place] tel: [phone] [facility] post-op visit (chief complaint) Body mass index (BMI) 27.0-27.9, adultOther specified postprocedura l statesElevate d blood-pressur e reading, w/o diagnosis of htnRight tennis elbow 3 Bobo Ortiz. [address] [place] [address], [address] [place] [address], . tel:[phone] Referring Provider: Angel Kern, [address] [place] [address], [address] [place] [address] . tel:[phone] [facility], [address], [place], [place], [address] , [place] tel: [phone] [facility] No Information 3 Fahad Burton. [address] [place] [address], [address] [place] [address], . tel:[phone] Referring Provider: Angel Kern, [address] [place] [address], [address] . tel:[phone] [facility].CJ[facility]want, [address], [place], [place], [address] , [place] tel: [phone] [facility] No Information 3 Fahad Burton. [address] [place] [address], [id number], . tel:[phone] Referring Provider: Angel Kern, [address] [place] [address], [address] . tel:[phone] [facility] [address], [place], [place], [address] , tel: [phone] [facility] No Information 3 Fahad Burton. [address] [place] [address], [address] [place] [address], . tel:[phone] Referring Provider: Angel Kern, [address] [place] [address], [address] . tel:[phone] [facility]L.CJaswant, [address], [place], [place], [address] , tel: [phone] [facility] No Information 3 Fahad Burton. [address] [place] [address], [address] [place] [address], . tel:[phone] Referring Provider: Angel Kern, [address] [place] [address], [address] [place] [address] . tel:[phone] [facility] P.L.L.CJaswant, [address], [place], [place], [address] , tel: [phone] [facility] No Information 3 Fahad Burton. [address] [place] [address], [address] [place] [address], . tel:[phone] Referring Provider: Angel Kern, [address] [place] [address], [address] . tel:[phone] [facility]want, [address], [place], [place], [address] , tel: [phone] [facility] No Information 3 Fahad Burton. [address] [place] [address], [address] [place] [address], . tel:[phone] Referring Provider: Angel Kern, [address] [place] [address], [address] . tel:[phone] [facility] [address], [place], [place], [address] , tel: [phone] [facility] No Information 3 Fahad Burton. [address] [place] [address], [id number], . tel:[phone] Referring Provider: Angel Kern, [address] [place] [address], [address] . tel:[phone] [facility] P.L[facility]L.CJaswant, [address], [place], [place], [address] , tel: [phone] [facility] No Information 3 Fahad Burton. [address] [place] [address], [address] [place] [address], . tel:[phone] Referring Provider: Angel Kern, [address] [place] [address], [address] . tel:[phone] [facility].L.CJaswant, [address], [place], [place], [address] , tel: [phone] [facility] No Information 3 Fahad Burton. [address] [place] [address], [id number], . tel:[phone] Referring Provider: Angel Kern, [address] [place] [address], [address] . tel:[phone] [facility] P.L[facility]CJ[facility]want, [address], [place], [place], [address] , tel: [phone] [facility] No Information 3 Fahad Burton. [address] [place] [address], [id number], . tel:[phone] Referring Provider: Angel Kern, [address] [place] [address], [address] . tel:[phone] [facility], [address], [place], [place], [address] , tel: [phone] [facility] No Information 3 Fahad Burton. [address] [place] [address], [id number], [place]. tel:[phone] Referring Provider: Angel Kern, [address] [place] [address], [address] . tel:[phone] [facility] [address], [place], [place], [address] , tel: [phone] [facility] No Information 3 Fahad Burton. [address] [place] [address], [id number], [place]. tel:[phone] Referring Provider: Angel Kern, [address] [place] [address], [address] . tel:[phone] [facility], [address], [place], [place], [address] , [place] tel: [phone] [facility] post-op visit (chief complaint) Body mass index (BMI) 27.0-27.9, adultOther specified postprocedura l states 3 Bobo Ortiz. [address] [place] [address], [id number], [place]. tel:[phone] Referring Provider: Angel Kern, [address] [place] [address], [address] . tel:[phone] [facility], [address], [place], [place], [address] , [place] tel: [phone] [facility] No Information 3 Fahad Burton. [address] [place] [address], [id number], . tel:[phone] Referring Provider: Angel Kern, [address] [place] [address], [address] . tel:[phone] [facility] [address], [place], [place], [address] , tel:[phone] [facility] No Information 3 Fahad Burton. [address] [place] [address], [address] [place] [address], [place]. tel:[phone] Referring Provider: Angel Kern, [address] [place] [address], [address] . tel:[phone] [facility] [address], [place], [place], [address] , tel:[phone] [facility] No Information 3 Fahad Burton. [address] [place] [address], [address] [place] [address], [place]. tel:[phone] Referring Provider: Angel Kern, [address] [place] [address], [address] . tel:[phone] [facility] [address], [place], [place], [address] , tel:[phone] [facility] No Information 3 Fahad Burton. [address] [place] [address], [id number], [place]. tel:[phone] Referring Provider: Angel Kern, [address] [place] [address], [address] . tel:[phone] [facility] [address], [place], [place], [address] , [place] tel:[phone] [facility] Lateral epicondylitis , right elbowLesion of radial nerve, right upper limb 3 Bobo Ortiz. [address] [place] [address], [id number], [place]. tel:[phone] Referring Provider: Angel Kern, [address] [place] [address], [address] . tel:[phone] [facility] [address], [place], [place], [address] , [place] [phone] [facility] No Information 3 Bobo Ortiz. [address] [place] [address], [id number], [place]. tel:[phone] OFFICE/OUTPA TIENT VISIT, [facility] [address], [place], [place], [address] , [place] [phone] [facility] elbow complaint (chief complaint) Right tennis elbowRadial tunnel syndrome of right upper extremity 3 Bobo Ortiz. [address] [place] [address], [id number], [place]. tel:[phone] Referring Provider: Angel Kern, [address] [place] [address], [address] . tel:[phone] OFFICE/OUTPA TIENT VISIT, [facility] [address], [place], [place], [address] , [place] tel:[phone] [facility] elbow complaint (chief complaint) Pain in unspecified elbowRight tennis elbow 3 Bobo Ortiz. [address] [place] [address], [id number], [place]. tel:[phone] Referring Provider: Angel Kern, [address] [place] [address], [address] . tel:[phone] OFFICE/OUTPA TIENT VISIT, [facility] [address], [place], [place], [address] , [place] tel:[phone] [facility] Throat problems (chief complaint) Paralysis of left vocal cord 2 Aicha Gomez. [address] [facility], [address], [place], [place], [facility], [place]. tel:[phone] Referring Provider: [address], [place], [address] . tel:[phone] [facility] [address], [place], [place], [address] , [place] [phone] [facility] Post op #1 (chief complaint) Paralysis of left vocal cordHoarsenes sOropharyngea l dysphagia 1 Justyna Sahni. [address] [facility], [address], [place], [facility], [place]. tel:[phone] Referring Provider: [address], [place], [address] . tel:[phone] [facility] [address], [place], [place], [address] , [place] [phone] OP [facility] 1 Aicha Gomez. [address] [facility], [address], [place], [facility], [place]. tel:[phone] Referring Provider: Jason Banuelos, [address] [facility] [address], [place], [facility]. tel:[phone] OFFICE/OUTPA TIENT VISIT, EST [facility] [address], [place], [place], [address] , [place] [phone] [facility] Follow Up of hoarseness (chief complaint) Body mass index (BMI) 27.0-27.9, adultHoarsene ssParalysis of left vocal cordOropharyn geal dysphagia 1 Aicha Rodriguez [address] [facility], [address], [place], [facility], [place]. tel:[phone] Referring Provider: [address], [place], [address] . tel:[phone] [facility] [address], [place], [place], [address] , [place] tel:[phone] [facility] HoarsenessLar yngopharyngea l reflux (LPR)Paralysi s of left vocal cordSore throat Sep-2 1 Aicha Rodriguez [address], [address], [place], [address], [place]. tel:[phone] OFFICE/OUTPA TIENT VISIT, [facility] [address], [place], [place], [address] , [place] tel:[phone] [facility] Follow Up of hoarseness (chief complaint) Body mass index (BMI) 27.0-27.9, adultParalysi s of left vocal cordHoarsenes s Mar-0 1 Aicha Rodriguez [address], [address], [place], [address], [place]. tel:[phone] Referring Provider: [address], [place], [address] . tel:[phone] OFFICE/OUTPA TIENT VISIT, [facility] [address], [place], [place], [address] , [place] tel:[phone] [facility] Throat problems (chief complaint) Body mass index (BMI) 27.0-27.9, adultSore throatHoarsen essLaryngopha ryngeal reflux (LPR)Paralysi s of left vocal cord Jan- 1 Aicha Gmoez. [address], [address], [place], [address], [place]. tel:[phone] Referring Provider: [address], [place], [address] . tel:[phone] [facility] [address], [place], [place], [address] , [place] tel: [phone] Freda a comprehensive exam (chief complaint) Age-related nuclear cataract, bilateralPuck ering of macula of left eyeCentral serous chorioretinop athy of right eye Mar-1 3-201 9 Freda Madison. [address] [place], [address], [place]. [phone] Referring Provider: [address], [place], [address] . tel:[phone] [facility] [address], [place], [place], [address] , [place] tel: [phone] Freda a comprehensive exam (chief complaint) Central serous chorioretinop athy of right eyePuckering of macula of left eyeAge-relate d nuclear cataract, bilateral Mar-0 9-201 8 Freda Madison. [facility] [place], [address], [place]. [phone] Referring Provider: Los Barba Jr, [facility] [place], [place], [facility]. tel:[phone] [facility] [address], [place], [place], [address] , [place] tel: [phone] Freda a comprehensive exam (chief complaint) Central serous chorioretinop athy of right eyePuckering of macula of left eyeAge-relate d nuclear cataract, bilateral Sep-0 7 Freda Madison. [facility] [place], [address], [place]. tel:[phone] Referring Provider: [address], [place], [address] . tel:[phone] [facility] [address], [place], [place], [address] , [place] tel: [phone] Freda a comprehensive exam (chief complaint) Central serous chorioretinop athy of right eyePuckering of macula of left eyeAge-relate d nuclear cataract, bilateralDiso rder of refraction Yoan-0 6-201 7 Freda Madison. [address] [place], [address], [place]. [phone] Referring Provider: [address], [place], [address] . tel:[phone] [facility] [address], [place], [place], [address] , [place] tel:[phone] Freda kern comprehensive exam (chief complaint) Central serous chorioretinop athy of right eyePuckering of macula of left eyeAge-relate d nuclear cataract, bilateral Ryan-0 2-201 7 Freda Madison. [address] [place], [address], [place]. tel:[phone] Referring Provider: [address], [place], [address] . 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 [address] [place], [address], [place]. tel:[phone] Referring Provider: Jone Guevara, [address] [facility] [address], [place], [address]. tel:[phone] [facility] [address], [place], [place], [address] , [place] tel:[phone] Freda kern comprehensive exam (chief complaint) Puckering of macula of left eyeAge-relate d nuclear cataract, bilateralCent ral serous chorioretinop athy of right eye Apr-1 4-201 7 Freda Madison. [address] [place], [address], [place]. tel:[phone] Referring Provider: [address], [place], [address] . tel:[phone] [facility] [address], [place], [place], [address] , [place] tel: [phone] Freda a comprehensive exam (chief complaint) Puckering of macula of left eyeAge-relate d nuclear cataract, bilateralCent ral serous chorioretinop athy of right eye Nemesio-0 6-201 7 Freda Madison. [address] [place], [address], [place]. tel:[phone] Referring Provider: Pablo Jack Dr [address] [facility], [place], [address] . tel:[phone] [facility] KalaLJaswantCJaswant, [address], [place], [place], [address] , [place] tel: [phone] Freda a comprehensive exam (chief complaint) Puckering of macula of left eyeAge-relate d nuclear cataract, bilateralCent ral serous chorioretinop athy of right eye Jun-2 6 Freda Madison. [address] [place], [address], [place]. tel:[phone] Referring Provider: Pablo Jack [address] [facility], [place], [address] . tel:[phone] [facility] PJesúsCJaswant, [address], [place], [place], [address] , [place] tel:[phone] Freda . (chief complaint) Puckering of macula of left eye Jun- 6 Freda Madison. [address] [place], [address], [place]. tel:[phone] Referring Provider: [address], [place], [address] . tel:[phone] [facility] P.LJaswantLJaswantCJaswant, [address], [place], [place], [address] , [place] tel:[phone] [facility] Puckering of macula, left eye Dec-1 - 6 Freda Ruiz [address] [place], [address], [place]. tel:[phone] Referring Provider: [address], [place], [address] . tel:[phone] OFFICE/OUTPA TIENT VISIT, EST [facility] [address], [place], [place], [address] , [place] tel:[phone] Freda H&P (chief complaint) Puckering of macula of left eye Jun- 6 Freda Madison. [address] [place], [address], [place]. tel:[phone] Referring Provider: [address], [place], [address] . tel:[phone] [facility] [address], [place], [place], [address] , [place] tel:[phone] Freda . (chief complaint) Puckering of macula of left eyeCentral serous chorioretinop athy of right eyeAge-relate d nuclear cataract, bilateral 6 Freda Madison. [address] [place], [address], [place]. tel:[phone] Referring Provider: Los Barba Jr, [facility] [place], [place], [facility]. tel:[phone] Family History Family Member Type Diagnosis Age At Onset No Information Payers Payer name Insurance type Covered democrat ID Authornathana donna(s) Medicare MB [id number] [facility] [id number] Social History Type Description Quantity Date Captured [...] C screening. Due o n due Goal Dilated Eye Exam. Due on Jul due Goal Td vaccine. Due on due Goal Pneumococcal vaccine. Due on due Goal Tdap. Due on due Goal Colonoscopy. Due on due Goal FOBT. Due on due Goal Sigmoidoscopy. Due on due Goal Depression screening. Due on due Goal Unhealthy drug use screening . Due on due Goal FIT-DNA. Due on due Goal FIT. Due on due Goal Influenza vaccine. Due on due Goal CT-Colonography. Due on due Goal Lifestyle education regardin g diet completed Goal Colonoscopy. Due on 023 due Goal Pneumococcal vaccine. Due on due Goal Sigmoidoscopy. Due on due Goal FIT-DNA. Due on due Goal Lipid panel. Due on due Goal Depression screening. Due on due Goal Zoster vaccine (1st). Due on due Goal Tdap. Due on due Goal FOBT. Due on due Goal CT-Colonography. Due on due Goal Influenza vaccine. Due on due Goal Dilated Eye Exam. Due on Jun due Goal Unhealthy drug use screening . Due on due Goal ColoGuard. Due on due Goal FIT. Due on due Goal Td vaccine. Due on due Goal Hepatitis C screening. Due o n due Goal Lifestyle education regardin g diet completed Goal Colonoscopy. Due on due Goal Dilated Eye Exam. Due on Apr due Goal Tdap. Due on due Goal Unhealthy drug use screening . Due on due Goal Hepatitis C screening. Due o n due Goal CT-Colonography. Due on due Goal Pneumococcal vaccine. Due on due Goal FIT. Due on due Goal Sigmoidoscopy. Due on due Goal Td vaccine. Due on due Goal Zoster vaccine (1st). Due on due Goal FIT-DNA. Due on due Goal Depression screening. Due on due Goal ColoGuard. Due on due Goal Lipid panel. Due on due Goal Influenza vaccine. Due on Oc due Goal FOBT. Due on due Goal Lifestyle education regardin g diet completed Goal Sigmoidoscopy. Due on due Goal FIT-DNA. Due on due Goal Lipid panel. Due on due Goal Unhealthy drug use screening . Due on due Goal Pneumococcal vaccine. Due on due Goal Tdap. Due on due Goal FOBT. Due on due Goal Zoster vaccine (1st). Due on due Goal Depression screening. Due on due Goal FIT. Due on due Goal Influenza vaccine. Due on Oc due Goal ColoGuard. Due on due Goal Hepatitis C screening. Due o n due Goal Dilated Eye Exam. Due on Apr due Goal CT-Colonography. Due on due Goal Colonoscopy. Due on due Goal Td vaccine. Due on due Goal Tdap. Due on due Goal Unhealthy drug use screening . Due on due Goal CT-Colonography. Due on due Goal Dilated Eye Exam. Due on Mar due Goal Influenza vaccine. Due on due Goal Depression screening. Due on due Goal FIT. Due on due Goal ColoGuard. Due on due Goal Colonoscopy. Due on due Goal FIT-DNA. Due on due Goal FOBT. Due on due Goal Hepatitis C screening. Due o n due Goal Lipid panel. Due on 023 due Goal Pneumococcal vaccine. Due on due Goal Sigmoidoscopy. Due on due Goal Td vaccine. Due on due Goal Zoster vaccine (1st). Due on due Goal FIT. Due on due Goal Pneumococcal vaccine. Due on due Goal FOBT. Due on due Goal ColoGuard. Due on due Goal Unhealthy drug use screening . Due on due Goal Depression screening. Due on due Goal Dilated Eye Exam. Due on Jan due Goal Sigmoidoscopy. Due on due Goal Influenza vaccine. Due on due Goal Td vaccine. Due on due Goal FIT-DNA. Due on due Goal Zoster vaccine (1st). Due on due Goal Hepatitis C screening. Due o n due Goal CT-Colonography. Due on due Goal Colonoscopy. Due on due Goal Lipid panel. Due on due Goal Tdap. Due on due Goal Depression screening. Due on due Goal ColoGuard. Due on due Goal Influenza vaccine. Due on due Goal Dilated Eye Exam. Due on Jun due Goal Sigmoidoscopy. Due on due Goal FOBT. Due on due Goal Pneumococcal vaccine. Due on due Goal Colonoscopy. Due on due Goal Lipid panel. Due on due Goal Zoster vaccine (). Due on due Goal Td vaccine. Due on due Goal Tdap. Due on due Goal CT-Colonography. Due on due Goal FIT. Due on due Goal FIT-DNA. Due on due Goal Hepatitis C screening. Due o n due Goal Unhealthy drug use screening . Due on due Goal ColoGuard. Due on due Goal Colonoscopy. Due on due Goal FOBT. Due on due Goal Sigmoidoscopy. Due on due Goal Tdap. Due on due Goal Depression screening. Due on due Goal Dilated Eye Exam. Due on May due Goal Influenza vaccine. Due on due Goal Lipid panel. Due on due Goal Pneumococcal vaccine. Due on due Goal Td vaccine. Due on due Goal Zoster vaccine (). Due on due Goal Colonoscopy. Due on due Goal Dilated Eye Exam. Due on Apr due Goal Tdap. Due on due Goal FOBT. Due on due Goal Td vaccine. Due on due Goal ColoGuard. Due on due Goal Depression screening. Due on due Goal Influenza vaccine. Due on due Goal Lipid panel. Due on due Goal Pneumococcal vaccine. Due on due Goal Sigmoidoscopy. Due on due Goal Zoster vaccine (). Due on due Goal Dietary management education , guidance, and counseling completed Goal FOBT. Due on due Goal Lipid panel. Due on due Goal Tdap. Due on due Goal Pneumococcal vaccine. Due on due Goal Sigmoidoscopy. Due on due Goal ColoGuard. Due on due Goal Colonoscopy. Due on due Goal Depression screening. Due on due Goal Dilated Eye Exam. Due on Mar due Goal Influenza vaccine. Due on due Goal Td vaccine. Due on due Goal Zoster vaccine (). Due on due Goal Influenza vaccine. Due on due Goal Depression screening. Due on due Goal Colonoscopy. Due on due Goal Zoster vaccine (). Due on due Goal Sigmoidoscopy. Due on due Goal ColoGuard. Due on due Goal Dilated Eye Exam. Due on Mar due Goal FOBT. Due on due Goal Lipid panel. Due on due Goal Pneumococcal vaccine. Due on due Goal Td vaccine. Due on due Goal Tdap. Due on due Goal Influenza vaccine. Due on due Goal Depression screening. Due on due Goal Colonoscopy. Due on due Goal Sigmoidoscopy. Due on due Goal Zoster vaccine (1st). Due on due Goal ColoGuard. Due on due Goal FOBT. Due on due Goal Lipid panel. Due on due Goal Pneumococcal vaccine. Due on due Goal Td vaccine. Due on due Goal Dilated Eye Exam. Due on Jan due Goal Tdap. Due on due Goal Dietary management education , guidance, and counseling completed Referral Ordered: [facility] : Ophthalmology (related to Age-related nuclear cataract, bilateral) ordered Referral Referred To: Parmjit Michael [address] [place], [place], [phone] Ordered: Referrals: [facility] : [...] week re turn x check for recurrent FOOD CHECKER OD. S/P TPPV for ERM OS on 06-20-16, HX Mild CATS OU......Pt stts the new gls RX is working good for him. No new flashes/floaters OU. Stopped the meds and everything seems fine. a comprehensive exam 1 month ret urn x re-refract and check status FOOD CHECKER OD (on Tx w/ eplenerone) ., S/P TPPV for ERM OS on 06-20-16, HX Mild CATS OU....Pt stts OD is excellent, but OS is still very blurry. No new flashes/floaters OU. a comprehensive exam 1 month wicho ck status FOOD CHECKER OD HX FOOD CHECKER OD recurrent multi areas of leakage on [...] Pt here for FA&F P OU x FOOD CHECKER OD and poss.Focal a comprehensive exam 3 month ret urn x Final refraction and repeat OCT x Hx ERM OS; Hx FOOD CHECKER OD; Hx Mild CATS OU......Pt reports decrease [...] OS x ERM and FP OU... at [facility] 06-20-16 6:30AM . New patient, LOGAN Guevara, blurry VA OS x 1 year . HX FOOD CHECKER OD (spontaneously resolved without Tx) .States x 1 year VA OS has been blurry and distorted and has worsend over the last month. States was Dx with FOOD CHECKER OD in 2001 , but spontaneously resolved. 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 Recommend FA for poss recurrent FOOD CHECKER OD . Educational materials provided:Counseling provided. 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 - OCT:recurrent SRF sup pm bundle cons w/ recurrent FOOD CHECKER ODOS with mild pers fov elevation, incomp resol irreg fov reflex OS Related to Puckering of macula of left eye - Discussed R+B phac o OSwill consider phaco OS once OD stable Related to Age-related nuclear cataract, bilateral - for optos FA OD EM L OS ML FP OU and possible focal OD x recurrent FOOD CHECKER OD Related to Central serous chorioretinopathy of [...] eye - H+P todayTPPV OS a t [facility] on 06-20-16R+B of TPPV OS rediscussed including [...] Mental Status Date Cognitive Assessment Orientation - [place] ed to time, place, person, situation. Patient Care Teams Name Effective Dates (start - stop) Status Members No Information
--- OUTSIDE RECORDS SUMMARY | 2024-10-15 11:57 | XMS_ITS | Patient Health Record ---
Author Organization [facility] Billing Info Address [address] [place] [address] Chan thompson [place] [phone] Care Team Providers Care [employer] Worker Name Role Phone Kris López DO Primary Care Provider JANAY Nowak [phone] Allergies No Known Allergies Reason For Referral [...] MEDICARE [place] PART B [address] [facility] [id number] [phone] [id number] Kris Jeter Self - patient is the insured 8 2 [employer] EM[employer]EE PLAN [address] [place], [place] [phone] [id number] Kris Jeter Self - patient is the insured 2 2 Medical (General) History Medical History History ICD Code Past Medical History: Atrial Fib/Flutter (ANSWERED BY PATIENT) Surgical History Surgery Date(Month/Year)
== END 2024-10-15 09:38 | disposition home or self-care (01) ==
LOC: HO.XRAY 09:37
PROVIDERS: PCP Nurse Practitioner Family; Visit Provider Nurse Practitioner Family
DX: M25.511 Pain in right shoulder (principal); M25.512 Pain in left shoulder; Z98.890 Other specified postprocedural states; M96.1 Postlaminectomy syndrome, not elsewhere classified; M47.812 Spondylosis without myelopathy or radiculopathy, cervical region; Z98.1 Arthrodesis status; M62.838 Other muscle spasm
CPT/HCPCS: 73030; 99212

== ENCOUNTER → 2024-10-15 10:17 | Outpatient (BNV) | payer MEDICARE, SELFPAY | PROVIDERS: PCP Nurse Practitioner Family; Visit Provider Radiology Diagnostic Radiology | DX: M25.511 Pain in right shoulder (principal); M25.512 Pain in left shoulder | CPT/HCPCS: 73030 ==

== ENCOUNTER 2024-11-16 09:59 | Outpatient (AMB) | payer MEDICARE, SELFPAY ==
--- NOTE | 2024-11-16 10:07 | A.OFFVIS_ITS ---
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 No previous treatment. He states ongoing tingling since 07/2024. Patient mentions that his symptoms are worse at night. He states that his symptoms are both equal in both hands. IMPRESSION: 1. This is an abnormal study. 2. There is electrodiagnostic evidence for chronic ulnar neuropathy. 3. There is electrodiagnostic evidence for left moderate-severe and right mild median neuropathy at the wrist, consistent with Carpal Tunnel Syndrome. 4. There is no electrodiagnostic evidence for brachial plexopathy or cervical radiculopathy. 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 No previous treatment. He states ongoing tingling since 07/2024. Patient mentions that his symptoms are worse at night. He states that his symptoms are both equal in both hands. Patient states that he is affected by symptoms approximately 2 to 3 times a week. IMPRESSION: 1. This is an abnormal study. 2. There is electrodiagnostic evidence for chronic ulnar neuropathy. 3. There is electrodiagnostic evidence for left moderate-severe and right mild median neuropathy at the wrist, consistent with Carpal Tunnel Syndrome. 4. There is no electrodiagnostic evidence for brachial plexopathy or cervical radiculopathy. [facility] Medical History Paroxysmal atrial fibrillation Basal cell carcinoma of skin of face Psoriasis Acid reflux Heart palpitations Surgical History History of elbow surgery History of shoulder surgery S/P cervical spinal fusion History of lumbar fusion Social History Housing: House Alcohol intake: current Alcohol intake frequency: a few times a month Alcohol type: hard liquor Patient Tobacco Use Status: Never used Tobacco e-Cigarette/Vaping Use: Never Used Second Hand Smoke Exposure: No service: No Current occupational status: retired Current occupational exposures/hazards: No Cognitive needs: No Hearing needs: No Vision needs: Yes Review of Systems Const All systems reviewed & are unremarkable except as noted in HPI and below Physical Exam Vital Signs: BMI result Body Mass Index 27.4 Extrem Other: Neuro: Normal sensation of the tips of digits of bilateral hands in the office today No thenar or intrinsic wasting. Good APB muscle firing and good finger cross. Vascular: Capillary refill brisk. ROM: Patient can make a fist and extend all their digits. Skin: No lacerations or abrasions noted. General: No ecchymosis. No erythema or evidence of infection. Assessment & Plan Assessment & Plan (1) Carpal tunnel syndrome on both sides: Code(s): G56.03 - Carpal tunnel syndrome, bilateral upper limbs Category: Medical Plan 1. Bilateral carpal tunnel syndrome Symptoms intermittent, not daily, worse at night Patient is educated about this condition Patient is educated about the typical treatment course At this time, patient is informed that the preferred treatment for carpal tunnel syndrome is minor surgery, but the patient states he would like to hold off on this as long as possible Patient is educated that he should not prolonged treatment past the point where he is experiencing intermittent but daily numbness, as if his numbness progresses to constant there is an increased risk of not getting normal sensation back even with surgery Patient states understanding of this Follow-up when he is ready to discuss surgery, sooner with any acute concerns Coding Level of Care Code Est Pt Level 3 (25786) Diagnoses Carpal tunnel syndrome on both sides G56.03
[2024-11-16 10:15] VITALS: BMI 27.4
--- OUTSIDE RECORDS SUMMARY | 2024-11-16 10:21 | XMS_ITS | Data Portability ---
Author Organization [place] - [facility], [facility] Address [address] [place] [address] Care Team Providers Care Cyber Special Agent Name Role Phone JO-ANN LOCKE Referring Provider Unavailable Assessment No assessment recorded. Plan of Treatment Reminders Order Date Submit Date Provider Last Modified By Organization Details Last Modified Time Details Appointments None recorded. Lab drug confirmatio n, urine 2021 022 Labs, [address], [place], [address], 3 03:31:38 drug confirmatio n, urine 2021 022 Labs, [address], [place], [address], 3 03:31:38 mitragynine , quant, urine 2021 022 Labs, [address], [place], [address], 3 03:31:38 unlisted lab - amphetamine s and stimulants reflex (screen/con f) 2021 022 [facility], [address], [place], [address], 3 05:01:18 unlisted lab - barbiturate s reflex (screen/con f) 2021 022 [facility], [address], [place], [address], 3 05:01:17 unlisted lab - benzodiazep jorge reflex (screen/con f) 2021 [facility], [address], [place], [address], 3 05:01:17 unlisted lab - cocaine reflex (screen/con f) 2021 [facility], [address], [place], [address], 3 05:01:18 unlisted lab - ethanol reflex (screen/con f) 2021 [facility], [address], [place], [address], 3 05:01:19 unlisted lab - marijuana reflex (screen/con f) 2021 [facility], [address], [place], [address], 3 05:01:19 unlisted lab - opiates/opi oids reflex (screen/con f) 2021 [facility], [address], [place], [address], 3 05:01:18 methadone, quantitativ e, urine 2021 [facility], [address], [place], [address], 2 13:12:07 Referral None recorded. Procedures hardware injection (PROC) 2021 [email or web address] Not available 16:06:22 Surgeries None recorded. Imaging XR, cervical spine, 4 or 5 view - chronic neck pain, hx of cervical fusion, 3 neck surgeries 2023 024 [facility], [address], [address], [place], [address], 4 09:45:34 Medication Orders oxycodone-a cetaminophe n 7.5 mg-325 mg tablet 2021 022 [facility] #[id number], [address] [place], [address], 2 09:52:29 oxycodone-a cetaminophe n 7.5 mg-325 mg tablet 2021 022 API-[id number] [address] , [address] [facility], [address], [place], [address], 4 11:28:30 Patient TargetsNo targets recorded. Patient Instructions Encounter Date Encounter Id Patient Instructions Last Modified By Organization Details Last Modified Time 02/15/2022 [id number] dash diet: care instructions Not available 02/15/2022 09:47:43 starting a weigh t loss plan: care instructions [email or web address] Not available 02/15/2022 09:47:44 dash diet [email or web address] Not available 2021 09:47:44 weight managemen t education [email or web address] Not available 02/15/2022 09:47:44 02/15/22 LCV was on 01/10/2022 This patient comes to clinic for a four week follow up visit. Today, I reviewed the patient's most recent LINUX SERVER ENGINEER reports as well as urine drug screen results. the patient demonstrates no polypharmacy or med seeking behavior as I review the LINUX SERVER ENGINEER record for 6 months back. Pain contract [...] these options with his surgeon. PLAN: DELORES INFORMATION RESOURCES DIRECTOR visit 04/26/2021 the patient is here to [...] patient reports he underwent reevaluation by another lighting specialist and Dr. Richmond in which he [...] and is now pending procedure dates 2_) LINUX SERVER ENGINEER was reviewed on February 15, 2022 he [...] pain contract. Not available 02/15/2022 13:21:15 10/24/2023 [id number] dash diet: care instructions [email or web address] Not available 10/24/2023 11:46:41 starting a weigh t loss plan: care instructions [email or web address] Not available 10/24/2023 11:46:41 dash diet [email or web address] Not available 2023 11:46:41 weight managemen t education [email or web address] Not available 10/24/2023 11:46:41 10/24/23 03/15/22 Fluoroscopic Guided Bilateral L4, L5 Lumbar Medial Branch / hardware block LCV was on 02/15/2022 This patient comes to clinic for follow up visit. Today, I reviewed the patient's most recent LINUX SERVER ENGINEER reports as well as urine drug screen results. the patient demonstrates no polypharmacy or med seeking behavior as I review the LINUX SERVER ENGINEER record for 6 months back. Pain contract [...] as falls accidents or trauma. PLAN: LCV INFORMATION RESOURCES DIRECTOR visit 04/26/2021 the patient is here to [...] patient reports he underwent reevaluation by another lighting specialist and Dr. Richmond in which he [...] and is now pending procedure dates 2_) LINUX SERVER ENGINEER was reviewed on 10/24/23 he may continue [...] 5) Return to clinic in 2 weeks [email or web address] Not available 10/24/2023 11:46:20 11/07/2023 [id number] dash diet: care instructions [email or web address] Not available 11/07/2023 12:50:11 starting a weigh t loss plan: care instructions [email or web address] Not available 11/07/2023 12:50:11 dash diet [email or web address] Not available 2023 12:50:11 weight managemen t education [email or web address] Not available 11/07/2023 12:50:11 11/07/23 LCV was on 10/24/23 03/15/22 Fluoroscopic Guided Bilateral L4, L5 Lumbar Medial Branch / hardware block This patient comes to clinic for follow up visit. Today, I reviewed the patient's most recent LINUX SERVER ENGINEER reports as well as urine drug screen results. the patient demonstrates no polypharmacy or med seeking behavior as I review the LINUX SERVER ENGINEER record for 6 months back. Pain contract [...] appointment. He is doing well. PLAN: LCV INFORMATION RESOURCES DIRECTOR visit 04/26/2021 the patient is here to [...] patient reports he underwent reevaluation by another lighting specialist and Dr. Richmond in which he [...] further workup or treatments as needed 2_) LINUX SERVER ENGINEER was reviewed on 11/07/23 he may continue [...] to clinic prn, ER warnings were given [email or web address] Not available 11/07/2023 12:49:52 Reason for Referral None Reported. Results Created Date Observation Date Name Description Value Unit Range Abnormal Flag Note LastModifiedBy Organization Detail LastModifiedTime 10/28/19 24 XR, cervi donita spine , 4 or 5 view No observ ation record ed. [email or web address] [facility] [address], [place], [address], 10/28/2023 09:45:45 Result Notes None recorded. Procedures Surgical History Date Name Laterality Status Provider Name and Address Organization Details Recorded Time 03/13/20 22 [facility] Lumbar Medial Branch Blocks completed Jo-Ann Locke MD [address] [place] [address], [address], [place] [facility] 03/13/2022 15:06:12 02/16/20 22 [facility] Cervical RFA completed Jo-Ann Locke MD [address] [place] [address], [address], [place] [facility] 02/15/2022 09:33:42 01/11/20 22 [facility] Cervical RFA completed Kristina Lorenzo [place] [facility] 01/10/2022 09:47:25 12/14/19 22 [facility] Cervical RFA [place] Krisitna Lorenzo [place] [facility] 12/13/2021 09:58:22 11/09/19 22 [facility] Cervical RFA completed Esperanza Costa [place] [facility] 11/08/2021 10:10:55 10/25/19 22 [facility] Cervical RFA completed Jo-Ann Locke MD [address] [place] [address], [address], [place] [facility] 10/24/2021 14:22:37 09/20/19 22 [facility] Cervical MBB completed Jo-Ann Locke MD [address] [place] [address], [address], [place] [facility] 09/19/2021 14:20:38 08/08/19 22 [facility] Cervical MBB completed Jo-Ann Locke MD [address] [place] [address], [address], [place] [facility] 09/19/2021 14:21:19 06/28/20 21 DBC Cervical Tx Session completed YONATHAN ROBERTS, SIRIA [address] [place] [address], [address], [place] [facility] 06/28/2021 11:36:40 06/28/20 21 PT/OT/OMT- [place]oll completed YONATHAN ROBERTS, PT [address] [place], [address], [place] [facility] 06/28/2021 11:10:20 06/28/20 PT/OT/OMT- Suzie cervical completed YONATHAN ROBERTS, PT [address] [place], [address], [place] [facility] 06/28/2021 11:10:20 06/28/20 PT/OT/OMT- Therapeutic Exercise completed YONATHAN ROBERTS, PT [address] [place], [address], [place] [facility] 06/28/2021 11:37:47 06/28/20 PT/OT/OMT- Manual Therapy completed YONATHAN ROBERTS, PT [address] [place], [address], [place] [facility] 06/28/2021 11:10:20 06/26/20 DBC Cervical Tx Session completed YONATHAN ROBERTS, PT [address] [place], [address], [place] [facility] 06/26/2021 11:42:10 06/26/20 PT/OT/OMT- [place] completed YONATHAN ROBERTS, PT [address] [place], [address], [place] [facility] 06/26/2021 11:31:33 06/26/20 PT/OT/OMT- Suzie cervical completed YONATHAN ROBERTS, PT [address] [place], [address], [place] [facility] 06/26/2021 11:31:33 06/26/20 PT/OT/OMT- Therapeutic Exercise completed YONATHAN ROBERTS, PT [address] [place], [address], [place] [facility] 06/26/2021 11:42:22 06/26/20 PT/OT/OMT- Manual Therapy completed YONATHAN ROBERTS, PT [address] [place], [address], [place] [facility] 06/26/2021 11:31:33 06/21/20 DBC Cervical Tx Session completed YONATHAN ROBERTS, PT [address] [place], [address], [place] [facility] 06/21/2021 11:36:32 06/21/20 21 PT/OT/OMT- [place] completed YONATHAN ROBERTS, PT [address] [place], [address], [place] [facility] 06/21/2021 11:36:50 06/21/20 21 PT/OT/OMT- Suzie cervical completed YONATHAN ROBERTS, PT [address] [place], [address], [place] [facility] 06/21/2021 11:37:25 06/21/20 21 PT/OT/OMT- Therapeutic Exercise completed YONATHAN ROBERTS, PT [address] [place], [address], [place] [facility] 06/21/2021 11:39:56 06/21/20 21 PT/OT/OMT- Manual Therapy completed YONATHAN ROBERTS, PT [address] [place], [address], [place] [facility] 06/21/2021 11:37:03 06/19/20 21 DBC Cervical Tx Session completed YONATHAN ROBERTS, PT [address] [place], [address], [place] [facility] 06/19/2021 12:22:15 06/19/20 21 PT/OT/OMT- [place]oll completed YONATHAN ROBERTS, PT [address] [place], [address], [place] [facility] 06/19/2021 12:22:15 06/19/20 21 PT/OT/OMT- Suzie cervical completed YONATHAN ROBERTS, PT [address] [place], [address], [place] [facility] 06/19/2021 12:22:15 06/19/20 21 PT/OT/OMT- Manual Therapy completed YONATHAN ROBERTS, PT [address] [place], [address], [place] [facility] 06/19/2021 12:22:15 06/13/20 21 DBC Cervical Tx Session completed YONATHAN ROBERTS, PT [address] [place], [address], [facility] 06/13/2021 16:01:43 06/13/20 21 PT/OT/OMT- [place]oll completed YONATHAN ROBERTS, PT [address] [place], [address], [facility] 06/13/2021 16:03:06 06/13/20 21 PT/OT/OMT- Suzie cervical completed YONATHAN ROBERTS, PT [address] [place], [address], [facility] 06/13/2021 15:49:45 06/13/20 21 PT/OT/OMT- Manual Therapy completed YONATHAN ROBERTS, PT [address] [place], [address], [facility] 06/13/2021 16:02:57 06/12/20 21 PT/OT/OMT- Suzie cervical completed YONATHAN ROBERTS, PT [address] [place], [address], [facility] 06/12/2021 12:26:10 inguinal hernia repair completed Not Available Health Note 03/11/2022 17:00:06 cholecystectomy completed Not Available Health Note 03/11/2022 17:00:06 Imaging Results Imaging Date Name Status LastModified by Organiz ation Details LastModified Time 10/28/2023 XR, cervical spine, 4 or [address] [facility] [address], [place], [address], 10/28/2023 09:45:45 Procedure Notes None recorded. Medical [...] Updated DateTime 10/24/2023 185.42 cm 27.4 kg/m2 45165.3251 137176 g Not Available Health Note 10/24/2023 10:32:03 [...] Details Last Updated DateTime 11/07/2023 27.4 kg/m2 72962.07645 05032 g 185.42 cm Not Available Health Note [...] Updated DateTime 02/15/2022 185.42 cm 26.9 kg/m2 14165.84 g 141 mm[Hg] 80 mm[Hg] Melanie Yo [facility] 08/11/202 2 09:26:45 Date Recorded Body height Body mass index (BMI) Body weight Systolic blood pressure Diastolic blood pressure Provider Name and Address Organization Details Last Updated DateTime 03/15/2022 185.42 cm 26.5 kg/m2 75028.07 g 118 mm[Hg] 72 mm[Hg] Melanie Yo [place] - [facility] 2 09:31:32 Social History Question Answer Notes LastModified by Organizat ion Details LastModified Time Tobacco Smoking Status Former Smoker Not Available Health Note 10/22/2023 11:28:28 Do You Have An Advance Directive? Yes [email or web address] Information not available 10/22/2023 Are You Blind Or Do You Have [...] Been Counseled On Unhealthy Alcohol Use? Yes [email or web address] Information not available 06/08/2021 Is This A [...] Do You Have A Medical Power Of .Net Programmer? Yes [email or web address] Information not available 10/22/2023 What Was The Date Of Your Most Recent Tobacco Screening? 11/07/2023 [email or web address] Information not available 11/07/2023 How Many Children Do You Have? 2 Information not available 04/26/2021 What Is Your Relationship Status? Information not available 04/26/2021 Do You Use Your Seat Belt Or Car Seat Routinely? Yes [email or web address] Information not available 03/11/2022 How Many Years Have You Smoked Tobacco? 7 Information not available 04/26/2021 Sex: Male Functional Status Question Answer Note LastModified by Organizat ion Details LastModified Time Do you use any illicit or recreational drugs? No Information not available 04/26/2021 Do you or have you ever used any other forms of tobacco or nicotine? No Information not available 04/26/2021 What is your level of alcohol consumption? Occasional [email or web address] Information not available 06/08/2021 Are you currently employed? No [email or web address] Information not available 03/11/2022 Do you have difficulty walking or climbing stairs? No [email or web address] Information not available 10/22/2023 Do you have difficulty doing errands alone? No [email or web address] Information not available 10/22/2023 Do you have difficulty dressing or bathing? No [email or web address] Information not available 10/22/2023 Mental Status Question Answer Note LastModified by Organizat ion Details LastModified Time Do you feel stressed (tense, restless, nervous, or anxious, or unable to sleep at night)? [id number] [email or web address] Information not available 03/11/2022 Do you have difficulty concentrating, remembering or [...] SNOMED-CT Code Diagnosis ICD10 Code Diagnosis Note [id number] Jo-Ann Locke MD [address] [address] 04/26/2021 13:37:50 04/27/2021 09:42:23 Educated about weight management 398755265 Z71.3 Cervical post-laminectomy syndrome 716222017 M96.1 Degenerati on of cervical intervertebral disc 18967890 M50.30 Cervical radiculitis 110 16871 M54.12 Cervical spondylosis 387 167177 M47.812 Muscle pain 30835634 M79 .18 [id number] Jo-Ann Locke MD [address] [address] 06/08/2021 08:53:49 06/08/2021 18:32:28 Cervical post-laminectomy syndrome 971011482 M96.1 Degenerati on of cervical intervertebral disc 32106338 M50.30 Educated a bout weight management 517554182 Z71.3 Cervical radiculitis 110 27386 M54.12 Cervical spondylosis 387 730436 M47.812 Muscle pain 69507595 M79 .18 [id number] Y[facility]ATHAN ROBERT[facility] [address] [address] 06/12/2021 10:46:05 06/12/2021 15:34:00 Degeneration of cervical intervertebral disc 38065650 M50.30 Cervical spondylosis 387 778065 M47.812 [id number] YONATHAN ROBERTS PT [address] [address] 06/13/2021 13:52:42 06/13/2021 16:30:43 Degeneration of cervical intervertebral disc 68848610 M50.30 Cervical spondylosis 387 513872 M47.812 [id number] YONATHAN ROBERTS PT [address] [address] 06/19/2021 12:21:07 06/19/2021 15:02:56 Degeneration of cervical intervertebral disc 35185020 M50.30 Cervical spondylosis 387 142678 M47.812 [id number] YONATHAN ROBERTS PT [address] [address] 06/21/2021 10:49:38 06/21/2021 11:42:34 Degeneration of cervical intervertebral disc 83701203 M50.30 Cervical spondylosis 387 751636 M47.812 [id number] Jo-Ann Locke MD - [address] [address] 06/23/2021 08:58:20 06/23/2021 09:29:00 Cervical post-laminectomy syndrome 605878492 M96.1 Degenerati on of cervical intervertebral disc 42220920 M50.30 Educated a bout weight management 111098516 Z71.3 Cervical radiculitis 110 77022 M54.12 Cervical spondylosis 387 329798 M47.812 Muscle pain 45883828 M79 .18 Long-term drug therapy 223981794 Z79.899 [id number] YONATHAN ROBERTS PT [address] [address] 06/26/2021 10:48:31 06/26/2021 11:44:37 Degeneration of cervical intervertebral disc 80136336 M50.30 Cervical spondylosis 387 614576 M47.812 [id number] YONATHAN ROBERTS PT [address] [address] 06/28/2021 10:46:39 06/28/2021 11:38:44 Degeneration of cervical intervertebral disc 11556206 M50.30 Cervical spondylosis 387 006446 M47.812 [id number] Jo-Ann Locke MD [address] [address] 07/20/2021 10:58:57 07/20/2021 12:39:41 Cervical post-laminectomy syndrome 845089700 M96.1 Degenerati on of cervical intervertebral disc 67932606 M50.30 Educated a bout weight management 049757548 Z71.3 Cervical radiculitis 110 56249 M54.12 Cervical spondylosis 387 264741 M47.812 Muscle pain 73493983 M79 .18 [id number] Jo-Ann Locke MD [facility] [address] [place] [address] 08/08/2021 10:36:50 08/08/2021 21:26:44 Cervical spondylosis 564783301 M47.812 [id number] Jo-Ann Locke MD [address] [address] 09/06/2021 10:58:12 09/06/2021 12:08:26 Cervical post-laminectomy syndrome 110227947 M96.1 Degenerati on of cervical intervertebral disc 26830662 M50.30 Educated a bout weight management 968171840 Z71.3 Cervical radiculitis 110 15391 M54.12 Cervical spondylosis 387 770128 M47.812 Muscle pain 25034597 M79 .18 [id number] Jo-Ann Locke [place] [address] 09/19/2021 11:21:10 09/19/2021 14:22:56 Cervical spondylosis 581470226 M47.812 [id number] Mohamud Rangel MD [facility] [address] [place] [address] 09/29/2021 09:45:26 10/01/2021 23:37:04 At low risk for fall 663032178 Z91.81 Body mass index 25-29 - overweight 001822345 Z68.29 Influenza vaccination given 3755151477 9109 Z29 april 2021 via [employer] Sleep apnea 68840877 G47 .30 R09.02 this patient has been [...] your prompt attention to this matter. Hypoxia 607746259 R09.02 [id number] Jo-Ann Locke MD [address] [address] 10/05/2021 13:49:10 10/05/2021 17:05:36 Cervical post-laminectomy syndrome 564672136 M96.1 Degenerati on of cervical intervertebral disc 86086888 M50.30 Educated a bout weight management 477422381 Z71.3 Cervical radiculitis 110 92560 M54.12 Cervical spondylosis 387 463038 M47.812 Muscle pain 19198503 M79 .18 Long-term drug therapy 943268580 Z79.899 [id number] Jo-Ann Locke MD [facility] [address] [address] 10/24/2021 10:09:03 10/24/2021 14:28:56 Cervical spondylosis 291017767 M47.812 [id number] Jo-Ann Locke MD [address] [address] 11/08/2021 09:33:20 11/08/2021 17:59:30 Cervical spondylosis 985036843 M47.812 Cervical post-laminectomy syndrome 837741470 M96.1 Degenerati on of cervical intervertebral disc 32033035 M50.30 Educated a bout weight management 615750785 Z71.3 Cervical radiculitis 110 09784 M54.12 Muscle pain 49741641 M79 .18 Long-term drug therapy 769676254 Z79.899 [id number] Jo-Ann Locke MD [address] [address] 12/13/2021 09:29:47 12/13/2021 17:30:38 Cervical spondylosis 391365348 M47.812 Cervical post-laminectomy syndrome 429378939 M96.1 Degenerati on of cervical intervertebral disc 82471326 M50.30 Educated a bout weight management 009331640 Z71.3 Cervical radiculitis 110 27524 M54.12 Muscle pain 92078011 M79 .18 Long-term drug therapy 218683013 Z79.899 Lumbar spondylosis 73721 0009 M47.896 [id number] Jo-Ann Locke MD [address] [address] 01/10/2022 09:32:56 01/10/2022 17:40:06 Cervical spondylosis 547542846 M47.812 Cervical post-laminectomy syndrome 726144921 M96.1 Degenerati on of cervical intervertebral disc 41858335 M50.30 Educated a bout weight management 458564290 Z71.3 Cervical radiculitis 110 18074 M54.12 Muscle pain 69061180 M79 .18 Long-term drug therapy 400849362 Z79.899 Lumbar spondylosis 35834 0009 M47.896 Hypertensive disorder 38 819852 I10 [id number] Jo-Ann Locke MD [address] [address] 02/15/2022 09:19:01 02/15/2022 17:38:38 Cervical spondylosis 560934101 M47.812 Cervical post-laminectomy syndrome 649240752 M96.1 Degenerati on of cervical intervertebral disc 78137229 M50.30 Educated a bout weight management 572480426 Z71.3 Cervical radiculitis 110 16566 M54.12 Muscle pain 15237781 M79 .18 Lumbar spondylosis 82314 0009 M47.896 Hypertensive disorder 38 634484 I10 Long-term drug therapy 092438829 Z79.899 Body mass index 25-29 - overweight 555668547 Z68.26 Lumbar post-laminectomy syndrome 575134789 M96.1 [id number] Jo-Ann Locke MD [facility] [address] 03/13/2022 12:46:55 03/13/2022 15:07:46 Lumbar spondylosis 157851901 M47.896 [id number] Jo-Ann Locke MD [address] [address] 10/24/2023 10:30:44 10/24/2023 11:47:23 Body mass index 25-29 - overweight 427530200 Z68.27 Cervical spondylosis 387 642856 M47.812 Cervical post-laminectomy syndrome 502694047 M96.1 Degenerati on of cervical intervertebral disc 15090005 M50.30 Educated a bout weight management 156881799 Z71.3 Cervical radiculitis 110 28564 M54.12 Muscle pain 58934792 M79 .18 Lumbar spondylosis 18611 0009 M47.896 Hypertensive disorder 38 406056 I10 Lumbar post-laminectomy syndrome 462195997 M96.1 [id number] Jo-Ann Locke MD [address] [address] 11/07/2023 10:29:28 11/07/2023 12:50:39 Cervical spondylosis 544915854 M47.812 Cervical post-laminectomy syndrome 930881995 M96.1 Body mass index 25-29 - overweight 464084298 Z68.27 Degenerati on of cervical intervertebral disc 65859103 M50.30 Educated a bout weight management 375390451 Z71.3 Cervical radiculitis 110 82811 M54.12 Muscle pain 28066929 M79 .18 Lumbar spondylosis 96734 0009 M47.896 Hypertensive disorder 38 062505 I10 Lumbar post-laminectomy syndrome 784834903 M96.1 Health Concerns Section Related Observation LastModified by Organization Detai ls LastModified Time None Recorded Concern Status LastModified by Organization Details LastModified Time None Recorded Advance Directives Directive Y: Payers Insurance Date Sequence Insurance Name Policy Number Policy Juan Covered Member ID Juan Member ID Guarantor Name 11/06/2023 1 [employer] (MEDICARE REPLACEMENT PPO) [id number] 1 Kris Jeter [id number] Kris Jeter 10/23/2023 1 MED[place] [employer] Kris Jeter [id number] Kris Jeter 10/23/2023 2 [place]) Kris Jeter [id number] Kris Jeter Notes Date Note Type Note Provider Name [...] No Risk [facility]. Reason for Follow up visit:No, [...] No Risk Kris Collazo a 71 [facility] Reason for Follow up visit:No, [...] Score: 0 No Risk Jo-Ann Locke MD [address] [place] [address], [phone] 02/15/2022 13:21:35 03/13/2022 text/html [facility] Pain Visit 4Reported bypatient.Duration:How long the patient [...] No Risk [facility] Reason for Follow up visit:No, [...] No Risk Kris Coll[facility] a 71 [facility] Reason for Follow up visit:No, [...] Score: 0 No Risk Jo-Ann Locke MD [address] [place], [address], [facility] 03/13/2022 15:07:13 10/24/2023 text/html Kris Goremiya a 73 year oldMalepresenting for care. Preferred pronoun:he/him Reason for Follow up visit:Pt would like to follow up on condition last discussed Pain control:Worse Activity level:Medium (same level of activity) Taking medications for pain:Pt is not taking meds for pain Hospitalizations/ED visits:yes Details:Atrial Fibrillation Screening / Questionnaire: ALEXIS: Score: 0 No Risk Jo-Ann Locke MD [address] [place], [address], [facility] 10/24/2023 11:46:45 11/07/2023 text/html Kris Thomasjulio a 73 year oldMalepresenting for care. Preferred pronoun:he/him Reason for Follow up visit:Pt would like to follow up on condition last discussedPain control:WorseActivity level:Medium (same level of activity)Taking medications for pain:Pt is not taking meds for painHospitalizations/E D visits:yesDetails:Atri al Fibrillation Screening / Questionnaire:ALEXIS: Score: 0 No Risk Jo-Ann Locke MD [address] [place], [address], [facility] 11/07/2023 12:50:14
--- OUTSIDE RECORDS SUMMARY | 2024-11-16 10:21 | XMS_ITS | Patient Health Record ---
Author Organization [facility] Billing Info Address [address] [place] [address] Chan thompson [place] [id number] Care Team Providers Care Security Manager Name Role Phone Kris López DO Primary Care Provider JANAY Nowak [phone] Allergies No Known Allergies Reason For Referral [...] MEDICARE [place] PART B [address] [facility] AILYN DÍAZ [id number] Kris Jeter Self - patient is the insured 8 2 [employer] P[employer] EMPLOYEE PLAN [address] [place], [place] [id number] [phone] [id number] Kris Jeter Self - patient is the insured 2 2 Medical (General) History Medical History History ICD Code Past Medical History: Atrial Fib/Flutter (ANSWERED BY PATIENT) Surgical History Surgery Date(Month/Year)
== END 2024-11-16 10:27 | disposition home or self-care (01) ==
LOC: HO.HOS 09:59
PROVIDERS: PCP Nurse Practitioner Family
DX: G56.03 Carpal tunnel syndrome, bilateral upper limbs (principal)
CPT/HCPCS: 99203

== ENCOUNTER → 2024-11-16 09:59 | Outpatient (BNVA) | payer MEDICARE, SELFPAY | PROVIDERS: PCP Nurse Practitioner Family | DX: G56.03 Carpal tunnel syndrome, bilateral upper limbs (principal) | CPT/HCPCS: 99202 ==

== ENCOUNTER 2025-02-02 13:34 | Outpatient (AMB) | payer MEDICARE, SELFPAY ==
--- NOTE | 2025-02-02 13:40 | MHC.PC.OV ---
Vital Signs 02/02/25 13:47 Height 6 ft Weight 217 lb 2 oz BMI 29.4 BP 115/64 Blood Pressure Location Rt brachial Position Sitting Respiration 16 Pulse 61 Pulse Source Pulse Oximeter Temp 97.7 F Temp Source Oral Pulse Oximetry (%) 96 Oxygen Delivery Method Room Air Intake Visit Reasons: sxs and possible urology consult Intake Note: patient here for urology referral. 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 Allergies No Known Allergies Allergy (Verified 02/02/25 14:26) Medication List - Last Reconciled 02/02/25 by Cassidy Tenorio CNP apixaban (Eliquis) 5 mg PO BID diclofenac sodium 1% (Voltaren Arthritis Pain) 4 grams topical QID flecainide 150 mg PO Q12H gabapentin 300 mg PO BID 30 days lorazepam 0.5 mg PO ONCE PRN 1 day metoprolol succinate ER 50 mg PO DAILY Tobacco use date assessed: 02/02/25 Fall risk assessment: No Falls in past year Last assessed Fall Risk: 02/02/25 Dental Screening Dental Screen Date: 02/02/25 Did you have a dental visit in the last 12 months?: No Did you have a dental problem in the last 6 months where you did not have access to dental care?: No Was dental information given to patient?: Patient has dentist HPI HPI Comments History of Present Illness Details 74-year-old male presents with complaints of frequent urination at night - 4 times nightly, 3-4 nights weekly. His sleep is fragmented as a result.. His symptoms have been ongoing for the past 2 months and progressively worsened. He denies burning, pain, or discharged with urination. He stops drinking fluids after supper. He equests urology consult. REPLACED BY [facility] Medical History Paroxysmal atrial fibrillation Basal cell carcinoma of skin of face Psoriasis Acid reflux Heart palpitations Surgical History History of elbow surgery History of shoulder surgery S/P cervical spinal fusion History of lumbar fusion Social History Housing: House Alcohol intake: current Alcohol intake frequency: a few times a month Alcohol type: hard liquor Patient Tobacco Use Status: Never used Tobacco e-Cigarette/Vaping Use: Never Used Second Hand Smoke Exposure: No service: No Current occupational status: retired Current occupational exposures/hazards: No Cognitive needs: No Hearing needs: No Vision needs: Yes Questionnaire PHQ-9 Over the last 2 weeks, how often have you been bothered by any of the following problems? 1. Little interest or pleasure in doing things: not at all 2. Feeling down, depressed, or hopeless: not at all 3. Trouble falling or staying asleep, or sleeping too much: not at all 4. Feeling tired or having little energy: several days 5. Poor appetite or overeating: not at all 6. Feeling bad about yourself - or that you are a failure or have let yourself or your family down: not at all 7. Trouble concentrating on things, such as reading the newspaper or watching television: not at all 8. Moving or speaking so slowly that other people could have noticed. Or the opposite - being so fidgety or restless that you have been moving around a lot more than usual: not at all 9. Thoughts that you would be better off or of hurting yourself in some way: not at all Total score: 1 Depression Screening Interpretation: Negative Depression Screening Done: Yes Source: Developed by Drs. Kris Rodrigues, Simona Stone, Jonn Restrepo and colleagues, with an educational martha from [employer]. Thrive Questionnaire Date Thrive assessed: 01/26/25 I am a: Patient What is your living situation today?: I have a steady place to live Within the past 12 months, did the food you bought not last and you didn't have the money to get more?: Never true Within the past 12 months, did you worry whether your food would run out before you got money to buy more?: Never true Do you have trouble paying for medicines?: No Do you have trouble getting transportation to medical appointments?: No Do you have trouble paying your heating and electricity bill?: No Do you have trouble taking care of your child, family member or friend?: No Do you have trouble with day-to-day activities such as bathing, preparing meals, shopping, managing finances, etc.?: No Are you currently unemployed and looking for a job?: No Are you interested in more education?: No Please select the resources that you would like help with: None Currently or been in a relationship where the following occur: No concerns reported THRIVE Score: 0 AUDIT C Alcohol Use Questionnaire (AUDIT-C) 1. How often do you have a drink containing alcohol?: 2-4 times a month 2. How many drinks containing alcohol do you have on a typical day when you are drinking?: 1 or 2 3. How often do you have six or more drinks on one occasion?: Never Total Score: 2 ABEL-7 AMB Questionnaire ABEL-7 Date ABEL - 7 assessed: 05/19/24 Feeling nervous, anxious, or on edge: 0 = Not at all Not being able to stop or control worryin = Not at all Worrying too much about different things: 0 = Not at all Trouble relaxin = Not at all Being so restless that it is hard to sit still: 0 = Not at all Becoming easily annoyed or irritable: 0 = Not at all Feeling afraid as if something awful might happen: 0 = Not at all Total ABEL-7 score (0-4 normal; 5-9 mild; 10-14 moderate; 15-21 severe): 0 Source: Developed by Drs. Kris Rodrigues, Simona Stone, Jonn Restrepo and colleagues, with an educational martha from [employer]. Review of Systems Const Details: Const Denies chills, Denies fatigue, Denies fever(s), Denies headache(s) and Denies weakness ENT Denies dizziness and Denies headache(s) Card Denies chest pain, Denies lightheadedness, Denies dyspnea and Denies other (Palpitations) Resp Denies cough, Denies dyspnea, Denies wheezing and Denies other ( shortness of breath) GI Denies abdominal pain, Denies melena, Denies hematochezia, Denies change in bowel habits, Denies dyspepsia and Denies nausea Denies hematuria and Denies dysuria Musc Denies abnormal gait, Denies myalgias, Denies arthralgias, Denies numbness and Denies tingling Skin/Breast Denies rash, Denies unusual bruising and Denies wounds Neuro Denies abnormal gait, Denies dizziness, Denies headache(s), Denies memory loss, Denies numbness, Denies Sensory deficit (Neuro), Denies tingling and Denies weakness Psych Denies anxiety, Denies depression, Denies memory loss Endo Denies cold intolerance, Denies fatigue, Denies heat intolerance, Denies polydipsia and Denies polyuria Aller/Immun Denies wheezing Physical exam (Primary Care) Vital Signs: Last Vital Signs Temp 97.7 F 02/02/25 13:47 Pulse 61 02/02/25 13:47 Resp 16 02/02/25 13:47 BP 115/64 02/02/25 13:47 Pulse Ox 96 02/02/25 13:47 Oxygen Delivery Method Room Air 02/02/25 13:47 BMI result Body Mass Index 29.4 Tobacco/Smoking Status: Tobacco use Status Tobacco use date assessed 02/02/25 02/02/25 13:50 Patient Tobacco Use Status Never used Tobacco 02/02/25 13:42 e-Cigarette/Vaping Use Never Used 02/02/25 13:42 PHQ-9: PHQ-9 Score PHQ-9: Total score 1 02/02/25 13:50 Depression Screening Interpretation: Negative Thrive Assessment: Date of Thrive Assessment Date Thrive assessed 01/26/25 02/02/25 13:42 Currently or been in a relationship where the following occur: No concerns reported Const Other: General: no acute distress and well developed Nutritional Appearance: well nourished Orientation/consciousness: patient oriented x3 HENMT Head: Yes normocephalic and Yes atraumatic Eyes General: appearance normal, both eyes and all related structures Pupils: Equal, round and reactive pupils present EOM: EOMs intact bilaterally Resp Effort & Inspection: normal respiratory effort Auscultation: clear to auscultation bilaterally Cardio Rate: regular rate Rhythm: regular rhythm Heart sounds: S1 normal heart sound present, S2 normal heart sound present, no gallops, no murmurs and no rubs GI Palpation (GI): No Abdominal aortic bruit present, Soft to palpation, nontender, No hepatosplenomegaly present and No Rebound tenderness present Auscultation: normal bowel sounds General: Yes no CVA tenderness Back/Spine/Pelvis Back: no CVA tenderness Cervical Spine: cervical ROM normal and No Cervical spine tenderness Thoracic/Lumbar Spine: thoraco-lumbar ROM normal, No pain with thoraco-lumbar ROM, No thoracic spinal tenderness and No lumbar spinal tenderness Extrem General: Yes normal to inspection, No edema and No calf tenderness Skin General: warm and dry. Normal skin color. Normal skin turgor Neuro General: patient oriented x3, gait normal and no focal neuro deficit Cranial nerves: Yes Equal, round and reactive pupils present Cognition (Neuro): normal cognition Gait exam (Neuro): Normal gait present Sensory Exam: No Sensory deficit (Neuro) Psych Appearance: grossly normal Affect: normal affect Attitude: cooperative Thought process: Normal thought process present Coding Level of Care Code Est Pt Level 4 (67827) Diagnoses Nocturia R35.1 Assessment & Plan Assessment & Plan (1) Nocturia: Code(s): R35.1 - Nocturia Category: Medical Plan: 74-year-old male presents with complaints of frequent night time urination, 4 times nightly, 3-4 nights weekly. His sleep is fragmented as a result.. His symptoms have been ongoing for the past 2 months and progressively worsened. He denies burning, pain, or discharged with urination. He stops drinking fluids after supper. He requests urology consult. No CVA tenderness. Likely associated to BPH, althought OAB is possible. Tamsulosin due 0.4 mg daily ordered for BPH; advised to take as prescribed. Instructed on the risks, benefits, and potential adverse reactions of the medication. Urinalysis ordered. Referred to [facility] [place]. Advised to schedule an extended physical exam. Return with worsening or new symptoms. Verbalized understanding and agreed with the plan. Orders: Orders UA CC w/rflx Micro + Cult Today R35.1 - Nocturia Referrals Urology Referral R35.1 - Nocturia Medications: New tamsulosin 0.4 mg PO BEDTIME 90 caps 1RF 90 days
[2025-02-02 13:47] VITALS: BP 115/64; PULSE 61; RESP 16; TEMP 36.5; O2SAT 96; BMI 29.4
--- OUTSIDE RECORDS SUMMARY | 2025-02-02 14:24 | XMS_ITS | Patient Health Record ---
Author Organization [facility] Billing Info Address [address] [place] [address] Chan thompson [place] [id number] Care Team Providers Care Traffic Rate Clerk Name Role Phone Kris López DO Primary Care Provider JANAY Nowak [phone] Allergies No Known Allergies Reason For Referral [...] MEDICARE [place] PART B [address] [facility] AILYN DÍAZ [id number] Kris Jeter Self - patient is the insured 8 2 [employer] FEDERAL P[employer] EMPLOYEE PLAN [address] [place], [place] [id number] [phone] [id number] Kris Jeter Self - patient is the insured 2 2 Medical (General) History Medical History History ICD Code Past Medical History: Atrial Fib/Flutter (ANSWERED BY PATIENT) Surgical History Surgery Date(Month/Year)
--- OUTSIDE RECORDS SUMMARY | 2025-02-02 14:24 | XMS_ITS | Data Portability ---
Author Organization [facility], [facility] Address [address] [place] [address] Care Team Providers Care Intensive Care Anaesthetist Name Role Phone JO-ANN REAL Referring Provider Unavailable Assessment No assessment recorded. Plan of Treatment Reminders Order Date Submit Date Provider Last Modified By Organization Details Last Modified Time Details Appointments None recorded. Lab drug confirmatio n, urine 2021 022 Labs, [address], [place], [address], 3 03:31:38 drug confirmatio n, urine 2021 022 Labs, [address], [place], [address], 3 03:31:38 [email or web address] , quant, urine 2021 022 Labs, [address], [place], [address], 3 03:31:38 unlisted lab - amphetamine s and stimulants reflex (screen/con f) 2021 022 [facility], [address], [place], [address], 3 05:01:18 unlisted lab - barbiturate s reflex (screen/con f) 2021 022 [facility], [address], [place], [address], 3 05:01:17 unlisted lab - benzodiazep jorge reflex (screen/con f) 2021 [facility], [address], [place], [address], 3 05:01:17 unlisted lab - cocaine reflex (screen/con f) 2021 [facility], [address], [place], [address], 3 05:01:18 unlisted lab - ethanol reflex (screen/con f) 2021 [facility], [address], [place], [address], 3 05:01:19 unlisted lab - marijuana reflex (screen/con f) 2021 [facility], [address], [place], [address], 3 05:01:19 unlisted lab - opiates/opi oids reflex (screen/con f) 2021 [facility], [address], [place], [address], 3 05:01:18 methadone, quantitativ e, urine 2021 [facility], [address], [place], [address], 2 13:12:07 Referral None recorded. Procedures hardware injection (PROC) 2021 [email or web address] Not available 16:06:22 Surgeries None recorded. Imaging XR, cervical spine, 4 or 5 view - chronic neck pain, hx of cervical fusion, 3 neck surgeries 2023 024 [facility], [address], [place], [address], 4 09:45:34 Medication Orders oxycodone-a cetaminophe n 7.5 mg-325 mg tablet 2021 022 [facility] #[id number], [address] [facility], [place], [address], 2 09:52:29 oxycodone-a cetaminophe n 7.5 mg-325 mg tablet 2021 [email or web address] [address] , [address], [address], [place], [address], 4 11:28:30 Patient TargetsNo targets recorded. Patient Instructions Encounter Date Encounter Id Patient Instructions Last Modified By Organization Details Last Modified Time 02/15/2022 [id number] dash diet: care instructions [email or web address] Not available 02/15/2022 09:47:43 starting a weigh t loss plan: care instructions [email or web address] Not available 02/15/2022 09:47:44 dash diet [email or web address] Not available 2021 09:47:44 weight managemen t education Not available 02/15/2022 09:47:44 02/15/22 LCV was on 01/10/2022 This patient comes to clinic for a four week follow up visit. Today, I reviewed the patient's most recent [employer] reports as well as urine drug screen results. the patient demonstrates no polypharmacy or med seeking behavior as I review the WO[employer] record for 6 months back. Pain contract [...] these options with his surgeon. PLAN: DELORES CHIROPRACTIC PRACTICE MANAGER visit 04/26/2021 the patient is here to [...] patient reports he underwent reevaluation by another water resource engineering specialist and Dr. Richmond in which he [...] and is now pending procedure dates 2_) WO[employer] was reviewed on February 15, 2022 he [...] under the direct supervision of Dr Jo-Ann Real. Dr Real evaluated the treatment plan and agrees. Pain contract reviewed. Patient satisfied with plan and understands the significance of compliance as agreed in pain contract. [email or web address] Not available 02/15/2022 13:21:15 10/24/2023 [id number] dash diet: care instructions [email or web address] Not available 10/24/2023 11:46:41 starting a weigh t loss plan: care instructions [email or web address] Not available 10/24/2023 11:46:41 dash diet Not available 2023 11:46:41 weight managemen t education Not available 10/24/2023 11:46:41 10/24/23 03/15/22 Fluoroscopic Guided Bilateral L4, L5 Lumbar Medial Branch / hardware block LCV was on 02/15/2022 This patient comes to clinic for follow up visit. Today, I reviewed the patient's most recent [employer] reports as well as urine drug screen results. the patient demonstrates no polypharmacy or med seeking behavior as I review the WOODEN [employer] BU[employer] record for 6 months back. Pain contract [...] as falls accidents or trauma. PLAN: LCV CHIROPRACTIC PRACTICE MANAGER visit 04/26/2021 the patient is here to [...] patient reports he underwent reevaluation by another water resource engineering specialist and Dr. 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 Today, I reviewed the patient's most recent [employer] reports as well as urine drug screen results. the patient demonstrates no polypharmacy or med seeking behavior as I review the WO[employer] FR[employer] BU[employer] record for 6 months back. Pain contract [...] last appointment. He is doing well. PLAN: DELORES CHIROPRACTIC PRACTICE MANAGER visit 04/26/2021 the patient is here to [...] patient reports he underwent reevaluation by another water resource engineering specialist and Dr. 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 Results Created Date Observation Date Name Description Value Unit Range Abnormal Flag Note LastModifiedBy Organization Detail LastModifiedTime 10/28/19 24 XR, cervi donita spine , 4 or 5 view No observ ation record ed. [email or web address] [facility] [address], [place], [address], 10/28/2023 09:45:45 Result Notes None recorded. Procedures Surgical History Date Name Laterality Status Provider Name and Address Organization Details Recorded Time 03/13/20 22 [facility] Lumbar Medial Branch Blocks completed Jo-Ann Real MD [address] [place] [address], [address], [place] [facility] 03/13/2022 15:06:12 02/16/20 22 [facility] Cervical RFA completed Jo-Ann Real MD [address] [place] [address], [address], [place] [facility] 02/15/2022 09:33:42 01/11/20 22 [facility] Cervical RFA completed Kristina Lorenzo [place] [facility] 01/10/2022 09:47:25 12/14/19 22 [facility] Cervical RFA completed Kristina Lorenzo [place] [facility] 12/13/2021 09:58:22 11/09/19 22 [facility] Cervical RFA completed Esperanza Costa [place] [facility] 11/08/2021 10:10:55 10/25/19 22 [facility] Cervical RFA completed Jo-Ann Real MD [address] [place] [address], [address], [place] [facility] 10/24/2021 14:22:37 09/20/19 22 [facility] Cervical MBB completed Jo-Ann Real MD [address] [place] [address], [address], [place] [facility] 09/19/2021 14:20:38 08/08/19 22 [facility] Cervical MBB completed Jo-Ann Real MD [address] [place] [address], [address], [place] [facility] 09/19/2021 14:21:19 06/28/20 21 DBC Cervical Tx Session completed YONATHAN ROBERTS PT [address] [place] [address], [address], [place] [facility] 06/28/2021 11:36:40 06/28/20 21 PT/OT/OMT- [place] completed YONATHAN ROBERTS, PT [address] [place], [address], [place] [facility] 06/28/2021 11:10:20 06/28/20 21 PT/OT/OMT- Suzie cervical completed YONATHAN ROBERTS, PT [address] [place], [address], [place] [facility] 06/28/2021 11:10:20 06/28/20 PT/OT/OMT- Therapeutic Exercise completed YONATHAN ROBERTS, PT [address] [place], [address], [place] [facility] 06/28/2021 11:37:47 06/28/20 PT/OT/OMT- Manual Therapy completed YONATHAN ROBERTS, PT [address] [place], [address], [place] [facility] 06/28/2021 11:10:20 06/26/20 21 DBC Cervical Tx Session completed YONATHAN ROBERTS, PT [address] [place], [address], [place] [facility] 06/26/2021 11:42:10 06/26/20 PT/OT/OMT- [place] completed YONATHAN ROBERTS, PT [address] [place], [address], [place] [facility] 06/26/2021 11:31:33 06/26/20 PT/OT/OMT- Suzie cervical completed YONATHAN ROBERTS, PT [address] [place], [address], [place] [facility] 06/26/2021 11:31:33 06/26/20 PT/OT/OMT- Therapeutic Exercise completed YONATHAN ROBERTS, PT [address] [place], [address], [place] [facility] 06/26/2021 11:42:22 06/26/20 PT/OT/OMT- Manual Therapy completed YONATHAN ROBERTS, PT [address] [place], [address], [place] [facility] 06/26/2021 11:31:33 06/21/20 21 DBC Cervical Tx Session completed YONATHAN ROBERTS, PT [address] [place], [address], [place] [facility] 06/21/2021 11:36:32 06/21/20 21 PT/OT/OMT- [place] completed YONATHAN ROBERTS, PT [address] [place], [address], [place] [facility] 06/21/2021 11:36:50 06/21/20 21 PT/OT/OMT- Suzie cervical completed YONATHAN ROBERTS, PT [address] [place], [address], [place] [facility] 06/21/2021 11:37:25 06/21/20 21 PT/OT/OMT- Therapeutic Exercise completed YONATHAN ROBERTS, PT [address] [place], [address], [place] [facility] 06/21/2021 11:39:56 06/21/20 21 PT/OT/OMT- Manual Therapy completed YONATHAN ROBERTS, PT [address] [place], [address], [place] [facility] 06/21/2021 11:37:03 06/19/20 21 DBC Cervical Tx Session completed YONATHAN ROBERTS, PT [address] [place], [address], [place] [facility] 06/19/2021 12:22:15 06/19/20 21 PT/OT/OMT- Deborah completed YONATHAN ROBERTS, PT [address] [place], [address], [place] [facility] 06/19/2021 12:22:15 06/19/20 21 PT/OT/OMT- Suzie cervical completed YONATHAN ROBERTS, PT [address] [place], [address], [place] [facility] 06/19/2021 12:22:15 06/19/20 21 PT/OT/OMT- Manual Therapy completed YONATHAN ROBERTS, PT [address] [place], [address], [place] [facility] 06/19/2021 12:22:15 06/13/20 21 DBC Cervical Tx Session completed YONATHAN ROBERTS, PT [address] [place], [address], [place] [facility] 06/13/2021 16:01:43 06/13/20 21 PT/OT/OMT- [place] completed YONATHAN ROBERTS, PT [address] [place], [address], [place] [facility] 06/13/2021 16:03:06 06/13/20 21 PT/OT/OMT- Suzie cervical completed YONATHAN ROBERTS, PT [address] [place], [address], [place] [facility] 06/13/2021 15:49:45 06/13/20 21 PT/OT/OMT- Manual Therapy completed YONATHAN ROBERTS, PT [address] [place], [address], [place] [facility] 06/13/2021 16:02:57 06/12/20 21 PT/OT/OMT- Suzie cervical completed YONATHAN ROBERTS, PT [address] [place], [address], [place] [facility] 06/12/2021 12:26:10 inguinal hernia repair completed Not Available Health Note 03/11/2022 17:00:06 cholecystectomy completed Not Available Health Note 03/11/2022 17:00:06 Imaging Results None recorded. Procedure Notes None recorded. Medical Equipment None [...] BY TOPICAL ROUTE 4 TIMES PER DAY 01/10 completed HN: Patient reports taking HN: Patient reports no longer taking Not Available Not Available Not Available OptiChamb er Tawnya VHC spacer 01/10 completed HN: [...] Available No t Available Vitals Date Recorded Heart rate Systolic And Diastolic Provider Name and Address Organization Details Last Updated DateTime 10/24/2023 61 /min 114/64 mm[Hg] Omaira Carrasquillo [facility] 10/24/2023 11:04:01 Date Recorded Body height Body mass index (BMI) Body weight Provider Name and Address Organization Details Last Updated DateTime 10/24/2023 185.42 cm 27.4 kg/m2 17978.3251 689909 g Not Available Health Note 10/24/2023 10:32:03 Date Recorded Systolic And Diastolic Provider Name and Address Organization Details Last Updated DateTime 11/07/2023 112/71 mm[Hg] Kristina Lorenzo [facility] 11/07/2023 10:38:14 Date Recorded Body mass index (BMI) Body weight Body height Provider Name and Address Organization Details Last Updated DateTime 11/07/2023 27.4 kg/m2 15720.72613 13810 g 185.42 cm Not Available Health Note 11/07/2023 10:30:25 Date Recorded Body height Body mass index (BMI) Body weight Systolic And Diastolic Provider Name and Address Organization Details Last Updated DateTime 02/15/2022 185.42 cm 26.9 kg/m2 09918.84 g 141/80 mm[Hg] Melanie Yo [facility] 02/15/2022 09:26:45 Date Recorded Body height Body mass index (BMI) Body weight Systolic And Diastolic Provider Name and Address Organization Details Last Updated DateTime 03/15/2022 185.42 cm 26.5 kg/m2 93175.07 g 118/72 mm[Hg] Melanie Yo [place] - [facility] 03/15/2022 09:31:32 Social History Question Answer Notes LastModified [...] Been Counseled On Unhealthy Alcohol Use? Yes [email or web address] Information not available 06/08/2021 Is This A [...] Do You Have A Medical Power Of Connection Worker? Yes [email or web address] Information not available 10/22/2023 What [...] 7 Information not available 04/26/2021 Do You Have Difficulty Walking Or Climbing Stairs? No [email or web address] Information not available 10/22/2023 Sex: Male Functional Status Question Answer Note LastModified by [employer]at ion Details LastModified Time Do you use any illicit or recreational drugs? No Information not available 04/26/2021 Do you or have you ever used any other forms of tobacco or nicotine? No Information not available 04/26/2021 What is your level of alcohol consumption? Occasional [email or web address] Information not available 06/08/2021 Are you currently employed? No [email or web address] Information not available 03/11/2022 Do you have difficulty doing errands alone? No [email or web address] Information not available 10/22/2023 Do you have difficulty dressing, bathing, grooming, or toileting? No [email or web address] Information not available 10/22/2023 Mental Status Question Answer Note LastModified by [employer] Details LastModified Time Do you feel stressed (tense, restless, nervous, or anxious, or unable to sleep at night)? [id number] [email or web address] Information not available 03/11/2022 Do you [...] Heart Problems N Diabetes-Non Insulin Dependent N Rheumatoid Arthritis DIAGNOSED by a Doct or N Sickle Cell Anemia N Ulnar Neuropathy N Hemophilia N Peripheral Artery Disease N Osteoporosis or Osteopenia N Hepatitis - Type Unknown N Chron's Disease N Malaria N Traumatic Brain Injury N SEVERE Allergic [...] SNOMED-CT Code Diagnosis ICD10 Code Diagnosis Note [id number] Jo-Ann Real MD [address] [address] 04/26/2021 13:37:50 04/27/2021 09:42:23 Educated about weight management 303198938 Z71.3 Cervical post-laminectomy syndrome 337825444 M96.1 Degenerati on of cervical intervertebral disc 89758733 M50.30 Cervical radiculitis 110 53424 M54.12 Cervical spondylosis 387 435467 M47.812 Muscle pain 29858122 M79 .18 [id number] Jo-Ann Real MD [address] [address] 06/08/2021 08:53:49 06/08/2021 18:32:28 Cervical post-laminectomy syndrome 605457422 M96.1 Degenerati on of cervical intervertebral disc 16779048 M50.30 Educated a bout weight management 696625353 Z71.3 Cervical radiculitis 110 68241 M54.12 Cervical spondylosis 387 468189 M47.812 Muscle pain 35954901 M79 .18 [id number] YONATHAN ROBERTS PT [address] [address] 06/12/2021 10:46:05 06/12/2021 15:34:00 Degeneration of cervical intervertebral disc 91894336 M50.30 Cervical spondylosis 387 228418 M47.812 [id number] YONATHAN ROBERTS PT [address] [address] 06/13/2021 13:52:42 06/13/2021 16:30:43 Degeneration of cervical intervertebral disc 75311894 M50.30 Cervical spondylosis 387 979755 M47.812 [id number] YONATHAN ROBERTS PT [address] [address] 06/19/2021 12:21:07 06/19/2021 15:02:56 Degeneration of cervical intervertebral disc 15346111 M50.30 Cervical spondylosis 387 143605 M47.812 [id number] YONATHAN ROBERTS PT [address] [address] 06/21/2021 10:49:38 06/21/2021 11:42:34 Degeneration of cervical intervertebral disc 93595337 M50.30 Cervical spondylosis 387 978203 M47.812 [id number] Jo-Ann Real MD [address] [address] 06/23/2021 08:58:20 06/23/2021 09:29:00 Cervical post-laminectomy syndrome 158480221 M96.1 Degenerati on of cervical intervertebral disc 10861551 M50.30 Educated a bout weight management 647334829 Z71.3 Cervical radiculitis 110 58470 M54.12 Cervical spondylosis 387 176949 M47.812 Muscle pain 96901675 M79 .18 Long-term drug therapy 108709512 Z79.899 [id number] YONATHAN ROBERTS [address] [address] 06/26/2021 10:48:31 06/26/2021 11:44:37 Degeneration of cervical intervertebral disc 56640235 M50.30 Cervical spondylosis 387 155723 M47.812 [id number] YONATHAN ROBERTS [address] [address] 06/28/2021 10:46:39 06/28/2021 11:38:44 Degeneration of cervical intervertebral disc 32877877 M50.30 Cervical spondylosis 387 979782 M47.812 [id number] Jo-Ann Real MD [address] [address] 07/20/2021 10:58:57 07/20/2021 12:39:41 Cervical post-laminectomy syndrome 195467367 M96.1 Degenerati on of cervical intervertebral disc 65624439 M50.30 Educated a bout weight management 399258277 Z71.3 Cervical radiculitis 110 85705 M54.12 Cervical spondylosis 387 507998 M47.812 Muscle pain 80577810 M79 .18 [id number] Jo-Ann Real MD [facility] [address] [place] [address] 08/08/2021 10:36:50 08/08/2021 21:26:44 Cervical spondylosis 492261085 M47.812 [id number] Jo-Ann Real MD [facility] [address] [place] [address] 09/06/2021 10:58:12 09/06/2021 12:08:26 Cervical post-laminectomy syndrome 339970440 M96.1 Degenerati on of cervical intervertebral disc 09342588 M50.30 Educated a bout weight management 337614960 Z71.3 Cervical radiculitis 110 97913 M54.12 Cervical spondylosis 387 690993 M47.812 Muscle pain 92858730 M79 .18 [id number] Jo-Ann Real MD [facility] [address] [place] [address] 09/19/2021 11:21:10 09/19/2021 14:22:56 Cervical spondylosis 126393379 M47.812 [id number] Mohamud Rangel MD - TL [address] [place] [address] 09/29/2021 09:45:26 10/01/2021 23:37:04 At low risk for fall 198545937 Z91.81 Body mass index 25-29 - overweight 544175147 Z68.29 Influenza vaccination given 8049689857 9109 Z23 april 2021 via [employer] Sleep apnea 79326953 G47 .30 R09.02 this patient has been diagnosed with obstructiv e sleep apnea (G47.33). I am referring this patient [facility] and jovanny kilgore a mandibular reposition ing device (E0486). the device is for the treatment of the patients sleep apnea and the length of need is Lifetime; it is NOT for any Dental disorder; it is considered durable medical equipment; and it is medically necessary. this device will be provided and billed by a licensed dentist. Thank you for your prompt attention to this matter. [facility] [id number] R09.02 [id number] Jo-Ann Real MD [address] [address] 10/05/2021 13:49:10 10/05/2021 17:05:36 Cervical post-laminectomy syndrome 853466364 M96.1 Degenerati on of cervical intervertebral disc 53592176 M50.30 Educated a bout weight management 599014056 Z71.3 Cervical radiculitis 110 99087 M54.12 Cervical spondylosis 387 351108 M47.812 Muscle pain 00945493 M79 .18 Long-term drug therapy 824897511 Z79.899 [id number] Jo-Ann Real MD [facility] [address] [address] 10/24/2021 10:09:03 10/24/2021 14:28:56 Cervical spondylosis 775522718 M47.812 [id number] Jo-Ann Real MD [address] [address] 11/08/2021 09:33:20 11/08/2021 17:59:30 Cervical spondylosis 585731231 M47.812 Cervical post-laminectomy syndrome 754851186 M96.1 Degenerati on of cervical intervertebral disc 77111182 M50.30 Educated a bout weight management 948446528 Z71.3 Cervical radiculitis 110 47064 M54.12 Muscle pain 56301453 M79 .18 Long-term drug therapy 232437518 Z79.899 [id number] Jo-Ann Real MD [address] [address] 12/13/2021 09:29:47 12/13/2021 17:30:38 Cervical spondylosis 120733598 M47.812 Cervical post-laminectomy syndrome 258385049 M96.1 Degenerati on of cervical intervertebral disc 09899500 M50.30 Educated a bout weight management 420259466 Z71.3 Cervical radiculitis 110 79419 M54.12 Muscle pain 97949990 M79 .18 Long-term drug therapy 109626326 Z79.899 Lumbar spondylosis 20690 0009 M47.896 [id number] Jo-Ann Real MD [address] [address] 01/10/2022 09:32:56 01/10/2022 17:40:06 Cervical spondylosis 689087154 M47.812 Cervical post-laminectomy syndrome 973089606 M96.1 Degenerati on of cervical intervertebral disc 25386414 M50.30 Educated a bout weight management 069959317 Z71.3 Cervical radiculitis 110 17119 M54.12 Muscle pain 50683966 M79 .18 Long-term drug therapy 747418448 Z79.899 Lumbar spondylosis 45738 0009 M47.896 Hypertensive disorder 38 560593 I10 [id number] Jo-Ann Real MD [place] [address] 02/15/2022 09:19:01 02/15/2022 17:38:38 Cervical spondylosis 727708181 M47.812 Cervical post-laminectomy syndrome 145405047 M96.1 Degenerati on of cervical intervertebral disc 78250486 M50.30 Educated a bout weight management 598453247 Z71.3 Cervical radiculitis 110 50621 M54.12 Muscle pain 33587210 M79 .18 Lumbar spondylosis 43557 0009 M47.896 Hypertensive disorder 38 530327 I10 Long-term drug therapy 010710209 Z79.899 Body mass index 25-29 - overweight 357332482 Z68.26 Lumbar post-laminectomy syndrome 595009108 M96.1 [id number] Jo-Ann Real MD -[facility] [address] [address] 03/13/2022 12:46:55 03/13/2022 15:07:46 Lumbar spondylosis 099092697 M47.896 [id number] Jo-Ann Real MD [address] [address] 10/24/2023 10:30:44 10/24/2023 11:47:23 Body mass index 25-29 - overweight 471542599 Z68.27 Cervical spondylosis 387 418605 M47.812 Cervical post-laminectomy syndrome 499850457 M96.1 Degenerati on of cervical intervertebral disc 16148929 M50.30 Educated a bout weight management 073370735 Z71.3 Cervical radiculitis 110 66673 M54.12 Muscle pain 97062140 M79 .18 Lumbar spondylosis 91578 0009 M47.896 Hypertensive disorder 38 191673 I10 Lumbar post-laminectomy syndrome 409597035 M96.1 [id number] Jo-Ann Real MD [address] [place] [address] 11/07/2023 10:29:28 11/07/2023 12:50:39 Cervical spondylosis 830851154 M47.812 Cervical post-laminectomy syndrome 550153948 M96.1 Body mass index 25-29 - overweight 982619479 Z68.27 Degenerati on of cervical intervertebral disc 76831734 M50.30 Educated a bout weight management 509326846 Z71.3 Cervical radiculitis 110 89244 M54.12 Muscle pain 96315712 M79 .18 Lumbar spondylosis 04215 0009 M47.896 Hypertensive disorder 38 399519 I10 Lumbar post-laminectomy syndrome 657576852 M96.1 Health Concerns Section Related Observation LastModified by Organization Detai ls LastModified Time None Recorded Concern Status LastModified by Organization Details LastModified Time None Recorded Advance Directives Directive Y: Payers Insurance Date Sequence Insurance Name Policy Number Policy Juan Covered Member ID Juan Member ID Guarantor Name 11/06/2023 1 [employer] (MEDICARE REPLACEMENT/ ADVANTAGE - PPO) [id number] Kris Jeter [id number] Kris Jeter 10/23/2023 1 [place] Kris Jeter [id number] Kris Jeter 10/23/2023 2 [place] Kris Jeter [id number] Kris Jeter
== END 2025-02-02 14:33 | disposition home or self-care (01) ==
LOC: HO.HMCFM 13:35
PROVIDERS: PCP Nurse Practitioner Family; Visit Provider Nurse Practitioner Family
DX: R35.1 Nocturia (principal)

== ENCOUNTER → 2025-02-02 13:34 | Outpatient (BNVA) | payer MEDICARE, SELFPAY | PROVIDERS: PCP Nurse Practitioner Family; Visit Provider Nurse Practitioner Family | DX: R35.1 Nocturia (principal); Z13.31 Encounter for screening for depression | CPT/HCPCS: 96127; 99212 ==

== ENCOUNTER 2025-02-02 14:56 | Outpatient (REF) | payer MEDICARE, SELFPAY ==
[2025-02-02 17:58] LABS: Appearance Urine Clear; Glucose Urine UA Negative (Negative); PH 5.5 (5.0-9.0); Specific Gravity - Urine 1.020 (1.005-1.025)
== END 2025-02-02 14:57 | disposition home or self-care (01) ==
LOC: HO.WFDLDS 14:56
PROVIDERS: Internal Medicine Cardiovascular Disease; Visit Provider Nurse Practitioner Family
DX: I48.0 Paroxysmal atrial fibrillation (principal); R35.1 Nocturia
CPT/HCPCS: 36415; 80181; 81003

== ENCOUNTER 2025-03-11 10:39 | Outpatient (AMB) | payer MEDICARE, SELFPAY ==
[2025-03-11 10:42] VITALS: BP 126/80; PULSE 53; BMI 29.3
--- NOTE | 2025-03-11 10:42 | A.OFFVIS_ITS ---
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 He said usually couple of beats. He has not had any prolonged episodes of atrial fibrillation. He gets his EKGs almost on every day basis. He is being currently taking flecainide 150 mg b.i.d. as well as metoprolol and oral anti coagulation therapy. He has not been able to exercise much because of hip issues. However he has no exertional chest pain shortness of breath. He denies any bleeding issues or neurologic events. Denies any heart failure symptoms. [facility] Medical History (Updated 03/11/25 @ 12:04 by Soren Matta MD) Paroxysmal atrial fibrillation Basal cell carcinoma of skin of face Psoriasis Acid reflux Heart palpitations Surgical History History of elbow surgery History of shoulder surgery S/P cervical spinal fusion History of lumbar fusion Social History Housing: House Alcohol intake: current Alcohol intake frequency: a few times a month Alcohol type: hard liquor Patient Tobacco Use Status: Never used Tobacco e-Cigarette/Vaping Use: Never Used Second Hand Smoke Exposure: No service: No Current occupational status: retired Current occupational exposures/hazards: No Cognitive needs: No Hearing needs: No Vision needs: Yes Review of Systems Const Denies chills, Denies fatigue, Denies fever(s), Denies frequent falls, Denies weakness, Denies weight gain and Denies weight loss ENT Denies dizziness Card Denies chest pain, Denies leg edema, Denies lightheadedness, Denies palpitations, Denies dyspnea, Denies dyspnea on exertion, Denies orthopnea and Denies other (loss of consciousness) Resp Denies cough, Denies dyspnea and Denies dyspnea on exertion GI Denies hematochezia and Denies change in stool character Musc Denies abnormal gait, Denies muscle weakness, Denies numbness, Denies radiating pain into limb and Denies tingling Neuro Denies Abnormal speech present, Denies abnormal gait, Denies dizziness, Denies frequent falls, Denies numbness, Denies tingling and Denies weakness Endo Denies fatigue and Denies palpitations Physical Exam Vital Signs: Last Vital Signs Pulse 53 03/11/25 10:42 BP 126/80 03/11/25 10:42 BMI result Body Mass Index 29.3 Const General: cooperative, comfortable, no acute distress, alert, awake and Physically active Nutritional Appearance: average body habitus Orientation/consciousness: patient oriented x3 Limitations: no limitations HEENT Head: Yes normocephalic and Yes atraumatic Neck Neck: Yes trachea midline, Yes supple and Yes no JVD Resp Effort & Inspection: normal respiratory effort Auscultation: clear to auscultation bilaterally Cardio Jugular venous distension: no JVD Palpation: normal PMI Rate: regular rate Rhythm: regular rhythm Heart sounds: S1 normal heart sound present, S2 normal heart sound present, no click, no gallops, no murmurs and no rubs GI Auscultation: normal bowel sounds Skin General skin exam: no rashes or lesions noted Neuro General: patient oriented x3 and no focal motor deficits Speech: No Abnormal speech present Extrem General: Yes no clubbing, cyanosis or edema Psych Appearance: grossly normal Office Procedures EKG Details: EKG shows sinus bradycardia with first-degree AV block at 53 beats per minute [id number], Complete Assessment & Plan Assessment & Plan (1) Paroxysmal atrial fibrillation: Code(s): I48.0 - Paroxysmal atrial fibrillation Category: Medical Plan: Highly symptomatic paroxysmal atrial fibrillation this elderly gentleman but having increasing symptoms of palpitation which are most likely suggestive of PACs rather than recurrence of atrial fibrillation. He has symptoms of very short lasting and last for only couple of beats. He has not had any EKG evidence of atrial fibrillation by his device. However he says he is very symptomatic with this and would want to consider ablation. Will refer him to electrophysiology for the same. Meanwhile we discussed about an alternative antiarrhythmic agent that might work better than flecainide for him. We discussed about transitioning him to Multaq 400 mg b.i.d.. We discussed about how to transition him to the same. Continue full oral anticoagulation, currently on Eliquis 5 mg b.i.d.. Semi annual renal function test to be pursued. Stress mitigation strategies were discussed. Avoidance of stimulants was discussed. Follow-up for EKGs in 1 week and follow up in the clinic in 3 months. Thank you for allowing me to partake in his care Orders: Referrals Cardiac Electrophysiology Referral I48.0 - Paroxysmal atrial fibrillation Medications: New dronedarone (Multaq) must administer with a meal/food. Start 03/14/25 400 mg PO BID 60 tabs 5RF Coding Level of Care Code Est Pt Level 4 (33041) Complex EM visit Add On G2211 Diagnoses Paroxysmal atrial fibrillation I48.0 CPT Codes EKG - CPT: 68815-[id number], Complete ([id number])
--- OUTSIDE RECORDS SUMMARY | 2025-03-11 12:10 | XMS_ITS | Patient Health Record ---
Author Organization [facility] Billing Info Address [address] [place] [address] Chan thompson [place] [id number] Care Team Providers Care Back Up Worker Name Role Phone Kris López DO Primary Care Provider JANAY Nowak [phone] Allergies No Known Allergies Reason For Referral [...] MEDICARE [place] PART B [address] [facility] AILYN DÍAZ [id number] Kris Jeter Self - patient is the insured 8 2 [employer] EMPLOYEE PLAN [address] [place], [place] [id number] Kris Jeter Self - patient is the insured 2 2 Medical (General) History Medical History History ICD Code Past Medical History: Atrial Fib/Flutter (ANSWERED BY PATIENT) Surgical History Surgery Date(Month/Year)
== END 2025-03-11 11:13 | disposition home or self-care (01) ==
LOC: HO.HCS 10:40
PROVIDERS: PCP Nurse Practitioner Family; Visit Provider Internal Medicine Cardiovascular Disease
DX: I48.0 Paroxysmal atrial fibrillation (principal)
CPT/HCPCS: 93010; 99214; G2211

== ENCOUNTER → 2025-03-11 10:39 | Outpatient (BNVA) | payer MEDICARE, SELFPAY | PROVIDERS: PCP Nurse Practitioner Family; Visit Provider Internal Medicine Cardiovascular Disease | DX: I48.0 Paroxysmal atrial fibrillation (principal); R00.1 Bradycardia, unspecified; I44.0 Atrioventricular block, first degree; R00.2 Palpitations | CPT/HCPCS: 93005; 99212 ==

== ENCOUNTER 2025-03-15 10:35 | Outpatient (AMB) | payer MEDICARE, SELFPAY ==
--- OUTSIDE RECORDS SUMMARY | 2024-05-14 13:15 | XMS_ITS ---
Author Organization [facility] Address [address] [place] [address] Care Team Providers Care Cvicu Nurse Name Role Phone Neeta Allenp Unavailable Sidney Santizo Unavailable Unavailable Nargis Iniguez Unavailable [phone] Encounters Encounter Location Date Provider Diagnosis [place] [address] [place] [address] 05/14/2024 Nargis Iniguez Plan Of Treatment No Information Progress Notes * Kris CALL DDOB:1949 (74 yo M)Acc No.[id number]:05/14/2024 Progress Notes Patient: Gelacio Kris APPLE Provider: Dustin Iniguez M.D. :1950 A ge:73 Y S ex:Male Date:05/14/2024 Address:[address] [facility] Subjective: * Chief Complaints: * * Medical History: Objective: * Vitals: Assessment: Plan: * Treatment: * Billing Information: * Visit Code: * Procedure Codes: * Electronic signature of Jona Iniguez M.D. on 03/15/2025 at 11:47 AM CDT Sign off status: Pending * Provider: Dustin Iniguez M.D. Date: 07/14/2023 Generated for Printi ng/Faxing/eTransmitting on: 0 03/15/2025 11:47 AM CDT
[2025-03-15 10:42] VITALS: BP 119/64; PULSE 62; RESP 18; O2SAT 97; BMI 29.0
--- NOTE | 2025-03-15 10:42 | A.OFFVIS_ITS ---
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 He underwent right cervical medial branch radiofrequency ablation (RFA) and reports neck pain has been mild but continuos with significant muscle stiffness and spasms and right shoulder pain with movements and use of right arm. The patient reports that the neck pain radiates from the neck to the trapezius muscle, but not significantly to other areas. He is currently on anticoagulation therapy with Eliquis. He is interested to undergo right shoulder intra-articular steroid and cervical trigger point injections as next steps. The patient has a history of left shoulder bursitis and canal surgery, which involved removing arthritis from a nerve channel. He uses a TENS unit for pain management and has experienced adverse effects from cyclobenzaprine, leading to discontinuation. Denies any recent cough, cold, infection, fever or any significant changes in medical history since last office visit. - Onset: Pain began after right cervical medial branch RFA. - Quality: Pain is primarily located in the posterior and top shoulder region. - Radiation: Pain radiates to the right trapezius muscle. - Exacerbating factors: Lying on the right side increases pain, causing sleep disturbances. - Relieving factors: Use of TENS unit. - Affect: Pain interferes with sleep when lying on the right side. - Analgesia: Current pain level is about 5/10 at rest and intensifies to 7/10 with movements or right arm use. - Adverse Effects: Cyclobenzaprine caused fluttering, leading to discontinuation. - Activities of Daily Living: Pain affects the ability to sleep on the right side. - Aberrant Drug Related Behaviors: None reported. Past Procedures: 09/17/24: Right C4-C5-C6 RFA-85-90% ongoing pain relief 08/13/24: Right Diagnostic C4-C5-C6 MBB-80% pain relief for 7 hours PRIOR: Patient presents today for follow up to discuss recent cervical spine MRI results. Patient continues to report persistent neck pain and bilateral numbness and tingling in his upper extremities. He reports limited ROM with pain and stiffness of his left shoulder. Reports remote history of left shoulder and elbow surgeries for nerve transposition in [place] in [id number]. MRI of cervical spine does not show significant disc herniations or stenosis. We will proceed with Neurodiagnostic studies as next steps. Patient is hoping to undergo right sided diagnostic cervical MBBs for potential RFA in the near future. We will resubmit this request to his insurance. Denies any recent cough, cold, infection, fever or any significant changes in medical history since last office visit. Denies any changes to medications, medical history or recent hospitalizations. PRIOR: Patient presents today for follow up to discuss recent insurance denial for right sided diagnostic cervical medial branch blocks for potential RFA procedure and alternative treatment options. Patient is also concerned for worsening radicular symptoms with neck pain radiating into both shoulders and now into left lower arm and 4-5th digits with numbness and tingling. Denies any recent trauma, injury or falls. He denies any carpal tunnel symptoms at the elbow or wrist areas. Neck pain with also easily reproduced with any movement, axial rotations and extension. Pain is rated at 8/10. His last cervical spine MRI was completed at 2019. Denies any recent cough, cold, infection, fever, bladder or bowel dysfunction, saddle anesthesia, gait instability, or any significant changes in medical history since last office visit. PRIOR: Patient is a pleasant 74 year old male with a history of 3 cervical fusions, lumbar fusion, chronic neck and low back pain, arthritis, gastritis, palpitation, AFib, presents today to establish care and discuss treatments for right-sided neck pain. Patient recently moved from [place] where he was followed by Pain Clinic, Dr. Conrad Real. He denies any recent trauma, injury, or falls. Patient reports history of left cervical medial branch blocks and left C5-C6 cervical RFA in 2021 with good results. Patient also underwent extensive conservative treatments including multiple courses of physical and chiropractic therapy, massages, TENS unit and medical management with opioids, muscle relaxants with his previous provider in [place]. Complete medical record from previous pain clinic has been scanned into patient?s chart today. Patient reports right-sided neck pain with movements, especially with bending and lateral rotations. Neck pain radiates into his right upper extremity to the elbow, wrist and 3rd through 5th fingers with associated numbness and tingling. His pain is most severe in the late morning and early evening which he rates 8/10 and least severe 1st thing in the morning, rated 3/10. Pain affects his daily activities and functioning, mobility, sleep, and social interactions. He is interested to undergo right-sided cervical medial branch blocks for potential therapeutic injections or RFA procedure. Denies any fever or chills, dizziness, shortness of breath, chest pain, gait imbalances, bladder or bowel dysfunction or saddle anesthesia. Patient is currently on Eliquis 5 mg BID, pending Cardiology referral to establish care, was managed by Dr. Terry in [facility], . Location: Neck pain h/o cervical fusion at multiple levels 1993, 2007, 2018 Duration: Chronic pain for many years Characteristics of symptom or complaint: Aching, sore, hurting, dull, heavy, spasming, tiring, tight Aggravating or associated factors: Movements, flexion, looking down, weather changes, stress Relieving factors: Percocet, hydrocodone, cyclobenzaprine, heat, exercises, massages Treatment: Injections, PT, cervical medial branch RFA, TENS unit, chiropractic therapy ADDENDUM Patient's neck pain is predominately axial in nature with intermittent radicular symptoms into his right arm and hand. He responded very well to previous left sided cervical medial branch RFA in 2021 and is interested to undergo right sided diagnostic cervical medial branch blocks for potential RFA procedure. [facility] Medical History Paroxysmal atrial fibrillation Basal cell carcinoma of skin of face Psoriasis Acid reflux Heart palpitations Surgical History History of elbow surgery History of shoulder surgery S/P cervical spinal fusion History of lumbar fusion Social History Housing: House Alcohol intake: current Alcohol intake frequency: a few times a month Alcohol type: hard liquor Patient Tobacco Use Status: Never used Tobacco e-Cigarette/Vaping Use: Never Used Second Hand Smoke Exposure: No service: No Current occupational status: retired Current occupational exposures/hazards: No Cognitive needs: No Hearing needs: No Vision needs: Yes Review of Systems Const Details: - Musculoskeletal: Reports right shoulder pain, denies left shoulder pain. - Neurological: Denies significant radiation of pain beyond the trapezius muscle. All systems reviewed & are unremarkable except as noted in HPI and below Physical Exam Vital Signs: Last Vital Signs Pulse 62 03/15/25 10:42 Resp 18 03/15/25 10:42 BP 119/64 03/15/25 10:42 Pulse Ox 97 03/15/25 10:42 Oxygen Delivery Method Room Air 03/15/25 10:42 BMI result Body Mass Index 29.0 General: Appears afebrile. Alert and oriented. Mood and affect appropriate. Follows and participates in conversation appropriately. Respiratory effort is unlabored. No cough. Able to transition from sit to stand unassisted. Ambulates with bilaterally normal heel strike and toe off. Neck Neck: Yes normal visual inspection, Yes no lymphadenopathy, Yes supple, No anterior neck swelling, Yes no JVD and No prominent dorsocervical fat pad Back/Spine/Pelvis Cervical Spine: cervical muscular tenderness, No pain with cervical ROM, Cervical spine scars present, cervical spasm (right trapezius TTP with muscle stiffness) and No Cervical spine tenderness Extrem General: Yes capillary refill normal, Yes no clubbing, cyanosis or edema and Yes no calf tenderness Right upper extremity: shoulder/upper arm (Limited ROM due to pain) Details: normal to inspection, tenderness Location: of the A-C joint and over the biceps tendon and crepitus; no swelling Results Reviewed Results Reviewed: MR SPINE CERVICAL without CONTRAST 07/18/24 at [facility] INDICATION: Postlaminectomy syndrome. Spinal stenosis. Spondylosis. TECHNIQUE: Unenhanced multiplanar, multisequence MR imaging of the cervical spine. COMPARISON: XR cervical spine 10/25/2023 (report only; imaging unavailable); MR cervical spine 03/23/2021 (report only; imaging unavailable). FINDINGS: Susceptibility artifact is seen from a prior fusion at C3-4 and in the upper thoracic spine. There has been prior fusion, and there does appear to be bony fusion in the mid and lower cervical spine. I see no focal disc herniations or evidence of stenosis. Neural foramen appear patent. Normal cervical alignment is demonstrated. Vertebral heights are well maintained. Craniocervical junction is unremarkable. Bone marrow signal is within normal limits, and no suspicious osseous lesion is identified. Prevertebral and paraspinal soft tissues are within normal limits. Visualized portions of the posterior fossa are unremarkable. Cervical cord demonstrates normal course, caliber, and signal characteristics. No epidural fluid collection or hematoma is identified. At C2-3 there is no significant disc herniation or protrusion. No central canal or neural foraminal stenosis is demonstrated. At C3-4 there is no significant disc herniation or protrusion. No central canal or neural foraminal stenosis is demonstrated. At C4-5 there is no significant disc herniation or protrusion. No central canal or neural foraminal stenosis is demonstrated. At C5-6 there is no significant disc herniation or protrusion. No central canal or neural foraminal stenosis is demonstrated. At C6-7 there is no significant disc herniation or protrusion. No central canal or neural foraminal stenosis is demonstrated. At C7-T1 there is no significant disc herniation or protrusion. No central canal or neural foraminal stenosis is demonstrated. IMPRESSION: Anterior fusion from C3 through the upper thoracic spine. Some susceptibility artifact obscuring portions of the canal at C3-4. No large central disc herniations or stenosis. CSF fluid appears to surround the cord at all levels that are visualized. NE electromyogram (EMG); NE nerve conduction velocity 09/02/24 Chief complaint: Bilateral hand numbness, more severe on left, especially left 4th and 5th digits FINDINGS: Left ulnar motor nerve showed normal distal latency, small amplitudes and normal conduction velocity. Left ulnar sensory nerve showed absent response. Left median motor nerve showed prolonged distal latency, normal amplitude and slow conduction velocity. Bilateral median sensory nerves showed prolonged peak latency. Concentric needle EMG was performed in selected muscles of the bilateral upper extremities. Study did not reveal signs of electric abnormalities as shown in the table above. IMPRESSION: 1. This is an abnormal study. 2. There is electrodiagnostic evidence for chronic ulnar neuropathy. 3. There is electrodiagnostic evidence for left moderate-severe and right mild median neuropathy at the wrist, consistent with Carpal Tunnel Syndrome. 4. There is no electrodiagnostic evidence for brachial plexopathy or cervical radiculopathy. XR SHOULDER, RIGHT 10/15/24 CLINICAL INFORMATION: M25.511 - Pain in right shoulder COMPARISON: None available. TECHNIQUE: Three views of the right shoulder. FINDINGS: Normal bone mineralization. No fracture, dislocation, or suspicious bone lesion. Normal alignment. The glenohumeral joint demonstrates mild degenerative arthritis. The AC joint demonstrates mild degenerative spurring. There is a type I acromion. No undersurface spurring. The subacromial space is preserved. Soft tissues demonstrate very mild calcification of the distal supraspinatus tendon abutting the insertion on the greater tuberosity. Remainder of the soft tissue and bony structures appear normal. IMPRESSION: 1. No acute bony abnormalities. 2. Very mild calcific tendinopathy of the supraspinatus tendon. 3. 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 Assessment & Plan Assessment & Plan (1) S/P cervical spinal fusion: Comment: Code(s): Z98.1 - Arthrodesis status Category: Surgical (2) Post laminectomy syndrome: Code(s): M96.1 - Postlaminectomy syndrome, not elsewhere classified Category: Medical (3) Cervical spondylosis: Code(s): M47.812 - Spondylosis without myelopathy or radiculopathy, cervical region Category: Medical (4) Right shoulder pain: Code(s): M25.511 - Pain in right shoulder Category: Medical (5) Muscle spasms of neck: Code(s): M62.838 - Other muscle spasm Category: Medical (6) Osteoarthritis of right shoulder: Code(s): M19.011 - Primary osteoarthritis, right shoulder Category: Medical Plan The plan for managing the patient's right shoulder pain includes scheduling an intra-articular steroidal right shoulder injection with local and fluoroscopy. Due to the patient's anticoagulation therapy with Eliquis, the medication will be stopped for three days prior to the procedure to minimize bleeding risk. Additionally, trigger point injection with dry needling of the right trapezius will be considered to alleviate muscle tightness. Expectations, risks and benefits were reviewed. Patient is aware he will be contacted to schedule this procedure. All questions and concerns have been answered and patient agreed with the treatment plan. Follow up after injections and sooner as needed. Patient was informed and verbally consented to the use of an ambient scribe for clinic note documentation during this visit. Medications: Discontinued 2 lorazepam Take one to two tabs 30 mins prior to MRI 07/18/24. May repeat x1. Do not drink alcohol or drive after taking it. Discontinued Reason: Patient Completed Course 0.5 mg PO ONCE 1 day PRN 3 tabs 0RF anxiety F41.8 - Other specified anxiety disorders, M96.1 - Postlaminectomy syndrome, not elsewhere classified Coding Level of Care Code Est Pt Level 4 (52243) Complex EM visit Add On G2211 Diagnoses S/P cervical spinal fusion Z98.1 Post laminectomy syndrome M96.1 Cervical spondylosis M47.812 Right shoulder pain M25.511 Muscle spasms of neck M62.838 Osteoarthritis of right shoulder M19.011
--- OUTSIDE RECORDS SUMMARY | 2025-03-15 12:47 | XMS_ITS | Patient Health Record ---
Author Organization [facility] Address [address] [place] [address] Care Team Providers Care Joint Setter Name Role Phone Meek Allen Unavailable [phone] Sidney Santizo Unavailable Unavailable Nargis Iniguez Unavailable [phone] Reason For Referral No Information Medications Medication SIG (Take, Route, Fr equency, Duration) Notes Start Date End Date Status ALPRAZolam 2 mg 1 tab(s) orally 3 times a day Active Fish Oil 1000 mg 2 po once a day Active DULoxetine 30 mg 1 cap(s) orally 2 ti mes a day; Duration: 30 day(s) Active Vitamin 1 tab(s) Daily Activ e oxyCODONE 10 mg 1 tab(s) orally ever y 12 hours; Duration: 30 day(s) Active Fiber OTC PO once a day Active CeleBREX 400 mg 1 cap(s) orally once a day Active Problems Problem Type SNOMED Code ICD Code Onset Dates Problem Status W/U Status Risk Notes Problem Paresthesia (finding) (83027822) Paresthesia of skin (R20.2) Active confirmed Problem Polyneuropathy (70282006) Polyneuropathy in diseases classified elsewhere (G63) Active confirmed Plan Of Treatment No Information Insurance Providers Payer Name Payer Address Payer Phone Subscriber Number Group Number Insured Name Patient Relationship to Insured Coverage Start Date Coverage End Date Medicare Traditional [address] [place] [address] [id number] Kris Jeter Self - patient is the insured 8 [facility]/ [employer] [address] [place] [address] [id number] Kris Jeter Self - patient is the insured
--- OUTSIDE RECORDS SUMMARY | 2025-03-15 12:47 | XMS_ITS | Patient Health Record ---
Author Organization [facility] Billing Info Address [address] [place] [address] Chan thompson [place] [id number] Care Team Providers Care Carton Forming Machine Tender Name Role Phone Kris López DO Primary Care Provider JANAY Nowak [phone] Allergies No Known Allergies Reason For Referral [...] MEDICARE [place] PART B [address] [facility] AILYN DÍAZ [id number] [phone] [id number] Kris Jeter Self - patient is the insured 8 2 [employer]EE PLAN [address] [place], [place] [phone] [id number] Kris Jeter Self - patient is the insured 2 2 Medical (General) History Medical History History ICD Code Past Medical History: Atrial Fib/Flutter (ANSWERED BY PATIENT) Surgical History Surgery Date(Month/Year)
== END 2025-03-15 11:05 | disposition home or self-care (01) ==
LOC: HO.PMC 10:36
PROVIDERS: PCP Nurse Practitioner Family; Visit Provider Nurse Practitioner Family
DX: Z98.1 Arthrodesis status (principal); M96.1 Postlaminectomy syndrome, not elsewhere classified; M47.812 Spondylosis without myelopathy or radiculopathy, cervical region; M25.511 Pain in right shoulder; M62.838 Other muscle spasm; M19.011 Primary osteoarthritis, right shoulder
CPT/HCPCS: 99214; G2211

== ENCOUNTER → 2025-03-15 10:35 | Outpatient (BNVA) | payer MEDICARE, SELFPAY | PROVIDERS: PCP Nurse Practitioner Family; Visit Provider Nurse Practitioner Family | DX: M19.011 Primary osteoarthritis, right shoulder (principal); M62.838 Other muscle spasm; M25.511 Pain in right shoulder; M47.812 Spondylosis without myelopathy or radiculopathy, cervical region; M96.1 Postlaminectomy syndrome, not elsewhere classified; Z98.1 Arthrodesis status | CPT/HCPCS: 99212 ==

== ENCOUNTER 2025-04-27 08:40 | Outpatient (AMB) | payer MEDICARE, SELFPAY ==
--- OUTSIDE RECORDS SUMMARY | 2024-05-14 13:15 | XMS_ITS ---
Author Organization [facility] Address [address] [place] [address] Care Team Providers Care Chinese Instructor Name Role Phone Neeta Allenp Unavailable Sidney Santizo Unavailable Unavailable Nargis Iniguez Unavailable [phone] Encounters Encounter Location Date Provider Diagnosis [place] [address] [place] [address] 05/14/2024 Nargis Iniguez Plan Of Treatment No Information Progress Notes * Kris CALL DDOB:1949 (74 yo M)Acc No.[id number]:05/14/2024 Progress Notes Patient: Gelacio Kris APPLE Provider: Dustin Iniguez M.D. :1950 A ge:73 Y S ex:Male Date:05/14/2024 Address:[address] [facility] Subjective: * Chief Complaints: * * Medical History: Objective: * Vitals: Assessment: Plan: * Treatment: * Billing Information: * Visit Code: * Procedure Codes: * Electronic signature of Jona nIiguez M.D. on 04/27/2025 at 07:59 AM CDT Sign off status: Pending * Provider: Dustin Iniguez M.D. Date: 07/14/2023 Generated for Valdemari ng/Faxing/eTransmitting on: 07:59 AM CDT
--- NOTE | 2025-04-27 08:43 | A.OFFVIS_ITS ---
Intake Visit Reasons: nocturia Intake Note: Patient is present for NOCTURIA Urology Medication:TAMSULOSIN Antibiotic Allergy:NONE Blood Thinner:APIXABAN TODAY'S PVR:42ML'S Swatch Paster Required: No Allergies No Known Allergies Allergy (Verified 04/27/25 09:20) Medication List - Last Reconciled 04/27/25 by ZOYA Martell-HAKEEM apixaban (Eliquis) 5 mg PO BID diclofenac sodium 1% (Voltaren Arthritis Pain) 4 grams topical QID flecainide 150 mg PO Q12H gabapentin 300 mg PO BID 30 days metoprolol succinate ER 50 mg PO DAILY tamsulosin 0.8 mg (2 x 0.4 mg) PO BEDTIME 90 days HPI Comments Details: Kris Patel is a very pleasant 74-year-old male patient of Dr. Tenorio. He has a past medical history of paroxysmal AFib, basal cell carcinoma of skin/face, psoriasis, acid reflux, and heart palpitation. He presents to the office today as a new patient for nocturia. In discussion with the patient today he reports having followed up with his PCP in discussing ongoing episodes of nocturia at which time he was started on Flomax and does feel this has been somewhat helpful. He reports symptoms of nocturia have been present for many years however had only been getting up 2-3 times per night however most recently over the last 4-6 months has been experiencing nocturia up to 5 times per night. He does report with initiation of Flomax he is back down to 2-3 times per night. In office urinalysis results reviewed with the patient today. PVR 42 mL. In review of patient's chart it appears PSA 05/31 1.3. When asked he denies any signs or symptoms of sleep apnea. He reports he typically limits fluids 2-3 hours prior to bed. He otherwise denies any bothersome urinary issues. He denies urinary urgency, urinary frequency, incontinence, hematuria, dysuria, foul smelling urine, changes to urinary stream, flank pain, fever, and or chills. We discussed at length potential causes of nocturia as well as further treatment options and risks and benefits of these treatment options. All questions were answered. He otherwise offers no other issues or concerns at this time. History of Present Illness The patient is a 74-year-old male presenting with nocturia. He reports waking up two to five times per night to urinate, a condition that has persisted since the beginning of summer, approximately four to six months ago. The patient has been taking tamsulosin (Flomax) prescribed by his primary care physician, which has provided some relief, but he continues to experience nocturia. An ultrasound of the kidneys and bladder has been recommended to assess prostate size and rule out other potential causes of nocturia. Plan Patient was informed and verbally consented to the use of an ambient scribe for clinic note documentation during this visit. Discussion Notes During the visit, we discussed the management of nocturia, including increasing the dosage of tamsulosin and scheduling an ultrasound to assess prostate size. We also reviewed the patient's PSA levels and the need for potential repeat testing. The patient was advised to continue his current medications for atrial fibrillation and nerve pain. Patient Instructions - Increase tamsulosin dosage to two capsules at night before bed. - Schedule an ultrasound of the kidneys and bladder. - Monitor PSA levels and consider repeat testing if necessary. - Avoid eating and drinking three hours before bed. [facility] Medical History Paroxysmal atrial fibrillation Basal cell carcinoma of skin of face Psoriasis Acid reflux Heart palpitations Surgical History History of elbow surgery History of shoulder surgery S/P cervical spinal fusion History of lumbar fusion Social History Housing: House Alcohol intake: current Alcohol intake frequency: a few times a month Alcohol type: hard liquor Patient Tobacco Use Status: Never used Tobacco e-Cigarette/Vaping Use: Never Used Second Hand Smoke Exposure: No service: No Current occupational status: retired Current occupational exposures/hazards: No Cognitive needs: No Hearing needs: No Vision needs: Yes Review of Systems Const All systems reviewed & are unremarkable except as noted in HPI and below Physical Exam Const General: cooperative, healthy appearing, comfortable, no acute distress, well developed, alert and awake Orientation/consciousness: patient oriented x3 Limitations: no limitations HEENT Head: Yes normal to inspection, Yes normocephalic and Yes atraumatic Ears: hearing grossly normal bilaterally Eyes General: appearance normal, both eyes and all related structures Neck Neck: Yes normal visual inspection and Yes trachea midline Chest Chest palpation & inspection: normal inspection of the chest Resp Effort & Inspection: normal respiratory effort and able to speak in complete sentences Cardio Rate: regular rate GI Inspection: Yes normal to inspection General: Yes no CVA tenderness Back/Spine/Pelvis Back: no CVA tenderness Skin General skin exam: no rashes or lesions noted Neuro General: patient oriented x3 Extrem General: Yes normal to inspection Psych Appearance: grossly normal and well kempt Mental Status: mental status grossly normal Speech and movement: Normal speech and movement present and Clear speech present Affect: normal affect Attitude: cooperative Thought process: Normal thought process present Thought content: Normal thought content present Insight: Fair insight present (Psych) Judgement: Fair judgement present (Psych) Office Procedures Post Void Residual Post Residual Void Post Void Residual (PVR): 42 [id number] Void Residual by ultrasound Results AMB Urinalysis, Automated UA Leukoctes 0 Grisel/uL Last Edit by JESUS Grider on 04/27/25 09:07 UA Nitrite Negative Last Edit by JESUS Grider on 04/27/25 09:07 UA Urobilinogen 0.2 mg/dL Last Edit by JESUS Grider on 04/27/25 09:0 7 UA Protein 0 mg/dL Last Edit by JESUS Grider on 04/27/25 09:07 UA pH 6.0 Last Edit by JESUS Grider on 04/27/25 09:07 UA Blood 0 Shaheen/uL Last Edit by JESUS Grider on 04/27/25 09:07 UA Specific [place] 1.010 Last Edit by JESUS Grider on 04/27/25 09: 07 UA Ketone Negative Last Edit by JESUS Grider on 04/27/25 09:07 UA Bilirubin 0 mg/dL Last Edit by JESUS Grider on 04/27/25 09:07 UA Glucose 0 mg/dL Last Edit by JESUS Grider on 04/27/25 09:07 Results Reviewed Results Reviewed: Laboratory Last Values Urine pH (Auto) 6.0 04/27/25 09:06 Specific [place] (Auto) 1.010 04/27/25 09:06 Urine Protein (Auto) 0 mg/dL 04/27/25 09:06 Glucose (UA)(Auto) 0 mg/dL 04/27/25 09:06 Urine Ketones (Auto) Negative 04/27/25 09:06 Urine Blood (Auto) 0 Shaheen/uL 04/27/25 09:06 Urine Nitrite (Auto) Negative 04/27/25 09:06 Urine Bilirubin (Auto) 0 mg/dL 04/27/25 09:06 Urine Urobilinogen (Auto) 0.2 mg/dL 04/27/25 09:06 Leukocyte Esterase (Auto) 0 Grisel/uL 04/27/25 09:06 Assessment & Plan Assessment & Plan (1) Nocturia: Code(s): R35.1 - Nocturia Category: Medical Plan In office urinalysis results with the patient today; as noted above. PVR 42 mL. Will obtain PSA for further assessment evaluation. Will obtain retroperitoneal ultrasound for further assessment evaluation. Will continue Flomax however increase to 0.8 mg at bedtime. All questions were answered. We discussed continuing to limit fluids 2-3 hours prior to bed to decrease episodes of nocturia. We discussed potential causes of nocturia as well as further treatment options and risks and benefits of these treatment options. All questions were answered. Follow-up in 1-3 months with imaging, PSA and PVR; or sooner with any issues, concerns, and or questions. Orders: Orders US retroperitoneal comp Today R35.1 - Nocturia AMB Urinalysis Automated Today Z13.9 - Encounter for screening, unspecified Prostate Specific Antigen Today R35.1 - Nocturia Medications: Changed 2 From tamsulosin 0.4 mg PO BEDTIME 90 caps 1RF 90 days To tamsulosin this is an increase in dose 0.8 mg (2 x 0.4 mg) PO BEDTIME 180 caps 1RF 90 days Patient Instructions: The patient had an opportunity to ask questions regarding the treatment plan. All questions were answered. Physical exam, labs, and imaging were discussed and reviewed in detail. As well as risks, benefits, and discussion of treatment choices. No major barriers to understanding were identified. The patient expressed understanding and agreement with the above treatment plan. The patient was made aware they should contact our office by phone for worsening of their current condition, the appearance of new symptoms, or with any questions or concerns. Compliance is encouraged with any medications and follow up testing that is ordered. It is a privilege to be allowed the opportunity to participate in? your urological care.? Again, if you have any questions or concerns If you have any questions or concerns please do not hesitate to contact me. The office is [phone]. This note is constructed using voice recognition software. While every effort has been made to ensure accuracy farm products shipper errors may have been included. Yours sincerely, ZOYA Martell-HAKEEM Coding Level of Care Code New Pt Level 3 (76641) Diagnoses Nocturia R35.1 CPT Codes Post Residual Void - PVR CPT Code: 91124-Awld Void Residual by ultrasound ([id number])
--- OUTSIDE RECORDS SUMMARY | 2025-04-27 08:59 | XMS_ITS | Patient Health Record ---
Author Organization [facility] Billing Info Address [address] [place] [address] Chan thompson [place] [id number] Care Team Providers Care Plant Maintenance Engineer Name Role Phone Kris López DO Primary Care Provider JANAY Nowak [phone] Allergies No Known Allergies Reason For Referral [...] MEDICARE [place] PART B [address] [facility] AILYN DÍAZ [id number] Kris Jeter Self - patient is the insured 8 2 [facility] [address] [place], [place] [id number] Kris Jeter Self - patient is the insured 2 2 Medical (General) History Medical History History ICD Code Past Medical History: Atrial Fib/Flutter (ANSWERED BY PATIENT) Surgical History Surgery Date(Month/Year)
--- OUTSIDE RECORDS SUMMARY | 2025-04-27 09:00 | XMS_ITS | Patient Health Record ---
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 [place] [address] [id number] Kris Jeter Self - patient is the insured
== END 2025-04-27 09:16 | disposition home or self-care (01) ==
LOC: HO.HUSH 08:41
PROVIDERS: PCP Nurse Practitioner Family; Visit Provider Nurse Practitioner Family
DX: Z13.9 Encounter for screening, unspecified (principal); R35.1 Nocturia
CPT/HCPCS: 99203

== ENCOUNTER → 2025-04-27 08:40 | Outpatient (BNVA) | payer MEDICARE, SELFPAY | PROVIDERS: PCP Nurse Practitioner Family; Visit Provider Nurse Practitioner Family | DX: R35.1 Nocturia (principal) | CPT/HCPCS: 51798; 81003; 99202 ==

== ENCOUNTER 2025-05-21 09:59 | Outpatient (AMB) | payer MEDICARE, SELFPAY ==
--- OUTSIDE RECORDS SUMMARY | 2024-05-14 12:15 | XMS_ITS ---
Author Organization [facility] Address [address] [place] [address] Care Team Providers Care Sewer Builder Name Role Phone Neeta Allenp Unavailable [phone] Sidney Santizo Unavailable Unavailable Nargis Iniguez Unavailable [phone] Encounters Encounter Location Date Provider Diagnosis [facility] [address] [place] [address] 05/14/2024 Nargis Iniguez Plan Of Treatment No Information Progress Notes * Kris CALL DDOB:1949 (75 yo M)Acc No.[id number]:05/14/2024 Progress Notes Patient: Gelacio Kris APPLE Provider: Dustin Iniguez M.D. :1950 A ge:73 Y S ex:Male Date:05/14/2024 Address:[address] [id number] Subjective: * Chief Complaints: * * Medical History: Objective: * Vitals: Assessment: Plan: * Treatment: * Billing Information: * Visit Code: * Procedure Codes: * Electronic signature of Jona Iniguez M.D. on 05/21/2025 at 10:47 AM DINING ROOM CASHIER Sign off status: Pending * Provider: Dustin Iniguez M.D. Date: 07/14/2023 Generated for Valdemari ng/Faxing/eTransmitting on: 07/21/2024 10:47 AM DINING ROOM CASHIER
--- NOTE | 2025-05-21 10:07 | MHC.PC.OV ---
Vital Signs 05/21/25 10:31 Height 5 ft 11 in Weight 219 lb 4 oz BMI 30.6 BP 121/59 L Blood Pressure Location Rt brachial Position Sitting Respiration 16 Pulse 59 Pulse Source Pulse Oximeter Temp 97.4 F Temp Source Oral Pulse Oximetry (%) 98 Oxygen Delivery Method Room Air Intake Visit Reasons: CPE after 05/19/25 Intake Note: patient here for CPE Cd Mixer Required: No Allergies No Known Allergies Allergy (Verified 05/21/25 10:52) Medication List - Last Reconciled 05/21/25 by Cassidy Tenorio CNP apixaban (Eliquis) 5 mg PO BID diclofenac sodium 1% (Voltaren Arthritis Pain) 4 grams topical QID flecainide 150 mg PO Q12H gabapentin 300 mg PO BID 30 days metoprolol succinate ER 50 mg PO DAILY tamsulosin 0.8 mg (2 x 0.4 mg) PO BEDTIME 90 days Tobacco use date assessed: 05/21/25 Fall risk assessment: No Falls in past year Last assessed Fall Risk: 05/21/25 Dental Screening Dental Screen Date: 05/21/25 Did you have a dental visit in the last 12 months?: Yes Did you have a dental problem in the last 6 months where you did not have access to dental care?: No Was dental information given to patient?: Patient has dentist HPI HPI Comments History of Present Illness Details 75-year-old male presents for an extended physical exam. He admits to taking his medications as prescribed without adverse reactions. Acute issue(s) - None Past Medical History - AFib, Palpitations, GERD, nocturia, bilateral carpal tunnel syndrome, right shoulder pain, neck pain, BCC of skin of face, psoriasis, cataract of both eyes Social History - Nonsmoker. Does not vape. Drinks 1 mix drink once monthly. Denies recreational drug use - Has been making healthy dietary choices. Exercises routinely. Reports poor sleep due to waking up 1-3 times nightly for urination Health maintenance - Last eye exam was in 09/[address] Matute, [facility] - Last dental visit was was 6 months ago - Last Tdap unknown - He is up-to-date on the pneumonia vaccines - He was evaluated in the ED after receiving his first shingrix vaccine in 06/2023. He was diagnosed with A-fib. He no longer wants the shingrix vaccine - Vaccinated for the flu in 04/2025 - Last Cologuard test was in 07/22/2024: Negative - Has never had a dexa scan. Dexa scan ordered Specialists - [facility] [place] cardiology, urology, pain management - [facility] - Ophthalmology [facility] Medical History Paroxysmal atrial fibrillation Basal cell carcinoma of skin of face Psoriasis Acid reflux Heart palpitations Surgical History History of elbow surgery History of shoulder surgery S/P cervical spinal fusion History of lumbar fusion Social History Housing: House Alcohol intake: current Alcohol intake frequency: a few times a month Alcohol type: hard liquor Patient Tobacco Use Status: Never used Tobacco e-Cigarette/Vaping Use: Never Used Second Hand Smoke Exposure: No service: No Current occupational status: retired Current occupational exposures/hazards: No Cognitive needs: No Hearing needs: No Vision needs: Yes Questionnaire PHQ-9 Over the last 2 weeks, how often have you been bothered by any of the following problems? 1. Little interest or pleasure in doing things: not at all 2. Feeling down, depressed, or hopeless: not at all 3. Trouble falling or staying asleep, or sleeping too much: several days 4. Feeling tired or having little energy: not at all 5. Poor appetite or overeating: not at all 6. Feeling bad about yourself - or that you are a failure or have let yourself or your family down: not at all 7. Trouble concentrating on things, such as reading the newspaper or watching television: not at all 8. Moving or speaking so slowly that other people could have noticed. Or the opposite - being so fidgety or restless that you have been moving around a lot more than usual: not at all 9. Thoughts that you would be better off or of hurting yourself in some way: not at all Total score: 1 Depression Screening Interpretation: Negative Depression Screening Done: Yes 36367 - PHQ-9 Billing: Yes Source: Developed by Drs. Kris Rodrigues, Simona Stone, Jonn Restrepo and colleagues, with an educational martha from [employer]. Thrive Questionnaire Date Thrive assessed: 05/21/25 I am a: Patient What is your living situation today?: I have a steady place to live Within the past 12 months, did the food you bought not last and you didn't have the money to get more?: Never true Within the past 12 months, did you worry whether your food would run out before you got money to buy more?: Never true Do you have trouble paying for medicines?: No Do you have trouble getting transportation to medical appointments?: No Do you have trouble paying your heating and electricity bill?: No Do you have trouble taking care of your child, family member or friend?: No Do you have trouble with day-to-day activities such as bathing, preparing meals, shopping, managing finances, etc.?: No Are you currently unemployed and looking for a job?: No Are you interested in more education?: No Please select the resources that you would like help with: None Currently or been in a relationship where the following occur: No concerns reported THRIVE Score: 0 AUDIT C Alcohol Use Questionnaire (AUDIT-C) 1. How often do you have a drink containing alcohol?: Monthly or less 2. How many drinks containing alcohol do you have on a typical day when you are drinking?: 1 or 2 3. How often do you have six or more drinks on one occasion?: Never Total Score: 1 Score Reviewed/Action Taken: Yes ABEL-7 AMB Questionnaire ABEL-7 Date ABEL - 7 assessed: 05/21/25 Feeling nervous, anxious, or on edge: 0 = Not at all Not being able to stop or control worryin = Not at all Worrying too much about different things: 0 = Not at all Trouble relaxin = Not at all Being so restless that it is hard to sit still: 0 = Not at all Becoming easily annoyed or irritable: 0 = Not at all Feeling afraid as if something awful might happen: 0 = Not at all Total ABEL-7 score (0-4 normal; 5-9 mild; 10-14 moderate; 15-21 severe): 0 Source: Developed by Drs. Kris Rodrigues, Simona Stone, Jonn Restrepo and colleagues, with an educational martha from [employer]. ABEL-7 Assessment Billing ABEL-7 Assessment Tool: ABEL-7 Assessment 80097 Review of Systems Const Details: Denies chills, Denies fatigue, Denies fever(s), Denies headache(s) and Denies weakness HEENT Denies change in vision, Denies dizziness, Denies headache(s), Denies hearing loss, Denies nasal congestion, Denies sinus pain, Denies sinus pressure and Denies sore throat Card Denies chest pain, Denies lightheadedness, Denies dyspnea and Denies other (palpitations) Resp Denies cough, Denies dyspnea and Denies wheezing GI Denies abdominal pain, Denies melena, Denies hematochezia, Denies change in bowel habits, Denies dyspepsia and Denies nausea Denies hematuria and Denies dysuria Musc Denies abnormal gait, Denies myalgias, Denies arthralgias, Denies numbness and Denies tingling Skin/Breast Denies rash, Denies unusual bruising and Denies wounds Neuro Denies abnormal gait, Denies dizziness, Denies headache(s), Denies memory loss, Denies numbness, Denies Sensory deficit (Neuro), Denies tingling and Denies weakness Psych Denies anxiety, Denies depression and Denies memory loss Endo Denies cold intolerance, Denies fatigue, Denies heat intolerance, Denies polydipsia and Denies polyuria Chi/Lymph Denies easy bleeding and Denies easy bruising Aller/Immun Denies wheezing Physical exam (Primary Care) Vital Signs: Last Vital Signs Temp 97.4 F 05/21/25 10:31 Pulse 59 05/21/25 10:31 Resp 16 05/21/25 10:31 BP 121/59 L 05/21/25 10:31 Pulse Ox 98 05/21/25 10:31 Oxygen Delivery Method Room Air 05/21/25 10:31 BMI result Body Mass Index 30.6 Tobacco/Smoking Status: Tobacco use Status Tobacco use date assessed 05/21/25 05/21/25 10:36 Patient Tobacco Use Status Never used Tobacco 05/21/25 10:08 e-Cigarette/Vaping Use Never Used 05/21/25 10:08 PHQ-9: PHQ-9 Score PHQ-9: Total score 1 05/21/25 10:49 Depression Screening Interpretation: Negative Thrive Assessment: Date of Thrive Assessment Date Thrive assessed 05/21/25 05/21/25 10:19 Currently or been in a relationship where the following occur: No concerns reported Const Other: General: no acute distress, well developed, alert and awake Nutritional Appearance: well nourished Orientation/consciousness: patient oriented x3 [facility] Head: Yes normocephalic and Yes atraumatic Ears: hearing grossly normal bilaterally and TM's normal bilaterally General nose exam: Normal external nose present and Normal nares present Mouth: Normal oral and palatal mucosa present and moist mucous membranes Teeth and gingiva: dentition normal Throat: Yes oropharynx normal Eyes Pupils: Equal, round and reactive pupils present and Pupil accommodation reflex normal EOM: EOMs intact bilaterally Neck Neck: Yes normal visual inspection, Yes no lymphadenopathy and Yes trachea midline Thyroid: Thyroid normal Carotids: no bruits Lymphatic: no lymphadenopathy noted Chest Chest palpation & inspection: normal inspection of the chest Resp Effort & Inspection: normal respiratory effort Auscultation: clear to auscultation bilaterally Cardio Rate: regular rate Rhythm: regular rhythm Heart sounds: S1 normal heart sound present, S2 normal heart sound present, no gallops, no murmurs and no rubs Bruits: no abdominal aortic bruits and no carotid bruits GI Palpation (GI): No Abdominal aortic bruit present, Soft to palpation, nontender, No hepatosplenomegaly present and No Rebound tenderness present Auscultation: normal bowel sounds General: Yes no CVA tenderness Back/Spine/Pelvis Back: no CVA tenderness Cervical Spine: cervical ROM normal and No Cervical spine tenderness Thoracic/Lumbar Spine: thoraco-lumbar ROM normal, No pain with thoraco-lumbar ROM, No thoracic spinal tenderness and No lumbar spinal tenderness Skin General: warm and dry. Normal skin color. Normal skin turgor Lesions: no lesions Rashes: no rashes Trauma: no lacerations or abrasions Wounds: no wounds Nails: normal Neuro General: patient oriented x3, gait normal and CN's II-XI intact bilaterally Cranial nerves: Yes Equal, round and reactive pupils present Cognition (Neuro): normal cognition Gait exam (Neuro): Normal gait present Motor exam (neuro): 5/5 motor strength present throughout Sensory Exam: No Sensory deficit (Neuro) Deep tendon reflexes (DTR's): Right patellar reflex intensity grade: 2+ and Left patellar reflex intensity grade: 2+ Extrem General: Yes normal to inspection, No edema and No calf tenderness Psych Appearance: grossly normal Affect: normal affect Attitude: cooperative Thought process: Normal thought process present Coding Level of Care Code Est Pt Level 3 (37707) Est Pt Prev Care >65y(37243) Diagnoses Normal physical examination, routine Z00.00 Sleep disturbance G47.9 Nocturia R35.1 Laboratory tests ordered as part of a complete physical exam (CPE) Z00.00 Additional Codes ABEL-7 Assessment Billing - ABEL-7 Assessment Tool: ABEL-7 Assessment 07279 ([id number]) PHQ-9 - 68750 - PHQ-9 Billing: Yes ([id number]) Assessment & Plan Assessment & Plan (1) Normal physical examination, routine: Code(s): Z00.00 - Encounter for general adult medical examination without abnormal findings Category: Medical Plan: Normal physical exam with no significant functional limitations. Continue current treatment regimen. Routine exercise encouraged. Perform lab work and follow-up for a telehealth visit for labs review in 2-3 weeks. Return sooner with symptoms or concerns. Verbalized understanding and agreed with treatment plan. (2) Sleep disturbance: Code(s): G47.9 - Sleep disorder, unspecified Category: Medical Plan: Reports poor sleep due to waking up 1-3 times nightly to urinate. Instructed on sleep hygiene. Continue current treatment regimen. Follow-up with urology as planned. Verbalized understanding and agreed with plan. (3) Nocturia: Code(s): R35.1 - Nocturia Category: Medical Plan: Plan as above. (4) Laboratory tests ordered as part of a complete physical exam (CPE): Code(s): Z00.00 - Encounter for general adult medical examination without abnormal findings Category: Medical Plan: Fasting labs ordered as part of a complete physical exam. Advised to fast for at least 10 hours before getting labs drawn. May drink water Verbalized understanding and agreed with treatment plan. Orders: Orders Complete Blood Count no Diff Today Z00.00 - Encounter for general adult medical examination without abnormal findings Lipid Panel Today Z00.00 - Encounter for general adult medical examination without abnormal findings Microalbumin, Random (w Creat) Today Z00.00 - Encounter for general adult medical examination without abnormal findings TSH reflex Free T4 Today Z00.00 - Encounter for general adult medical examination without abnormal findings Comprehensive [place]. Panel Fast Today Z00.00 - Encounter for general adult medical examination without abnormal findings Vitamin D 25-OH Total Today Z00.00 - Encounter for general adult medical examination without abnormal findings XR DEXA axial skeleton Today M81.0 - Age-related osteoporosis without current pathological fracture
[2025-05-21 10:31] VITALS: BP 121/59; PULSE 59; RESP 16; TEMP 36.3; O2SAT 98; BMI 30.6
--- OUTSIDE RECORDS SUMMARY | 2025-05-21 11:48 | XMS_ITS | Patient Health Record ---
Author Organization [facility] Billing Info Address [address] [place] [address] Chan thompson [place] [id number] Care Team Providers Care Informatica Mdm Developer Name Role Phone Kris López DO Primary Care Provider JANAY Nowak [phone] Allergies No Known Allergies Reason For Referral [...] [place] PART B [address] [facility] AILYN DÍAZ [id number] Kris Jeter Self - patient is the insured 8 2 [facility] [address] [place], [place] [phone] [id number] Kris Jeter Self - patient is the insured 2 2 Medical (General) History Medical History History ICD Code Past Medical History: Atrial Fib/Flutter (ANSWERED BY PATIENT) Surgical History Surgery Date(Month/Year)
--- OUTSIDE RECORDS SUMMARY | 2025-05-21 11:48 | XMS_ITS | Patient Health Record ---
Author Organization [facility] Address [address] [place] [address] Care Team Providers Care Assistant Women'S Rowing Coach Name Role Phone Meek Allen Unavailable Sidney Santizo Unavailable Unavailable Reason For Referral No Information Medications Medication [...] W/U Status Risk Notes Problem Paresthesia (finding) (10719599) Paresthesia of skin (R20.2) Active confirmed Problem Polyneuropathy (60872611) Polyneuropathy in diseases classified elsewhere (G63) Active confirmed Plan Of Treatment No Information Insurance Providers Payer Name Payer Address Payer Phone Subscriber Number Group Number Insured Name Patient Relationship to Insured Coverage Start Date Coverage End Date Medicare Traditional [address] [place], [place] [address] [id number] Kris Jeter Self - patient is the insured 8 [employer]/ [employer] [address] [place] [address] [id number] Kris Jeter Self - patient is the insured
== END 2025-05-21 15:59 | disposition home or self-care (01) ==
LOC: HO.HMCFM 10:00
PROVIDERS: PCP Nurse Practitioner Family; Visit Provider Nurse Practitioner Family
DX: Z00.00 Encounter for general adult medical examination without abnormal findings (principal); G47.9 Sleep disorder, unspecified; R35.1 Nocturia

== ENCOUNTER → 2025-05-21 09:59 | Outpatient (BNVA) | payer MEDICARE, SELFPAY | PROVIDERS: PCP Nurse Practitioner Family; Visit Provider Nurse Practitioner Family | DX: Z00.00 Encounter for general adult medical examination without abnormal findings (principal); G47.9 Sleep disorder, unspecified; R35.1 Nocturia; M81.0 Age-related osteoporosis without current pathological fracture | CPT/HCPCS: 96127; 99397 ==

== ENCOUNTER 2025-05-25 08:22 | Outpatient (REF) | payer MEDICARE, SELFPAY ==
[2025-05-25 12:06] LABS: Hematocrit 46.5 % (42.0-52.0); Hemoglobin 15.2 g/dl (14.0-18.0); Mean Corpuscular HGB Conc 32.7 g/dl (31.0-36.0); Mean Corpuscular Hemoglobin 29.3 pg (27.0-33.0); Mean Corpuscular Volume 89.8 fL (80.0-98.0); NRBC Abs Auto 0.000 X10*3/uL (0.0-0.012); NRBC Pct Auto 0.0 /100WBC (0.0-0.2); Platelet Count 259 X10*3/uL (160-400); Red Blood Count 5.18 X10*6/uL (4.60-5.80); White Blood Count 7.2 X10*3/uL (4.8-10.8)
[2025-05-25 12:26] LABS: Prostate Specific Antigen 1.98 ng/mL (<0.05-4.0)
[2025-05-25 12:46] LABS: Alanine Aminotransferase 33 U/L (0-40); Albumin Level 4.6 g/dL (3.5-5.0); Alkaline Phosphatase 77 U/L (39-117); Anion Gap 12 (12-20); Aspartate Amino Transferase 31 U/L (5-37); Blood Urea Nitrogen 18 mg/dL (9-16); Calcium 9.4 mg/dL (8.4-10.2); Carbon Dioxide 26 mmol/L (22-29); Chloride 107 mmol/L (96-108); Cholesterol 194 mg/dL (<200); Estimated Glomerular Filt Rate > 60; HDL Cholesterol 54 mg/dL (>40); Potassium 3.8 mmol/L (3.3-5.1); Sodium 141 mmol/L (135-145); Total Protein 7.1 g/dL (6.5-8.0); Triglycerides 106 mg/dL (<150)
== END 2025-05-25 08:23 | disposition home or self-care (01) ==
LOC: HO.WFDLDS 08:22
PROVIDERS: Referring Provider Nurse Practitioner Family; Visit Provider Nurse Practitioner Family
DX: Z00.00 Encounter for general adult medical examination without abnormal findings (principal); Z12.5 Encounter for screening for malignant neoplasm of prostate; Z13.29 Encounter for screening for other suspected endocrine disorder; Z13.6 Encounter for screening for cardiovascular disorders; Z13.21 Encounter for screening for nutritional disorder; R35.1 Nocturia
CPT/HCPCS: 36415; 80053; 80061; 82043; 82306; 82570; 84153; 84443; 85027

== ENCOUNTER 2025-06-11 11:37 | Outpatient (AMB) | payer MEDICARE, SELFPAY ==
--- NOTE | 2025-06-11 11:30 | A.OFFPC_ITS ---
Intake Visit Reasons: 2-3 tele wks labs review Fiction And Nonfiction Prose Writer Required: No Allergies No Known Allergies Allergy (Verified 06/11/25 11:30) Tobacco use date assessed: 06/11/25 Fall risk assessment: No Falls in past year Last assessed Fall Risk: 06/11/25 Dental Screening Dental Screen Date: 06/11/25 Did you have a dental visit in the last 12 months?: Yes Did you have a dental problem in the last 6 months where you did not have access to dental care?: No Was dental information given to patient?: Patient has dentist HPI HPI Comments History of Present Illness Details 75-year-old male [facility] for review of recent lab results. He offers no complaints and denies acute symptoms at this time. [facility] Medical History Paroxysmal atrial fibrillation Basal cell carcinoma of skin of face Psoriasis Acid reflux Heart palpitations Surgical History History of elbow surgery History of shoulder surgery S/P cervical spinal fusion History of lumbar fusion Social History Housing: House Alcohol intake: current Alcohol intake frequency: a few times a month Alcohol type: hard liquor Patient Tobacco Use Status: Never used Tobacco e-Cigarette/Vaping Use: Never Used Second Hand Smoke Exposure: No service: No Current occupational status: retired Current occupational exposures/hazards: No Cognitive needs: No Hearing needs: No Vision needs: Yes Questionnaire Thrive Questionnaire Date Thrive assessed: 01/26/25 I am a: Patient What is your living situation today?: I have a steady place to live Within the past 12 months, did the food you bought not last and you didn't have the money to get more?: Never true Within the past 12 months, did you worry whether your food would run out before you got money to buy more?: Never true Do you have trouble paying for medicines?: No Do you have trouble getting transportation to medical appointments?: No Do you have trouble paying your heating and electricity bill?: No Do you have trouble taking care of your child, family member or friend?: No Do you have trouble with day-to-day activities such as bathing, preparing meals, shopping, managing finances, etc.?: No Are you currently unemployed and looking for a job?: No Are you interested in more education?: No Please select the resources that you would like help with: None Currently or been in a relationship where the following occur: No concerns reported THRIVE Score: 0 ABEL-7 AMB Questionnaire ABEL-7 Date ABEL - 7 assessed: 05/21/25 Source: Developed by Drs. Kris Rodrigues, Simona Stone, Jonn Restrepo and colleagues, with an educational martha from [employer]. Review of Systems Const Details: Denies chills, Denies fatigue, Denies fever(s), Denies headache(s) and Denies weakness Cardiac Denies chest pain, Denies claudication, Denies leg edema, Denies lightheadedness, Denies palpitations, Denies dyspnea, Denies dyspnea on exertion, Denies orthopnea and Denies other (Loss of consciousness) Resp Denies cough, Denies excessive phlegm production, Denies dyspnea, Denies dyspnea on exertion, Denies snoring and Denies wheezing Physical exam (Primary Care) Tobacco/Smoking Status: Tobacco use Status Tobacco use date assessed 06/11/25 06/11/25 11:32 Patient Tobacco Use Status Never used Tobacco 06/11/25 11:32 e-Cigarette/Vaping Use Never Used 06/11/25 11:32 Thrive Assessment: Date of Thrive Assessment Date Thrive assessed 01/26/25 06/11/25 11:32 Currently or been in a relationship where the following occur: No concerns reported Const Other: Patient is alert and oriented x4. Telehealth Telehealth Telehealth Platform: Telephone Location of provider rendering services: practice address Location of patient: address on file Patient Identification confirmed using: Name, : Yes Telehealth method: voice only Patient verbally consented to treatment: Yes Patient verbally consented to billing insurance company: Yes Patient informed of any privacy concerns related to visit: Yes Coding Level of Care Code Tele Est Pt Level 3 (47264) Diagnoses Elevated LDL cholesterol level E78.00 Time Spent (min) 10 Assessment & Plan Assessment & Plan (1) Elevated LDL cholesterol level: Code(s): E78.00 - Pure hypercholesterolemia, unspecified Category: Medical Plan: Recent lab results are unremarkable except for slightly elevated LDL, 119. Advised to limit foods high in saturated fat and avoid foods high in trans fat. Routine exercise encouraged. Will monitor lipid panel annually or if clinically indicated. Follow-up for transfer of care with a new PCP within the practice in 2-3 months. Return sooner with symptoms or concerns. Verbalized understanding and agreed with the plan.
== END 2025-06-11 12:04 | disposition home or self-care (01) ==
LOC: HO.HMCFM 11:37
PROVIDERS: PCP Nurse Practitioner Family; Visit Provider Nurse Practitioner Family
DX: E78.00 Pure hypercholesterolemia, unspecified (principal)

== ENCOUNTER 2025-06-15 13:21 | Outpatient (AMB) | payer MEDICARE, SELFPAY ==
--- OUTSIDE RECORDS SUMMARY | 2024-05-14 12:15 | XMS_ITS ---
Author Organization [facility] Address [address] [place] [address] Care Team Providers Care Security Tech Name Role Phone Neeta Allenp Unavailable [phone] Sidney Santizo Unavailable Unavailable Nargis Iniguez Unavailable [phone] Encounters Encounter Location Date Provider Diagnosis [facility] [address] [place] [address] 05/14/2024 Nragis Iniguez Plan Of Treatment No Information Progress Notes * Kris CALL DDOB:1949 (75 yo M)Acc No.[id number]:05/14/2024 Progress Notes Patient: Gelacio Kris APPLE Provider: Dustin Iniguez M.D. :1950 A ge:73 Y S ex:Male Date:05/14/2024 Address:[address] [id number] Subjective: * Chief Complaints: * * Medical History: Objective: * Vitals: Assessment: Plan: * Treatment: * Billing Information: * Visit Code: * Procedure Codes: * Electronic signature of Jona Iniguez M.D. on 06/15/2025 at 05:40 PM TITLE CLOSER Sign off status: Pending * Provider: Dustin Iniguez M.D. Date: 07/14/2023 Generated for Valdemari ng/Faxing/eTransmitting on: 08/16/2024 05:40 PM TITLE CLOSER
[2025-06-15 13:37] VITALS: BP 120/76; PULSE 59; BMI 30.7
--- NOTE | 2025-06-15 13:37 | MHC.OFFVIS ---
Vital Signs 06/15/25 13:37 Height 5 ft 11 in Weight 220 lb 7.396 oz BMI 30.7 BP 120/76 Blood Pressure Location Lt brachial Position Sitting Pulse 59 Intake Visit Reasons: 3m follow up Intake Note: 3 month follow-up with ekg has ablation booked for 06/25 Molding Process Technician Required: No Allergies No Known Allergies Allergy (Verified 06/11/25 11:30) Medication List - Last Reconciled 06/15/25 by Soren Matta MD apixaban (Eliquis) 5 mg PO BID diclofenac sodium 1% (Voltaren Arthritis Pain) 4 grams topical QID flecainide 150 mg PO Q12H gabapentin 300 mg PO BID 30 days metoprolol succinate ER 50 mg PO DAILY tamsulosin 0.8 mg (2 x 0.4 mg) PO BEDTIME 90 days HPI Comments Details: Kris comes for follow-up. He is scheduled for ablation next week. He said he has symptoms of fluttering and palpitation have improved significantly. He is taking all his medications. No bleeding issues or neurologic events. Denies any other cardiac symptoms. No orthopnea, PND, leg edema. No bleeding issues or neurologic events. [facility] Medical History Paroxysmal atrial fibrillation Basal cell carcinoma of skin of face Psoriasis Acid reflux Heart palpitations Surgical History History of elbow surgery History of shoulder surgery S/P cervical spinal fusion History of lumbar fusion Social History Housing: House Alcohol intake: current Alcohol intake frequency: a few times a month Alcohol type: hard liquor Patient Tobacco Use Status: Never used Tobacco e-Cigarette/Vaping Use: Never Used Second Hand Smoke Exposure: No service: No Current occupational status: retired Current occupational exposures/hazards: No Cognitive needs: No Hearing needs: No Vision needs: Yes Review of Systems Const Denies chills, Denies fatigue, Denies fever(s), Denies frequent falls, Denies weakness, Denies weight gain and Denies weight loss ENT Denies dizziness Card Denies chest pain, Denies leg edema, Denies lightheadedness, Denies palpitations, Denies dyspnea, Denies dyspnea on exertion, Denies orthopnea and Denies other (loss of consciousness) Resp Denies cough, Denies dyspnea and Denies dyspnea on exertion GI Denies hematochezia and Denies change in stool character Musc Denies abnormal gait, Denies muscle weakness, Denies numbness, Denies radiating pain into limb and Denies tingling Neuro Denies Abnormal speech present, Denies abnormal gait, Denies dizziness, Denies frequent falls, Denies numbness, Denies tingling and Denies weakness Endo Denies fatigue and Denies palpitations Physical Exam Vital Signs: Last Vital Signs Pulse 59 06/15/25 13:37 BP 120/76 06/15/25 13:37 BMI result Body Mass Index 30.7 Const General: cooperative, comfortable, no acute distress, alert, awake and Physically active Nutritional Appearance: average body habitus Orientation/consciousness: patient oriented x3 Limitations: no limitations HEENT Head: Yes normocephalic and Yes atraumatic Neck Neck: Yes trachea midline, Yes supple and Yes no JVD Resp Effort & Inspection: normal respiratory effort Auscultation: clear to auscultation bilaterally Cardio Jugular venous distension: no JVD Palpation: normal PMI Rate: regular rate Rhythm: regular rhythm Heart sounds: S1 normal heart sound present, S2 normal heart sound present, no click, no gallops, no murmurs and no rubs GI Auscultation: normal bowel sounds Skin General skin exam: no rashes or lesions noted Neuro General: patient oriented x3 and no focal motor deficits Speech: No Abnormal speech present Extrem General: Yes no clubbing, cyanosis or edema Psych Appearance: grossly normal Office Procedures EKG Details: EKGs shows sinus bradycardia with first-degree AV block at 59 beats per minute [id number], Complete Assessment & Plan Assessment & Plan (1) Paroxysmal atrial fibrillation: Code(s): I48.0 - Paroxysmal atrial fibrillation Category: Medical Plan: Paroxysmal atrial fibrillation this elderly gentleman with improved symptoms currently. However he is undergoing ablation in near future. I think this will help with rhythm management in the longterm and hopefully help with coming of the antiarrhythmic drugs. This was discussed with him. He understands that this will not alleviate the need for taking oral anticoagulation therapy in the long run discussed the benefit of oral anticoagulation therapy to reduce stroke risk. He understands agrees. Continue to avoid stimulants. Continue current antiarrhythmic drug therapy with flecainide as well as continued metoprolol therapy. Will discuss ongoing use of metoprolol in the long run. Will follow up in the clinic in 6 months time, sooner PRN. Thank you for allowing me to partake in his care Coding Level of Care Code Complex visit Add On G2211 Diagnoses Paroxysmal atrial fibrillation I48.0 CPT Codes EKG - CPT: 14711-[id number], Complete ([id number])
--- OUTSIDE RECORDS SUMMARY | 2025-06-15 18:40 | XMS_ITS | Patient Health Record ---
Author Organization [facility] Billing Info Address [address] [place] [address] Chan thompson [place] [id number] Care Team Providers Care Industrial Servicer Name Role Phone Kris López DO Primary Care Provider JANAY Nowak [phone] Allergies No Known Allergies Reason For Referral [...] MEDICARE [place] PART B [address] [facility] AILYN DÍAZ [id number] Kris Jeter Self - patient is the insured 8 2 [facility] [address] [place], [place] [id number] Kris Jeter Self - patient is the insured 2 2 Medical (General) History Medical History History ICD Code Past Medical History: Atrial Fib/Flutter (ANSWERED BY PATIENT) Surgical History Surgery Date(Month/Year)
--- OUTSIDE RECORDS SUMMARY | 2025-06-15 18:41 | XMS_ITS | Patient Health Record ---
Author Organization [facility] Address [address] [place] [address] Care Team Providers Care Fws Faculty Assistant Name Role Phone Meek Allen Unavailable [phone] Sidney Santizo Unavailable Unavailable Reason For Referral [...] W/U Status Risk Notes Problem Paresthesia (finding) (61888791) Paresthesia of skin (R20.2) Active confirmed Problem Polyneuropathy (02258174) Polyneuropathy in diseases classified elsewhere (G63) Active confirmed Plan Of Treatment No Information Insurance Providers Payer Name Payer Address Payer Phone Subscriber Number Group Number Insured Name Patient Relationship to Insured Coverage Start Date Coverage End Date Medicare Traditional [address] [place], [place] [address] [id number] Kris Jeter Self - patient is the insured 8 [employer]/ [employer] [address] [place] [address] [id number] Kris Jeter Self - patient is the insured
== END 2025-06-15 14:02 | disposition home or self-care (01) ==
LOC: HO.HCS 13:22
PROVIDERS: PCP Nurse Practitioner Family; Visit Provider Internal Medicine Cardiovascular Disease
DX: I48.0 Paroxysmal atrial fibrillation (principal)
CPT/HCPCS: 93010; 99213; G2211

== ENCOUNTER → 2025-06-15 13:21 | Outpatient (BNVA) | payer MEDICARE, SELFPAY | PROVIDERS: PCP Nurse Practitioner Family; Visit Provider Internal Medicine Cardiovascular Disease | DX: I48.0 Paroxysmal atrial fibrillation (principal); Z79.01 Long term (current) use of anticoagulants | CPT/HCPCS: 93005; 99212 ==

== ENCOUNTER 2025-06-18 11:00 | Outpatient (AMB) | payer MEDICARE, SELFPAY ==
[2025-06-18 11:11] VITALS: BP 116/63; PULSE 63; RESP 16; O2SAT 98; BMI 30.7
--- NOTE | 2025-06-18 11:11 | MHC.OFFVIS ---
Vital Signs 06/18/25 11:11 Height 5 ft 11 in Weight 220 lb BMI 30.7 BP 116/63 Blood Pressure Location Lt brachial Position Sitting Respiration 16 Pulse 63 Pulse Source Pulse Oximeter Pulse Oximetry (%) 98 Oxygen Delivery Method Room Air Intake Visit Reasons: (R) Shoulder TX INJ / (R) Trapezius TPI Pediatric Registered Nurse Required: No Dispatch Associate: Dispatch Associate Present Accompanied by: Bertin Humphries Allergies No Known Allergies Allergy (Verified 06/18/25 11:12) Medication List - Last Reconciled 06/18/25 by Deanne Fontanez LPN apixaban (Eliquis) 5 mg PO BID diclofenac sodium 1% (Voltaren Arthritis Pain) 4 grams topical QID flecainide 150 mg PO Q12H gabapentin 300 mg PO BID 30 days metoprolol succinate ER 50 mg PO DAILY tamsulosin 0.8 mg (2 x 0.4 mg) PO BEDTIME 90 days HPI Comments Details: History of Present Illness The patient is a 75 year old male presenting for management of right shoulder and neck pain. He reports his neck is doing well after previous treatments. He has a history of atrial fibrillation and is on an anticoagulant, which he stopped for the procedure. Pain Description - The patient reports his neck is doing well. - He endorsed needing trigger point injections in his neck. - Trigger points were identified in the right trapezius, right cervical occipitalis, and rhomboid muscles. Results - Ultrasound: A curvilinear probe was used to visualize the right glenohumeral joint for procedural guidance. Pain Management - Analgesia: The patient's neck pain is reportedly doing well. - Adverse Effects: Bleeding was noted at an injection site. - Bruising was mentioned as a potential side effect of the injections. [facility] Medical History Paroxysmal atrial fibrillation Basal cell carcinoma of skin of face Psoriasis Acid reflux Heart palpitations Surgical History History of elbow surgery History of shoulder surgery S/P cervical spinal fusion History of lumbar fusion Social History Housing: House Alcohol intake: current Alcohol intake frequency: a few times a month Alcohol type: hard liquor Patient Tobacco Use Status: Never used Tobacco e-Cigarette/Vaping Use: Never Used Second Hand Smoke Exposure: No service: No Current occupational status: retired Current occupational exposures/hazards: No Cognitive needs: No Hearing needs: No Vision needs: Yes Physical Exam Exam Exam: Physical Exam - Musculoskeletal: Trigger points were identified by palpation in the right trapezius, right cervical occipitalis, and rhomboid muscles. Procedure - Procedures: Right glenohumeral joint injection and trigger point injections. - Consent: Informed consent was obtained. - Patient Position: The patient was placed in a sitting position. - Prep: The right shoulder was prepped with Chloroprep. - Right Glenohumeral Joint Injection: A 21-gauge needle was advanced into the glenohumeral joint under ultrasound guidance using a curvilinear probe. - A mixture of 40 mg of Kenalog and 3 mL of 0.25% ropivacaine was injected into the joint. - Trigger Point Injections: Trigger points were identified in the right trapezius, right cervical occipitalis, and rhomboid muscles. - At each point, 0.5 to 1 mL of 0.25% ropivacaine was injected. - Outcome: The patient tolerated the procedure well and a bandage was applied. - He will follow up as needed for repeat injections. Vital Signs: Last Vital Signs Pulse 63 06/18/25 11:11 Resp 16 06/18/25 11:11 BP 116/63 06/18/25 11:11 Pulse Ox 98 06/18/25 11:11 Oxygen Delivery Method Room Air 06/18/25 11:11 BMI result Body Mass Index 30.7 Assessment & Plan Assessment & Plan (1) Left shoulder pain: Code(s): M25.512 - Pain in left shoulder Category: Medical (2) Myofascial muscle pain: Code(s): M79.18 - Myalgia, other site Category: Medical Plan Plan Patient was informed and verbally consented to the use of an ambient scribe for clinic note documentation during this visit. 1. Right Shoulder Pain - An ultrasound-guided right glenohumeral joint injection was performed. - A solution containing 40 mg of Kenalog and 3 mL of 0.25% ropivacaine was administered. 2. Myofascial Pain - Trigger point injections were performed in the right trapezius, right cervical occipitalis, and rhomboid muscles. - Each site was injected with 0.5 to 1 mL of 0.25% ropivacaine. 3. Atrial Fibrillation - The patient was advised he can resume his anticoagulant (Eliquis) today. - For future joint injections, it was advised to hold the anticoagulant for only one day prior. - The risk of bruising versus the risk of stroke was discussed. Discussion Notes I obtained informed consent before performing a right glenohumeral joint injection and trigger point injections. We discussed the patient's use of Eliquis for atrial fibrillation, and I advised him that for future joint injections, he only needs to stop the medication for one day. I explained that while there is a risk of bruising from the injections, it is preferable to the risk of stroke associated with not taking his anticoagulant. I informed him he could resume his medication today. The patient tolerated the procedure well and was advised to follow up as needed for repeat injections. Patient Instructions - You can start taking your Eliquis again today. - For any similar injections in the future, you only need to stop taking Eliquis for one day before your appointment. - You may notice some bruising at the injection sites; this is a normal side effect. - Keep the bandage on the injection site that was bleeding. - You can schedule a follow-up visit if you feel you need more injections in the future. Coding Level of Care Code Procedure Only Diagnoses Left shoulder pain M25.512 Myofascial muscle pain M79.18
== END 2025-06-18 12:32 | disposition home or self-care (01) ==
LOC: HO.PMC 11:01
PROVIDERS: PCP Nurse Practitioner Family; Visit Provider Internal Medicine
DX: M25.511 Pain in right shoulder (principal); M79.18 Myalgia, other site
CPT/HCPCS: 20553; 76942

== ENCOUNTER → 2025-06-18 11:00 | Outpatient (BNVA) | payer MEDICARE, SELFPAY | PROVIDERS: PCP Nurse Practitioner Family; Visit Provider Internal Medicine | DX: M25.511 Pain in right shoulder (principal); M54.2 Cervicalgia; M79.18 Myalgia, other site; I48.91 Unspecified atrial fibrillation; Z79.01 Long term (current) use of anticoagulants | CPT/HCPCS: 20553 ==

== ENCOUNTER 2025-06-29 13:47 | Outpatient (REF) | payer MEDICARE, SELFPAY ==
--- OUTSIDE RECORDS SUMMARY | 2024-05-14 12:15 | XMS_ITS ---
Author Organization [facility] Address [address] [place] [address] Care Team Providers Care Health Promotion Manager Name Role Phone Neeta Allenp Unavailable [phone] Sidney Santizo Unavailable Unavailable Nargis Iniguez Unavailable [phone] Encounters Encounter Location Date Provider Diagnosis [facility] [address] [place] [address] 05/14/2024 Nargis Iniguez Plan Of Treatment No Information Progress Notes * Kris CALL DDOB:1949 (75 yo M)Acc No.[id number]:05/14/2024 Progress Notes Patient: Gelacio Kris APPLE Provider: Dustin Iniguez M.D. :1950 A ge:73 Y S ex:Male Date:05/14/2024 Address:[address] [id number] Subjective: * Chief Complaints: * * Medical History: Objective: * Vitals: Assessment: Plan: * Treatment: * Billing Information: * Visit Code: * Procedure Codes: * Electronic signature of Jona Iniguez M.D. on 06/29/2025 at 01:58 PM BRIDGE REPAIRER Sign off status: Pending * Provider: Dustin Iniguez M.D. Date: 07/14/2023 Generated for Valdemari ng/Faxing/eTransmitting on: 08/30/2024 01:58 PM BRIDGE REPAIRER
--- OUTSIDE RECORDS SUMMARY | 2025-06-25 15:40 | XMS_ITS | Continuity of Care Document ---
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 Name Role Phone Leonardo COLÓN, Nagi Baird Primary Care Physician Encounter [facility] [place] Date(s): 06/25/25 - 06/25/[address] [address]- Discharge Disposition: A-D/C Home Attending Physician: Del Roberto MD Admitting Physician: Del Roberto MD Referring Physician: Del Roberto MD Encounter Type: Disch Daystay Allergies, Adverse Reactions, Alerts No Known Medication Allergies Medications Eliquis 5 mg oral tablet 0 Refills, Maintenance, 04/12/25 3:44:00 PM EDT, Partial fill upon patient request if the prescription is for a schedule II opioid drug. Start Date: 04/12/25 Status: Ordered Medication Dispense Status: Completed Total Allowed Fills: 1 Fills Dispensed: 0 gabapentin 300 mg oral capsule Refills 0, Maintenance, 04/12/25 3:44:00 PM EDT, Partial fill upon patient request if the prescription is for a schedule II opioid drug. Start Date: 04/12/25 Status: Ordered Medication Dispense Status: Completed Total Allowed Fills: 1 Fills Dispensed: 0 Metoprolol Succinate ER 50 mg oral tablet, extended release Refills 0, Maintenance, 04/12/25 3:43:00 PM EDT, Partial fill upon patient request if the prescription is for a schedule II opioid drug. Start Date: 04/12/25 Status: Ordered Medication Dispense Status: Completed Total Allowed Fills: 1 Fills Dispensed: 0 tamsulosin 0.4 mg oral capsule Refills 0, Maintenance, 04/12/25 3:44:00 PM EDT, Partial fill upon patient request if the prescription is for a schedule II opioid drug. Start Date: 04/12/25 Status: Ordered Medication Dispense Status: Completed Total Allowed Fills: 1 Fills Dispensed: 0 Mental Status Mental Status Assessment Assessment Assessment Component Result Effecti ve Date Mark coma score total 15 Mental Status Assessment Assessment Assessment Component Result Effecti ve Date [place] coma score total 15 Vital Signs Most recent to oldest [Reference Range]: 1 2 3 Height 180 cm (06/25/25 8:06 AM) Weight 96.8 kg (06/25/25 8:06 AM) Oxygen Saturation [94-100 %] 97 % (06/25/25 1:30 PM) 96 % (06/25/25 1:15 PM) 97 % (06/25/25 1:00 PM) Pulse Rate [55-90 bpm] 59 bpm (06/25/25 8:06 AM) Body Mass Index [18.5-24.99 kg/m2] 29.88 kg/m2 *H* (06/25/25 8:06 AM) Blood Pressure [90-138/55-84 mm Hg] 134/68mm Hg (06/25/25 1:30 PM) 129/66mm Hg (06/25/25 1:15 PM) 130/69mm Hg (06/25/25 1:00 PM) Respiratory Rate [16-30 br/min] 17 br/min (06/25/25 3:30 PM) 21 br/min (06/25/25 1:30 PM) 15 br/min *L* (06/25/25 1:15 PM) Temperature [96.8-100.4 DegF] 97.3 DegF (06/25/25 11:27 AM) 97.1 DegF (06/25/25 8:06 AM) Mode of Delivery (Oxygen) Room air (06/25/25 1:30 PM) Room air (06/25/25 1:15 PM) Room air (06/25/25 1:00 PM) Blood pressure sites Arm, right (06/25/25 8:06 AM) Temperature Route Temporal (06/25/25 11:27 AM) Temporal (06/25/25 8:06 AM) Dry Weight 96.8 kg (06/25/25 8:06 AM) Weight Obtained Via Standing scale (06/25/25 8:06 AM) Dry Weight Obtained Via Standing scale (06/25/25 8:06 AM) Social History Social History Type Response Sex Male Sex Representation Male (finding) Procedure * Event Display: Hemodynamic Procedure Report Authored Date: EKG study * Event Display: ECG 12-Lead Authored Date: [id number] Please click on pdf link to open report * Event Display: ECG 12-Lead Authored Date: [id number] Ventricular Rate: 58 BPM Atrial Rate: 58 BPM P-R Interval: 280 ms QRS Duration: 110 ms Q-T Interval: 478 ms QTC Calculation(Bazett): 469 ms P [place]: 66 degrees R [place]: 7 degrees T [place]: 38 degrees Sinus bradycardia with 1st degree A-V block Otherwise normal ECG When compared with ECG of 25-Jun-2025 08:04, No significant change was found Confirmed by Tank Gomez ([id number]) on 06/25/2025 2:58:50 PM Prosperity: Tank Gomez * Event Display: ECG 12-Lead Authored Date: [id number] Please click on pdf link to open report * Event Display: ECG 12-Lead Authored Date: [id number] Ventricular Rate: 60 BPM Atrial Rate: 60 BPM P-R Interval: 292 ms QRS Duration: 108 ms Q-T Interval: 458 ms QTC Calculation(Bazett): 458 ms P [place]: 11 degrees R [place]: -8 degrees T [place]: 42 degrees Sinus rhythm with 1st degree A-V block Otherwise normal ECG When compared with ECG of 12-Apr-2025 15:44, No significant change was found Confirmed by FABIANO MAZA MD ([id number]) on 06/25/2025 8:13:35 AM [place]ity: [facility] [place] [facility] * Travis Sol RN: PERFORM, SIGN, VERIFY Event Display: [facility] Authored Date: [id number] Patient: CLAYTON CALL Age: 75 years Sex: Male : 1950 Associated Diagnoses: None Author: Travis Sol RN Findings Evaluation Pt noted to have x5 red bumps on upper neck upon ambulation s/p bedrest; approx 0.5cm in size, non itchy and not painful per pt. AILYN Vásquez aware and orders to educate pt to seek medical help ifexperiencing any further symptoms. Pt in agreement to go home and states he will seek medical care if he experiences any other symptoms. . Electronically Signed on 06/25/25 04:36 PM Travis Sol RN Note * Travis Sol RN: PERFORM Event Display: Discharge/Transfer Note Hospital Authored Date: [id number] Nursing Discharge Note Entered On: 06/25/2025 16:16 EST Performed On: 06/25/2025 16:15 EST by Travis Sol RN Nursing Discharge Note 2 Discharge Level of Care at Discharge : Home/Fci/Foster Care Discharge Time : 06/25/2025 15:40 EST Setup Operator Utilized : No Patient Left Unit Via : Wheelchair Patient Accompanied Off Unit with : Significant other, Responsible adult DC Instructions Provided & Signed by Pt : Yes Patient Understands D/C Instructions : Yes Patient Instructions Discharge Signed : Yes Discharge Comments : Pt verbalizes understanding of d/c instrucions. Bilat groin dressings c/d/i, pulses present. Pt taken to lobby in wheelchair for d/c. Did Pt have Specialty Bed or Wound Vac : No Travis Sol RN - 06/25/2025 16:15 EST Electronically Signed on 06/25/25 04:15 PM Travis Sol RN * Kaitlyn Cox RN: PERFORM Event Display: Patient Education/Instruction Authored Date: [id number] Surgery Adult Discharge Instructions [place] [id number] Name: CLAYTON CALL : 1950?? Visit: 06/25/2025 07:29?? Current Date: 06/25/2025 15:34 ?? Account: [id number]?? Surgery Discharge Instructions We would like to thank you for allowing us to assist you with your healthcare needs. The following includes patient education materials and information regarding your injury/illness. Our entire staffstrives to provide an excellent experience for our patients and their families. PLEASE ENSURE YOU FOLLOW-UP PER THE INSTRUCTIONS BELOW! ?? YOUR OPINION IS IMPORTANT TO US! Please complete the survey you may receive by mail or email. Your feedback will be used to make improvements to the healthcare experiences of our patients and their families. Surveys are administered by [employer] ?? If further treatment with your primary care physician or another doctor is recommended, it is important for you to keep the appointment. Call your primary care physician or return to the Emergency Department immediately if your condition worsens, fails to improve, or new symptoms develop. If you need to find a doctor, you can call [facility] [employer] [facility] for a referral at [phone] or toll free at [phone]) or log in to [email or web address].. ?? [facility], in keeping with [facility] guidance, no longer requires face masks for staff, patientsor visitors in most situations. Similiar to time spent indoors at other locations, there is the chance that you were exposed to repiratory viruses during your time with us (such as flu or COVID-19). If you develop symptoms concerning for a viral respiratory infection, please seek testing (and treatment if indicated) from your medical provider or home test kit. ?? You can view and manage your care through the patient portal or by using a health care rosalba of your choosing. [employer] is a website that allows you to securely view your medical information including your hospital discharge summary, office visit summaries, medications and follow-up visits. You can also request appointments, renew medications, and request access to your medical information using a health care rosalba of your choosing, or just ask a question. You are entitled to know the individuals who participated in your treatment. This information is available within your medical record and will be provided upon your request. You can enroll at [email or web address] or register d uring your next office visit. You have been discharged from [facility], Patient Care Unit: CARE??. If you have any questions regarding these instructions after you leave, please call us and we will be happy to assist you. [facility] Your Care Team Attending Physician ChalDel varela MD?? Discharging Providers Del Roberto MD Reason for Admission AFIB ABLATION AFIB PFA HV2 745AM ARR Primary Care Provider Nagi Patterson MD? Advance Directive Health Care Proxy on File No What to do next Instructions From Your Doctor ?? Orders?? discharge after post procedure rest order complete, patient has ambulated and groin incision(s) arestable 30 mins post ambulation, ??06/25/25 11:18:00 EST?? You Need to Schedule the Following Appointments Follow Up with??Del Roberto MD When:Within 2 to 5 weeks Where:[address] [facility] [place] [address]- Follow Up with??Nagi Patterson MD When:Within 2 to 5 weeks Where:[address] [place] [address]- Discharge Medications CLAYTON CALL :1950 Visit Date:06/25/2025 Medications: Please continue your medications until treatment is completed or stopped by your provider. You may resume your daily prescription medications. Discuss any questions related to medications with your provider. What When Instructions Next Dose Unchanged apixaban (Eliquis 5 mg oral tablet) as prescribed; continue per home schedule Unchanged Gabapentin (gabapentin 300 mg oral capsule) as prescribed; continue per home schedule Unchanged Metoprolol (Metoprolol Succinate ER 50 mg oral tablet, extended release) as prescribed; continue per home schedule Unchanged Tamsulosin (tamsulosin 0.4 mg oral capsule) as prescribed; continue per home schedule ?? What When Comments Stop Taking Flecainide (flecainide 150 mg oral tablet) STOP Allergies (NKA means No Known Allergies) No Known Medication Allergies Education Materials Below is the list of Educational Leaflet Providered with your Discharge Instructions. [employer] Patient Education - M-Groin I Discharge Instructions?? [employer] Patient Education - Discharge Instructions for Catheter Ablation?? [employer] Patient Education - Anesthesia: General Anesthesia?? Valuables and Belongings I fully understand and agree that [facility] accepts no responsibility for all my personal property including clothing, toilet articles, radios, jewelry, dentures, hearing aids, rings, money, or any other property that is in my possession or is brought to me after admission. I understand certain valuables may be placed in a hospital safe for a short period of time. I understand that the hospital is not liable for loss or damage due to accident, fire, or other natural occurrence while said property is in the safe. I accept full responsibility for any personal property that I keep with me, and will not hold the hospital responsible in case of loss or disappearance. I acknowledge that i have been encouraged to send valuables and belongings home. ?? Review of Valuable and Belonging List: With patient Date for Pt to Sign Valuables/Belongings: 06/25/25 08:06:00 ?? Valuables & Belongings ?? Clothes Electronic devices Jewelry Monetary Items Personal devices Miscellaneous Medications (Valuables) Valuables at Bedside Pants, Shirt, Shoes, Undergarments ? Valuables Sent Home ? Valuables Sent to Security ? Valuables Sent to Locker ? Other Discharge Information ? Pulmonary Rehab Status?? Pulmonary Rehab Discharge Status?? Respiratory Rate: 21 br/min ? Common Emergency Awareness Tips IS IT A STROKE? Act FAST and Check for these signs: FACE Does the face look uneven? ARM Does one arm drift down? SPEECH Does their speech sound strange? TIME Call at any sign of stroke ?? Heart Attack Signs Chest discomfort: Most heart attacks involve discomfort in the center of the chest and lasts more than a few minutes, or goes away and comes back. It can feel like uncomfortable pressure, squeezing, fullness or pain. Discomfort in upper body: Symptoms can include pain or discomfort in one or both arms, back, neck, jaw or stomach. Shortness of breath: With or without discomfort. Other signs: Breaking out in a cold sweat, nausea, or lightheaded. Remember, MINUTES DO MATTER. If you experience any of these heart attack warning signs, call to get immediate medical attention! ?? Smoking can increase your chances of developing chronic health problems and can cause harmful effects to other family members in your house. If you smoke, you are strongly encouraged to quit. Please call [facility] [employer] Link at [phone] or [phone] ([phone]) or log in to [email or web address] for referrals to smoking cessation programs. ?? The National Suicide Prevention Hotline is available 28/01 if you or someone you know needs to find a reason to keep living. By calling 6-573-689-Zigswitch (3096) you'll be connected to a skilled, trained counselor at a crisis center in your area. SURGERY DISCHARGE INSTRUCTIONS SIGNATURE PAGE CLAYTON CALL Location:[facility] Registration Date and Time:06/25/2025 07:29 EST Primary Care Physician: Leonardo COLÓN , Nagi Baird, Attending Physician: Pardeep COLÓN, Del Banuelos, I CLAYTON CALL, have received the above patient education materials/instructions and have verbalized understanding. If ambulance or transport services are being used I further acknowledge being given a choice of service. ?? If you need to contact me, please call me at this number: . Patient/Inspector Plating Name: Patient/Inspector Plating Signature: Relationship to Patient: Witness Name/Signature: Date: * Kaitlyn Cox RN: PERFORM Event Display: Patient Education Leaflets Authored Date: [id number] M-Groin I Discharge Instructions ?? 179 Groin Discharge Instructions No heavy lifting over 10 pounds (for example: gallon of milk) 1 week following the procedure; gradually increase normal activity over the next 5 days. Avoid straining/pushing when moving bowels You may feel like resting more after your procedure. Slowly start to do more each day. Rest when you feel it is needed. Make sure to look at your procedure site every day until it is completely healed. You may see bruising at the puncture site and that is common after the procedure. You may shower the day after your procedure. Remove the band aid before showering. Wash the area gently with soap and water. Leave open to air. Do not take tub baths, hot tubs, soaking of the puncture site or swimming for 1 week. Do not put any creams, powders or lotions on your puncture site You may resume sexual activity the day after your procedure; avoid bending the hip on ?? the side of the groin puncture excessively and any strenuous positions for 1 week. Call your doctor if your procedure site develops any of the following: ??? New onset severe pain ??? New onset lump or swelling ??? Bleeding that does not stop with lightpressure ? * Kaitlyn Cox RN: PERFORM Event Display: Patient Education Leaflets Authored Date: [id number] Discharge Instructions for Catheter Ablation ?? [address] Discharge Instructions for Catheter Ablation You have had a procedure called catheter ablation. It was??used to treat an abnormal heartbeat (arrhythmia). This procedure destroyed (ablated) the cells in your heart that were causing your heart rhythm problem. During the procedure, the health care provider put a thin,??flexible??wire (catheter)??into a blood vessel in your groin. You may have also had a catheter placed through a vein in your neck. The provider then threaded the catheter to your heart to find the area of concern and treat theproblem. Home care Here are recommendations for care at home: ??? Make arrangements for someone to drive you home after the procedure. You will be given medicine to relax you (sedation). Your health care provider may tell you not to??drive for 24 to 48 hours after the procedure. ??? Expect to be able to go back to your normal daily activities in the next 1 to 2 days. 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 ??? Don't do any heavy physical activity or excessive bending at the waist for several days after the procedure. This will allow your body to heal. ??? Don't lift heavy objects until your provider tells you to. Talk with your provider about any specific limits you need to follow. ??? Ask your provider when you can??return to work. ??? Check the area where the catheter was inserted for signs of infection every day for a week. Keep the site dry as instructed. Signs of infection include redness, swelling, drainage, or warmth at the incision site.??Take your temperature if you feel you may have a fever. Let your provider know if you develop any symptoms of infection orsee any discharge from your site. ??? Take your medicines exactly as directed. Don???t skip doses. You may need to make some changes in your medicines because of the ablation procedure. Be sure to goover your medicine instructions with your provider before you are discharged. ??? Learn to take your own pulse. Keep a record of your results. Ask your provider which readings mean that you need medical attention. ?? Follow-up care Make a follow-up appointment as directed by your health care provider. Your provider will check howthe catheter site is healing. In many cases, 1 ablation is enough to treat an arrhythmia. But sometimes the problem comes back or another problem is found. If this happens, you may need a second procedure. ?? When to call your doctor Contact your health care provider right away if you have: ??? Redness, pain, swelling, bleeding, or drainage from the area where the catheter was put in. ???A temperature of 100.4??F (38??C) or higher, or as directed by your provider. ??? Sudden coldness, pain, or numbness in the leg or arm where the catheter was put in. ??? Nausea or vomiting. ??? Difficulty swallowing, excessive pain when swallowing, or vomiting blood. ??? A heart rate that stays high. Note: Ask your provider what to expect about your heartbeat. Sometimes the irregularity goes away right after the procedure. Other times it may take longer to go away. ?? Call 911 Call 911 right away if you have: ??? Bleeding from the puncture site that does not slow down when you press on it firmly. ??? Chest pain, shortness of breath, or dizziness. ??? Sudden numbness or weakness, especially on one side of the body, or difficulty speaking. ??? A sudden loss of consciousness/responsiveness. ?? Last Reviewed Date: 2024 00:00:00 ?? 2134-6900 [employer]. All rights reserved. This information is not intended as a substitute for professional medical care. Always follow your healthcare professional's instructions. ?? * Kaitlyn Cox RN: PERFORM Event Display: Patient Education Leaflets Authored Date: [id number] Anesthesia: General Anesthesia ?? [address] Anesthesia: General Anesthesia You???re due to have surgery. During surgery, you???ll be given medicine called anesthesia or anesthetic. This will keep you comfortable and pain-free. Your??anesthesia provider??will use general anesthesia . You are watched continuously during your procedure by your anesthesia provider. What is general anesthesia? General anesthesia puts you into a state like deep sleep. It goes into the bloodstream (IV anesthetics), into the lungs (gas anesthetics),or both. You feel nothing during the procedure. You won't remember it either. During the procedure, the anesthesia provider monitors you continuously. They trackyour heart rate and rhythm, blood pressure, breathing, and blood oxygen. ??? IV anesthetics. IV anesthetics are given through an IV (intravenous) line in your arm. They???re often given first. This is so you're asleep before a gas anesthetic is started. Some kinds of IV anesthetics ease pain. Others relax you. Your healthcare provider will decide which kind is best in your case. ??? Gas anesthetics. Gas anesthetics are breathed into the lungs. They're often used to keep you asleep. They can be given through a face mask. Or they can be given through a tube placed in your voice box (larynx) or breathing tube (trachea). o Face mask. Your anesthesia provider will most likely place the face maskover your nose and mouth while you???re still awake. You???ll breathe oxygen through the mask as your IV anesthetic is started. Gas anesthetic may be added through the mask. o Tube in the larynx or trachea. The tube will be inserted into your throat after you???re asleep. ?? Anesthesia tools and medicines You will likely have: ??? IV anesthetics. These are put into an IV line into your bloodstream. ??? Gas anesthetics.??You breathe these??anesthetics??into your lungs. Then they pass into your bloodstream. ??? Pulse oximeter. This is a small clip that's attached to??the end of your finger. It measures your blood oxygen level. ??? Electrocardiography leads (electrodes). ??These are small sticky padsthat are placed??on your chest. They record your heart rate and rhythm. ??? Blood pressure cuff. This reads your blood pressure. ?? Risks and possible complications General anesthesia has some risks. These include: ??? Breathing problems ??? Upset stomach (nausea)and vomiting ??? Sore throat or hoarseness (usually temporary) ??? Allergic reaction to the anesthetic ??? Irregular heartbeat (rare) ??? Cardiac arrest (rare) ?? Anesthesia safety ??? Follow any directions you're given for not eating or drinking before your procedure. ??? Tell your healthcare provider what medicines??you take. This includes prescription and inlr-mqv-fjwwcoi medicines. It also includes vitamins, herbs, and other supplements. You'll be asked when those were last taken. ??? Have a trusted adult drive you home after the procedure. ??? For thefirst 24 hours after your surgery: o Don't drive or use heavy equipment. o Don't make important decisions or sign legal documents. If important decisions or signing legal documents is necessary during the first 24 hours after surgery, have a trusted family member or spouse act on your behalf. o Don't drink alcohol. o Have??a responsible adult??stay with you.??They can watch for problems and help keep you safe. ?? Last Reviewed Date: 2023 00:00:00 ?? 5225-7985 [employer]. All rights reserved. This information is not intended as a substitute for professional medical care. Always follow your healthcare professional's instructions. ?? Patient Care team information Care Team Personnel Name: Nagi Patterson MD Position: S Outreach Member Role: PCP [address]: [address] [place] [address] Telecom: Insurance Providers Guarantor name: [facility] Information #: 1 Payer: [employer] MEDICARE ADV PPO Payer Identifier: NA Member Number: [id number] Group Number: [id number] Subscriber Identifier: [id number] Relationship to Subscriber: self Coverage Type: Medicare PPO Coverage Verification Date: NA Telecom: NA Address:
--- NOTE | ~2025-06-29 | US_ITS ---
EXAMINATION: US RETROPERITONEUM HISTORY: R35.1 - Nocturia TECHNIQUE: Real-time grayscale ultrasound imaging of the kidneys was performed and images were reviewed. COMPARISON: There are no prior studies available for comparison. FINDINGS: Right kidney: The right kidney measures 10.2 x 5.0 x 5.9 cm. Renal parenchymal echotexture and thickness are normal. There are no masses. There is no hydronephrosis or renal calculi. Left Kidney: The left kidney measures 10.0 x 6.4 x 5.5 cm. Renal parenchymal echotexture and thickness are normal. There are no masses. There is no hydronephrosis or renal calculi. The urinary bladder is unremarkable. A left ureteral jet is identified. No right jet is seen. Before voiding, the urinary bladder measured 7.3 x 6.7 x 7.6 cm, for an estimated volume of 196 mL. After voiding, the urinary bladder measured 5.8 x 4.2 x 6.7 cm, for an estimated volume of 84 mL. The prostate measures 3.5 x 3.9 x 4.3 cm, for an estimated volume of 31 mL. US/US retroperitoneal comp IMPRESSION: 1. Unremarkable retroperitoneal ultrasound. 2. Post void bladder residual of 84 mL. 3. Prostate volume of 31 mL. Electronically signed by: Kris Quiroz MD 06/29/2025 03:02 PM [facility]
--- OUTSIDE RECORDS SUMMARY | 2025-06-29 14:58 | XMS_ITS | Patient Health Record ---
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 [place] [address] [id number] Kris Jeter Self - patient is the insured
--- OUTSIDE RECORDS SUMMARY | 2025-06-29 14:58 | XMS_ITS | Patient Health Record ---
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 Name Role Phone Kris López DO Primary Care Provider JANAY Sotelo [phone] Allergies No Known Allergies Reason For Referral No Information Social History Tobacco Use: Social History Observation Description Date Details (start date - stop date) Former Smoker NA - NA Sex Observation Social History Observation Description Sex Observation Male Social History Social History Social Info Question Answer Notes Tobacco Status: Patient is a former smoker (ANSWERED BY PATIENT) Alcohol Use: Patient uses alcohol (ANSWERED BY AILYN THAO) Drinks per week: 1 (ANSWERED BY PATIENT) Drinks per occasion: 2 (ANSWERED BY PATIENT) Additional Details Category Social Info Options Details Social History Occupation/Work: retired ( ANSWERED BY PATIENT) Marital Status: (ANSWERE D BY PATIENT) Lives with: spouse (ANSWERED BY PATIENT) Plan Of Treatment No Information Insurance Providers Payer Name Payer Address Payer Phone Subscriber Number Group Number Insured Name Patient Relationship to Insured Coverage Start Date Coverage End Date [place]ICARE [place] PART B [address] AILYN HARVEY [id number] Kris Jeter Self - patient is the insured 8 2 BCBS [facility] [address] [place], [place] [id number] Kris Jeter Self - patient is the insured 2 2 Medical (General) History Medical History History ICD Code Past Medical History: Atrial Fib/Flutter (ANSWERED BY PATIENT) Surgical History Surgery Date(Month/Year)
== END 2025-06-29 13:48 | disposition home or self-care (01) ==
LOC: HO.US 13:47
PROVIDERS: PCP Family Medicine; Visit Provider Nurse Practitioner Family
DX: R35.1 Nocturia (principal)
CPT/HCPCS: 76770

== ENCOUNTER → 2025-06-29 13:48 | Outpatient (BNV) | payer MEDICARE, SELFPAY | PROVIDERS: PCP Family Medicine; Visit Provider Radiology Diagnostic Radiology | DX: R35.1 Nocturia (principal) | CPT/HCPCS: 76770 ==